=== PATIENT | female | born 1980 ===

== ENCOUNTER 2016-12-26 15:37 | Emergency (ER) | payer OTHER ==
[2016-12-26 16:28] VITALS: BMI 34.5
[2016-12-26 16:30] VITALS: TEMP 98.1
--- NOTE | 2016-12-26 17:07 | ED PDOC ---
Arrival/HPI - General Chief Complaint: Lower Extremity Problem/Injury Time Seen by Provider: 12/26/16 15:46 Historian: Patient - History of Present Illness Narrative History of Present Illness (Text): 12/26/16 17:07 36-year-old female presents today with right leg pain 1 week. Patient denies any recent trauma or injury. Patient states she has been taking Tylenol for pain. Patient states the pain is located in the lateral aspect of the right side. She denies numbness weakness or tingling in the extremity. Denies abdominal pain. pt denies back pain. no urinary symptoms. pt states the pain is only to the lateral thigh. denies rash. no other complaints. Past Medical History - Provider Review Nursing Documentation Reviewed: Yes - Travel History Have you recently traveled outside [place] w/in the past 3 mons?: No - Infectious Disease Hx of Infectious Diseases: None - Tetanus Immunization Tetanus Immunization: Unknown - Cardiac Hx Cardiac Disorders: Yes Hx Hypertension: Yes - Pulmonary Hx Tuberculosis: No - Neurological HX Cerebrovascular Accident: No Hx Seizures: Yes - HEENT Hx HEENT Disorder: No - Renal Hx Renal Disorder: No - Endocrine/Metabolic Hx Endocrine Disorders: No - Hematological/Oncological Hx Cancer: No - Integumentary Hx Dermatological Disorder: No - Musculoskeletal/Rheumatological Hx Falls: Yes - Gastrointestinal Hx Gastrointestinal Disorders: No - Genitourinary/Gynecological Hx Sexually Transmitted Diseases: No - Psychiatric Hx Anxiety: Yes Hx Depression: Yes Hx Schizophrenia: Yes Hx Substance Use: No - Surgical History Hx Tubal Ligation: Yes - Anesthesia Hx Anesthesia: Yes Hx Anesthesia Reactions: No Hx Malignant Hyperthermia: No - Suicidal Assessment Feels Threatened In Home Enviroment: No Family/Social History - Physician Review Nursing Documentation Reviewed: Yes Family/Social History: Unknown Family HX Smoking Status: Never Smoked Hx Alcohol Use: No Hx Substance Use: No Hx Substance Use Treatment: No Allergies/Home Meds Allergies/Adverse Reactions: Allergies No Known Allergies Allergy (Verified 11/24/16 12:37) Denied Review of Systems - Review of Systems Constitutional: absent: Fatigue, Fevers Respiratory: absent: SOB, Cough Cardiovascular: absent: Chest Pain, Palpitations Gastrointestinal: absent: Abdominal Pain, Constipation, Diarrhea, Nausea, Vomiting Genitourinary Female: absent: Dysuria, Frequency, Hematuria Musculoskeletal: Arthralgias (right leg pain). absent: Back Pain, Neck Pain Skin: absent: Rash, Pruritis Physical Exam Vital Signs Reviewed: Yes Vital Signs Temp Pulse Resp BP Pulse Ox 12/26/16 16:41 90 18 115/68 100 12/26/16 16:28 98.1 F 91 H 17 113/71 97 Temperature: Afebrile Blood Pressure: Normal Pulse: Regular Respiratory Rate: Normal Appearance: Positive for: Well-Appearing, Non-Toxic, Comfortable Pain Distress: None Mental Status: Positive for: Alert and Oriented X 3 - Systems Exam Head: Present: Atraumatic Neck: Present: Normal Range of Motion Respiratory/Chest: Present: Clear to Auscultation, Good Air Exchange. No: Respiratory Distress, Accessory Muscle Use Cardiovascular: Present: Regular Rate and Rhythm, Normal S1, S2. No: Murmurs Abdomen: No: Tenderness, Distention, Rebound, Guarding Back: Present: Normal Inspection. No: CVA Tenderness, Midline Tenderness, Paraspinal Tenderness Upper Extremity: Present: Normal Inspection Lower Extremity: Present: Normal Inspection, NORMAL PULSES, Tenderness (+ ttp over lateral aspect of right thigh; no edema, no erythema; no ecchymosis; full rom of leg; ambulates with steady gait; sensation and distal pulses intact; no calf tenderness; full rom of hip and knee. ), Neurovascularly Intact, Capillary Refill < 2 s. No: Edema, CALF TENDERNESS, Swelling, Erythema, Deformity Skin: Present: Warm, Dry, Normal Color. No: Rashes Psychiatric: Present: Alert, Oriented x 3 Medical Decision Making ED Course and Treatment: 12/26/16 18:23 Patient nontoxic well-appearing in no distress with stable vital signs X-rays of the right hip and pelvis: No fracture Toradol IM Venous duplex of the right lower leg: No DVT verbal report from radiography technician pt reassessment; pt feeling better after medications; vitals stable. I discussed all results with patient advised to followup with the orthopedist for the next 2 days. Return if symptoms worsen persist or new symptoms develop Patient verbalizes understanding of discharge instructions and need for immediate followup. all aspects of this case were discussed the attending of record. Impression: Leg pain Motrin every 6 hours as needed for pain Rest, ice, Followup with the orthopedist within the next 2 days Followup with primary care physician within the next 2 days Return if any other concerning symptoms develop - RAD Interpretation Radiology Orders: 03/31/17 16:35 DUPLEX LOWER EXTRM VEIN RIGHT [US] Stat 12/26/16 17:32 Hip Right [HIP MIN 2V W/ PELVIS RT] [RAD] Stat - Medication Orders Current Medication Orders: Discontinued Medications Ketorolac Tromethamine (Toradol) 60 mg IM STAT STA Stop: 12/26/16 16:37 Last Admin: 12/26/16 17:20 Dose: 60 MG IM Administration Charges Document 12/26/16 17:20 HI (Rec: 12/26/16 17:20 HI [id number]) Injection Site MAR Injection Site Right Gluteus Praneeth Charges for Administration # of IM Administrations 1 Disposition/Present on Arrival - Present on Arrival Any Indicators Present on Arrival: No History of DVT/PE: No History of Uncontrolled Diabetes: No Urinary Catheter: No History of Decub. Ulcer: No History Surgical Site Infection Following: None - Disposition Have Diagnosis and Disposition been Completed?: Yes Diagnosis: Leg pain Disposition: HOME/ ROUTINE Disposition Time: 18:24 Patient Plan: Discharge Patient Problems: Current Active Problems Problem Status Diagnosed Leg pain Acute Condition: GOOD Discharge Instructions (ExitCare): Arthralgia (ED), Leg Pain (ED) Additional Instructions: Motrin every 6 hours as needed for pain Rest, ice, Followup with the orthopedist within the next 2 days Followup with primary care physician within the next 2 days Return if any other concerning symptoms develop Prescriptions: Ibuprofen [Motrin] 600 mg PO Q6H PRN #20 tab PRN Reason: pain/fever reduction Referrals: Deanne Delacruz MD [Primary Care Provider] - Follow up with primary Kevin Shelton MD [Staff Provider] - Follow up with primary Forms: WORK NOTE
[2016-12-26 18:50] VITALS: BP 114/70; PULSE 66; RESP 16; O2SAT 98
--- NOTE | 2016-12-27 13:36 | RAD ---
HISTORY: hip pain COMPARISON: No prior FINDINGS: BONES: Normal. No fracture. JOINTS: Normal. No osteoarthritis. SOFT TISSUE: Normal. OTHER FINDINGS: None . IMPRESSION: Normal Bone Xray.
--- NOTE | 2016-12-27 21:30 | US ---
PROCEDURE: Right lower extremity venous US HISTORY: Leg pain and swelling. Evaluate for DVT. PHYSICIAN(S): Frederick Stallings M.D. TECHNIQUE: Duplex sonography and color-flow Doppler with graded compression were used to evaluate the deep venous system of the right lower extremity. FINDINGS: The visualized deep venous system of the right lower extremity is sonographically normal and compressible. Normal waveforms and augmentation are seen. There is no sonographic evidence for deep venous thrombosis in the visualized segments of the right lower extremity. IMPRESSION: 1. No sonographic evidence for deep venous thrombosis in the visualized segments of the right lower extremity.
== END 2016-12-26 18:48 | disposition home or self-care (01) ==
LOC: ED 15:37
DX: M79.604 Pain in right leg (principal); I10 Essential (primary) hypertension
CPT/HCPCS: 73502; 93971; 96372; 99284; J1885

== ENCOUNTER 2017-01-11 10:28 | Emergency (ER) | payer OTHER ==
[2017-01-11 10:28] VITALS: BMI 34.5
[2017-01-11 11:09] VITALS: TEMP 97.3; O2SAT 98
[2017-01-11 11:15] VITALS: RESP 18
--- NOTE | 2017-01-11 11:24 | ED PDOC ---
Arrival/HPI - General Chief Complaint: Medical Clearance Time Seen by Provider: 01/11/17 10:57 Historian: Patient - History of Present Illness Narrative History of Present Illness (Text): 01/11/17 11:21 Patient with past medical history of seizure disorder, on valproic acid and Keppra, reports waking up this morning with urinary incontinence. Patient states that she has had 2 prior episodes of urinary incontinence in the middle of the night in the past 1 month. 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 States that she is unsure if she may have had a seizure this morning causing the urinary incontinence. States that she is compliant with her valproic acid and Keppra medication which she lost prior to arrival. Otherwise: (-) headache, (-) dizziness, (-) nausea, ( -) vomiting, (-) fever, (-) trauma, (-) abdominal pain, (-) dysuria, (-) diarrhea, (-) other complaints. PMD [facility]ist: Beena Rob in [place] Past Medical History - Provider Review Nursing Documentation Reviewed: Yes - Infectious Disease Hx of Infectious Diseases: None - Tetanus Immunization Tetanus Immunization: Unknown - Cardiac Hx Cardiac Disorders: Yes Hx Hypertension: Yes - Pulmonary Hx Tuberculosis: No - Neurological HX Cerebrovascular Accident: No Hx Seizures: Yes - HEENT Hx HEENT Disorder: No - Renal Hx Renal Disorder: No - Endocrine/Metabolic Hx Endocrine Disorders: No - Hematological/Oncological Hx Cancer: No - Integumentary Hx Dermatological Disorder: No - Musculoskeletal/Rheumatological Hx Falls: Yes - Gastrointestinal Hx Gastrointestinal Disorders: No - Genitourinary/Gynecological Hx Sexually Transmitted Diseases: No - Psychiatric Hx Anxiety: Yes Hx Bipolar Disorder: Yes Hx Depression: Yes Hx Schizophrenia: Yes Hx Substance Use: No - Surgical History Hx Tubal Ligation: Yes - Anesthesia Hx Anesthesia: Yes Hx Anesthesia Reactions: No Hx Malignant Hyperthermia: No - Suicidal Assessment Feels Threatened In Home Enviroment: No Family/Social History - Physician Review Nursing Documentation Reviewed: Yes Family/Social History: No Known Family HX Smoking Status: Never Smoked Hx Alcohol Use: No Hx Substance Use: No Hx Substance Use Treatment: No Allergies/Home Meds Allergies/Adverse Reactions: Allergies No Known Allergies Allergy (Verified 01/11/17 10:40) Denied Home Medications: Home Meds Medication Instructions Recorded Confirmed Risperidone [Risperdal] 3 mg PO HS 01/11/17 01/11/17 risperiDONE [RisperDAL Tab] 2 mg PO DAILY 01/11/17 01/11/17 Review of Systems - Review of Systems Constitutional: Normal. absent: Fatigue, Weight Change, Fevers Respiratory: Normal. absent: SOB, Cough Cardiovascular: Normal. absent: Chest Pain, Palpitations Gastrointestinal: Normal. absent: Abdominal Pain, Stool Changes, Appetite Changes Genitourinary Female: Normal, Urine Output Changes. absent: Dysuria, Frequency , Hematuria Musculoskeletal: Normal. absent: Arthralgias, Back Pain, Neck Pain Skin: Normal. absent: Rash, Pruritis, Skin Lesions Neurological: Normal. absent: Headache, Dizziness, Focal Weakness Physical Exam - Physical Exam Narrative Physical Exam (Text): 01/11/17 11:25 GENERAL APPEARANCE: Patient is awake, alert, oriented x 3, in no acute distress. Patient is answering questions appropriately. SKIN: Warm, dry; (-) cyanosis; (-) rash. HEAD: (-) scalp swelling or tenderness, (-) temporal artery tenderness. EYES: (-) conjunctival pallor, (-) scleral icterus. ENMT: (-) sinus tenderness; mucous membranes moist. NECK: (-) tenderness, (-) stiffness, (-) meningismus, (-) lymphadenopathy. CHEST AND RESPIRATORY: (-) rales, (-) rhonchi, (-) wheezes; breath sounds equal bilaterally. HEART AND CARDIOVASCULAR: (-) irregularity; (-) murmur, (-) gallop. ABDOMEN AND GI: Soft; (-) tenderness. EXTREMITIES: (-) deformity. NEURO AND PSYCH: Mental status as above. steam turbine assembler: Pupils equal and reactive; EOMI ; (-) facial asymmetry; tongue and uvula midline. Strength and DTRs symmetric. Babinski normal bilaterally. Vital Signs Temp Pulse Resp BP Pulse Ox 01/11/17 13:00 73 18 114/78 98 01/11/17 11:12 97.3 F L 78 18 112/75 98 01/11/17 10:30 97.3 F L 78 20 112/75 98 Medical Decision Making ED Course and Treatment: 01/11/17 11:25 36 yo F with history of seizure disorder, presents with an episode of urinary incontinence earlier this morning, unsure if she had a seizure episode, however is compliant with her seizure medication. Plan: -- Labs -- Valproic acid level -- Urinalysis -- Reassess and disposition 01/11/17 13:01 Labs reviewed and are within normal limits. On exam, patient remains awake, alert and oriented 3 in no acute distress. Lab results discussed with the patient in great detail. Case d/w Dr. Duncan, states that the patient can be discharged with outpatient follow up, states that she has been worked up for the following symptoms of urinary incontinence, which Dr. Duncan states is likely unrelated to her seizures and maybe due to her medication regime causing increased relaxation of her urethral / bladder muscles causing urine leakage at night, she has advised the patient to avoid caffeinated drinks especially at night to avoid any urinary incontinence. 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 Patient states she fully agrees with and understands discharge instructions. States that she agrees with the plan and disposition. Verbalized and repeated discharge instructions and plan. I have given the patient opportunity to ask any additional questions. Follow up with primary care physician and bank manager in 1-2 days without fail. Return to the emergency room at any time for any new or worsening symptoms. - Lab Interpretations Lab Results: 01/11/17 11:37 01/11/17 11:37 Lab Results 01/11/17 11:37: WBC 5.1 D, RBC 4.05, Hgb 12.1, Hct 36.1, MCV 89.1, MCH 29.9, MCHC 33.5, RDW 13.8, Plt Count 272, MPV 9.6, Gran % 57.0, Lymph % (Auto) 32.1, Blount % (Auto) 9.7 H, Eos % (Auto) 0.8 L, Baso % (Auto) 0.4, Gran # 2.89, Lymph # 1.6, Blount # 0.5, Eos # 0.0, Baso # 0.02, Sodium 138, Potassium 3.9, Chloride 100, Carbon Dioxide 27, Anion Gap 15, BUN 10, Creatinine 0.7, Est GFR ( Amer) > 60, Est GFR (Non-Af Amer) > 60, Random Glucose 102, Calcium 9.4, Total Bilirubin 0.3, AST 24, ALT 31, Alkaline Phosphatase 64, Total Protein 8.1, Albumin 4.0, Globulin 4.1, Albumin/Globulin Ratio 1.0 L, Valproic Acid 62 01/11/17 11:23: Urine Color Yellow, Urine Appearance Clear, Urine pH 6.0, Ur Specific [place] 1.025, Urine Protein Negative, Urine Glucose (UA) Negative, Urine Ketones Trace H, Urine Blood Negative, Urine Nitrate Negative, Urine Bilirubin Negative, Urine Urobilinogen 0.2, Ur Leukocyte Esterase Negative - PA / FOOD SERVICES COORDINATOR / Resident Statement MD/DO has reviewed & agrees with the documentation as recorded. Disposition/Present on Arrival - Present on Arrival Any Indicators Present on Arrival: No History of DVT/PE: No History of Uncontrolled Diabetes: No Urinary Catheter: No History of Decub. Ulcer: No History Surgical Site Infection Following: None - Disposition Have Diagnosis and Disposition been Completed?: Yes Diagnosis: Urinary incontinence in female Disposition: HOME/ ROUTINE Disposition Time: 13:11 Patient Plan: Discharge Condition: GOOD Discharge Instructions (ExitCare): Urinary Incontinence (ED) Print Language: CAMEROONIAN Additional Instructions: Thank you for letting us take care of you today. You were treated for urinary incontinence. The emergency medical care you received today was directed at your acute symptoms. If you were prescribed any medication, please fill it and take as directed. It may take several days for your symptoms to resolve. Return to the Emergency Department if your symptoms worsen, do not improve, or if you have any other problems. Please contact your doctor and SUPERVISOR BLOOD DONOR RECRUITERS in 2 days for re-evaluation and follow up. Bring any paperwork you were given at discharge with you along with any medications you are taking to your follow up visit. Our treatment cannot replace ongoing medical care by a primary care provider (PCP) outside of the emergency department. Thank you for allowing the [facility] team to be part of your care today.
[2017-01-11 11:37] LABS: ADD MANUAL DIFF? NO
[2017-01-11 11:50] LABS: URINE BILIRUBIN NEGATIVE (NEGATIVE); URINE BLOOD NEGATIVE (NEGATIVE); URINE GLUCOSE (UA) NEGATIVE (NEGATIVE); URINE KETONE TRACE mg/dL (NEGATIVE); URINE LEUKOCYTE ESTERASE NEGATIVE Leu/uL (NEGATIVE); URINE PROTEIN NEGATIVE mg/dL (<30 mg/dL); URINE UROBILINOGEN 0.2 E.U./dL (<1 E.U./dL)
[2017-01-11 11:50] LABS: BASO # 0.02 K/mm3 (0.0-2.0); BASO % 0.4 % (0.0-3.0); EOS % 0.8 % (1.5-5.0); GRAN # 2.89 (1.4-6.5); HEMATOCRIT 36.1 % (36.0-48.0); LYMPH # 1.6 (1.2-3.4); LYMPH % 32.1 % (22.0-35.0); MEAN CELL VOLUME 89.1 fL (80.0-105.0); MEAN CORPUSCULAR HEMOGLOBIN 29.9 pg (25.0-35.0); MEAN CORPUSCULAR HGB CONC 33.5 g/dl (31.0-37.0); MEAN PLATELET VOLUME 9.6 fl (7.0-11.0); MONO # 0.5 (0.1-0.6); MONO % 9.7 % (1.0-6.0); PLATELET COUNT 272 10^3/uL (120.0-450.0); RED CELL DISTRIBUTION WIDTH 13.8 % (11.5-14.5); WHITE BLOOD COUNT 5.1 10^3/ul (4.5-11.0)
[2017-01-11 11:53] LABS: URINE APPEARANCE CLEAR (CLEAR); URINE COLOR YELLOW (YELLOW)
[2017-01-11 11:54] LABS: ALKALINE PHOSPHATASE 64 U/L (38-133); ALT/SGPT 31 U/L (7-56); AST/SGOT 24 U/L (15-39); BILIRUBIN,TOTAL 0.3 mg/dL (0.2-1.3); BLOOD UREA NITROGEN 10 mg/dL (7-21); CALCIUM 9.4 mg/dL (8.4-10.5); CARBON DIOXIDE 27 mmol/L (21-33); CHLORIDE 100 mmol/L (95-110); GFR AFRICAN-AMERICAN > 60; GLUCOSE,RANDOM 102 mg/dL (70-110); POTASSIUM 3.9 mmol/L (3.6-5.0); SODIUM 138 mmol/L (132-148); TOTAL PROTEIN 8.1 g/dL (5.8-8.3)
[2017-01-11 13:01] VITALS: BP 114/78; PULSE 73
== END 2017-01-11 13:30 | disposition home or self-care (01) ==
LOC: ED 10:28
DX: R32 Unspecified urinary incontinence (principal); I10 Essential (primary) hypertension

== ENCOUNTER 2017-01-11 20:24 | Emergency (ER) | payer OTHER ==
[2017-01-11 20:30] VITALS: BMI 28.3
[2017-01-11 20:45] VITALS: BP 118/80; PULSE 110; O2SAT 98
[2017-01-11 20:47] VITALS: TEMP 98.2
--- NOTE | 2017-01-11 20:51 | ED PDOC ---
Arrival/HPI - General Time Seen by Provider: 01/11/17 20:27 Historian: Patient - History of Present Illness Narrative History of Present Illness (Text): 01/11/17 20:49 36 year old female with a past medical history that includes seizure disorder, on valproic acid and Keppra, and anxiety/depression presents to the emergency department with reported seizure like episode prior to arrival. Patient's friend states the patient was sitting at home when she "zoned out" and her eyes became watery. No shaking or tightness reported. Patient was seen in the ED earlier today after waking up with urinary incontinence. Patient states she does see a neurologist Dr. Anaya. She reports compliance with seizure and psych medications. Denies suicidal ideation or homicidal ideation. No other complaints at this time. PMD: Dr. Delacruz 01/11/17 22:29 After reevaluation, patient admits that she was just upset. That she was crying because she missing her child who she doesn't take care of anymore because of DYFS. She does request to see someone now. Time/Duration: Prior to Arrival Symptom Onset: Sudden Symptom Course: Resolved Associated Symptoms (Text): None Past Medical History - Provider Review Nursing Documentation Reviewed: Yes - Infectious Disease Hx of Infectious Diseases: None - Tetanus Immunization Tetanus Immunization: Unknown - Cardiac Hx Cardiac Disorders: Yes Hx Hypertension: Yes - Pulmonary Hx Tuberculosis: No - Neurological HX Cerebrovascular Accident: No Hx Seizures: Yes - HEENT Hx HEENT Disorder: No - Renal Hx Renal Disorder: No - Endocrine/Metabolic Hx Endocrine Disorders: No - Hematological/Oncological Hx Cancer: No - Integumentary Hx Dermatological Disorder: No - Musculoskeletal/Rheumatological Hx Falls: Yes - Gastrointestinal Hx Gastrointestinal Disorders: No - Genitourinary/Gynecological Hx Sexually Transmitted Diseases: No - Psychiatric Hx Anxiety: Yes Hx Bipolar Disorder: Yes Hx Depression: Yes Hx Schizophrenia: Yes Hx Substance Use: No - Surgical History Hx Tubal Ligation: Yes - Anesthesia Hx Anesthesia: Yes Hx Anesthesia Reactions: No Hx Malignant Hyperthermia: No - Suicidal Assessment Feels Threatened In Home Enviroment: No Family/Social History - Physician Review Nursing Documentation Reviewed: Yes Family/Social History: Unknown Family HX Smoking Status: Never Smoked Hx Alcohol Use: No Hx Substance Use: No Hx Substance Use Treatment: No Allergies/Home Meds Allergies/Adverse Reactions: Allergies No Known Allergies Allergy (Verified 01/11/17 20:30) Denied Home Medications: Home Meds Medication Instructions Recorded Confirmed Risperidone [Risperdal] 3 mg PO HS 01/11/17 01/11/17 risperiDONE [RisperDAL Tab] 2 mg PO DAILY 01/11/17 01/11/17 Review of Systems - Physician Review All systems were reviewed & negative as marked: Yes - Review of Systems Respiratory: absent: SOB Cardiovascular: absent: Chest Pain Neurological: Other (Episode of zoning out and watery eyes) Psychiatric: absent: Suicidal Ideation Physical Exam Vital Signs Reviewed: Yes Vital Signs Temp Pulse Resp BP Pulse Ox 01/11/17 20:44 98.2 F 110 H 18 118/80 98 Temperature: Afebrile Blood Pressure: Normal Pulse: Tachycardic Respiratory Rate: Normal Appearance: Positive for: Well-Appearing, Non-Toxic, Comfortable Pain Distress: None Mental Status: Positive for: Alert and Oriented X 3 - Systems Exam Head: Present: Atraumatic, Normocephalic Pupils: Present: PERRL Extroacular Muscles: Present: EOMI Conjunctiva: Present: Normal Mouth: Present: Moist Mucous Membranes Neck: Present: Normal Range of Motion Respiratory/Chest: Present: Clear to Auscultation, Good Air Exchange. No: Respiratory Distress, Accessory Muscle Use Cardiovascular: Present: Regular Rate and Rhythm, Normal S1, S2. No: Murmurs Abdomen: Present: Normal Bowel Sounds. No: Tenderness, Distention, Peritoneal Signs Back: Present: Normal Inspection Upper Extremity: Present: Normal Inspection. No: Cyanosis, Edema Lower Extremity: Present: Normal Inspection. No: Edema Neurological: Present: GCS=15, CN II-XII Intact, Speech Normal, Motor Func Grossly Intact, Normal Sensory Function, Normal Cerebellar Funct, Norm Deep Tendon Reflexes Skin: Present: Warm, Dry, Normal Color. No: Rashes Psychiatric: Present: Alert, Oriented x 3, Normal Insight, Normal Concentration Medical Decision Making ED Course and Treatment: Impression: 36 year old female with a past medical history that includes seizure disorder, on valproic acid and Keppra, and anxiety/depression presents to the emergency department with staring off and crying episode Differential Diagnosis included but are not limited to: Symptoms are most likely consistent with Psych. Less likely seizure. Patient's previous seizure involve convulsions. Plan: -- Labs, Udrug screen -- Will have Psych evaluate patient. Prior Visits: Notes and results from previous visits were reviewed. Patient last seen in ED today 01/11/17 for urinary incontinence and discharged home. Progress Notes: 01/11/17 22:33 Patient medically cleared for psych evaluation. Labs completed earlier on previous visit as well. 01/11/17 22:35 Case signed out to Dr. Barcenas for PES evaluation f/u. Urine drug screen pending. - Lab Interpretations Lab Results: Lab Results 01/11/17 21:23: Salicylates < 1 L, Acetaminophen < 10.0 L, Alcohol, Quantitative < 10 - Scribe Statement The provider has reviewed the documentation as recorded by the Guillermo Cortez Provider Scribe Attestation: All medical record entries made by the Zacibe were at my direction and personally dictated by me. I have reviewed the chart and agree that the record accurately reflects my personal performance of the history, physical exam, medical decision making, and the department course for this patient. I have also personally directed, reviewed, and agree with the discharge instructions and disposition. Disposition/Present on Arrival - Present on Arrival Any Indicators Present on Arrival: No History of DVT/PE: No History of Uncontrolled Diabetes: No Urinary Catheter: No History Surgical Site Infection Following: None - Disposition Have Diagnosis and Disposition been Completed?: No Diagnosis: Psychiatric care Disposition Time: 22:35 Condition: GOOD Referrals: Deanne Delacruz MD [Primary Care Provider] - Follow up with primary
[2017-01-11 23:51] VITALS: RESP 16
== END 2017-01-11 23:51 | disposition home or self-care (01) ==
LOC: ED 20:24
DX: Z00.8 Encounter for other general examination (principal); I10 Essential (primary) hypertension

== ENCOUNTER 2017-01-12 15:29 | Emergency (ER) | payer OTHER, MEDICAID ==
[2017-01-12 15:30] VITALS: BMI 28.3
[2017-01-12 16:52] VITALS: BP 116/79; PULSE 82; RESP 16; TEMP 98.3; O2SAT 98
--- NOTE | 2017-01-12 17:35 | ED PDOC ---
Arrival/HPI - General Historian: Patient - General Chief Complaint: Seizure Time Seen by Provider: 01/12/17 16:16 - History of Present Illness Narrative History of Present Illness (Text): 01/12/17 17:31 36yo female with history of seizure, anxiety and depression present with complaint of seizure/depression. She states she had an episode at 1100 when she was tearing and calling out her son's name. States her son taken from her by [employer] 3years ago. The friend who was by the bedside side states she witnessed the episode and described it as "a meltdown". Pt is currently on Valproic acid for her seizure and notes that she takes her medication regularly as was directed. She denies any tonic/clonic event, SI/HI, any current somatic complaint in ED. (Hector Meredith) Past Medical History - Provider Review Nursing Documentation Reviewed: Yes - Infectious Disease Hx of Infectious Diseases: None - Tetanus Immunization Tetanus Immunization: Unknown - Reproductive Menopause: No - Cardiac Hx Cardiac Disorders: Yes Hx Hypertension: Yes - Pulmonary Hx Tuberculosis: No - Neurological HX Cerebrovascular Accident: No Hx Seizures: Yes - HEENT Hx HEENT Disorder: No - Renal Hx Renal Disorder: No - Endocrine/Metabolic Hx Endocrine Disorders: No - Hematological/Oncological Hx Cancer: No - Integumentary Hx Dermatological Disorder: No - Musculoskeletal/Rheumatological Hx Falls: Yes - Gastrointestinal Hx Gastrointestinal Disorders: No - Genitourinary/Gynecological Hx Sexually Transmitted Diseases: No - Psychiatric Hx Anxiety: Yes Hx Bipolar Disorder: Yes Hx Depression: Yes Hx Schizophrenia: Yes Hx Substance Use: No - Surgical History Hx Tubal Ligation: Yes - Anesthesia Hx Anesthesia: Yes Hx Anesthesia Reactions: No Hx Malignant Hyperthermia: No - Suicidal Assessment Feels Threatened In Home Enviroment: No Family/Social History - Physician Review Nursing Documentation Reviewed: Yes Family/Social History: Unknown Family HX Smoking Status: Never Smoked Hx Alcohol Use: No Hx Substance Use: No Hx Substance Use Treatment: No Allergies/Home Meds Allergies/Adverse Reactions: Allergies No Known Allergies Allergy (Verified 01/12/17 16:52) Denied Home Medications: Home Meds Medication Instructions Recorded Confirmed Risperidone [Risperdal] 3 mg PO HS 01/11/17 01/11/17 risperiDONE [RisperDAL Tab] 2 mg PO DAILY 01/11/17 01/11/17 Review of Systems - Physician Review All systems were reviewed & negative as marked: Yes - Review of Systems Constitutional: Normal Eyes: Normal ENT: Normal Respiratory: Normal Cardiovascular: Normal Gastrointestinal: Normal Genitourinary Female: Normal Musculoskeletal: Normal Skin: Normal Neurological: Seizure Endocrine: Normal Hemo/Lymphatic: Normal Psychiatric: Depression Physical Exam Vital Signs Reviewed: Yes Temperature: Afebrile Blood Pressure: Normal Pulse: Regular Respiratory Rate: Normal Appearance: Positive for: Well-Appearing, Non-Toxic, Comfortable Pain Distress: None Mental Status: Positive for: Alert and Oriented X 3 - Systems Exam Head: Present: Atraumatic, Normocephalic Pupils: Present: PERRL Extroacular Muscles: Present: EOMI Conjunctiva: Present: Normal Mouth: Present: Moist Mucous Membranes Neck: Present: Normal Range of Motion Respiratory/Chest: Present: Clear to Auscultation, Good Air Exchange. No: Respiratory Distress, Accessory Muscle Use Cardiovascular: Present: Regular Rate and Rhythm, Normal S1, S2. No: Murmurs Abdomen: Present: Normal Bowel Sounds. No: Tenderness, Distention, Peritoneal Signs Back: Present: Normal Inspection Upper Extremity: Present: Normal Inspection. No: Cyanosis, Edema Lower Extremity: Present: Normal Inspection. No: Edema Neurological: Present: GCS=15, CN II-XII Intact, Speech Normal, Motor Func Grossly Intact, Normal Sensory Function, Normal Cerebellar Funct, Norm Deep Tendon Reflexes, Gait Normal, Memory Normal, Normal 2Pt Descrimination, Other ( No focal neurological deficit) Skin: Present: Warm, Dry, Normal Color. No: Rashes Psychiatric: Present: Alert, Oriented x 3, Normal Insight, Normal Concentration Vital Signs Temp Pulse Resp BP Pulse Ox 01/12/17 16:46 98.3 F 82 16 116/79 98 Medical Decision Making ED Course and Treatment: I was available for consultation during PA evaluation. The chart was reviewed by me, and I agree with disposition. The documented history was done by the physician aircraft stress analyst. The documented physical exam was done by the physician aircraft stress analyst. The documented procedures were done by the physician aircraft stress analyst. ( Zhao Calhoun) 01/12/17 17:37 PT with history of seizure, anxiety/depression currently on Valproic acid in ED for "melt down and zoning out". She was seen here yesterday for same complaint. She was evaluated by Psych and DC to f/u with outpt mental health. Her lab from yesterday was reviewed and her Valproic level yesterday was WNL. Case was NEREIDA Paige PES screener who requested just UDS. UDS and Valproic level was ordered and pending psych evaluation. 01/12/17 19:50 Valproic acid level was 75 which was higher compare to yesterday's 65. Her level was WNL. She was not in any distress in ED. Hemodynamically stable and neurologically intact. Pt was medically cleared for psych evaluation. she was seen in ED by PES screenjillian Paige , who DC with the psychiatrist and DC patient home to F/U with the outpt mental [facility]. Patient already goes to the program there. (Viri,Hector A) - Lab Interpretations Lab Results: Lab Results 01/12/17 17:31: Valproic Acid 75 Disposition/Present on Arrival - Present on Arrival Any Indicators Present on Arrival: No History of DVT/PE: No History of Uncontrolled Diabetes: No Urinary Catheter: No History of Decub. Ulcer: No History Surgical Site Infection Following: None - Disposition Have Diagnosis and Disposition been Completed?: Yes Disposition Time: 19:45 Patient Plan: Discharge - Disposition Diagnosis: Seizure, Depression Disposition: HOME/ ROUTINE Patient Problems: Current Active Problems Problem Status Diagnosed Depression Acute Seizure Acute Condition: STABLE Discharge Instructions (ExitCare): Depression (ED) Additional Instructions: Follow up with [facility] and your Neurologist Return to ED for any new symptoms Referrals: Deanne Delacruz MD [Primary Care Provider] - Follow up with primary
== END 2017-01-12 19:49 | disposition home or self-care (01) ==
LOC: ED 15:29
DX: R56.9 Unspecified convulsions (principal); F32.9 Major depressive disorder, single episode, unspecified

== ENCOUNTER 2017-01-26 10:00 | Emergency (ER) | payer OTHER ==
[2017-01-26 10:04] VITALS: RESP 18; TEMP 98.1
--- NOTE | 2017-01-26 10:06 | ED PDOC ---
Addendum entered and electronically signed by Rachana Ventura PA-C 01/29/17 14:28 : Addendum Addendum: 01/29/17 14:26 I spoke with patient regarding urine culture report, whic demonstrate ESBL. I recommended her to take her ABX till finished. Patient feels better, and she understood plan to see Dr. Donnelly, in 1-[address] Donnelly regarding same urine culture report Original Note: Arrival/HPI - General Historian: Patient - General Time Seen by Provider: 01/26/17 10:03 - History of Present Illness Narrative History of Present Illness (Text): 01/26/17 10:05 36 y/o female, pmh including seizure, psychiatric history including anxiety/ depression/schizoaffective, nkda, biba for burning urinary sensation x 2 days and abdomen feels distended x 3 days. Pt. stated that she didn't go to the program yesterday or today because she has burning urinary sensation with urgency. Pt. has abdomen distension as well, associated with the small hard stool, no nausea or vomiting, no fever or chills, no flank pains, no numbness or tingling, no urinary or bowel incontinence or retention, no night sweat, no other medical or psychological complaints. Pt. stated that she has been peeing on her son's bed every morning which this has been happening for months which she thinks this is appropriate thing to do. Pt. has no tonic or clonic activity , no seizure, able to recall the whole event. (Salvador Mack) Past Medical History - Provider Review Nursing Documentation Reviewed: Yes - Infectious Disease Hx of Infectious Diseases: None - Tetanus Immunization Tetanus Immunization: Unknown - Cardiac Hx Cardiac Disorders: Yes Hx Hypertension: Yes - Pulmonary Hx Tuberculosis: No - Neurological HX Cerebrovascular Accident: No Hx Seizures: Yes - HEENT Hx HEENT Disorder: No - Renal Hx Renal Disorder: No - Endocrine/Metabolic Hx Endocrine Disorders: No - Hematological/Oncological Hx Cancer: No - Integumentary Hx Dermatological Disorder: No - Musculoskeletal/Rheumatological Hx Falls: Yes - Gastrointestinal Hx Gastrointestinal Disorders: No - Genitourinary/Gynecological Hx Sexually Transmitted Diseases: No - Psychiatric Hx Anxiety: Yes Hx Bipolar Disorder: Yes Hx Depression: Yes Hx Schizophrenia: Yes Hx Substance Use: No - Surgical History Hx Tubal Ligation: Yes - Anesthesia Hx Anesthesia: Yes Hx Anesthesia Reactions: No Hx Malignant Hyperthermia: No - Suicidal Assessment Feels Threatened In Home Enviroment: No Family/Social History - Physician Review Nursing Documentation Reviewed: Yes Family/Social History: Unknown Family HX Smoking Status: Never Smoked Hx Alcohol Use: No Hx Substance Use: No Hx Substance Use Treatment: No Allergies/Home Meds Allergies/Adverse Reactions: Allergies No Known Allergies Allergy (Verified 01/12/17 16:52) Denied Home Medications: Home Meds Medication Instructions Recorded Confirmed Risperidone [Risperdal] 3 mg PO HS 01/11/17 01/11/17 risperiDONE [RisperDAL Tab] 2 mg PO DAILY 01/11/17 01/11/17 Review of Systems - Review of Systems Constitutional: absent: Fatigue, Fevers Eyes: absent: Vision Changes ENT: absent: Hearing Changes Respiratory: absent: SOB, Cough, Sputum Cardiovascular: absent: Chest Pain Gastrointestinal: Constipation. absent: Abdominal Pain, Diarrhea, Nausea, Vomiting Genitourinary Female: Dysuria, Frequency. absent: Hematuria, Urine Output Changes, Vaginal Bleeding, Vaginal Discharge Neurological: absent: Headache, Dizziness, Focal Weakness, Gait Changes, Speech Changes, Facial Droop, Disequilibrium, Seizure Physical Exam Temperature: Afebrile Pulse: Regular Respiratory Rate: Normal Appearance: Positive for: Well-Appearing, Non-Toxic, Comfortable Pain Distress: Mild Mental Status: Positive for: Alert and Oriented X 3 - Systems Exam Head: Present: Atraumatic, Normocephalic Pupils: Present: PERRL Extroacular Muscles: Present: EOMI Conjunctiva: Present: Normal Mouth: Present: Moist Mucous Membranes Neck: Present: Normal Range of Motion Respiratory/Chest: Present: Clear to Auscultation, Good Air Exchange. No: Respiratory Distress, Accessory Muscle Use Cardiovascular: Present: Regular Rate and Rhythm, Normal S1, S2. No: Murmurs Abdomen: Present: Normal Bowel Sounds. No: Tenderness, Distention, Peritoneal Signs, Rebound, Guarding Back: Present: Normal Inspection Upper Extremity: Present: Normal Inspection. No: Cyanosis, Edema Lower Extremity: Present: Normal Inspection. No: Edema Neurological: Present: GCS=15, Speech Normal, Motor Func Grossly Intact, Gait Normal, Memory Normal Skin: Present: Warm, Dry, Normal Color. No: Rashes Psychiatric: Present: Alert, Oriented x 3, Normal Insight, Normal Concentration Vital Signs Temp Pulse Resp BP Pulse Ox 01/26/17 14:04 72 18 106/61 99 01/26/17 12:44 79 18 104/59 L 99 01/26/17 11:41 88 18 102/53 L 99 01/26/17 10:03 98.1 F 113 H 18 110/82 94 L Medical Decision Making - Lab Interpretations I have reviewed the lab results: Yes Interpretation: Abnormal lab values (wbc 12.2, +UTI) - RAD Interpretation Talent Acquisition Administrator: Radiologist - EKG Interpretation Interpreted by ED Physician: Yes Type: 12 lead EKG Comparison: Com.w/previous EKG ED Course and Treatment: I was available for consultation during PA evaluation. The chart was reviewed by me, and I agree with disposition. The documented history was done by the physician packing inspector. The documented physical exam was done by the physician packing inspector. The documented procedures were done by the physician packing inspector. (Zhao Calhoun) 01/26/17 10:33 -labs/ua/uds/salicy/acetam/valporic acid -CT head -Chest xray/abdominal xray -Will call PES for evaluation 01/26/17 12:55 -Labs are non-significant except +UTI -EKG show NSR @ 92 BPM, no ST elevation or depression, no T wave inversion. -Chest x-ray show no acute findings -Abdominal xray show no obstruction -CT head show no acute findings -Pt. is medically clear and stable for PES evaluation, PES notified. 01/26/17 13:58 -Pt does have UTI, IV rocephine ordered since she has IV. -Pt. feels that urinating on her son's bed is a normal habit for her each morning for the past 6-12 months which this is unusual which she no seizure. Therefore, PES evaluation is requested. 01/26/17 15:00 -Pt. has been evaluated by the psychiatric staff PES which discussed with DR. Jennifer Keenan. As per PES, Dr. Jennifer Lozano knows the patient very well and this is her baseline. As per PES, pt. is clear to be discharged home. Pt. has no seizure activities and no acute treatment indicated today other than UTI. -Pt. feels well to go home, and I will discharge her home. -Pt. has no lower back pain or back pain. -Discharge home with macrobid, pyridium, miralax, stay hydrated, follow up with your own pmd and continue to follow up with the psychiatric clinic within 2 days , return to the ER for any new or worsening signs or symptoms. (Salvador Mack) - Lab Interpretations Lab Results: 01/26/17 11:00 01/26/17 11:00 Lab Results 01/26/17 11:00: Alcohol, Quantitative < 10 01/26/17 11:00: Salicylates < 1 L, Acetaminophen < 10.0 L, Valproic Acid 75 01/26/17 11:00: Sodium 138, Potassium 4.0, Chloride 100, Carbon Dioxide 28, Anion Gap 14, BUN 12, Creatinine 0.8, Est GFR ( Amer) > 60, Est GFR (Non- Af Amer) > 60, Random Glucose 92, Calcium 9.4, Total Bilirubin 0.6, AST 25, ALT 26, Alkaline Phosphatase 56, Total Protein 8.3, Albumin 4.0, Globulin 4.3, Albumin/Globulin Ratio 0.9 L 01/26/17 11:00: WBC 12.2 H D, RBC 3.79, Hgb 11.3 L, Hct 33.6 L, MCV 88.7, MCH 29.8, MCHC 33.6, RDW 14.1, Plt Count 225, MPV 9.5, Gran % 72.7 H, Lymph % (Auto ) 13.3 L, [place] % (Auto) 13.7 H, Eos % (Auto) 0.1 L, Baso % (Auto) 0.2, Gran # 8.87 H, Lymph # 1.6, [place] # 1.7 H, Eos # 0.0, Baso # 0.02 01/26/17 10:40: Urine Opiates Screen Negative, Urine Methadone Screen Negative, Ur Barbiturates Screen Negative, Ur Phencyclidine Scrn Negative, Ur Amphetamines Screen Negative, U Benzodiazepines Scrn Negative, U Oth Cocaine Metabols Negative, U Cannabinoids Screen Negative 01/26/17 10:17: Urine Color Yellow, Urine Appearance Turbid, Urine pH 6.0, Ur Specific [place] >= 1.030, Urine Protein >=300 H, Urine Glucose (UA) Negative, Urine Ketones Negative, Urine Blood Large H, Urine Nitrate Negative, Urine Bilirubin Negative, Urine Urobilinogen 0.2, Ur Leukocyte Esterase Moderate H, Urine RBC 25 - 30, Urine WBC Tntc, Urine Bacteria Many - RAD Interpretation Radiology Orders: 01/26/17 10:21 ABDOMEN MULTIPLE VIEW (w/OBL) [RAD] Stat 01/26/17 10:34 HEAD W/O CONTRAST [CT] Stat CHEST PORTABLE [RAD] Stat 01/26/17 10:21 ABDOMEN MULTIPLE VIEW (w/OBL) [RAD] Stat 01/26/17 10:34 HEAD W/O CONTRAST [CT] Stat CHEST PORTABLE [RAD] Stat CT Head: Normal CT of the head. Chest x-ray: Abdominal xray: (Salvador Mack) - EKG Interpretation EKG Interpretation (Text): 01/26/17 12:55 NSR @ 92 BPM, no ST elevation or depression, no T wave inversion. (Salvador Mack) - Medication Orders Current Medication Orders: Discontinued Medications Ceftriaxone Sodium (Rocephin 1 Gram Ivpb) 1 gm in 100 mls @ 200 mls/hr IVPB STAT STA PRN Reason: Protocol Stop: 01/26/17 13:26 Last Admin: 01/26/17 13:13 Dose: 200 mls/hr - PA / SYSTEM SOFTWARE DEVELOPER / Resident Statement / has reviewed & agrees with the documentation as recorded. Disposition/Present on Arrival - Present on Arrival Any Indicators Present on Arrival: No History of DVT/PE: No History of Uncontrolled Diabetes: No Urinary Catheter: No History of Decub. Ulcer: No History Surgical Site Infection Following: None - Disposition Have Diagnosis and Disposition been Completed?: Yes Disposition Time: 12:52 Patient Plan: Discharge - Disposition Diagnosis: UTI (urinary tract infection), Constipation Disposition: HOME/ ROUTINE Patient Problems: Current Active Problems Problem Status Onset UTI (urinary tract infection) Acute Condition: IMPROVED Additional Instructions: Discharge home with macrobid, pyridium, miralax, stay hydrated, follow up with your own pmd and continue to follow up with the psychiatric clinic within 2 days , return to the ER for any new or worsening signs or symptoms. Prescriptions: Nitrofurantoin Macrocrystals [Macrobid] 100 mg PO BID #14 cap Phenazopyridine [Phenazopyridine HCl] 200 mg PO TID #6 tab Polyethylene Glycol 3350 [Miralax] 17 gm PO DAILY PRN #4 packet PRN Reason: other Referrals: Nubia,Deanne, MD [Primary Care Provider] - Follow up with primary [facility] [Outside] - Follow up with primary Forms: WORK NOTE
[2017-01-26 10:07] VITALS: BMI 30.9
[2017-01-26 10:34] LABS: URINE BILIRUBIN NEGATIVE (NEGATIVE); URINE BLOOD LARGE (NEGATIVE); URINE GLUCOSE (UA) NEGATIVE (NEGATIVE); URINE KETONE NEGATIVE (NEGATIVE); URINE LEUKOCYTE ESTERASE MODERATE Leu/uL (NEGATIVE); URINE PROTEIN >=300 mg/dL (<30 mg/dL); URINE UROBILINOGEN 0.2 E.U./dL (<1 E.U./dL)
[2017-01-26 10:39] LABS: URINE APPEARANCE TURBID (CLEAR); URINE COLOR YELLOW (YELLOW)
[2017-01-26 10:40] LABS: URINE BACTERIA MANY (NEG); URINE RBC 25 - 30 /hpf (0-2); URINE WBC TNTC /hpf (0-6)
[2017-01-26 11:27] LABS: ADD MANUAL DIFF? NO
[2017-01-26 11:32] LABS: BASO # 0.02 K/mm3 (0.0-2.0); BASO % 0.2 % (0.0-3.0); EOS % 0.1 % (1.5-5.0); GRAN # 8.87 (1.4-6.5); GRAN % 72.7 % (50.0-68.0); HEMATOCRIT 33.6 % (36.0-48.0); LYMPH # 1.6 (1.2-3.4); LYMPH % 13.3 % (22.0-35.0); MEAN CELL VOLUME 88.7 fL (80.0-105.0); MEAN CORPUSCULAR HEMOGLOBIN 29.8 pg (25.0-35.0); MEAN CORPUSCULAR HGB CONC 33.6 g/dl (31.0-37.0); MEAN PLATELET VOLUME 9.5 fl (7.0-11.0); MONO # 1.7 (0.1-0.6); MONO % 13.7 % (1.0-6.0); PLATELET COUNT 225 10^3/uL (120.0-450.0); RED CELL DISTRIBUTION WIDTH 14.1 % (11.5-14.5); WHITE BLOOD COUNT 12.2 10^3/ul (4.5-11.0)
[2017-01-26 11:44] LABS: ALB/GLOB RATIO 0.9 (1.1-1.8); ALKALINE PHOSPHATASE 56 U/L (38-133); ALT/SGPT 26 U/L (7-56); AST/SGOT 25 U/L (15-39); BILIRUBIN,TOTAL 0.6 mg/dL (0.2-1.3); BLOOD UREA NITROGEN 12 mg/dL (7-21); CALCIUM 9.4 mg/dL (8.4-10.5); CARBON DIOXIDE 28 mmol/L (21-33); CHLORIDE 100 mmol/L (98-107); GFR AFRICAN-AMERICAN > 60; GLUCOSE,RANDOM 92 mg/dL (70-110); SODIUM 138 mmol/L (132-148); TOTAL PROTEIN 8.3 g/dL (5.8-8.3)
[2017-01-26 12:21] LABS: VALPROIC ACID 75 ug/mL (50.0-100.0)
--- NOTE | 2017-01-26 12:39 | CT ---
PROCEDURE: CT HEAD WITHOUT CONTRAST. HISTORY: seizure? COMPARISON: 10/07/2016 TECHNIQUE: Axial computed tomography images were obtained through the head/brain without intravenous contrast. Radiation dose: Total exam DLP = 725 mGy-cm. This CT exam was performed using one or more of the following dose reduction techniques: Automated exposure control, adjustment of the mA and/or kV according to patient size, and/or use of iterative reconstruction technique. FINDINGS: HEMORRHAGE: No intracranial hemorrhage. BRAIN: No mass effect or edema. No atrophy or chronic microvascular ischemic changes. VENTRICLES: Unremarkable. No hydrocephalus. CALVARIUM: Unremarkable. PARANASAL SINUSES: Unremarkable as visualized. No significant inflammatory changes. MASTOID AIR CELLS: Unremarkable as visualized. No inflammatory changes. OTHER FINDINGS: None. IMPRESSION: Normal CT of the Head.
--- NOTE | 2017-01-26 12:50 | RAD ---
HISTORY: medical clearance COMPARISON: 11/24/2016 FINDINGS: LUNGS: No active pulmonary disease. PLEURA: No significant pleural effusion identified, no pneumothorax apparent. CARDIOVASCULAR: Normal. OSSEOUS STRUCTURES: No significant abnormalities. VISUALIZED UPPER ABDOMEN: Normal. OTHER FINDINGS: None. IMPRESSION: No active disease.
--- NOTE | 2017-01-26 12:51 | RAD ---
HISTORY: abdominal distension, constipation COMPARISON: No prior. FINDINGS: BOWEL: Normal. No obstruction. No free air. BONES: Normal. OTHER FINDINGS: None. IMPRESSION: No active disease.
[2017-01-26] MEDS ORDERED: cefTRIAXone 1 gm 1 GM/100 ML BAG IVPB STA (12:57)
[2017-01-26 15:09] VITALS: BP 110/65; PULSE 68; O2SAT 100
--- NOTE | 2017-01-26 15:31 | CARD ---
APPROVED REPORT EKG Measurement Heart [id number] <Conclusion> Normal sinus rhythm Normal ECG
== END 2017-01-26 15:59 | disposition home or self-care (01) ==
LOC: ED 10:00
DX: N39.0 Urinary tract infection, site not specified (principal); K59.00 Constipation, unspecified
CPT/HCPCS: 70450; 71010; 74022; 80053; 80164; 80320; 80324; 80329; 80345; 80346; 80349; 80353; 80358; 80361; 81001; 83992; 85025; 87086; 90791; 93005; 96374; 99285; J0696; J1885

== ENCOUNTER 2017-02-02 14:30 | Observation (INO) | payer OTHER ==
[2017-02-02 14:51] VITALS: BMI 29.0
[2017-02-02 14:55] VITALS: TEMP 97.8
[2017-02-02] MEDS ORDERED: Sodium Chloride 0.9% 1,000 ML IV STA (15:54)
--- NOTE | 2017-02-02 16:03 | ED PDOC ---
Arrival/HPI - General Historian: Patient - History of Present Illness Time/Duration: 1 week Symptom Onset: Gradual Symptom Course: Worsening Quality: Aching, Cramping Severity Level: 4 - General Chief Complaint: Female Genitourinary Time Seen by Provider: 02/02/17 15:09 - History of Present Illness Narrative History of Present Illness (Text): 02/02/17 16:05 36-year-old female presents today with left lower abdominal pain dysuria or urinary frequency 7 days despite by mouth antibiotics. Patient denies nausea vomiting or diarrhea. She is complaining of some left sided flank pain. She describes cramping sensation in the lower abdomen. Patient denies fevers or chills. No chest pain or shortness of breath. She states she has had some constipation recently. No other complaints. (Judit Laurent) Past Medical History - Provider Review Nursing Documentation Reviewed: Yes - Travel History Have you recently traveled outside [place] w/in the past 3 mons?: No - Infectious Disease Hx of Infectious Diseases: None - Tetanus Immunization Tetanus Immunization: Unknown - Cardiac Hx Cardiac Disorders: Yes Hx Hypertension: Yes - Pulmonary Hx Respiratory Disorders: No Hx Tuberculosis: No - Neurological Hx Neurological Disorder: Yes HX Cerebrovascular Accident: No Hx Seizures: Yes - HEENT Hx HEENT Disorder: No - Renal Hx Renal Disorder: No - Endocrine/Metabolic Hx Endocrine Disorders: No - Hematological/Oncological Hx Cancer: No - Integumentary Hx Dermatological Disorder: No - Musculoskeletal/Rheumatological Hx Musculoskeletal Disorders: Yes Hx Falls: Yes - Gastrointestinal Hx Gastrointestinal Disorders: No - Genitourinary/Gynecological Hx Genitourinary Disorders: No Hx Sexually Transmitted Diseases: No - Psychiatric Hx Psychophysiologic Disorder: Yes Hx Anxiety: Yes Hx Bipolar Disorder: Yes Hx Depression: Yes Hx Schizophrenia: Yes Hx Substance Use: No - Surgical History Hx Tubal Ligation: Yes - Anesthesia Hx Anesthesia: Yes Hx Anesthesia Reactions: No Hx Malignant Hyperthermia: No - Suicidal Assessment Feels Threatened In Home Enviroment: No Family/Social History - Physician Review Nursing Documentation Reviewed: Yes Family/Social History: Unknown Family HX Smoking Status: Never Smoked Hx Alcohol Use: No Hx Substance Use: No Hx Substance Use Treatment: No Allergies/Home Meds Allergies/Adverse Reactions: Allergies No Known Allergies Allergy (Verified 02/02/17 14:51) Denied Home Medications: Home Meds Medication Instructions Recorded Confirmed Risperidone [Risperdal] 3 mg PO HS 01/11/17 02/02/17 risperiDONE [RisperDAL Tab] 2 mg PO DAILY 01/11/17 02/02/17 Ranitidine HCl [Acid Data Control Assistant] 150 mg PO BID 02/02/17 02/02/17 levETIRAcetam [Keppra] 500 mg PO BID 02/02/17 02/02/17 Review of Systems - Review of Systems Constitutional: absent: Fatigue, Fevers Respiratory: absent: SOB, Cough Cardiovascular: absent: Chest Pain, Palpitations Gastrointestinal: Abdominal Pain, Constipation. absent: Diarrhea, Nausea, Vomiting, Appetite Changes Genitourinary Female: Dysuria, Frequency. absent: Hematuria, Vaginal Bleeding, Vaginal Discharge Musculoskeletal: Back Pain. absent: Arthralgias, Neck Pain Skin: absent: Rash, Pruritis Neurological: absent: Headache, Dizziness Psychiatric: absent: Anxiety, Depression, Suicidal Ideation Physical Exam Vital Signs Reviewed: Yes Temperature: Afebrile Blood Pressure: Hypotensive Pulse: Regular Respiratory Rate: Normal Appearance: Positive for: Well-Appearing, Non-Toxic, Comfortable Pain Distress: None Mental Status: Positive for: Alert and Oriented X 3 - Systems Exam Head: Present: Atraumatic Mouth: Present: Moist Mucous Membranes Neck: Present: Normal Range of Motion Respiratory/Chest: Present: Clear to Auscultation, Good Air Exchange. No: Respiratory Distress, Accessory Muscle Use Cardiovascular: Present: Regular Rate and Rhythm, Normal S1, S2, Muffled. No: Murmurs Abdomen: Present: Tenderness (+ llq tenderness. ), Normal Bowel Sounds. No: Distention, Peritoneal Signs, Rebound, Guarding Back: Present: Normal Inspection. No: Midline Tenderness, Paraspinal Tenderness Upper Extremity: Present: Normal Inspection Lower Extremity: Present: Normal Inspection Neurological: Present: GCS=15, Speech Normal Skin: Present: Warm, Dry Psychiatric: Present: Alert, Oriented x 3 Vital Signs Temp Pulse Resp BP Pulse Ox 02/02/17 17:51 79 18 101/68 96 02/02/17 16:29 86 18 99/69 L 96 02/02/17 14:52 97.8 F 93 H 16 94/66 L 95 Medical Decision Making ED Course and Treatment: I was available for consultation during PA evaluation. The chart reviewed by me , and I agree with disposition. The documented history was done by the physician appellate conferee. The documented physical exam was done by the physician appellate conferee. The documented procedures were done by the physician appellate conferee. ([email or web address]) 02/02/17 16:09 Patient is nontoxic well appearing with stable vital signs presenting with left lower quadrant abdominal pain. CBC wnl CMP wnl Lipase wnl Urinalysis +nitrates, + leukocytes CAT scan:FINDINGS: LOWER THORAX: No visible consolidation, pleural effusion, or pneumothorax. LIVER: Unremarkable. GALLBLADDER AND BILE DUCTS: Unremarkable. PANCREAS: Unremarkable. SPLEEN: Unremarkable. ADRENALS: Unremarkable. KIDNEYS AND URETERS: The kidneys enhance symmetrically. No hydronephrosis or obstructing calculus identified. VASCULATURE: No aortic aneurysm. BOWEL: The stomach is incompletely distended limiting evaluation for gastric pathology. Lack of oral contrast limits evaluation for bowel pathology. Bowel loops appear within normal limits of caliber. No secondary signs of acute appendicitis. Mild to moderate constipation. APPENDIX: The appendix appears within normal limits of caliber. No secondary signs of acute appendicitis. PERITONEUM: No significant free fluid. No definite free air. LYMPH NODES: No bulky adenopathy evident. BLADDER: Under distended urinary bladder appears otherwise unremarkable. REPRODUCTIVE: The uterus is present. Probable 16 mm left ovarian cyst. BONES: No acute osseous abnormality is detected. OTHER FINDINGS: None. IMPRESSION: Probable 16 mm left ovarian cyst. Pelvic ultrasound may be considered for further evaluation. Mild to moderate constipation. Us:FINDINGS: Uterus/cervix: Endometrial thickness measures 6.4 mm. 9 mm echogenic lesion adjacent to the endometrial cavity, could either represent polyp versus submucosal fibroid. Correlate clinically. Right ovary: Unremarkable. Vascular flow is present. Left ovary: 1.4 cm and 1.3 cm cystic structures in the left ovary. Otherwise, normal sized ovary with vascular flow. Free fluid: No evidence of free fluid in the submitted imgaes. IMPRESSION: 1. Endometrial thickness measures 6.4 mm. 2. 9 mm echogenic lesion adjacent to the endometrial cavity, could either represent polyp versus submucosal fibroid. Correlate clinically. 3. 1.4 cm and 1.3 cm cystic structures in the left ovary. TECHNIQUE: Real-time pelvic ultrasound (complete) with image documentation. COMPARISON: No relevant prior studies available. FINDINGS: Uterus/cervix: Endometrial thickness measures 6.4 mm. 9 mm echogenic lesion adjacent to the endometrial cavity, could either represent polyp versus submucosal fibroid. Correlate clinically. Right ovary: Unremarkable. Vascular flow is present. Left ovary: 1.4 cm and 1.3 cm cystic structures in the left ovary. Otherwise, normal sized ovary with vascular flow. Free fluid: No evidence of free fluid in the submitted imgaes. IMPRESSION: 1. Endometrial thickness measures 6.4 mm. 2. 9 mm echogenic lesion adjacent to the endometrial cavity, could either represent polyp versus submucosal fibroid. Correlate clinically. 3. 1.4 cm and 1.3 cm cystic structures in the left ovary Patient reassessment:pt non toxic well appearing; no distress. stable vitals. Discussed all results with patient in depth. advised continuing abx as prescribed for UTI and f/u with dr. boogie to repeat UA/culture. advised f/u with HYBRID POWERTRAIN DEVELOPMENT ENGINEER regarding ovarian cyst. Patient verbalizes understanding of discharge instructions and need for immediate followup. case discussed with dr. simon. Impression: Abdominal pain, ovarian cyst, UTI Motrin every 6 hours as needed for pain continue nitrofurantion as prescribed Follow up with primary care physician within the next 2 days Follow up with the HYBRID POWERTRAIN DEVELOPMENT ENGINEER within the next 2 days. Return immediately if symptoms worsen persist or if new symptoms develop: High fevers, increasing pain, vomiting, diarrhea or any other concerning symptoms develop 02/02/17 20:35 (Judit Laurent) - RAD Interpretation Radiology Orders: 02/02/17 15:53 ABD & PELVIS IV CONTRAST ONLY [CT] Stat - Medication Orders Current Medication Orders: Discontinued Medications Sodium Chloride (Sodium Chloride 0.9%) 1,000 mls @ 999 mls/hr IV .Q1H1M STA Stop: 02/02/17 16:54 Last Admin: 02/02/17 16:30 Dose: 999 mls/hr Iohexol (Omnipaque 350 100 Ml) Confirm Administered Dose 350 mg .ROUTE .STK-MED ONE Stop: 02/02/17 17:31 ED OBSERVATION Discharge: Yes Date of observation admission: 02/02/17 Time of observation admission: 15:55 - Observation admission statement Patient is being placed in observation because:: abdominal pain (Judit Laurent) - Goals of Observation Goals of observation are:: improvement in symptoms (Judit Laurent) - Progress Note Progress Note: 02/02/17 17:40 pt non toxic well appearing; no distress, resting comfortable 02/02/17 19:50 pt non toxic well appearing; no distress 02/02/17 20:24 pt non toxic well appearing; no distress. denies pain currently (Judit Laurent) Disposition/Present on Arrival - Present on Arrival Any Indicators Present on Arrival: No History of DVT/PE: No History of Uncontrolled Diabetes: No Urinary Catheter: No History of Decub. Ulcer: No History Surgical Site Infection Following: None - Disposition Have Diagnosis and Disposition been Completed?: Yes Disposition Time: 20:23 Patient Plan: Discharge - Disposition Diagnosis: Abdominal pain, Urinary tract infection, Ovarian cyst Disposition: HOME/ ROUTINE Patient Problems: Current Active Problems Problem Status Onset Abdominal pain Acute Ovarian cyst Acute Urinary tract infection Acute Condition: GOOD
[2017-02-02 16:30] VITALS: RESP 18; O2SAT 96
[2017-02-02 16:34] LABS: ADD MANUAL DIFF? NO
[2017-02-02 16:52] LABS: BASO # 0.03 K/mm3 (0.0-2.0); BASO % 0.4 % (0.0-3.0); EOS # 0.1 (0.0-0.7); EOS % 1.1 % (1.5-5.0); GRAN # 4.94 (1.4-6.5); GRAN % 62.3 % (50.0-68.0); HEMATOCRIT 33.9 % (36.0-48.0); LYMPH # 2.2 (1.2-3.4); LYMPH % 27.5 % (22.0-35.0); MEAN CELL VOLUME 90.2 fL (80.0-105.0); MEAN CORPUSCULAR HEMOGLOBIN 29.5 pg (25.0-35.0); MEAN CORPUSCULAR HGB CONC 32.7 g/dl (31.0-37.0); MEAN PLATELET VOLUME 9.6 fl (7.0-11.0); MONO # 0.7 (0.1-0.6); MONO % 8.7 % (1.0-6.0); PLATELET COUNT 322 10^3/uL (120.0-450.0); RED CELL DISTRIBUTION WIDTH 13.8 % (11.5-14.5); URINE BILIRUBIN NEGATIVE (NEGATIVE); URINE BLOOD NEGATIVE (NEGATIVE); URINE GLUCOSE (UA) 100 mg/dL (NEGATIVE); URINE KETONE NEGATIVE (NEGATIVE); URINE LEUKOCYTE ESTERASE TRACE Leu/uL (NEGATIVE); URINE PROTEIN 30 mg/dL (<30 mg/dL); WHITE BLOOD COUNT 7.9 10^3/ul (4.5-11.0)
[2017-02-02 16:54] LABS: URINE APPEARANCE CLEAR (CLEAR); URINE COLOR ORANGE (YELLOW)
[2017-02-02 17:03] LABS: URINE BACTERIA TRACE (NEG); URINE RBC NEGATIVE /hpf (0-2)
[2017-02-02 17:21] LABS: ALB/GLOB RATIO 0.9 (1.1-1.8); ALKALINE PHOSPHATASE 88 U/L (38-133); ALT/SGPT 56 U/L (7-56); AST/SGOT 37 U/L (15-39); BILIRUBIN,TOTAL 0.6 mg/dL (0.2-1.3); BLOOD UREA NITROGEN 8 mg/dL (7-21); CALCIUM 9.3 mg/dL (8.4-10.5); CARBON DIOXIDE 30 mmol/L (21-33); CHLORIDE 100 mmol/L (98-107); GFR AFRICAN-AMERICAN > 60; GLUCOSE,RANDOM 87 mg/dL (70-110); LIPASE 41 U/L (23-300); POTASSIUM 4.1 mmol/L (3.6-5.0); SODIUM 141 mmol/L (132-148)
[2017-02-02] MEDS ORDERED: Iohexol 350 MG/100 ML VIAL ONE (17:30)
--- NOTE | 2017-02-02 18:01 | CT ---
PROCEDURE: CT Abdomen and Pelvis with contrast HISTORY: abd pain COMPARISON: Chest x-ray performed 06/03/16 TECHNIQUE: Contrast dose: 100 mL Omnipaque 350 Radiation dose: Total exam DLP = 928.30 mGy-cm. This CT exam was performed using one or more of the following dose reduction techniques: Automated exposure control, adjustment of the mA and/or kV according to patient size, and/or use of iterative reconstruction technique. FINDINGS: LOWER THORAX: No visible consolidation, pleural effusion, or pneumothorax. LIVER: Unremarkable. GALLBLADDER AND BILE DUCTS: Unremarkable. PANCREAS: Unremarkable. SPLEEN: Unremarkable. ADRENALS: Unremarkable. KIDNEYS AND URETERS: The kidneys enhance symmetrically. No hydronephrosis or obstructing calculus identified. VASCULATURE: No aortic aneurysm. BOWEL: The stomach is incompletely distended limiting evaluation for gastric pathology. Lack of oral contrast limits evaluation for bowel pathology. Bowel loops appear within normal limits of caliber. No secondary signs of acute appendicitis. Mild to moderate constipation. APPENDIX: The appendix appears within normal limits of caliber. No secondary signs of acute appendicitis. PERITONEUM: No significant free fluid. No definite free air. LYMPH NODES: No bulky adenopathy evident. BLADDER: Under distended urinary bladder appears otherwise unremarkable. REPRODUCTIVE: The uterus is present. Probable 16 mm left ovarian cyst. BONES: No acute osseous abnormality is detected. OTHER FINDINGS: None. IMPRESSION: Probable 16 mm left ovarian cyst. Pelvic ultrasound may be considered for further evaluation. Mild to moderate constipation.
[2017-02-02 21:26] VITALS: BP 105/70; PULSE 81
--- NOTE | 2017-02-03 07:37 | US ---
HISTORY: pain COMPARISON: Comparison is made to the previous study dated 06/03/2016 TECHNIQUE: Transabdominal and endovaginal ultrasound examination of the pelvis were performed FINDINGS: UTERUS: Measures 11.6 x 4.1 x 5 cm. Normal in size and appearance. No fibroid or other mass lesion seen. ENDOMETRIUM: Measures 6.4 mm in diameter. Focal slightly hyperechoic structures seen at or adjacent to the endometrium may represent polyp versus submucosal small fibroid measures 0.9 x 0.6 x 0.7 centimeter. CERVIX: No cervical abnormality identified. RIGHT OVARY: Measures 2.4 x 1.7 x 1.4 cm. No solid mass. Normal flow. LEFT OVARY: Measures 3 x 2.1 x 2.1 cm. No solid mass. Normal flow. Two prominent follicles are seen at the left ovary measures 1.4 and 1.3 centimeter. FREE FLUID: No significant free fluid noted. OTHER FINDINGS: None. IMPRESSION: Echogenic lesion seen may represents small endometrial polyp versus small submucosal fibroid measures 0.9 centimeter. Otherwise no evidence of acute pathology or suspicious lesion in the uterus and ovaries. Preliminary report was submitted by virtual Radiology.
== END 2017-02-02 20:37 | disposition home or self-care (01) ==
LOC: ED 14:30 → EROBSV 15:54
PROVIDERS: ADMIT Emergency Medicine; ATTEND Emergency Medicine
DX: N39.0 Urinary tract infection, site not specified (principal); N83.202 Unspecified ovarian cyst, left side; R10.9 Unspecified abdominal pain; I10 Essential (primary) hypertension
CPT/HCPCS: 74177; 76830; 80053; 81001; 83690; 84703; 85025; 87086; 99284; G0378; J7040; Q9967

== ENCOUNTER 2017-02-07 11:13 | Emergency (ER) | payer OTHER ==
[2017-02-07 11:14] VITALS: BMI 29.0
[2017-02-07 11:25] VITALS: TEMP 98
[2017-02-07 12:21] VITALS: RESP 18
--- NOTE | 2017-02-07 12:25 | ED PDOC ---
Arrival/HPI - General Chief Complaint: Female Genitourinary Time Seen by Provider: 02/07/17 11:58 Historian: Patient - History of Present Illness Narrative History of Present Illness (Text): 02/07/17 12:54 36 year old female presents to the emergency department with unchanged dysuria since finishing antibiotics for a UTI. Patient states she finished her course of antibiotics and did not follow up with PEDIATRICIAN. Denies fever or vomiting. No other complaints. She was seen for the same on 02/02/[address]/Sono with no acute pathology but told to f/u PEDIATRICIAN. She denies any fever or vomiting or vaginal discharge or sexual activity. Time/Duration: < week Symptom Onset: Gradual Symptom Course: Unchanged Associated Symptoms (Text): None Past Medical History - Provider Review Nursing Documentation Reviewed: Yes - Infectious Disease Hx of Infectious Diseases: None - Tetanus Immunization Tetanus Immunization: Unknown - Cardiac Hx Cardiac Disorders: Yes Hx Hypertension: Yes - Pulmonary Hx Respiratory Disorders: No Hx Tuberculosis: No - Neurological Hx Neurological Disorder: Yes HX Cerebrovascular Accident: No Hx Seizures: Yes - HEENT Hx HEENT Disorder: No - Renal Hx Renal Disorder: No - Endocrine/Metabolic Hx Endocrine Disorders: No - Hematological/Oncological Hx Cancer: No - Integumentary Hx Dermatological Disorder: No - Musculoskeletal/Rheumatological Hx Musculoskeletal Disorders: Yes Hx Falls: Yes - Gastrointestinal Hx Gastrointestinal Disorders: No - Genitourinary/Gynecological Hx Genitourinary Disorders: No Hx Sexually Transmitted Diseases: No - Psychiatric Hx Psychophysiologic Disorder: Yes Hx Anxiety: Yes Hx Bipolar Disorder: Yes Hx Depression: Yes Hx Schizophrenia: Yes Hx Substance Use: No - Surgical History Hx Tubal Ligation: Yes - Anesthesia Hx Anesthesia: Yes Hx Anesthesia Reactions: No Hx Malignant Hyperthermia: No - Suicidal Assessment Feels Threatened In Home Enviroment: No Family/Social History - Physician Review Nursing Documentation Reviewed: Yes Family/Social History: Unknown Family HX Smoking Status: Never Smoked Hx Alcohol Use: No Hx Substance Use: No Hx Substance Use Treatment: No Allergies/Home Meds Allergies/Adverse Reactions: Allergies No Known Allergies Allergy (Verified 02/02/17 14:51) Denied Home Medications: Home Meds Medication Instructions Recorded Confirmed Risperidone [Risperdal] 3 mg PO HS 01/11/17 02/07/17 risperiDONE [RisperDAL Tab] 2 mg PO DAILY 01/11/17 02/07/17 Ranitidine HCl [Acid Works Manager] 150 mg PO BID 02/02/17 02/07/17 levETIRAcetam [Keppra] 500 mg PO BID 02/02/17 02/07/17 Review of Systems - Physician Review All systems were reviewed & negative as marked: Yes - Review of Systems Constitutional: absent: Fevers Gastrointestinal: absent: Abdominal Pain, Nausea, Vomiting Genitourinary Female: Dysuria. absent: Hematuria Musculoskeletal: absent: Back Pain Physical Exam Vital Signs Reviewed: Yes Vital Signs Temp Pulse Resp BP Pulse Ox 02/07/17 13:35 91 H 18 114/78 100 02/07/17 12:21 102 H 18 116/71 99 02/07/17 11:20 98.0 F 113 H 114/75 95 Temperature: Afebrile Blood Pressure: Normal Pulse: Tachycardic Respiratory Rate: Normal Appearance: Positive for: Well-Appearing, Non-Toxic, Comfortable Pain Distress: None Mental Status: Positive for: Alert and Oriented X 3 - Systems Exam Head: Present: Atraumatic, Normocephalic Pupils: Present: PERRL Conjunctiva: Present: Normal Mouth: Present: Moist Mucous Membranes Neck: Present: Normal Range of Motion Abdomen: Present: Normal Bowel Sounds. 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 No: Vaginal Discharge, Vaginal Bleeding, Vaginal Lesions, Adenexal Tenderness, Adenexal Mass, Cervical Motion Tendernes Back: Present: Normal Inspection Upper Extremity: Present: Normal Inspection. No: Cyanosis, Edema Lower Extremity: Present: Normal Inspection. No: Edema Neurological: Present: GCS=15, CN II-XII Intact, Speech Normal Skin: Present: Warm, Dry, Normal Color. No: Rashes Psychiatric: Present: Alert, Oriented x 3, Normal Insight, Normal Concentration Medical Decision Making ED Course and Treatment: Impression: 36 year old female presents to the emergency department with unchanged dysuria since being discharged with antibiotics for UTI. Differential Diagnosis include but are not limited to: polyp vs fibroid on sono (02/02/17). Plan: -- Discharge home to f/u with PEDIATRICIAN Prior Visits: Notes and results from previous visits were reviewed. Patient last seen in ED on 05/08/17 for lower abdominal pain, dysuria, and discharged home. Progress Notes: Patient finished antibiotic course already of macrobid which is shown to be sensitive to her urine culture. Since she is still symptomatic, will prescribe bactrim trial (also sensitive on culture) but less likely to help since she already finished abx. She was already prescribed motrin for pain, which she says she is not taking. She denies any sexual activity and pelvic exam is benign, but GC/Chlamydia have been sent. Patient has been instructed to f/u her PEDIATRICIAN; she says she has a locker room clerk that she will f/u with. - Lab Interpretations Lab Results: Lab Results 02/07/17 12:15: Urine Color Yellow, Urine Appearance Clear, Urine pH 6.5, Ur Specific [place] 1.020, Urine Protein Negative, Urine Glucose (UA) Negative, Urine Ketones Negative, Urine Blood Negative, Urine Nitrate Negative, Urine Bilirubin Negative, Urine Urobilinogen 0.2, Ur Leukocyte Esterase Negative - Scribe Statement The provider has reviewed the documentation as recorded by the Guillermo Cortez Provider Scribe Attestation: All medical record entries made by the Guillermo were at my direction and personally dictated by me. I have reviewed the chart and agree that the record accurately reflects my personal performance of the history, physical exam, medical decision making, and the department course for this patient. I have also personally directed, reviewed, and agree with the discharge instructions and disposition. Disposition/Present on Arrival - Present on Arrival Any Indicators Present on Arrival: No History of DVT/PE: No History of Uncontrolled Diabetes: No Urinary Catheter: No History of Decub. Ulcer: No History Surgical Site Infection Following: None - Disposition Have Diagnosis and Disposition been Completed?: Yes Diagnosis: Dysuria Disposition: HOME/ ROUTINE Disposition Time: 13:45 Patient Plan: Discharge Condition: GOOD Additional Instructions: Take the ibuprofen, previously prescribed for you, for the pain. Take the bactrim as prescribed. Follow up with your locker room clerk for further evaluation and treatment. Return to the emergency department if any new concerning symptoms. Prescriptions: Sulfamethoxazole/Trimethoprim [Bactrim DS 800 mg-160 mg] 1 tab PO BID #6 tab Referrals: Deanne Delacruz MD [Primary Care Provider] - Follow up with primary Angelo Rob MD [Staff Provider] - Follow up with primary
[2017-02-07 13:01] LABS: PH,URINE 6.5 (4.7-8.0); URINE BILIRUBIN NEGATIVE (NEGATIVE); URINE BLOOD NEGATIVE (NEGATIVE); URINE GLUCOSE (UA) NEGATIVE (NEGATIVE); URINE KETONE NEGATIVE (NEGATIVE); URINE LEUKOCYTE ESTERASE NEGATIVE Leu/uL (NEGATIVE); URINE PROTEIN NEGATIVE mg/dL (<30 mg/dL); URINE UROBILINOGEN 0.2 E.U./dL (<1 E.U./dL)
[2017-02-07 13:10] LABS: URINE APPEARANCE CLEAR (CLEAR); URINE COLOR YELLOW (YELLOW)
[2017-02-07 13:35] VITALS: BP 114/78; PULSE 91; O2SAT 100
== END 2017-02-07 14:00 | disposition home or self-care (01) ==
LOC: ED 11:13
DX: R30.0 Dysuria (principal)

== ENCOUNTER 2017-02-16 13:10 | Inpatient (IN) | payer MEDICAID, OTHER ==
[2017-02-16 13:18] VITALS: BMI 27.4
--- NOTE | 2017-02-16 14:10 | ED PDOC ---
Arrival/HPI - General Chief Complaint: Medical Clearance Time Seen by Provider: 02/16/17 13:47 Historian: Patient - History of Present Illness Narrative History of Present Illness (Text): 02/16/17 14:07 Patient is a 36 year old female whose past medical history includes schizoaffective disorder, noncompliant with medications, reports with anxiety. She states "life is too much." Patient also reports being depressed. No plan, no homicidal ideation, no auditory of visual hallucinations. Denies somatic complaints. Time/Duration: < week Symptom Onset: Gradual Symptom Course: Unchanged Modifying Factors (Text): None Past Medical History - Provider Review Nursing Documentation Reviewed: Yes - Infectious Disease Hx of Infectious Diseases: None - Tetanus Immunization Tetanus Immunization: Unknown - Cardiac Hx Cardiac Disorders: Yes Hx Hypertension: Yes - Pulmonary Hx Respiratory Disorders: No Hx Tuberculosis: No - Neurological Hx Neurological Disorder: Yes HX Cerebrovascular Accident: No Hx Seizures: Yes - HEENT Hx HEENT Disorder: No - Renal Hx Renal Disorder: No - Endocrine/Metabolic Hx Endocrine Disorders: No - Hematological/Oncological Hx Cancer: No - Integumentary Hx Dermatological Disorder: No - Musculoskeletal/Rheumatological Hx Musculoskeletal Disorders: Yes Hx Falls: Yes - Gastrointestinal Hx Gastrointestinal Disorders: No - Genitourinary/Gynecological Hx Genitourinary Disorders: No Hx Sexually Transmitted Diseases: No - Psychiatric Hx Psychophysiologic Disorder: Yes Hx Anxiety: Yes Hx Bipolar Disorder: Yes Hx Depression: Yes Hx Schizophrenia: Yes Hx Substance Use: No - Surgical History Hx Tubal Ligation: Yes - Anesthesia Hx Anesthesia: Yes Hx Anesthesia Reactions: No Hx Malignant Hyperthermia: No - Suicidal Assessment Feels Threatened In Home Enviroment: No Family/Social History - Physician Review Nursing Documentation Reviewed: Yes Family/Social History: Unknown Family HX Smoking Status: Never Smoked Hx Alcohol Use: No Hx Substance Use: No Hx Substance Use Treatment: No Allergies/Home Meds Allergies/Adverse Reactions: Allergies No Known Allergies Allergy (Verified 02/16/17 13:18) Denied Home Medications: Home Meds Medication Instructions Recorded Confirmed Risperidone [Risperdal] 3 mg PO HS 01/11/17 02/16/17 risperiDONE [RisperDAL Tab] 2 mg PO DAILY 01/11/17 02/16/17 Ranitidine HCl [Acid Ethanol Operations Manager] 150 mg PO BID 02/02/17 02/16/17 levETIRAcetam [Keppra] 500 mg PO BID 02/02/17 02/16/17 Review of Systems - Review of Systems Eyes: absent: Vision Changes ENT: absent: Hearing Changes Respiratory: absent: SOB, Cough, Sputum Cardiovascular: absent: Chest Pain, Palpitations Gastrointestinal: absent: Abdominal Pain, Constipation, Diarrhea, Nausea, Vomiting Musculoskeletal: absent: Neck Pain Skin: absent: Rash Neurological: absent: Headache, Dizziness Endocrine: absent: Diaphoresis Psychiatric: Anxiety, Depression Physical Exam Vital Signs Reviewed: Yes Vital Signs Temp Pulse Resp BP Pulse Ox 02/16/17 15:35 68 18 112/74 98 02/16/17 14:50 71 17 110/70 98 02/16/17 13:21 98.4 F 96 H 17 115/76 97 Temperature: Afebrile Blood Pressure: Normal Pulse: Regular Respiratory Rate: Normal Appearance: Positive for: Well-Appearing, Non-Toxic, Comfortable Pain Distress: None Mental Status: Positive for: Alert and Oriented X 3 - Systems Exam Head: Present: Atraumatic, Normocephalic Pupils: Present: PERRL Extroacular Muscles: Present: EOMI Conjunctiva: Present: Normal Mouth: Present: Moist Mucous Membranes Neck: Present: Normal Range of Motion Respiratory/Chest: Present: Clear to Auscultation, Good Air Exchange. No: Respiratory Distress, Accessory Muscle Use Cardiovascular: Present: Regular Rate and Rhythm, Normal S1, S2. No: Murmurs Abdomen: Present: Normal Bowel Sounds. No: Tenderness, Distention, Peritoneal Signs Back: Present: Normal Inspection Upper Extremity: Present: Normal Inspection. No: Cyanosis, Edema Lower Extremity: Present: Normal Inspection. No: Edema Neurological: Present: GCS=15, CN II-XII Intact, Speech Normal Skin: Present: Warm, Dry, Normal Color. No: Rashes Psychiatric: Present: Alert, Oriented x 3, Normal Concentration, Other (Blunt affect). No: Homicidal Ideation Medical Decision Making ED Course and Treatment: Impression: Patient is a 36 year old female whose past medical history includes schizoaffective disorder, noncompliant with medications, reports with anxiety. Differential Diagnosis include but are not limited to: Plan: -- Psych consult -- Reassess and disposition 02/16/17 14:12 EKG shows NSR at 77bpm with normal intervals and no ST changes. Cxray negative. Labs reviewed. Patient accepted by Dr. Jennifer Lozano for voluntary admission to psych - Lab Interpretations Lab Results: 02/16/17 14:21 02/16/17 14:21 Lab Results 02/16/17 14:21: Alcohol, Quantitative < 10 02/16/17 14:21: Sodium 138, Potassium 3.8, Chloride 104, Carbon Dioxide 27, Anion Gap 11, BUN 6 L, Creatinine 0.7, Est GFR ( Amer) > 60, Est GFR (Non -Af Amer) > 60, Random Glucose 84, Calcium 8.8, Total Bilirubin 0.5, AST 20, ALT 24, Alkaline Phosphatase 49, Total Protein 7.2, Albumin 3.7, Globulin 3.5, Albumin/Globulin Ratio 1.1 02/16/17 14:21: WBC 6.0 D, RBC 3.62, Hgb 10.7 L, Hct 32.4 L, MCV 89.5, MCH 29.6 , MCHC 33.0, RDW 14.1, Plt Count 230, MPV 9.5, Gran % 67.5, Lymph % (Auto) 23.9 , [place] % (Auto) 7.8 H, Eos % (Auto) 0.5 L, Baso % (Auto) 0.3, Gran # 4.07, Lymph # 1.4, [place] # 0.5, Eos # 0.0, Baso # 0.02 02/16/17 13:50: Urine Opiates Screen Negative, Urine Methadone Screen Negative, Ur Barbiturates Screen Negative, Ur Phencyclidine Scrn Negative, Ur Amphetamines Screen Negative, U Benzodiazepines Scrn Negative, U Oth Cocaine Metabols Negative, U Cannabinoids Screen Negative 02/16/17 13:50: Urine Color Yellow, Urine Appearance Clear, Urine pH 6.0, Ur Specific [place] 1.020, Urine Protein Negative, Urine Glucose (UA) Negative, Urine Ketones Negative, Urine Blood Negative, Urine Nitrate Negative, Urine Bilirubin Negative, Urine Urobilinogen 0.2, Ur Leukocyte Esterase Negative - RAD Interpretation Radiology Orders: 02/16/17 14:05 CHEST PORTABLE [RAD] Stat - Scribe Statement The provider has reviewed the documentation as recorded by the Guillermo Cortez Provider Scribe Attestation: All medical record entries made by the Guillermo were at my direction and personally dictated by me. I have reviewed the chart and agree that the record accurately reflects my personal performance of the history, physical exam, medical decision making, and the department course for this patient. I have also personally directed, reviewed, and agree with the discharge instructions and disposition. Disposition/Present on Arrival - Present on Arrival Any Indicators Present on Arrival: No History of DVT/PE: No History of Uncontrolled Diabetes: No Urinary Catheter: No History of Decub. Ulcer: No History Surgical Site Infection Following: None - Disposition Have Diagnosis and Disposition been Completed?: Yes Diagnosis: Anxiety, Schizoaffective disorder, depressive type Disposition: HOSPITALIZED Disposition Time: 16:17 Patient Plan: Admission Condition: FAIR Referrals: Deanne Delacruz MD [Primary Care Provider] - Follow up with primary
[2017-02-16 14:12] LABS: URINE BILIRUBIN NEGATIVE (NEGATIVE); URINE BLOOD NEGATIVE (NEGATIVE); URINE GLUCOSE (UA) NEGATIVE (NEGATIVE); URINE KETONE NEGATIVE (NEGATIVE); URINE LEUKOCYTE ESTERASE NEGATIVE Leu/uL (NEGATIVE); URINE PROTEIN NEGATIVE mg/dL (<30 mg/dL); URINE UROBILINOGEN 0.2 E.U./dL (<1 E.U./dL)
[2017-02-16 14:15] LABS: URINE APPEARANCE CLEAR (CLEAR); URINE COLOR YELLOW (YELLOW)
[2017-02-16 14:29] LABS: ADD MANUAL DIFF? NO
[2017-02-16 14:36] LABS: BASO # 0.02 K/mm3 (0.0-2.0); BASO % 0.3 % (0.0-3.0); EOS % 0.5 % (1.5-5.0); GRAN # 4.07 (1.4-6.5); GRAN % 67.5 % (50.0-68.0); HEMATOCRIT 32.4 % (36.0-48.0); LYMPH # 1.4 (1.2-3.4); LYMPH % 23.9 % (22.0-35.0); MEAN CELL VOLUME 89.5 fL (80.0-105.0); MEAN CORPUSCULAR HEMOGLOBIN 29.6 pg (25.0-35.0); MEAN PLATELET VOLUME 9.5 fl (7.0-11.0); MONO # 0.5 (0.1-0.6); MONO % 7.8 % (1.0-6.0); PLATELET COUNT 230 10^3/uL (120.0-450.0); RED CELL DISTRIBUTION WIDTH 14.1 % (11.5-14.5)
[2017-02-16 14:45] LABS: ALB/GLOB RATIO 1.1 (1.1-1.8); ALKALINE PHOSPHATASE 49 U/L (38-133); ALT/SGPT 24 U/L (7-56); AST/SGOT 20 U/L (15-39); BILIRUBIN,TOTAL 0.5 mg/dL (0.2-1.3); BLOOD UREA NITROGEN 6 mg/dL (7-21); CALCIUM 8.8 mg/dL (8.4-10.5); CARBON DIOXIDE 27 mmol/L (21-33); CHLORIDE 104 mmol/L (98-107); GFR AFRICAN-AMERICAN > 60; GLUCOSE,RANDOM 84 mg/dL (70-110); POTASSIUM 3.8 mmol/L (3.6-5.0); SODIUM 138 mmol/L (132-148); TOTAL PROTEIN 7.2 g/dL (5.8-8.3)
[2017-02-16 14:50] VITALS: O2SAT 98
--- NOTE | 2017-02-16 16:28 | RAD ---
HISTORY: Anxiety COMPARISON: No prior. FINDINGS: LUNGS: No active pulmonary disease. PLEURA: No significant pleural effusion identified, no pneumothorax apparent. CARDIOVASCULAR: Normal. OSSEOUS STRUCTURES: No significant abnormalities. VISUALIZED UPPER ABDOMEN: Normal. OTHER FINDINGS: None. IMPRESSION: No active disease.
[2017-02-16] MEDS ORDERED: Alum-Mag Hydrox-Simethicone Susp (30 mL) PO PRN (19:01)
[2017-02-16] MEDS ORDERED: Magnesium Hydroxide Susp 30 ml UD PO PRN (19:01)
--- NOTE | 2017-02-16 20:17 | CARD ---
APPROVED REPORT EKG Measurement Heart [id number] <Conclusion> Normal sinus rhythm Normal ECG
[2017-02-16] MEDS ORDERED: Divalproex 500 mg ER (ONCE DAILY formulation) PO SCH (22:00)
[2017-02-17 08:23] LABS: CHOLESTEROL 131 mg/dL (130-200)
[2017-02-17 08:45] LABS: FREE T4 0.69 ng/dL (0.78-2.19)
[2017-02-17 08:59] LABS: THYROID STIMULATING HORMONE 4.37 mIU/mL (0.46-4.68)
[2017-02-17] MEDS ORDERED: Divalproex 500 mg ER (ONCE DAILY formulation) PO SCH (15:01)
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
[2017-02-17] MEDS: Divalproex 250 mg ER (ONCE DAILY formulation) PO SCH (21:36)
[2017-02-17] MEDS ORDERED: Divalproex 250 mg ER (ONCE DAILY formulation) PO SCH (22:00)
[2017-02-18] MEDS: Divalproex 250 mg ER (ONCE DAILY formulation) PO SCH ×2 (09:12→21:38)
--- NOTE | 2017-02-18 10:22 | CON ---
DATE: 02/17/2017 The patient was seen and examined on 02/17/2017. CHIEF COMPLAINT: Depression. HISTORY OF PRESENT ILLNESS: The patient is a 36-year-old female with past medical history of schizophrenia, seizures. Came to [facility] psych department for schizophrenia and depression, noncompliant with medication. Reports with anxiety. She states life is too much. The patient also reports of being depressed; No plans of homicidal or suicidal, or visual hallucinations. Denies somatic complaints. PAST MEDICAL HISTORY: Hypertension, seizures, falls, bipolar, anxiety, schizophrenia, tubal ligation. FAMILY HISTORY: Father and mother noncontributory. HABITS: Never smoked. No drugs, no ethanol. ALLERGIES: The patient is not allergic with any medications. HOME MEDICATIONS: Risperdal, ranitidine, Keppra. REVIEW OF SYSTEMS: The patient was seen and examined in her room, lying down comfortably in the bed. No nausea, vomiting, or diarrhea. No hematuria or hematochezia. No swelling of the legs. No chest pain, no palpitation, no fever , no chills. PHYSICAL EXAMINATION: VITAL SIGNS: Temperature 97.8, pulse 62, blood pressure 96/47, respiratory rate 20. HEENT: Head normocephalic and atraumatic. Eyes: PERRLA. Extraocular muscles intact. Conjunctivae are clear. Nose patent. Mucous membranes moist. NECK: Supple. No carotid bruit. No JVD or thyromegaly. CHEST: Bilaterally symmetrical. HEART: S1, S2 positive. LUNGS: Clear to auscultation. ABDOMEN: Soft. Bowel sounds present. No organomegaly. EXTREMITIES: No edema, no cyanosis. NEUROLOGIC: The patient is awake, alert, moving all 4 extremities. No focal deficit. LABORATORY DATA: wbc 6.0, hb10.7, hematocrit 32.4, platelets 230. Sodium 138, potassium 3.8, BUN 6, creatinine 0.7, ASSESSMENT AND PLAN: The patient is a 36-year-old female with anemia, RPR negative, with history of hypertension, seizures, schizophrenia, bipolar, schizoaffective disorder, learning disability. Had multiple admissions in psych department of [facility]. The patient came due to agitation. The patient has good activities of daily living. The patient has cognitive limitation, concrete thought process, poverty of speech and thought as per psychiatrist. History of anemia. GI and DVT prophylaxis. Dr. Jennifer Delarosa is taking care of her psych problem. Will follow up. Deanne Delacruz MD cc: [id number] TT: 02/18/2017 09:36:36 Confirmation # [id number] Dictation # [id number] [id number]
--- NOTE | 2017-02-18 16:22 | PCM.PYCHPN ---
Psychiatric Progress Note - Psychiatric Progress Note Patient seen today, length of contact: 30 minutes Patient Chief Complaint: "i feel good, I don't know how I would like to feel, I want my mood to be not bad, I want to be good" vocabulary is very poor. Problems Identified/Issues Discussed: Suicide/ homicide prevention, past psychiatric h/o, current psychiatric symptoms , medical problems, risk/benefits and alternatives of medications, medications compliance, coping strategies, substance abuse h/o, relapse prevention, importance of follow up with psychiatrist and therapist, discharge plan. Medical Problems: pseudoseizures, obesity asthma Diagnostic Results: 02/16/17 14:21 02/16/17 14:21 Lab Results 02/17/17 07:00: Valproic Acid 46 L 02/17/17 07:00: Triglycerides 93, Cholesterol 131, LDL Cholesterol Direct 79, HDL Cholesterol 33 02/17/17 07:00: Free T4 0.69 L, TSH 3rd Generation 4.37 02/17/17 07:00: RPR Nonreactive 02/16/17 14:21: Alcohol, Quantitative < 10 02/16/17 14:21: Sodium 138, Potassium 3.8, Chloride 104, Carbon Dioxide 27, Anion Gap 11, BUN 6 L, Creatinine 0.7, Est GFR ( Amer) > 60, Est GFR (Non -Af Amer) > 60, Random Glucose 84, Calcium 8.8, Total Bilirubin 0.5, AST 20, ALT 24, Alkaline Phosphatase 49, Total Protein 7.2, Albumin 3.7, Globulin 3.5, Albumin/Globulin Ratio 1.1 02/16/17 14:21: WBC 6.0 D, RBC 3.62, Hgb 10.7 L, Hct 32.4 L, MCV 89.5, MCH 29.6 , MCHC 33.0, RDW 14.1, Plt Count 230, MPV 9.5, Gran % 67.5, Lymph % (Auto) 23.9 , [place] % (Auto) 7.8 H, Eos % (Auto) 0.5 L, Baso % (Auto) 0.3, Gran # 4.07, Lymph # 1.4, [place] # 0.5, Eos # 0.0, Baso # 0.02 02/16/17 13:50: Urine Opiates Screen Negative, Urine Methadone Screen Negative, Ur Barbiturates Screen Negative, Ur Phencyclidine Scrn Negative, Ur Amphetamines Screen Negative, U Benzodiazepines Scrn Negative, U Oth Cocaine Metabols Negative, U Cannabinoids Screen Negative 02/16/17 13:50: Urine Color Yellow, Urine Appearance Clear, Urine pH 6.0, Ur Specific [place] 1.020, Urine Protein Negative, Urine Glucose (UA) Negative, Urine Ketones Negative, Urine Blood Negative, Urine Nitrate Negative, Urine Bilirubin Negative, Urine Urobilinogen 0.2, Ur Leukocyte Esterase Negative Vital Signs Temp Pulse Resp BP Pulse Ox 02/18/17 07:43 98.2 F 68 20 101/57 L 02/17/17 16:14 62 96/47 L 02/17/17 09:41 97.8 F 57 L 20 98/63 L 02/17/17 06:52 97.8 F 57 L 20 98/63 L 02/16/17 17:00 18 02/16/17 16:36 66 18 108/69 98 02/16/17 15:35 68 18 112/74 98 02/16/17 14:50 71 17 110/70 98 02/16/17 13:21 98.4 F 96 H 17 115/76 97 DSM 5 Symptoms Update: Shortly pt is 35yo Female with h/o schizophrenia vs schizoaffective disorder, has cognitive limitations, learning disabilities, h/o mulitple admissions in the past, Most recent was September 2016 in this unit, currently under care of [facility], patient brought herself inability to function, feeling of depression, passive wish to be . Pt needs further evaluation and stabilization, medications titration. Pt has h/o agitated and aggressive behavior when she is off meds, pt was not able to contract for safety in the emergency room. Pt was seen at the treatment team, marginal personal hygiene, good ADLs. Pt has cognitive limitations, concrete thought process, poverty of speech and thoughts. Pt is poor and unreliable historian cognitive limitations, poverty of speech and thoughts. as per collaterals, pt was making inappropriate sexual remarks in the [facility] and pt was bullying male pt there that is why pt was dismissed from the program. as per staff pt antagonizing other patients in the unit, needs frequent redirections. Pt tolerated meds well, no side effects observed or reported, AIMS 0, no EPS. Impression: DSM 5 Diagnosis: Schizophrenia vs schizoaffective disorder Panic disorder ROMINA (generalized anxiety disorder) Neurocogntitive disorder, learning disability seizure disorder, h/o chest pain, h/o headaches h/o transaminitis most likely due to seroquel Medication Change: Yes (resumed yesterday) Medical Record Reviewed: Yes Consults ordered or reviewed: medical insult appreciated see Dr. Delacruz 4 more detailed information, discussed with Dr. Delacruz Mental Status Examination - Cognitive Function Orientation: Person, Place Attention: Poor Concentration: Poor Association: Loose Fund of Knowledge: Poor - Mood Mood: Depressed, Anxious - Affect Affect: Flat - Formal Thought Process Formal Thought Process: No Impairment (denied) - Suicidal Ideation Suicidal Ideation: No - Homicidal Ideation Homicidal Ideation: No Goal/Treatment Plan - Goal/Treatment Plan Need for Continued Stay: Remain at risks for inpatient hospitalization, Severe depression anxiety, Discharge may exacerbated symptoms, Severe functional impairment Progress Toward Problem(s) and Goals/Treatment Plan: milieu, structure, supportive therapy Benztropine 1 mg twice a day for EPS Depakote 500 mg PO AMHS will be continued Paroxetine HCl [Paxil] 40 mg PO HS will be continued Risperidone 1 mg at the morning time and 2 mg PO at the nighttime will be c levETIRAcetam [Keppra] 500 mg PO BID will be continued Depakote level Medical consultation we'll consider neurology consultation tube worker evaluation multivitamins We'll monitor closely Estimated Date of D/C: 02/23/17 (we'll monitor closely)
[2017-02-19] MEDS: Divalproex 250 mg ER (ONCE DAILY formulation) PO SCH ×2 (10:08→22:18)
--- NOTE | 2017-02-19 10:11 | PN ---
DATE: 02/18/2017 The patient is a 36-year-old female. The patient was seen and examined on 2016, looks comfortable. No nausea, vomiting, diarrhea. No hematuria, no hematochezia. No swelling of the legs. No chest pain, no palpitation, no headache, no dizziness. PHYSICAL EXAMINATION: VITAL SIGNS: Temperature 98.2, pulse 80 , blood pressure 101/57, respiratory rate 20. HEENT: Head normocephalic, atraumatic. Eyes, PERRLA. Extraocular movements intact. Conjunctivae clear. Nose patent. Mucous membranes moist. NECK: Supple. No carotid bruit, no JVD, no thyromegaly. CHEST: Bilaterally symmetrical. HEART: S1, S2 positive. LUNGS: Clear to auscultation. ABDOMEN: Soft. Bowel sounds positive. No organomegaly. EXTREMITIES: No edema, no cyanosis. NEUROLOGIC: The patient is awake, alert, moving all 4 extremities, no focal deficit. MEDICATIONS: Cogentin, Depakote, Keppra, Maalox, milk of magnesia, Paxil, Risperdal, Tylenol. LABORATORIES: White blood cells 6.0, hemoglobin 10.7, hematocrit 32.4, platelets 230. TSH 4.34. Triglyceride 93, cholesterol 131. ASSESSMENT AND PLAN: The patient is a 36-year-old lady with anemia, stable, history of hypertension, stable, RPR negative, history of pseudoseizures, has depression, anxiety. Came to see Dr. Jennifer Delarosa for her schizophrenia, getting treatment. Medically, patient is stable. Length of time discussion done with Dr. Jennifer Delarosa and will sign off from the case and if you need me, call me as p.r.n. whenever you need. Otherwise, patient is stable. Gastrointestinal and deep venous thrombosis prophylaxis. We will follow up. Deanne Delacruz MD cc: [id number] TT: 02/19/2017 10:09:50 Confirmation # [id number] Dictation # [id number] en MTDD
--- NOTE | 2017-02-19 15:04 | PCM.PYCHPN ---
Psychiatric Progress Note - Psychiatric Progress Note Patient seen today, length of contact: 30 minutes Patient Chief Complaint: "i do not feel good today I miss my son" Problems Identified/Issues Discussed: Suicide/ homicide prevention, past psychiatric h/o, current psychiatric symptoms , medical problems, risk/benefits and alternatives of medications, medications compliance, coping strategies, substance abuse h/o, relapse prevention, importance of follow up with psychiatrist and therapist, discharge plan. Medical Problems: pseudoseizures, obesity asthma Diagnostic Results: 02/16/17 14:21 02/16/17 14:21 Lab Results 02/17/17 07:00: Valproic Acid 46 L 02/17/17 07:00: Triglycerides 93, Cholesterol 131, LDL Cholesterol Direct 79, HDL Cholesterol 33 02/17/17 07:00: Free T4 0.69 L, TSH 3rd Generation 4.37 02/17/17 07:00: RPR Nonreactive 02/16/17 14:21: Alcohol, Quantitative < 10 02/16/17 14:21: Sodium 138, Potassium 3.8, Chloride 104, Carbon Dioxide 27, Anion Gap 11, BUN 6 L, Creatinine 0.7, Est GFR ( Amer) > 60, Est GFR (Non -Af Amer) > 60, Random Glucose 84, Calcium 8.8, Total Bilirubin 0.5, AST 20, ALT 24, Alkaline Phosphatase 49, Total Protein 7.2, Albumin 3.7, Globulin 3.5, Albumin/Globulin Ratio 1.1 02/16/17 14:21: WBC 6.0 D, RBC 3.62, Hgb 10.7 L, Hct 32.4 L, MCV 89.5, MCH 29.6 , MCHC 33.0, RDW 14.1, Plt Count 230, MPV 9.5, Gran % 67.5, Lymph % (Auto) 23.9 , [place] % (Auto) 7.8 H, Eos % (Auto) 0.5 L, Baso % (Auto) 0.3, Gran # 4.07, Lymph # 1.4, [place] # 0.5, Eos # 0.0, Baso # 0.02 02/16/17 13:50: Urine Opiates Screen Negative, Urine Methadone Screen Negative, Ur Barbiturates Screen Negative, Ur Phencyclidine Scrn Negative, Ur Amphetamines Screen Negative, U Benzodiazepines Scrn Negative, U Oth Cocaine Metabols Negative, U Cannabinoids Screen Negative 02/16/17 13:50: Urine Color Yellow, Urine Appearance Clear, Urine pH 6.0, Ur Specific [place] 1.020, Urine Protein Negative, Urine Glucose (UA) Negative, Urine Ketones Negative, Urine Blood Negative, Urine Nitrate Negative, Urine Bilirubin Negative, Urine Urobilinogen 0.2, Ur Leukocyte Esterase Negative Vital Signs Temp Pulse Resp BP Pulse Ox 02/18/17 07:43 98.2 F 68 20 101/57 L 02/17/17 16:14 62 96/47 L 02/17/17 09:41 97.8 F 57 L 20 98/63 L 02/17/17 06:52 97.8 F 57 L 20 98/63 L 02/16/17 17:00 18 02/16/17 16:36 66 18 108/69 98 02/16/17 15:35 68 18 112/74 98 02/16/17 14:50 71 17 110/70 98 02/16/17 13:21 98.4 F 96 H 17 115/76 97 DSM 5 Symptoms Update: Shortly pt is 35yo Female with h/o schizophrenia vs schizoaffective disorder, has cognitive limitations, learning disabilities, h/o mulitple admissions in the past, Most recent was September 2016 in this unit, currently under care of [facility], patient brought herself inability to function, feeling of depression, passive wish to be . Pt needs further evaluation and stabilization, medications titration. Pt has h/o agitated and aggressive behavior when she is off meds, pt was not able to contract for safety in the emergency room. Pt was seen at the treatment team, marginal personal hygiene, good ADLs. Pt has cognitive limitations, concrete thought process, poverty of speech and thoughts. patient reported that she feels sleepy on her current medications, this editorial writer didn't adjust medications that much, when was asked what she compliant with the medications back at home patient reported that she does not remember most likely not. This editorial writer educated patient about the importance to take medication and regular basis patient verbalize understanding. Patient reported that she feels depressed because she missed her son today. Pt is poor and unreliable historian cognitive limitations, poverty of speech and thoughts. as per collaterals, pt was making inappropriate sexual remarks in the [facility] and pt was bullying male pt there that is why pt was dismissed from the program. as per staff pt antagonizing other patients in the unit, needs frequent redirections. Pt tolerated meds well, no side effects observed or reported, AIMS 0, no EPS. Impression: DSM 5 Diagnosis: Schizophrenia vs schizoaffective disorder Panic disorder ROMINA (generalized anxiety disorder) Neurocogntitive disorder, learning disability seizure disorder, h/o chest pain, h/o headaches h/o transaminitis most likely due to seroquel Medication Change: Yes (prior outpatient patient was not compliant with the medications) Medical Record Reviewed: Yes Consults ordered or reviewed: medical insult appreciated see Dr. Delacruz 4 more detailed information, discussed with Dr. Delacruz Mental Status Examination - Cognitive Function Orientation: Person, Place Attention: Poor Concentration: Poor Association: Loose Fund of Knowledge: Poor - Mood Mood: Depressed, Anxious - Affect Affect: Flat - Formal Thought Process Formal Thought Process: No Impairment (denied) - Suicidal Ideation Suicidal Ideation: No - Homicidal Ideation Homicidal Ideation: No Goal/Treatment Plan - Goal/Treatment Plan Need for Continued Stay: Remain at risks for inpatient hospitalization, Severe depression anxiety, Discharge may exacerbated symptoms, Severe functional impairment Progress Toward Problem(s) and Goals/Treatment Plan: milieu, structure, supportive therapy Benztropine 1 mg twice a day for EPS Depakote 500 mg PO AMHS will be continued Paroxetine HCl [Paxil] 40 mg PO HS will be continued Risperidone 1 mg at the morning time and 2 mg PO at the nighttime will be c levETIRAcetam [Keppra] 500 mg PO BID will be continued Depakote level Medical consultation we'll consider neurology consultation wire web worker evaluation multivitamins We'll monitor closely Estimated Date of D/C: 02/23/17 (we'll monitor closely)
[2017-02-20] MEDS: Divalproex 250 mg ER (ONCE DAILY formulation) PO SCH ×2 (09:08→21:35)
--- NOTE | 2017-02-20 16:14 | PCM.PYCHPN ---
Psychiatric Progress Note - Psychiatric Progress Note Patient seen today, length of contact: 30 minutes Patient Chief Complaint: "i saw blood on the wall last night, I had a nightmare..." Problems Identified/Issues Discussed: Suicide/ homicide prevention, past psychiatric h/o, current psychiatric symptoms , medical problems, risk/benefits and alternatives of medications, medications compliance, coping strategies, substance abuse h/o, relapse prevention, importance of follow up with psychiatrist and therapist, discharge plan. Medical Problems: pseudoseizures, obesity asthma Diagnostic Results: 02/16/17 14:21 02/16/17 14:21 Lab Results 02/17/17 07:00: Valproic Acid 46 L 02/17/17 07:00: Triglycerides 93, Cholesterol 131, LDL Cholesterol Direct 79, HDL Cholesterol 33 02/17/17 07:00: Free T4 0.69 L, TSH 3rd Generation 4.37 02/17/17 07:00: RPR Nonreactive 02/16/17 14:21: Alcohol, Quantitative < 10 02/16/17 14:21: Sodium 138, Potassium 3.8, Chloride 104, Carbon Dioxide 27, Anion Gap 11, BUN 6 L, Creatinine 0.7, Est GFR ( Amer) > 60, Est GFR (Non -Af Amer) > 60, Random Glucose 84, Calcium 8.8, Total Bilirubin 0.5, AST 20, ALT 24, Alkaline Phosphatase 49, Total Protein 7.2, Albumin 3.7, Globulin 3.5, Albumin/Globulin Ratio 1.1 02/16/17 14:21: WBC 6.0 D, RBC 3.62, Hgb 10.7 L, Hct 32.4 L, MCV 89.5, MCH 29.6 , MCHC 33.0, RDW 14.1, Plt Count 230, MPV 9.5, Gran % 67.5, Lymph % (Auto) 23.9 , [place] % (Auto) 7.8 H, Eos % (Auto) 0.5 L, Baso % (Auto) 0.3, Gran # 4.07, Lymph # 1.4, [place] # 0.5, Eos # 0.0, Baso # 0.02 02/16/17 13:50: Urine Opiates Screen Negative, Urine Methadone Screen Negative, Ur Barbiturates Screen Negative, Ur Phencyclidine Scrn Negative, Ur Amphetamines Screen Negative, U Benzodiazepines Scrn Negative, U Oth Cocaine Metabols Negative, U Cannabinoids Screen Negative 02/16/17 13:50: Urine Color Yellow, Urine Appearance Clear, Urine pH 6.0, Ur Specific [place] 1.020, Urine Protein Negative, Urine Glucose (UA) Negative, Urine Ketones Negative, Urine Blood Negative, Urine Nitrate Negative, Urine Bilirubin Negative, Urine Urobilinogen 0.2, Ur Leukocyte Esterase Negative Vital Signs Temp Pulse Resp BP Pulse Ox 02/18/17 07:43 98.2 F 68 20 101/57 L 02/17/17 16:14 62 96/47 L 02/17/17 09:41 97.8 F 57 L 20 98/63 L 02/17/17 06:52 97.8 F 57 L 20 98/63 L 02/16/17 17:00 18 02/16/17 16:36 66 18 108/69 98 02/16/17 15:35 68 18 112/74 98 02/16/17 14:50 71 17 110/70 98 02/16/17 13:21 98.4 F 96 H 17 115/76 97 Temp Pulse Resp BP Pulse Ox 97.9 F 86 20 104/68 98 02/20/17 07:44 02/20/17 07:44 02/20/17 07:44 02/20/17 07:44 02/16/17 16:36 DSM 5 Symptoms Update: Shortly pt is 35yo Female with h/o schizophrenia vs schizoaffective disorder, has cognitive limitations, learning disabilities, h/o mulitple admissions in the past, Most recent was September 2016 in this unit, currently under care of [facility], patient brought herself inability to function, feeling of depression, passive wish to be . Pt needs further evaluation and stabilization, medications titration. Pt has h/o agitated and aggressive behavior when she is off meds, pt was not able to contract for safety in the emergency room. Pt was seen in the hallway, marginal personal hygiene, good ADLs. Pt has cognitive limitations, concrete thought process, poverty of speech and thoughts. pt said that she "saw blood on the wall last night", pt did not tell RN about it, pt also reported "I have no god day today, I miss my son", pt was smiling inappropriately. Pt is poor and unreliable historian cognitive limitations, poverty of speech and thoughts. as per collaterals, pt was making inappropriate sexual remarks in the [facility] and pt was bullying male pt there that is why pt was dismissed from the program. as per staff pt antagonizing other patients in the unit, needs frequent redirections. Pt tolerated meds well, no side effects observed or reported, AIMS 0, no EPS. Impression: DSM 5 Diagnosis: Schizophrenia vs schizoaffective disorder Panic disorder ROMINA (generalized anxiety disorder) Neurocogntitive disorder, learning disability seizure disorder, h/o chest pain, h/o headaches h/o transaminitis most likely due to seroquel Medication Change: Yes (Risperdal increased) Medical Record Reviewed: Yes Consults ordered or reviewed: medical insult appreciated see Dr. Delacruz 4 more detailed information, discussed with Dr. Delacruz Mental Status Examination - Cognitive Function Orientation: Person, Place Attention: Poor Concentration: Poor Association: Loose Fund of Knowledge: Poor - Mood Mood: Depressed, Anxious - Affect Affect: Flat - Formal Thought Process Formal Thought Process: No Impairment (denied), Hallucinations ("I sew blood on the wall yesterday") - Suicidal Ideation Suicidal Ideation: No - Homicidal Ideation Homicidal Ideation: No Goal/Treatment Plan - Goal/Treatment Plan Need for Continued Stay: Remain at risks for inpatient hospitalization, Severe depression anxiety, Discharge may exacerbated symptoms, Severe functional impairment Progress Toward Problem(s) and Goals/Treatment Plan: milieu, structure, supportive therapy Benztropine 1 mg twice a day for EPS Depakote 500 mg PO AMHS will be continued Paroxetine HCl [Paxil] 40 mg PO HS will be continued Risperidone 2 mg at the morning time and 2 mg PO at the nighttime will be c levETIRAcetam [Keppra] 500 mg PO BID will be continued Depakote level February 17 We'll check Depakote level again Medical consultation we'll consider neurology consultation preparation room worker evaluation multivitamins We'll monitor closely Estimated Date of D/C: 02/23/17 (we'll monitor closely)
--- NOTE | 2017-02-21 09:01 | PCM.PYCHPN ---
Psychiatric Progress Note - Psychiatric Progress Note Patient seen today, length of contact: 25 minutes Patient Chief Complaint: "doing good" Problems Identified/Issues Discussed: I reviewed assessment and recent notes. I met with patient at bedside. Patient is fairly calm and cooperative. Denies new concerns and reports that she is "doing good". Presently denies having hallucinations however she informed nursing staff (and this provider) that she saw blood on the [place] the day prior. Her affect demonstrates moderate range with fair reactivity. Responses are relevant to questioning and she does not appear to be responding to internal stimuli. Patient denies any new discomfort or pain. Tolerating medications. Has been visible in the community, going to groups. There were no behavioral issues overnight Diagnostic Results: Schizophrenia vs schizoaffective disorder Panic disorder ROMINA (generalized anxiety disorder) Neurocogntitive disorder, learning disability Medication Change: No ( ) Medical Record Reviewed: Yes Mental Status Examination - Cognitive Function Orientation: Person, Place Attention: WNL Concentration: Poor Association: Loose Fund of Knowledge: Poor - Mood Mood: Depressed, Anxious - Affect Affect: Flat, Other (Moderate range with fair reactivity) - Formal Thought Process Formal Thought Process: No Impairment (denied), Hallucinations ("I sew blood on the wall yesterday") - Suicidal Ideation Suicidal Ideation: No - Homicidal Ideation Homicidal Ideation: No Goal/Treatment Plan - Goal/Treatment Plan Need for Continued Stay: Remain at risks for inpatient hospitalization, Severe depression anxiety, Discharge may exacerbated symptoms, Severe functional impairment Progress Toward Problem(s) and Goals/Treatment Plan: * c/w current tx and plan * c/w risperdal, cogentin and depakote. Check another vpa level * No new weekend labs, * Vitals reviewed and noted below: Selected Entries 02/20/17 02/20/17 07:44 19:57 Temperature 97.9 F Pulse Rate 86 70 Respiratory 20 20 Rate Blood Pressure 104/68 101/69 Estimated Date of D/C: 02/23/17 (we'll monitor closely)
[2017-02-21] MEDS: Divalproex 250 mg ER (ONCE DAILY formulation) PO SCH ×2 (09:19→21:28)
--- NOTE | 2017-02-22 09:09 | PCM.PYCHPN ---
Psychiatric Progress Note - Psychiatric Progress Note Patient seen today, length of contact: 25 minutes Patient Chief Complaint: "doing good" Problems Identified/Issues Discussed: I reviewed recent notes and met with patient at bedside. Patient is fairly calm and cooperative. Denies new concerns and reports that she is "doing good". Presently denies having hallucinations however reports that she saw the visual hallucinations of blood splatter on the [place] again yesterday. Patient also reported that she felt as though someone was following her and still remains paranoid in this respect. Denies belief that others are out to harm her or cause her pain. Her affect is constricted but does demonstrate some range and reactivity. Appears a little preoccupied. Responses are relevant to questioning and she does not appear to be responding to internal stimuli. Patient denies any new discomfort or pain. Tolerating medications and sleeping well. Staff notes indicate that patient has been visible in the community and going to groups. She appears comfortable on the unit. There were no behavioral issues overnight Diagnostic Results: Schizophrenia vs schizoaffective disorder Panic disorder ROMINA (generalized anxiety disorder) Neurocogntitive disorder, learning disability Medication Change: Yes (Risperdal increased to 2 mg AM and 3 mg HS on 02/22/17 for continued VH) Medical Record Reviewed: Yes (notes, reports, labs, vitals) Mental Status Examination - Cognitive Function Orientation: Person, Place Attention: WNL Concentration: Poor Association: Loose Fund of Knowledge: Poor - Mood Mood: Depressed, Anxious - Affect Affect: Flat, Other (Moderate range with fair reactivity) - Formal Thought Process Formal Thought Process: No Impairment (denied), Hallucinations ("I sew blood on the wall yesterday") - Suicidal Ideation Suicidal Ideation: No - Homicidal Ideation Homicidal Ideation: No Goal/Treatment Plan - Goal/Treatment Plan Need for Continued Stay: Remain at risks for inpatient hospitalization, Severe depression anxiety, Discharge may exacerbated symptoms, Severe functional impairment Progress Toward Problem(s) and Goals/Treatment Plan: * c/w current tx and plan * c/w risperdal, cogentin; Risperdal increased to 2 mg AM and 3 mg HS on for continued VH and paranoia * c/w depakote. VPA=67 on 02/21/17. No other new weekend labs * Vitals reviewed and noted below: Selected Entries 02/21/17 02/21/17 07:00 16:28 Temperature 97.8 F Pulse Rate 65 71 Respiratory 18 Rate Blood Pressure 107/67 114/68 Estimated Date of D/C: 02/23/17 (we'll monitor closely)
[2017-02-22] MEDS: Divalproex 250 mg ER (ONCE DAILY formulation) PO SCH ×2 (09:21→21:21)
[2017-02-23 07:37] VITALS: RESP 20
[2017-02-23] MEDS: Divalproex 250 mg ER (ONCE DAILY formulation) PO SCH ×2 (09:13→21:48)
--- NOTE | 2017-02-23 09:21 | PCM.PYCHPN ---
Psychiatric Progress Note - Psychiatric Progress Note Patient seen today, length of contact: 25 minutes Patient Chief Complaint: "doing good" Problems Identified/Issues Discussed: I reviewed recent notes and met with patient at bedside. Patient is fairly calm and cooperative. Reports she had a difficult day yesterday, felt "suicidal " because she couldn't reach her son on the phone. Presently feels a little better and denies wishes or SI. She is still reporting visual hallucinations of seeing blood splatter on the [place]. She has been experiencing them all weekend and feels that they interfere with her sleep. Patient also continues to report that she feels as though someone is following her and she still remains paranoid in this respect. Denies belief that others are out to harm her or cause her pain. Deny thoughts to harm others. Patient's affect is constricted but does demonstrate some range and reactivity. Appears a little preoccupied. Responses are relevant to questioning and she does not appear to be responding to internal stimuli. Patient denies any new discomfort or pain. Tolerating medications including increase in geodon yesterday. Staff notes indicate that patient has been visible in the community and going to groups. She appears a little tired and constricted but comfortable on the unit. There were no major behavioral issues over the holiday weekend. Diagnostic Results: Schizophrenia vs schizoaffective disorder Panic disorder ROMINA (generalized anxiety disorder) Neurocogntitive disorder, learning disability Medication Change: Yes (Risperdal increased to 2 mg AM and 3 mg HS on 02/22/17 for continued VH) Medical Record Reviewed: Yes (notes, reports, labs, vitals) Mental Status Examination - Cognitive Function Orientation: Person, Place Attention: WNL Concentration: Poor Association: Loose Fund of Knowledge: Poor - Mood Mood: Depressed, Anxious - Affect Affect: Constricted, Flat - Formal Thought Process Formal Thought Process: No Impairment (denied), Hallucinations ("I sew blood on the wall yesterday"), Paranoia ("I feel like someone is following me") - Suicidal Ideation Suicidal Ideation: No - Homicidal Ideation Homicidal Ideation: No Goal/Treatment Plan - Goal/Treatment Plan Need for Continued Stay: Remain at risks for inpatient hospitalization, Severe depression anxiety, Discharge may exacerbated symptoms, Severe functional impairment Progress Toward Problem(s) and Goals/Treatment Plan: * c/w current tx and plan * c/w risperdal, cogentin; Risperdal increased to 2 mg AM and 3 mg HS on for continued VH and paranoia * c/w depakote. VPA=67 on 02/21/17. No other new weekend labs * Vitals reviewed and noted below: Selected Entries 02/23/17 07:36 Temperature 97.8 F Pulse Rate 64 Respiratory 20 Rate Blood Pressure 96/54 L 02/21/17 07:00 Valproic Acid 67 Estimated Date of D/C: 02/23/17 (we'll monitor closely)
[2017-02-24] MEDS: Divalproex 250 mg ER (ONCE DAILY formulation) PO SCH ×2 (09:08→21:05)
--- NOTE | 2017-02-24 16:13 | PCM.PYCHPN ---
Psychiatric Progress Note - Psychiatric Progress Note Patient seen today, length of contact: 30 minutes Patient Chief Complaint: "i saw the lady with yellow hair, I was scared, I was suicidal" Problems Identified/Issues Discussed: Suicide/ homicide prevention, past psychiatric h/o, current psychiatric symptoms , medical problems, risk/benefits and alternatives of medications, medications compliance, coping strategies, substance abuse h/o, relapse prevention, importance of follow up with psychiatrist and therapist, discharge plan. Medical Problems: pseudoseizures, obesity asthma Diagnostic Results: 02/16/17 14:21 02/16/17 14:21 Lab Results 02/17/17 07:00: Valproic Acid 46 L 02/17/17 07:00: Triglycerides 93, Cholesterol 131, LDL Cholesterol Direct 79, HDL Cholesterol 33 02/17/17 07:00: Free T4 0.69 L, TSH 3rd Generation 4.37 02/17/17 07:00: RPR Nonreactive 02/16/17 14:21: Alcohol, Quantitative < 10 02/16/17 14:21: Sodium 138, Potassium 3.8, Chloride 104, Carbon Dioxide 27, Anion Gap 11, BUN 6 L, Creatinine 0.7, Est GFR ( Amer) > 60, Est GFR (Non -Af Amer) > 60, Random Glucose 84, Calcium 8.8, Total Bilirubin 0.5, AST 20, ALT 24, Alkaline Phosphatase 49, Total Protein 7.2, Albumin 3.7, Globulin 3.5, Albumin/Globulin Ratio 1.1 02/16/17 14:21: WBC 6.0 D, RBC 3.62, Hgb 10.7 L, Hct 32.4 L, MCV 89.5, MCH 29.6 , MCHC 33.0, RDW 14.1, Plt Count 230, MPV 9.5, Gran % 67.5, Lymph % (Auto) 23.9 , [place] % (Auto) 7.8 H, Eos % (Auto) 0.5 L, Baso % (Auto) 0.3, Gran # 4.07, Lymph # 1.4, [place] # 0.5, Eos # 0.0, Baso # 0.02 02/16/17 13:50: Urine Opiates Screen Negative, Urine Methadone Screen Negative, Ur Barbiturates Screen Negative, Ur Phencyclidine Scrn Negative, Ur Amphetamines Screen Negative, U Benzodiazepines Scrn Negative, U Oth Cocaine Metabols Negative, U Cannabinoids Screen Negative 02/16/17 13:50: Urine Color Yellow, Urine Appearance Clear, Urine pH 6.0, Ur Specific [place] 1.020, Urine Protein Negative, Urine Glucose (UA) Negative, Urine Ketones Negative, Urine Blood Negative, Urine Nitrate Negative, Urine Bilirubin Negative, Urine Urobilinogen 0.2, Ur Leukocyte Esterase Negative Vital Signs Temp Pulse Resp BP Pulse Ox 02/18/17 07:43 98.2 F 68 20 101/57 L 02/17/17 16:14 62 96/47 L 02/17/17 09:41 97.8 F 57 L 20 98/63 L 02/17/17 06:52 97.8 F 57 L 20 98/63 L 02/16/17 17:00 18 02/16/17 16:36 66 18 108/69 98 02/16/17 15:35 68 18 112/74 98 02/16/17 14:50 71 17 110/70 98 02/16/17 13:21 98.4 F 96 H 17 115/76 97 Temp Pulse Resp BP Pulse Ox 97.9 F 86 20 104/68 98 02/20/17 07:44 02/20/17 07:44 02/20/17 07:44 02/20/17 07:44 02/16/17 16:36 DSM 5 Symptoms Update: Shortly pt is 35yo Female with h/o schizophrenia vs schizoaffective disorder, has cognitive limitations, learning disabilities, h/o mulitple admissions in the past, Most recent was September 2016 in this unit, currently under care of [facility], patient brought herself inability to function, feeling of depression, passive wish to be . Pt needs further evaluation and stabilization, medications titration. Pt has h/o agitated and aggressive behavior when she is off meds, pt was not able to contract for safety in the emergency room. Pt was seen in the hallway, marginal personal hygiene, good ADLs. Pt has cognitive limitations, concrete thought process, poverty of speech and thoughts. pt said that she "saw a lady with the yellow hair, I was scared, I was suicidal....", reported hallucinations related to the fact she misses her son. Pt is poor and unreliable historian cognitive limitations, poverty of speech and thoughts. Pt tolerated meds well, no side effects observed or reported, AIMS 0, no EPS. Impression: DSM 5 Diagnosis: Schizophrenia vs schizoaffective disorder Panic disorder ROMINA (generalized anxiety disorder) Neurocogntitive disorder, learning disability seizure disorder, h/o chest pain, h/o headaches h/o transaminitis most likely due to seroquel Medication Change: Yes (was increased by Dr. Kimble over the weekend) Medical Record Reviewed: Yes (notes, reports, labs, vitals) Consults ordered or reviewed: medical insult appreciated see Dr. Delacruz 4 more detailed information, discussed with Dr. Delacruz Mental Status Examination - Cognitive Function Orientation: Person, Place Attention: WNL Concentration: Poor Association: Loose Fund of Knowledge: Poor - Mood Mood: Depressed - Affect Affect: Constricted, Flat - Formal Thought Process Formal Thought Process: Hallucinations ("I sew blood, the lady with yellow hair "), Paranoia ("I feel like someone is following me") - Suicidal Ideation Suicidal Ideation: No - Homicidal Ideation Homicidal Ideation: No Goal/Treatment Plan - Goal/Treatment Plan Need for Continued Stay: Remain at risks for inpatient hospitalization ( "), Severe depression anxiety, Discharge may exacerbated symptoms, Severe functional impairment Progress Toward Problem(s) and Goals/Treatment Plan: milieu, structure, supportive therapy Benztropine 1 mg twice a day for EPS Depakote 500 mg PO AMHS will be continued Paroxetine HCl [Paxil] 40 mg PO HS will be continued Risperidone 2 mg at the morning time and 3 mg PO at the nighttime will be c levETIRAcetam [Keppra] 500 mg PO BID will be continued Depakote level 46 February 17 Depakote level on February 21 was 67 Medical consultation we'll consider neurology consultation lunchroom worker 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
[2017-02-25] MEDS: Divalproex 250 mg ER (ONCE DAILY formulation) PO SCH ×3 (08:49→21:21)
--- NOTE | 2017-02-25 15:51 | PCM.PYCHPN ---
Psychiatric Progress Note - Psychiatric Progress Note Patient seen today, length of contact: 30 minutes Patient Chief Complaint: "i am trying to eat healthy..." Problems Identified/Issues Discussed: Suicide/ homicide prevention, past psychiatric h/o, current psychiatric symptoms , medical problems, risk/benefits and alternatives of medications, medications compliance, coping strategies, substance abuse h/o, relapse prevention, importance of follow up with psychiatrist and therapist, discharge plan. Medical Problems: pseudoseizures, obesity asthma Diagnostic Results: 02/16/17 14:21 02/16/17 14:21 Lab Results 02/17/17 07:00: Valproic Acid 46 L 02/17/17 07:00: Triglycerides 93, Cholesterol 131, LDL Cholesterol Direct 79, HDL Cholesterol 33 02/17/17 07:00: Free T4 0.69 L, TSH 3rd Generation 4.37 02/17/17 07:00: RPR Nonreactive 02/16/17 14:21: Alcohol, Quantitative < 10 02/16/17 14:21: Sodium 138, Potassium 3.8, Chloride 104, Carbon Dioxide 27, Anion Gap 11, BUN 6 L, Creatinine 0.7, Est GFR ( Amer) > 60, Est GFR (Non -Af Amer) > 60, Random Glucose 84, Calcium 8.8, Total Bilirubin 0.5, AST 20, ALT 24, Alkaline Phosphatase 49, Total Protein 7.2, Albumin 3.7, Globulin 3.5, Albumin/Globulin Ratio 1.1 02/16/17 14:21: WBC 6.0 D, RBC 3.62, Hgb 10.7 L, Hct 32.4 L, MCV 89.5, MCH 29.6 , MCHC 33.0, RDW 14.1, Plt Count 230, MPV 9.5, Gran % 67.5, Lymph % (Auto) 23.9 , [place] % (Auto) 7.8 H, Eos % (Auto) 0.5 L, Baso % (Auto) 0.3, Gran # 4.07, Lymph # 1.4, [place] # 0.5, Eos # 0.0, Baso # 0.02 02/16/17 13:50: Urine Opiates Screen Negative, Urine Methadone Screen Negative, Ur Barbiturates Screen Negative, Ur Phencyclidine Scrn Negative, Ur Amphetamines Screen Negative, U Benzodiazepines Scrn Negative, U Oth Cocaine Metabols Negative, U Cannabinoids Screen Negative 02/16/17 13:50: Urine Color Yellow, Urine Appearance Clear, Urine pH 6.0, Ur Specific [place] 1.020, Urine Protein Negative, Urine Glucose (UA) Negative, Urine Ketones Negative, Urine Blood Negative, Urine Nitrate Negative, Urine Bilirubin Negative, Urine Urobilinogen 0.2, Ur Leukocyte Esterase Negative Vital Signs Temp Pulse Resp BP Pulse Ox 02/18/17 07:43 98.2 F 68 20 101/57 L 02/17/17 16:14 62 96/47 L 02/17/17 09:41 97.8 F 57 L 20 98/63 L 02/17/17 06:52 97.8 F 57 L 20 98/63 L 02/16/17 17:00 18 02/16/17 16:36 66 18 108/69 98 02/16/17 15:35 68 18 112/74 98 02/16/17 14:50 71 17 110/70 98 02/16/17 13:21 98.4 F 96 H 17 115/76 97 Temp Pulse Resp BP Pulse Ox 97.9 F 86 20 104/68 98 02/20/17 07:44 02/20/17 07:44 02/20/17 07:44 02/20/17 07:44 02/16/17 16:36 DSM 5 Symptoms Update: Shortly pt is 35yo Female with h/o schizophrenia vs schizoaffective disorder, has cognitive limitations, learning disabilities, h/o mulitple admissions in the past, Most recent was September 2016 in this unit, currently under care of [facility], patient brought herself inability to function, feeling of depression, passive wish to be . Pt needs further evaluation and stabilization, medications titration. Pt has h/o agitated and aggressive behavior when she is off meds, pt was not able to contract for safety in the emergency room. Pt was seen in the hallway, marginal personal hygiene, good ADLs. Pt has cognitive limitations, concrete thought process, poverty of speech and thoughts. pt said that she is trying to eat healthy, pt was showing an apple to this senior mortgage underwriter, pt seems not willing to leave the hospital, when pt sees this senior mortgage underwriter pt is trying to be more depressed and psychotic, but as per observation pt has no signs of depression/psychosis/pt socializing with others, enjoy her stay in the hospital, no agitation no aggression. pt deems ready for d/c tomorrow. Pt is poor and unreliable historian cognitive limitations, poverty of speech and thoughts. Pt tolerated meds well, no side effects observed or reported, AIMS 0, no EPS. Impression: DSM 5 Diagnosis: Schizophrenia vs schizoaffective disorder Panic disorder ROMINA (generalized anxiety disorder) Neurocogntitive disorder, learning disability seizure disorder, h/o chest pain, h/o headaches h/o transaminitis most likely due to seroquel Medication Change: No Medical Record Reviewed: Yes (notes, reports, labs, vitals) Consults ordered or reviewed: medical insult appreciated see Dr. Delacruz 4 more detailed information, discussed with Dr. Delacruz Mental Status Examination - Cognitive Function Orientation: Person, Place Attention: WNL Concentration: Poor (some improvement) Association: Loose (some improvement) Fund of Knowledge: Poor - Mood Mood: Depressed ("I feel better") - Affect Affect: Constricted (more reactive) - Formal Thought Process Formal Thought Process: Hallucinations (denied), Paranoia (denied) - Suicidal Ideation Suicidal Ideation: No - Homicidal Ideation Homicidal Ideation: No Goal/Treatment Plan - Goal/Treatment Plan Need for Continued Stay: Remain at risks for inpatient hospitalization ( "), Severe depression anxiety, Discharge may exacerbated symptoms, Severe functional impairment Progress Toward Problem(s) and Goals/Treatment Plan: milieu, structure, supportive therapy Benztropine 1 mg twice a day for EPS Depakote 500 mg PO AMHS will be continued Paroxetine HCl [Paxil] 40 mg PO HS will be continued Risperidone 2 mg at the morning time and 3 mg PO at the nighttime will be c levETIRAcetam [Keppra] 500 mg PO BID will be continued Depakote level 46 February 17 Depakote level on February 21 was 67 Medical consultation we'll consider neurology consultation hot tamale worker 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
[2017-02-26 07:37] VITALS: TEMP 97.9
[2017-02-26] MEDS: Divalproex 250 mg ER (ONCE DAILY formulation) PO SCH (09:25)
--- NOTE | 2017-02-26 17:03 | PCM.PYCHDC ---
Mental Status Examination - Mental Status Examination Orientation: Person, Place, Situation, Time Memory: Intact Mood: Neutral Affect: Constricted Attention: WNL Concentration: WNL Association: WNL Fund of Knowledge: WNL Formal Thought Process: No Impairment Description of patient's judgement and insight: Pt has improved insight into mental and medical illness, pt was compliant with medications and unit rules and regulations, pt was going to groups, was calm, cooperative, socially appropriate, no behavioral incidents, no agitation, no aggression. Psychotic Thoughts and Behaviors: Pt denied v/a/t hallucinations, denied paranoid ideations, pt does not appear to be psychotic, and thought process is goal directed. Suicidal Ideation: No Current Homicidal Ideation?: No Plan: pt adamantly denied thoughts of harming self or others denied intent or plan. Discharge Summary - Discharge Note Reason for Hospitalization: patient was admitted to psych unit for evaluation of depressive symptoms, worsening of anxiety, inability to function. Psychiatric History (includes Medical, Family, Personal Hx): see HPI Laboratory Data: 02/16/17 14:21 02/16/17 14:21 Lab Results 02/21/17 07:00: Valproic Acid 67 02/17/17 07:00: Valproic Acid 46 L 02/17/17 07:00: Triglycerides 93, Cholesterol 131, LDL Cholesterol Direct 79, HDL Cholesterol 33 02/17/17 07:00: Free T4 0.69 L, TSH 3rd Generation 4.37 02/17/17 07:00: RPR Nonreactive 02/16/17 14:21: Alcohol, Quantitative < 10 02/16/17 14:21: Sodium 138, Potassium 3.8, Chloride 104, Carbon Dioxide 27, Anion Gap 11, BUN 6 L, Creatinine 0.7, Est GFR ( Amer) > 60, Est GFR (Non -Af Amer) > 60, Random Glucose 84, Calcium 8.8, Total Bilirubin 0.5, AST 20, ALT 24, Alkaline Phosphatase 49, Total Protein 7.2, Albumin 3.7, Globulin 3.5, Albumin/Globulin Ratio 1.1 02/16/17 14:21: WBC 6.0 D, RBC 3.62, Hgb 10.7 L, Hct 32.4 L, MCV 89.5, MCH 29.6 , MCHC 33.0, RDW 14.1, Plt Count 230, MPV 9.5, Gran % 67.5, Lymph % (Auto) 23.9 , [place] % (Auto) 7.8 H, Eos % (Auto) 0.5 L, Baso % (Auto) 0.3, Gran # 4.07, Lymph # 1.4, [place] # 0.5, Eos # 0.0, Baso # 0.02 02/16/17 13:50: Urine Opiates Screen Negative, Urine Methadone Screen Negative, Ur Barbiturates Screen Negative, Ur Phencyclidine Scrn Negative, Ur Amphetamines Screen Negative, U Benzodiazepines Scrn Negative, U Oth Cocaine Metabols Negative, U Cannabinoids Screen Negative 02/16/17 13:50: Urine Color Yellow, Urine Appearance Clear, Urine pH 6.0, Ur Specific [place] 1.020, Urine Protein Negative, Urine Glucose (UA) Negative, Urine Ketones Negative, Urine Blood Negative, Urine Nitrate Negative, Urine Bilirubin Negative, Urine Urobilinogen 0.2, Ur Leukocyte Esterase Negative Vital Signs Temp Pulse Resp BP Pulse Ox 02/26/17 07:36 97.9 F 68 20 99/56 L 02/25/17 16:34 82 105/68 02/25/17 07:49 97.8 F 85 20 108/68 02/24/17 16:58 79 104/67 02/24/17 08:02 98.0 F 62 20 110/70 02/23/17 16:44 72 119/62 02/23/17 07:36 97.8 F 64 20 96/54 L 02/22/17 16:00 87 116/87 02/22/17 08:21 97.8 F 64 18 96/60 L 02/21/17 16:28 71 114/68 02/21/17 07:00 97.8 F 65 18 107/67 02/20/17 19:57 70 20 101/69 02/20/17 07:44 97.9 F 86 20 104/68 02/19/17 16:01 63 112/54 L 02/19/17 07:48 98.1 F 74 20 91/52 L 02/18/17 18:27 74 121/76 02/18/17 07:43 98.2 F 68 20 101/57 L 02/17/17 16:14 62 96/47 L 02/17/17 09:41 97.8 F 57 L 20 98/63 L 02/17/17 06:52 97.8 F 57 L 20 98/63 L 02/16/17 17:00 18 02/16/17 16:36 66 18 108/69 98 02/16/17 15:35 68 18 112/74 98 02/16/17 14:50 71 17 110/70 98 02/16/17 13:21 98.4 F 96 H 17 115/76 97 Consultations:: List each consultation separately and include: 1. Reason for request. 2. Findings. 3. Follow-up Consultations: medical consultation appreciated see Dr. Delacruz see notes for more detailed information, discussed with Dr. Delacruz Summary of Hospital Course include:: 1. Description of specific treatment plan utilized for patients during their course of treatmen. 2. Summarize the time- course for resolution of acute symptoms and/or regressed behaviors. 3. Describe issues identified and worked on during hospitalization. 4. Describe medication utilized. 5. Describe medical problems identified and treated. 6. Reassessment of suicide risk Summary of Hospital Course: Shortly pt is 35yo Female with h/o schizophrenia vs schizoaffective disorder, has cognitive limitations, learning disabilities, h/o mulitple admissions in the past, Most recent was September 2016 in this unit, currently under care of [facility], patient brought herself inability to function, feeling of depression, passive wish to be . Pt needs further evaluation and stabilization, medications titration. Pt has h/o agitated and aggressive behavior when she is off meds, pt was not able to contract for safety in the emergency room. at the time of admission pt presented with marginal personal hygiene, good ADLs. Pt has cognitive limitations, concrete thought process, poverty of speech and thoughts. Pt is poor and unreliable historian because of chronic mental illness as well as cognitive problems, difficulties to express herself. For example when patient was asked what patient stated "i was not eating well, my told me Concepcion, you need to eat. I told him, aa, I don't want to eat, I will lay down. After that he told me again Yvonne, you need to eat, then I started to shake, then I came to the hospital...". pt reported being compliant with medications, pt remember the meds and dosages. meds confirmed by the pt's pharmacy. 02/16/17 14:21 05/22/17 14:21 Lab Results 02/17/17 07:00: Valproic Acid 46 L 02/17/17 07:00: Triglycerides 93, Cholesterol 131, LDL Cholesterol Direct 79, HDL Cholesterol 33 02/17/17 07:00: Free T4 0.69 L, TSH 3rd Generation 4.37 02/16/17 14:21: Alcohol, Quantitative < 10 02/16/17 14:21: Sodium 138, Potassium 3.8, Chloride 104, Carbon Dioxide 27, Anion Gap 11, BUN 6 L, Creatinine 0.7, Est GFR ( Amer) > 60, Est GFR (Non -Af Amer) > 60, Random Glucose 84, Calcium 8.8, Total Bilirubin 0.5, AST 20, ALT 24, Alkaline Phosphatase 49, Total Protein 7.2, Albumin 3.7, Globulin 3.5, Albumin/Globulin Ratio 1.1 02/16/17 14:21: WBC 6.0 D, RBC 3.62, Hgb 10.7 L, Hct 32.4 L, MCV 89.5, MCH 29.6 , MCHC 33.0, RDW 14.1, Plt Count 230, MPV 9.5, Gran % 67.5, Lymph % (Auto) 23.9 , [place] % (Auto) 7.8 H, Eos % (Auto) 0.5 L, Baso % (Auto) 0.3, Gran # 4.07, Lymph # 1.4, [place] # 0.5, Eos # 0.0, Baso # 0.02 02/16/17 13:50: Urine Opiates Screen Negative, Urine Methadone Screen Negative, Ur Barbiturates Screen Negative, Ur Phencyclidine Scrn Negative, Ur Amphetamines Screen Negative, U Benzodiazepines Scrn Negative, U Oth Cocaine Metabols Negative, U Cannabinoids Screen Negative 02/16/17 13:50: Urine Color Yellow, Urine Appearance Clear, Urine pH 6.0, Ur Specific [place] 1.020, Urine Protein Negative, Urine Glucose (UA) Negative, Urine Ketones Negative, Urine Blood Negative, Urine Nitrate Negative, Urine Bilirubin Negative, Urine Urobilinogen 0.2, Ur Leukocyte Esterase Negative Vital Signs Temp Pulse Resp BP Pulse Ox 02/17/17 09:41 97.8 F 57 L 20 98/63 L 02/17/17 06:52 97.8 F 57 L 20 98/63 L 02/16/17 17:00 18 02/16/17 16:36 66 18 108/69 98 02/16/17 15:35 68 18 112/74 98 02/16/17 14:50 71 17 110/70 98 02/16/17 13:21 98.4 F 96 H 17 115/76 97 pt was stabilized on the following medications: Benztropine 1 mg twice a day for EPS Depakote 500 mg PO AMHS for mood stabilization Paroxetine HCl [Paxil] 40 mg PO HS for depression and anxiety Risperidone 2 mg at the morning time and 3 mg PO at the nighttime for psychosis levETIRAcetam [Keppra] 500 mg PO BID for seizures pt tolerated meds well, no side effects observed or reported, AIMS 0, no EPS. Depakote level 46 February 17 Depakote level on February 21 was 67 over the course of this hospitalization initially patient denied hearing voices or seeing things denied paranoid ideations, closer to discharge \\patient started to see "blood on the [place]" at the same time patient likes to be in the hospital, did not want to be discharged, most likely patient was providing incorrect information in order to stay in the hospital longer. At the same time as per observation from the nursing staff and PCP as well as this technical publications writer patient is social, attending groups, no agitation, no aggression, over all presented much better to compare with the time of admission. Patient reached maximum affect from the acute setting, deems to be ready for discharge, patient denied thoughts of harming self or others denied intent or plan. At the time of the discharge pt denied been depressed, denied thoughts of harming self or others, denied psychotic symptoms, and pt does not appeared to be psychotic, denied been anxious, was considered to pose no threat to self or others, will be following up at [facility], information about follow up appointment, time and address provided to the pt, it is patient responsibility to follow up with outpatient clinic, PMD as well as specialists (see SW note for more detailed information). In case pt will need to obtain results of studies pending at discharge pt was provided with contact information of Psychiatric Inpatient unit [phone] as well as Medical Record Department [phone]. patient was provided with all above named medications two-week supply and 1 refill Pt was educated about safety plan in case of worsening of symptoms or in case of suicidal or homicidal ideation call 911 or go to the nearest ER, also was educated to take meds as prescribed and stay away from drugs, pt verbalized understanding. - Diagnosis (1) Schizoaffective disorder, depressive type Current Visit: Yes Status: Acute - Final Diagnosis (DSM 5) Condition upon Discharge: FAIR Disposition: HOME/ ROUTINE Follow-up Treatment Plan: At the time of the discharge pt denied been depressed, denied thoughts of harming self or others, denied psychotic symptoms, and pt does not appeared to be psychotic, denied been anxious, was considered to pose no threat to self or others, will be following up at [facility], information about follow up appointment, time and address provided to the pt, it is patient responsibility to follow up with outpatient clinic, PMD as well as specialists (see SW note for more detailed information). In case pt will need to obtain results of studies pending at discharge pt was provided with contact information of Psychiatric Inpatient unit [phone] as well as Medical Record Department [phone]. patient was provided with all above named medications two-week supply and 1 refill Pt was educated about safety plan in case of worsening of symptoms or in case of suicidal or homicidal ideation call 911 or go to the nearest ER, also was educated to take meds as prescribed and stay away from drugs, pt verbalized understanding. - Smoking Cessation Smoking Cessation Medication prescribed: No Reason for not providing: patient doesn't smoke - Antipsychotic Medications Pt discharged on 2 or more routine antipsychotic medications: No
[2017-02-26 17:35] VITALS: BP 116/79; PULSE 83
== END 2017-02-26 18:19 | disposition home or self-care (01) | DRG 430 ==
LOC: ED 13:10 → ERH 16:06 → PSYC 18:03
PROVIDERS: ADMIT Psychiatry & Neurology Psychiatry; ATTEND Psychiatry & Neurology Psychiatry
DX: F20.9 Schizophrenia, unspecified (principal); F25.1 Schizoaffective disorder, depressive type; I10 Essential (primary) hypertension; F22 Delusional disorders; G40.909 Epilepsy, unspecified, not intractable, without status epilepticus; E66.9 Obesity, unspecified; F41.0 Panic disorder [episodic paroxysmal anxiety]; F41.1 Generalized anxiety disorder; F81.9 Developmental disorder of scholastic skills, unspecified; J45.909 Unspecified asthma, uncomplicated; Z79.899 Other long term (current) drug therapy; Z91.14 Patient's other noncompliance with medication regimen; Z98.51 Tubal ligation status; Z68.34 Body mass index [BMI] 34.0-34.9, adult

== ENCOUNTER 2017-03-05 14:15 | Emergency (ER) | payer MEDICAID, OTHER ==
[2017-03-05 15:13] VITALS: BMI 21.9
[2017-03-05 15:23] VITALS: TEMP 97.9
[2017-03-05] MEDS ORDERED: Sodium Chloride 0.9% 1,000 ML IV STA (15:47)
[2017-03-05 16:09] LABS: ADD MANUAL DIFF? NO
[2017-03-05 16:22] LABS: BASO # 0.03 K/mm3 (0.0-2.0); BASO % 0.4 % (0.0-3.0); EOS # 0.1 (0.0-0.7); EOS % 0.7 % (1.5-5.0); GRAN % 64.4 % (50.0-68.0); HEMATOCRIT 34.6 % (36.0-48.0); LYMPH # 1.9 (1.2-3.4); LYMPH % 26.2 % (22.0-35.0); MEAN CELL VOLUME 90.3 fL (80.0-105.0); MEAN CORPUSCULAR HEMOGLOBIN 29.5 pg (25.0-35.0); MEAN CORPUSCULAR HGB CONC 32.7 g/dl (31.0-37.0); MEAN PLATELET VOLUME 9.3 fl (7.0-11.0); MONO # 0.6 (0.1-0.6); MONO % 8.3 % (1.0-6.0); PLATELET COUNT 283 10^3/uL (120.0-450.0); RED CELL DISTRIBUTION WIDTH 14.8 % (11.5-14.5); WHITE BLOOD COUNT 7.1 10^3/ul (4.5-11.0)
[2017-03-05 16:24] LABS: PH,URINE 6.5 (4.7-8.0); URINE BILIRUBIN NEGATIVE (NEGATIVE); URINE BLOOD NEGATIVE (NEGATIVE); URINE GLUCOSE (UA) NEGATIVE (NEGATIVE); URINE KETONE NEGATIVE (NEGATIVE); URINE LEUKOCYTE ESTERASE NEGATIVE Leu/uL (NEGATIVE); URINE PROTEIN NEGATIVE mg/dL (<30 mg/dL); URINE UROBILINOGEN 0.2 E.U./dL (<1 E.U./dL)
[2017-03-05 16:31] LABS: URINE APPEARANCE CLEAR (CLEAR); URINE COLOR YELLOW (YELLOW)
[2017-03-05 16:34] LABS: ALB/GLOB RATIO 1.1 (1.1-1.8); ALKALINE PHOSPHATASE 68 U/L (38-133); ALT/SGPT 28 U/L (7-56); AST/SGOT 29 U/L (15-39); BILIRUBIN,TOTAL 0.3 mg/dL (0.2-1.3); BLOOD UREA NITROGEN 5 mg/dL (7-21); CALCIUM 9.4 mg/dL (8.4-10.5); CARBON DIOXIDE 27 mmol/L (21-33); CHLORIDE 102 mmol/L (95-110); GFR AFRICAN-AMERICAN > 60; GLUCOSE,RANDOM 82 mg/dL (70-110); MAGNESIUM 1.8 mg/dL (1.7-2.2); POTASSIUM 3.6 mmol/L (3.6-5.0); SODIUM 139 mmol/L (132-148); TOTAL PROTEIN 8.2 g/dL (5.8-8.3)
[2017-03-05 16:44] LABS: TROPONIN I < 0.01 ng/mL
--- NOTE | 2017-03-05 16:55 | ED PDOC ---
Arrival/HPI - General Chief Complaint: Dizziness/Lightheaded Time Seen by Provider: 03/05/17 15:45 Historian: Patient - History of Present Illness Narrative History of Present Illness (Text): 03/05/17 16:52 Patient with past medical history of depression, schizophrenia, anxiety, reports experiencing an episode at 845 this morning while she was walking from her doctor's office of dizziness described as lightheadedness with no vertigo associated with palpitations and headache. Patient reports that she sat down on a bench and with time her symptoms resolved. States at this time she still feels lightheaded. She states that for the past 2 weeks she has had decrease in appetite due to lack of her daily vitamins. States that she ran out of her vitamins that she takes daily, which helps boost her appetite, she states that she is aware that she must obtain a refill from her PMD. She further adds that she only either drinks coffee or ensure in the morning but eats no actual meal. Today she had an ensure in the morning and did not have lunch. Reports (-) worsening of symptoms with movement of head. Otherwise: (-) trauma, (-) headache , (-) tinnitus, (-) hearing loss, (-) chest pain, (-) dyspnea, (-) fever, (-) URI symptoms, (-) vomiting, (-) diarrhea, (-) syncope, (-) GI bleeding. PMD [place] Past Medical History - Provider Review Nursing Documentation Reviewed: Yes - Infectious Disease Hx of Infectious Diseases: None - Tetanus Immunization Tetanus Immunization: Unknown - Cardiac Hx Cardiac Disorders: Yes Hx Hypertension: Yes (hypertension) - Pulmonary Hx Respiratory Disorders: No Hx Tuberculosis: No - Neurological Hx Neurological Disorder: Yes HX Cerebrovascular Accident: No Hx Seizures: Yes - HEENT Hx HEENT Disorder: No - Renal Hx Renal Disorder: No - Endocrine/Metabolic Hx Endocrine Disorders: No - Hematological/Oncological Hx Blood Disorders: No Hx Cancer: No - Integumentary Hx Dermatological Disorder: No - Musculoskeletal/Rheumatological Hx Musculoskeletal Disorders: Yes Hx Falls: Yes - Gastrointestinal Hx Gastrointestinal Disorders: No - Genitourinary/Gynecological Hx Genitourinary Disorders: No Hx Sexually Transmitted Diseases: No - Psychiatric Hx Psychophysiologic Disorder: No Hx Anxiety: Yes Hx Bipolar Disorder: Yes Hx Depression: Yes Hx Emotional Abuse: No Hx Physical Abuse: No Hx Schizophrenia: Yes Hx Sexual Abuse: No Hx Substance Use: No - Surgical History Hx Tubal Ligation: Yes - Anesthesia Hx Anesthesia: Yes Hx Anesthesia Reactions: No Hx Malignant Hyperthermia: No - Suicidal Assessment Feels Threatened In Home Enviroment: No Family/Social History - Physician Review Nursing Documentation Reviewed: Yes Family/Social History: No Known Family HX Smoking Status: Never Smoked Hx Alcohol Use: No Hx Substance Use: No Hx Substance Use Treatment: No Allergies/Home Meds Allergies/Adverse Reactions: Allergies No Known Allergies Allergy (Verified 03/05/17 15:13) Denied Review of Systems - Review of Systems Constitutional: Normal. absent: Fatigue, Weight Change, Fevers (decrease in appetite x 2 weeks) Respiratory: Normal. absent: SOB, Cough, Sputum Cardiovascular: Normal. absent: Chest Pain, Palpitations, Edema Gastrointestinal: Normal, Appetite Changes. absent: Abdominal Pain, Stool Changes Musculoskeletal: Normal. absent: Arthralgias, Back Pain, Neck Pain Skin: Normal. absent: Rash, Pruritis, Skin Lesions Neurological: Normal, Dizziness. absent: Headache, Focal Weakness Physical Exam - Physical Exam Narrative Physical Exam (Text): 03/05/17 16:56 GENERAL APPEARANCE: Patient is awake, alert, oriented x 3, in no acute distress. SKIN: Warm, dry; (-) cyanosis. HEAD: (-) scalp swelling or tenderness. EYES: (-) conjunctival pallor. ENMT: TMs normal. Mucous membranes dry. NECK: (-) tenderness, (-) stiffness, (-) lymphadenopathy. Carotids: (-) bruit. CHEST AND RESPIRATORY: (-) rales, (-) rhonchi, (-) wheezes; breath sounds equal bilaterally. HEART AND CARDIOVASCULAR: (-) irregularity; (-) murmur, (-) gallop. ABDOMEN AND GI: Soft; (-) distention, (-) tenderness, (-) rebound, (-) guarding , (-) palpable masses, (-) flank tenderness. EXTREMITIES: (-) deformity; (-) edema. Distal pulses: present. NEURO AND PSYCH: Mental status as above. bar attendant: (-) nystagmus; Pupils equal & reactive, EOMI, (-) facial asymmetry; (-) dysarthria; tongue and uvula midline. Strength and DTRs symmetric. Gait: normal. Vital Signs Temp Pulse Resp BP Pulse Ox 03/05/17 19:09 90 17 118/80 97 03/05/17 18:28 92 H 16 117/81 100 03/05/17 16:40 91 H 17 118/80 99 03/05/17 15:22 97.9 F 97 H 16 116/83 98 Medical Decision Making ED Course and Treatment: 03/05/17 16:56 36-year-old female with past medical history of depression, schizophrenia and anxiety, presents after having an episode of dizziness described as lightheadedness associated with palpitations and a headache at 845 this morning. Based on history and exam symptoms of dizziness are likely due to dehydration, with possible hypoglycemia. Plan: -- Labs -- IV fluids -- Urinalysis -- EKG -- Reassess and disposition EKG: NSR at 84 bpm, (-) acute ST changes, as read by MAXIMILIAN. Re-evaluation Time: 16:58 Reassessment Condition: Re-examined, Improved (Patient ambulating in the ER with a normail gait. Repeat neuro exam, shows no focal findings. Diagnostic results d/w the patient in great detail. Patient advised that she needs to stay hydrated and to try eat so that she does not experience hypoglycemia. Patient advised to f/u with her pmd without fail in the next 1-2 days and to return to the ER at any time for new or worsening symptoms. ) - Lab Interpretations Lab Results: 03/05/17 16:03 03/05/17 16:03 Lab Results 03/05/17 16:03: Sodium 139, Potassium 3.6, Chloride 102, Carbon Dioxide 27, Anion Gap 14, BUN 5 L, Creatinine 0.7, Est GFR ( Amer) > 60, Est GFR (Non -Af Amer) > 60, Random Glucose 82, Calcium 9.4, Magnesium 1.8, Total Bilirubin 0.3, AST 29, ALT 28, Alkaline Phosphatase 68, Lactate Dehydrogenase 531, Total Creatine Kinase 211, Troponin I < 0.01, Total Protein 8.2, Albumin 4.3, Globulin 3.8, Albumin/Globulin Ratio 1.1 03/05/17 16:03: Urine Color Yellow, Urine Appearance Clear, Urine pH 6.5, Ur Specific [place] <= 1.005, Urine Protein Negative, Urine Glucose (UA) Negative, Urine Ketones Negative, Urine Blood Negative, Urine Nitrate Negative, Urine Bilirubin Negative, Urine Urobilinogen 0.2, Ur Leukocyte Esterase Negative 03/05/17 16:03: WBC 7.1, RBC 3.83, Hgb 11.3 L, Hct 34.6 L, MCV 90.3, MCH 29.5, MCHC 32.7, RDW 14.8 H, Plt Count 283, MPV 9.3, Gran % 64.4, Lymph % (Auto) 26.2 , [place] % (Auto) 8.3 H, Eos % (Auto) 0.7 L, Baso % (Auto) 0.4, Gran # 4.60, Lymph # 1.9, [place] # 0.6, Eos # 0.1, Baso # 0.03 I have reviewed the lab results: Yes (Hgb 11 / Hct 34) Interpretation: All labs normal - Medication Orders Current Medication Orders: Discontinued Medications Sodium Chloride (Sodium Chloride 0.9%) 1,000 mls @ 1,000 mls/hr IV .Q1H STA Stop: 03/05/17 16:46 Last Admin: 03/05/17 16:13 Dose: 1,000 mls/hr - PA / PUBLIC WORKS MANAGER / Resident Statement / has reviewed & agrees with the documentation as recorded. Disposition/Present on Arrival - Present on Arrival Any Indicators Present on Arrival: No History of DVT/PE: No History of Uncontrolled Diabetes: No Urinary Catheter: No History of Decub. Ulcer: No History Surgical Site Infection Following: None - Disposition Have Diagnosis and Disposition been Completed?: Yes Diagnosis: Dehydration, Dizziness Disposition: HOME/ ROUTINE Disposition Time: 18:10 Patient Plan: Discharge Condition: IMPROVED Discharge Instructions (ExitCare): Dehydration (ED), Lightheadedness (ED) Print Language: GREEK Additional Instructions: Thank you for letting us take care of you today. You were treated for an episode of dizziness likely due to dehydration. The emergency medical care you received today was directed at your acute symptoms. Drink plenty of fluids and make sure to eat a meal on time. It may take several days for your symptoms to resolve. Return to the Emergency Department if your symptoms worsen, do not improve, or if you have any other problems. Please contact your doctor in 2 days for re-evaluation and follow up. Bring any paperwork you were given at discharge with you along with any medications you are taking to your follow up visit. Our treatment cannot replace ongoing medical care by a primary care provider (PCP) outside of the emergency department. Thank you for allowing the [facility] team to be part of your care today. Referrals: Deanne Delacruz MD [Primary Care Provider] - Follow up with primary
[2017-03-05 19:09] VITALS: BP 118/80; PULSE 90; RESP 17; O2SAT 97
--- NOTE | 2017-03-06 10:32 | CARD ---
APPROVED REPORT EKG Measurement Heart [id number] <Conclusion> Normal sinus rhythm PRWP NSSTW changes Prolonged QTc, new
== END 2017-03-05 19:09 | disposition home or self-care (01) ==
LOC: ED 14:15
DX: R42 Dizziness and giddiness (principal); E86.0 Dehydration
CPT/HCPCS: 80053; 81003; 82550; 83615; 83735; 84484; 85025; 87086; 93005; 99285; J7040

== ENCOUNTER 2017-03-16 12:52 | Emergency (ER) | payer MEDICAID, OTHER ==
[2017-03-16 12:52] VITALS: BMI 21.9
[2017-03-16 12:59] VITALS: RESP 18; TEMP 97.4
--- NOTE | 2017-03-16 13:22 | ED PDOC ---
Arrival/HPI - General Chief Complaint: Psychiatric Evaluation Time Seen by Provider: 03/16/17 12:55 Historian: Patient - History of Present Illness Narrative History of Present Illness (Text): 03/16/17 13:21 36 year old female presents to the emergency department complaining of depression. Denies suicidal or homicidal ideation. Denies auditory or visual hallucinations. No other complaints. Time/Duration: 24 hours Symptom Onset: Gradual Symptom Course: Unchanged Modifying Factors (Text): None Past Medical History - Provider Review Nursing Documentation Reviewed: Yes - Infectious Disease Hx of Infectious Diseases: None - Tetanus Immunization Tetanus Immunization: Unknown - Reproductive Menopause: No - Cardiac Hx Cardiac Disorders: Yes Hx Hypertension: Yes (hypertension) - Pulmonary Hx Respiratory Disorders: No Hx Tuberculosis: No - Neurological Hx Neurological Disorder: Yes HX Cerebrovascular Accident: No Hx Seizures: Yes - HEENT Hx HEENT Disorder: No - Renal Hx Renal Disorder: No - Endocrine/Metabolic Hx Endocrine Disorders: No - Hematological/Oncological Hx Blood Disorders: No Hx Cancer: No - Integumentary Hx Dermatological Disorder: No - Musculoskeletal/Rheumatological Hx Musculoskeletal Disorders: Yes Hx Falls: Yes - Gastrointestinal Hx Gastrointestinal Disorders: No - Genitourinary/Gynecological Hx Genitourinary Disorders: No Hx Sexually Transmitted Diseases: No - Psychiatric Hx Psychophysiologic Disorder: No Hx Anxiety: Yes Hx Bipolar Disorder: Yes Hx Depression: Yes Hx Emotional Abuse: No Hx Physical Abuse: No Hx Schizophrenia: Yes Hx Sexual Abuse: No Hx Substance Use: No - Surgical History Hx Tubal Ligation: Yes - Anesthesia Hx Anesthesia: Yes Hx Anesthesia Reactions: No Hx Malignant Hyperthermia: No - Suicidal Assessment Feels Threatened In Home Enviroment: No Family/Social History - Physician Review Nursing Documentation Reviewed: Yes Family/Social History: Unknown Family HX Smoking Status: Never Smoked Hx Alcohol Use: No Hx Substance Use: No Hx Substance Use Treatment: No Allergies/Home Meds Allergies/Adverse Reactions: Allergies No Known Allergies Allergy (Verified 03/05/17 15:13) Denied Home Medications: Home Meds Medication Instructions Recorded Confirmed Benztropine [Benztropine Mesylate] 1 mg PO BID 03/16/17 03/16/17 Divalproex Sodium 500 mg PO BID 03/16/17 03/16/17 PARoxetine [Paxil] 40 mg PO DAILY 03/16/17 03/16/17 risperiDONE [RisperDAL Tab] 2 mg PO HS 03/16/17 03/16/17 risperiDONE [RisperDAL Tab] 2 mg PO HS 03/16/17 03/16/17 Review of Systems - Physician Review All systems were reviewed & negative as marked: Yes - Review of Systems Cardiovascular: absent: Chest Pain Gastrointestinal: absent: Abdominal Pain, Nausea, Vomiting Neurological: absent: Headache, Seizure Psychiatric: Depression, Other (No auditory or visual hallucinations. No homicidal ideation.). absent: Suicidal Ideation Physical Exam Vital Signs Reviewed: Yes Vital Signs Temp Pulse Resp BP Pulse Ox 03/16/17 14:52 80 18 110/68 97 03/16/17 12:58 97.4 F L 82 18 105/64 96 Temperature: Afebrile Blood Pressure: Normal Pulse: Regular Respiratory Rate: Normal Appearance: Positive for: Well-Appearing, Non-Toxic, Comfortable Pain Distress: None Mental Status: Positive for: Alert and Oriented X 3 - Systems Exam Head: Present: Atraumatic, Normocephalic Pupils: Present: PERRL Extroacular Muscles: Present: EOMI Conjunctiva: Present: Normal Mouth: Present: Moist Mucous Membranes Neck: Present: Normal Range of Motion Respiratory/Chest: Present: Clear to Auscultation, Good Air Exchange. No: Respiratory Distress, Accessory Muscle Use Cardiovascular: Present: Regular Rate and Rhythm, Normal S1, S2. No: Murmurs Abdomen: Present: Normal Bowel Sounds. No: Tenderness, Distention, Peritoneal Signs Back: Present: Normal Inspection Upper Extremity: Present: Normal Inspection. No: Cyanosis, Edema Lower Extremity: Present: Normal Inspection. No: Edema Neurological: Present: GCS=15, CN II-XII Intact, Speech Normal Skin: Present: Warm, Dry, Normal Color. No: Rashes Psychiatric: Present: Alert, Oriented x 3, Normal Insight, Normal Concentration Medical Decision Making ED Course and Treatment: Impression: 36 year old female presents to the emergency department complaining of depression. Plan: -- Medically clear for PES evaluation -- Reassess and disposition Progress Notes: 03/16/17 14:36 Patient cleared by PES for discharge. - Lab Interpretations Lab Results: 03/16/17 13:27 03/16/17 13:27 Lab Results 03/16/17 13:27: Urine HCG, Qual Negative 03/16/17 13:27: Alcohol, Quantitative < 10 03/16/17 13:27: Salicylates < 1 L, Acetaminophen < 10.0 L 03/16/17 13:27: Urine Opiates Screen Negative, Urine Methadone Screen Negative, Ur Barbiturates Screen Negative, Ur Phencyclidine Scrn Negative, Ur Amphetamines Screen Negative, U Benzodiazepines Scrn Negative, U Oth Cocaine Metabols Negative, U Cannabinoids Screen Negative 03/16/17 13:27: Sodium 140, Potassium 3.9, Chloride 103, Carbon Dioxide 26, Anion Gap 15, BUN 10, Creatinine 0.8, Est GFR ( Amer) > 60, Est GFR (Non- Af Amer) > 60, Random Glucose 98, Calcium 9.3, Total Bilirubin 0.3, AST 23, ALT 27, Alkaline Phosphatase 61, Total Protein 7.9, Albumin 3.9, Globulin 4.0, Albumin/Globulin Ratio 1.0 L 03/16/17 13:27: Urine Color Yellow, Urine Appearance Clear, Urine pH 6.5, Ur Specific [place] 1.020, Urine Protein Trace H, Urine Glucose (UA) Negative, Urine Ketones Negative, Urine Blood Trace-lysed H, Urine Nitrate Negative, Urine Bilirubin Negative, Urine Urobilinogen 1.0 H, Ur Leukocyte Esterase Trace H, Urine RBC 0 - 2, Urine WBC 1 - 3, Ur Epithelial Cells 6 - 8, Urine Bacteria Mod 03/16/17 13:27: WBC 3.8 L D, RBC 3.84, Hgb 11.3 L, Hct 34.5 L, MCV 89.8, MCH 29.4, MCHC 32.8, RDW 14.1, Plt Count 211, MPV 9.6, Gran % 52.8, Lymph % (Auto) 33.7, [place] % (Auto) 11.4 H, Eos % (Auto) 1.6, Baso % (Auto) 0.5, Gran # 1.99, Lymph # 1.3, [place] # 0.4, Eos # 0.1, Baso # 0.02 - RAD Interpretation Radiology Orders: 03/16/17 13:20 CHEST PORTABLE [RAD] Stat - EKG Interpretation EKG Interpretation (Text): EKG: Ordered, reviewed, and independently interpreted the EKG. Rate : 83 BPM Rhythm : NSR Interpretation : Nonspecific ST/T wave changes Interpreted by ED Physician: Yes Type: 12 lead EKG - Scribe Statement The provider has reviewed the documentation as recorded by the Guillermo Cortez Provider Scribe Attestation: All medical record entries made by the Scribe were at my direction and personally dictated by me. I have reviewed the chart and agree that the record accurately reflects my personal performance of the history, physical exam, medical decision making, and the department course for this patient. I have also personally directed, reviewed, and agree with the discharge instructions and disposition. Disposition/Present on Arrival - Present on Arrival Any Indicators Present on Arrival: No History of DVT/PE: No History of Uncontrolled Diabetes: No Urinary Catheter: No History of Decub. Ulcer: No History Surgical Site Infection Following: None - Disposition Have Diagnosis and Disposition been Completed?: Yes Diagnosis: Depression Disposition: HOME/ ROUTINE Disposition Time: 03:00 Condition: STABLE Discharge Instructions (ExitCare): Depression (ED), Suicide Prevention for Adults (DC) Additional Instructions: please follow up with your doctor. and as instructed by pes worker. return toe r with worsening symptoms or concerns. Referrals: Deanne Delacruz MD [Primary Care Provider] - Follow up with primary
[2017-03-16 13:29] LABS: ADD MANUAL DIFF? NO
[2017-03-16 13:32] LABS: PH,URINE 6.5 (4.7-8.0); URINE BILIRUBIN NEGATIVE (NEGATIVE); URINE BLOOD TRACE-LYSED (NEGATIVE); URINE GLUCOSE (UA) NEGATIVE (NEGATIVE); URINE KETONE NEGATIVE (NEGATIVE); URINE LEUKOCYTE ESTERASE TRACE Leu/uL (NEGATIVE); URINE PROTEIN TRACE mg/dL (<30 mg/dL)
[2017-03-16 13:33] LABS: BASO # 0.02 K/mm3 (0.0-2.0); BASO % 0.5 % (0.0-3.0); EOS # 0.1 (0.0-0.7); EOS % 1.6 % (1.5-5.0); GRAN # 1.99 (1.4-6.5); GRAN % 52.8 % (50.0-68.0); HEMATOCRIT 34.5 % (36.0-48.0); LYMPH # 1.3 (1.2-3.4); LYMPH % 33.7 % (22.0-35.0); MEAN CELL VOLUME 89.8 fL (80.0-105.0); MEAN CORPUSCULAR HEMOGLOBIN 29.4 pg (25.0-35.0); MEAN CORPUSCULAR HGB CONC 32.8 g/dl (31.0-37.0); MEAN PLATELET VOLUME 9.6 fl (7.0-11.0); MONO # 0.4 (0.1-0.6); MONO % 11.4 % (1.0-6.0); PLATELET COUNT 211 10^3/uL (120.0-450.0); RED CELL DISTRIBUTION WIDTH 14.1 % (11.5-14.5); WHITE BLOOD COUNT 3.8 10^3/ul (4.5-11.0)
[2017-03-16 13:40] LABS: URINE APPEARANCE CLEAR (CLEAR); URINE COLOR YELLOW (YELLOW)
[2017-03-16 13:43] LABS: URINE RBC 0 - 2 /hpf (0-2)
[2017-03-16 13:44] LABS: URINE BACTERIA MOD (NEG)
[2017-03-16 13:46] LABS: ALKALINE PHOSPHATASE 61 U/L (38-133); ALT/SGPT 27 U/L (7-56); AST/SGOT 23 U/L (15-39); BILIRUBIN,TOTAL 0.3 mg/dL (0.2-1.3); BLOOD UREA NITROGEN 10 mg/dL (7-21); CALCIUM 9.3 mg/dL (8.4-10.5); CARBON DIOXIDE 26 mmol/L (21-33); CHLORIDE 103 mmol/L (98-107); GFR AFRICAN-AMERICAN > 60; GLUCOSE,RANDOM 98 mg/dL (70-110); POTASSIUM 3.9 mmol/L (3.6-5.0); SODIUM 140 mmol/L (132-148); TOTAL PROTEIN 7.9 g/dL (5.8-8.3)
--- NOTE | 2017-03-16 14:55 | RAD ---
HISTORY: pysch COMPARISON: Atelectasis. Comparison chest dated 02/16/2017 FINDINGS: LUNGS: Poor inspiration with low lung volumes, mild crowded bronchovascular markings and mild bibasilar PLEURA: No significant pleural effusion identified, no pneumothorax apparent. CARDIOVASCULAR: Heart size is upper limits of normal/ borderline enlarged OSSEOUS STRUCTURES: No significant abnormalities. VISUALIZED UPPER ABDOMEN: Normal. OTHER FINDINGS: None. IMPRESSION: Poor inspiration with low lung volumes, crowded bronchovascular markings and mild bibasilar atelectasis
[2017-03-16 15:37] VITALS: BP 110/68; PULSE 80; O2SAT 97
--- NOTE | 2017-03-17 17:48 | CARD ---
APPROVED REPORT EKG Measurement Heart [id number] <Conclusion> Normal sinus rhythm Nonspecific T wave abnormality Abnormal ECG
== END 2017-03-16 15:42 | disposition home or self-care (01) ==
LOC: ED 12:52
DX: F32.9 Major depressive disorder, single episode, unspecified (principal); I10 Essential (primary) hypertension; F41.9 Anxiety disorder, unspecified

== ENCOUNTER 2017-03-18 13:03 | Emergency (ER) | payer OTHER ==
[2017-03-18 13:04] VITALS: BMI 21.9
[2017-03-18 13:28] VITALS: TEMP 97.9
--- NOTE | 2017-03-18 14:29 | ED PDOC ---
Arrival/HPI - General Chief Complaint: Anxiety Time Seen by Provider: 03/18/17 13:26 Historian: Patient - History of Present Illness Narrative History of Present Illness (Text): 03/18/17 13:32 A 36 year old female with medical history of anxiety and depression presents to the emergency department with complaints of worsened anxiety. She denies fever, suicidal ideation, or any other symptoms at this time. PMD: Dr. Delacruz Time/Duration: 24 hours Symptom Onset: Gradual Symptom Course: Unchanged Activities at Onset: Rest Context: Home Past Medical History - Provider Review Nursing Documentation Reviewed: Yes - Infectious Disease Hx of Infectious Diseases: None - Tetanus Immunization Tetanus Immunization: Unknown - Cardiac Hx Cardiac Disorders: Yes Hx Hypertension: Yes (hypertension) - Pulmonary Hx Respiratory Disorders: No Hx Tuberculosis: No - Neurological Hx Neurological Disorder: Yes HX Cerebrovascular Accident: No Hx Seizures: Yes - HEENT Hx HEENT Disorder: No - Renal Hx Renal Disorder: No - Endocrine/Metabolic Hx Endocrine Disorders: No - Hematological/Oncological Hx Blood Disorders: No Hx Cancer: No - Integumentary Hx Dermatological Disorder: No - Musculoskeletal/Rheumatological Hx Musculoskeletal Disorders: Yes Hx Falls: Yes - Gastrointestinal Hx Gastrointestinal Disorders: No - Genitourinary/Gynecological Hx Genitourinary Disorders: No Hx Sexually Transmitted Diseases: No - Psychiatric Hx Psychophysiologic Disorder: Yes Hx Anxiety: Yes Hx Bipolar Disorder: Yes Hx Depression: Yes Hx Emotional Abuse: No Hx Physical Abuse: No Hx Schizophrenia: Yes Hx Sexual Abuse: No Hx Substance Use: No - Surgical History Hx Tubal Ligation: Yes - Anesthesia Hx Anesthesia: Yes Hx Anesthesia Reactions: No Hx Malignant Hyperthermia: No - Suicidal Assessment Feels Threatened In Home Enviroment: No Family/Social History - Physician Review Nursing Documentation Reviewed: Yes Family/Social History: Unknown Family HX Smoking Status: Never Smoked Hx Alcohol Use: No Hx Substance Use: No Hx Substance Use Treatment: No Allergies/Home Meds Allergies/Adverse Reactions: Allergies No Known Allergies Allergy (Verified 03/18/17 13:27) Denied Home Medications: Home Meds Medication Instructions Recorded Confirmed Benztropine [Benztropine Mesylate] 1 mg PO BID 03/16/17 03/16/17 Divalproex Sodium 500 mg PO BID 03/16/17 03/16/17 PARoxetine [Paxil] 40 mg PO DAILY 03/16/17 03/16/17 risperiDONE [RisperDAL Tab] 2 mg PO HS 03/16/17 03/16/17 risperiDONE [RisperDAL Tab] 2 mg PO HS 03/16/17 03/16/17 Review of Systems - Physician Review All systems were reviewed & negative as marked: Yes - Review of Systems Constitutional: absent: Fevers Cardiovascular: absent: Chest Pain Psychiatric: Anxiety, Depression. absent: Suicidal Ideation Physical Exam Vital Signs Temp Pulse Resp BP Pulse Ox 03/18/17 17:00 78 17 121/78 100 03/18/17 15:04 73 17 126/74 100 03/18/17 13:27 97.9 F 84 16 121/77 97 Temperature: Afebrile Blood Pressure: Normal Pulse: Regular Respiratory Rate: Normal Appearance: Positive for: Well-Appearing, Non-Toxic, Comfortable, Other ( Anxious appearing) Mental Status: Positive for: Alert and Oriented X 3 - Systems Exam Head: Present: Atraumatic, Normocephalic Pupils: Present: PERRL Extroacular Muscles: Present: EOMI Conjunctiva: Present: Normal Mouth: Present: Moist Mucous Membranes Neck: Present: Normal Range of Motion Respiratory/Chest: Present: Clear to Auscultation, Good Air Exchange. No: Respiratory Distress, Accessory Muscle Use Cardiovascular: Present: Regular Rate and Rhythm, Normal S1, S2. No: Murmurs Abdomen: Present: Normal Bowel Sounds. No: Tenderness, Distention, Peritoneal Signs Upper Extremity: Present: Normal Inspection. No: Cyanosis, Edema Lower Extremity: Present: Normal Inspection. No: Edema Neurological: Present: GCS=15, CN II-XII Intact, Speech Normal Skin: Present: Warm, Dry, Normal Color. No: Rashes Psychiatric: Present: Alert, Oriented x 3, Normal Insight, Normal Concentration , Anxious. No: Suicidal Ideation Medical Decision Making ED Course and Treatment: Impression: A 36 year old female complains of anxiety and depression. Differential Diagnosis included but are not limited to: Plan: -- Labs -- Reassess and disposition Prior Visits: Notes and results from previous visits were reviewed. Patient was last seen in the Emergency department on 03/16/17 for depression and Chest X-ray from this date was reviewed, which shows no acute disease. Progress Notes: EKG: Ordered, reviewed, and independently interpreted the EKG. Rate : 75 BPM Rhythm : NSR Interpretation : No ST/T Changes 03/18/17 14:55 Patient medically cleared. 03/18/17 17:43 cleared by pes for d/c - Lab Interpretations Lab Results: 03/18/17 14:25 03/18/17 14:25 Lab Results 03/18/17 14:25: Urine HCG, Qual Negative 03/18/17 14:25: Alcohol, Quantitative < 10 03/18/17 14:25: Salicylates < 1 L, Acetaminophen < 10.0 L 03/18/17 14:25: Urine Opiates Screen Negative, Urine Methadone Screen Negative, Ur Barbiturates Screen Negative, Ur Phencyclidine Scrn Negative, Ur Amphetamines Screen Negative, U Benzodiazepines Scrn Negative, U Oth Cocaine Metabols Negative, U Cannabinoids Screen Negative 03/18/17 14:25: Sodium 138, Potassium 4.0, Chloride 99, Carbon Dioxide 27, Anion Gap 16, BUN 11, Creatinine 0.8, Est GFR ( Amer) > 60, Est GFR (Non- Af Amer) > 60, Random Glucose 93, Calcium 9.6, Total Bilirubin 0.4, AST 31, ALT 41, Alkaline Phosphatase 70, Total Protein 8.2, Albumin 4.2, Globulin 4.0, Albumin/Globulin Ratio 1.1 03/18/17 14:25: Urine Color Yellow, Urine Appearance Clear, Urine pH 6.5, Ur Specific [place] 1.010, Urine Protein Negative, Urine Glucose (UA) Negative, Urine Ketones Negative, Urine Blood Negative, Urine Nitrate Negative, Urine Bilirubin Negative, Urine Urobilinogen 0.2, Ur Leukocyte Esterase Small H, Urine RBC 0 - 2, Urine WBC 2 - 5, Ur Epithelial Cells 6 - 8, Urine Bacteria Few 03/18/17 14:25: WBC 5.2 D, RBC 4.04, Hgb 11.8 L, Hct 36.0, MCV 89.1, MCH 29.2, MCHC 32.8, RDW 14.1, Plt Count 231, MPV 9.6, Gran % 57.0, Lymph % (Auto) 31.9, [place] % (Auto) 10.1 H, Eos % (Auto) 0.6 L, Baso % (Auto) 0.4, Gran # 2.99, Lymph # 1.7, [place] # 0.5, Eos # 0.0, Baso # 0.02 - Scribe Statement The provider has reviewed the documentation as recorded by the Scribe Celeste Adams training under Prabhjot Cortez Provider Scribe Attestation: All medical record entries made by the Scribe were at my direction and personally dictated by me. I have reviewed the chart and agree that the record accurately reflects my personal performance of the history, physical exam, medical decision making, and the department course for this patient. I have also personally directed, reviewed, and agree with the discharge instructions and disposition. Disposition/Present on Arrival - Present on Arrival Any Indicators Present on Arrival: No History of DVT/PE: No History of Uncontrolled Diabetes: No Urinary Catheter: No History of Decub. Ulcer: No History Surgical Site Infection Following: None - Disposition Have Diagnosis and Disposition been Completed?: Yes Diagnosis: Depression, Anxiety Disposition: HOME/ ROUTINE Disposition Time: 04:00 Condition: STABLE Discharge Instructions (ExitCare): Depression (ED), Anxiety (ED) Referrals: Deanne Delacruz MD [Primary Care Provider] - Follow up with primary
[2017-03-18 14:36] LABS: ADD MANUAL DIFF? NO
[2017-03-18 14:41] LABS: PH,URINE 6.5 (4.7-8.0); URINE BILIRUBIN NEGATIVE (NEGATIVE); URINE BLOOD NEGATIVE (NEGATIVE); URINE GLUCOSE (UA) NEGATIVE (NEGATIVE); URINE KETONE NEGATIVE (NEGATIVE); URINE LEUKOCYTE ESTERASE SMALL Leu/uL (NEGATIVE); URINE PROTEIN NEGATIVE mg/dL (<30 mg/dL); URINE UROBILINOGEN 0.2 E.U./dL (<1 E.U./dL)
[2017-03-18 14:45] LABS: BASO # 0.02 K/mm3 (0.0-2.0); BASO % 0.4 % (0.0-3.0); EOS % 0.6 % (1.5-5.0); GRAN # 2.99 (1.4-6.5); LYMPH # 1.7 (1.2-3.4); LYMPH % 31.9 % (22.0-35.0); MEAN CELL VOLUME 89.1 fL (80.0-105.0); MEAN CORPUSCULAR HEMOGLOBIN 29.2 pg (25.0-35.0); MEAN CORPUSCULAR HGB CONC 32.8 g/dl (31.0-37.0); MEAN PLATELET VOLUME 9.6 fl (7.0-11.0); MONO # 0.5 (0.1-0.6); MONO % 10.1 % (1.0-6.0); PLATELET COUNT 231 10^3/uL (120.0-450.0); RED CELL DISTRIBUTION WIDTH 14.1 % (11.5-14.5); WHITE BLOOD COUNT 5.2 10^3/ul (4.5-11.0)
[2017-03-18 14:47] LABS: URINE APPEARANCE CLEAR (CLEAR); URINE COLOR YELLOW (YELLOW)
[2017-03-18 14:52] LABS: ALB/GLOB RATIO 1.1 (1.1-1.8); ALKALINE PHOSPHATASE 70 U/L (38-133); ALT/SGPT 41 U/L (7-56); AST/SGOT 31 U/L (15-39); BILIRUBIN,TOTAL 0.4 mg/dL (0.2-1.3); BLOOD UREA NITROGEN 11 mg/dL (7-21); CALCIUM 9.6 mg/dL (8.4-10.5); CARBON DIOXIDE 27 mmol/L (21-33); CHLORIDE 99 mmol/L (98-107); GFR AFRICAN-AMERICAN > 60; GLUCOSE,RANDOM 93 mg/dL (70-110); SODIUM 138 mmol/L (132-148); TOTAL PROTEIN 8.2 g/dL (5.8-8.3)
[2017-03-18 15:00] LABS: URINE BACTERIA FEW (NEG); URINE RBC 0 - 2 /hpf (0-2)
[2017-03-18 16:32] VITALS: RESP 17; O2SAT 100
[2017-03-18 17:05] VITALS: BP 121/78; PULSE 78
--- NOTE | 2017-03-20 00:04 | CARD ---
APPROVED REPORT EKG Measurement Heart [id number] <Conclusion> Normal sinus rhythm Normal ECG
== END 2017-03-18 17:10 | disposition home or self-care (01) ==
LOC: ED 13:03
DX: F41.9 Anxiety disorder, unspecified (principal); F32.9 Major depressive disorder, single episode, unspecified; I10 Essential (primary) hypertension

== ENCOUNTER 2017-04-24 11:54 | Emergency (ER) | payer OTHER ==
[2017-04-24 11:59] VITALS: RESP 18; TEMP 98.3; O2SAT 96
--- NOTE | 2017-04-24 12:32 | ED PDOC ---
Arrival/HPI - General Chief Complaint: Upper Extremity Problem/Injury Time Seen by Provider: 04/24/17 12:18 Historian: Patient - History of Present Illness Narrative History of Present Illness (Text): 04/24/17 12:27 A 36 year old female presents to the emergency department complaining of anxiety prior to arrival. Patient reports she got into a verbal altercation with someone which caused her to hyperventilate and feel numbness to bilateral arms. She states this caused her to have depressive thoughts and recall her son being taken away from her. Patient denies any fever, chills, nausea, vomiting, chest pain, shortness of breath, suicidal ideation, homicidal ideation or any other complaints. Time/Duration: Prior to Arrival Quality: Other Context: Other Past Medical History - Provider Review Nursing Documentation Reviewed: Yes - Infectious Disease Hx of Infectious Diseases: None - Tetanus Immunization Tetanus Immunization: Unknown - Cardiac Hx Cardiac Disorders: Yes Hx Hypertension: Yes (hypertension) - Pulmonary Hx Respiratory Disorders: No Hx Tuberculosis: No - Neurological Hx Neurological Disorder: Yes HX Cerebrovascular Accident: No Hx Seizures: Yes - HEENT Hx HEENT Disorder: No - Renal Hx Renal Disorder: No - Endocrine/Metabolic Hx Endocrine Disorders: No - Hematological/Oncological Hx Blood Disorders: No Hx Cancer: No - Integumentary Hx Dermatological Disorder: No - Musculoskeletal/Rheumatological Hx Musculoskeletal Disorders: Yes Hx Falls: Yes - Gastrointestinal Hx Gastrointestinal Disorders: No - Genitourinary/Gynecological Hx Genitourinary Disorders: No Hx Sexually Transmitted Diseases: No - Psychiatric Hx Psychophysiologic Disorder: Yes Hx Anxiety: Yes Hx Bipolar Disorder: Yes Hx Depression: Yes Hx Emotional Abuse: No Hx Physical Abuse: No Hx Schizophrenia: Yes Hx Sexual Abuse: No Hx Substance Use: No - Surgical History Hx Tubal Ligation: Yes - Anesthesia Hx Anesthesia: Yes Hx Anesthesia Reactions: No Hx Malignant Hyperthermia: No - Suicidal Assessment Feels Threatened In Home Enviroment: No Family/Social History - Physician Review Nursing Documentation Reviewed: Yes Family/Social History: No Known Family HX Smoking Status: Never Smoked Hx Alcohol Use: No Hx Substance Use: No Hx Substance Use Treatment: No Allergies/Home Meds Allergies/Adverse Reactions: Allergies No Known Allergies Allergy (Verified 03/18/17 13:27) Denied Home Medications: Home Meds Medication Instructions Recorded Confirmed Benztropine [Benztropine Mesylate] 1 mg PO BID 03/16/17 04/24/17 Divalproex Sodium 500 mg PO BID 03/16/17 04/24/17 PARoxetine [Paxil] 40 mg PO DAILY 03/16/17 04/24/17 risperiDONE [RisperDAL Tab] 2 mg PO HS 03/16/17 04/24/17 Docusate [Colace] 1 cap PO BID 04/24/17 04/24/17 Physical Exam - Physical Exam Narrative Physical Exam (Text): - Review of Systems Constitutional: Normal. absent: Fatigue, Weight Change, Fevers Eyes: Normal ENT: Normal Respiratory: Normal absent: SOB, Cough, Sputum Cardiovascular: Normal absent: Chest pain, Palpitations, Syncope Gastrointestinal: Normal absent: Abdominal pain, Diarrhea, Nausea, Vomiting Genitourinary: Normal. absent: Dysuria, Frequency, Hematuria Musculoskeletal: Normal. absent: Arthralgias, Back Pain, Neck Pain Skin: Normal Neurological: Normal absent: Focal Weakness Endocrine: Normal Hemo/Lymphatic: Normal Psychiatric: (+) Anxious, Depressed - Physical exam Patient appears age appropriate, speaking full sentences without difficulty - Systems Exam Head: Present: Atraumatic, Normocephalic Pupils: Present: PERRL Extraocular Muscles: Present: EOMI Conjunctiva: Present: Normal Mouth: Present: Moist Mucous Membranes Neck: Present: Normal Range of Motion. No: MIDLINE TENDERNESS, Paraspinal Tenderness Respiratory/Chest: Present: Clear to Auscultation, Good Air Exchange. No: Respiratory Distress, Accessory Muscle Use, Tachypnic Cardiovascular: Present: Regular Rate and Rhythm, Normal S1, S2, Peripheral Pulses Present. No: Murmurs Abdomen: Present: Normal Bowel Sounds, No: Tenderness, Peritoneal Signs, Rebound, Guarding, Distention Back: Present: Normal Inspection. No: Midline Tenderness, Paraspinal Tenderness Upper Extremity: Present: Normal Inspection. No: Cyanosis, Edema Lower Extremity: Present: Normal Inspection. No: Edema Neurological: Present: GCS=15, Speech Normal, cranial nerves II through XII fully intact with no cerebellar abnormality, neuro-sensory fully intact. No focal neurological deficits. Skin: Present: Warm, Dry, Normal Color. No: Rashes Lymphatic: Present: OX3, NI, NC Psychiatric: Present: Alert, Oriented x 3, Normal Insight, Normal Concentration Vital Signs Reviewed: Yes Vital Signs Temp Pulse Resp BP Pulse Ox 04/24/17 14:21 89 18 119/71 96 04/24/17 13:08 94 H 18 117/75 96 04/24/17 11:59 98.3 F 103 H 18 115/74 96 Temperature: Afebrile Blood Pressure: Normal Pulse: Tachycardic Respiratory Rate: Normal Appearance: Positive for: Well-Appearing, Non-Toxic, Comfortable Pain Distress: None Mental Status: Positive for: Alert and Oriented X 3 Medical Decision Making ED Course and Treatment: 04/24/17 12:27 Impression: A 36 year old female with anxiety and depression. Physical exam unremarkable. No focal neurological deficits. Plan: -- Labs -- Urinalysis -- Reassess and disposition Progress Notes: 04/24/17 13:50 Patient seen and evaluated by PES worker. Patient can be discharged home. Patient feels better and is in no acute distress. States she feels comfortable going home and following up as outpatient. - Lab Interpretations Lab Results: 04/24/17 12:42 04/24/17 12:42 Lab Results 04/24/17 12:42: Alcohol, Quantitative < 10 04/24/17 12:42: Salicylates < 1 L, Acetaminophen < 10.0 L 04/24/17 12:42: Urine Opiates Screen Negative, Urine Methadone Screen Negative, Ur Barbiturates Screen Negative, Ur Phencyclidine Scrn Negative, Ur Amphetamines Screen Negative, U Benzodiazepines Scrn Negative, U Oth Cocaine Metabols Negative, U Cannabinoids Screen Negative 04/24/17 12:42: Sodium 138, Potassium 3.7, Chloride 102, Carbon Dioxide 24, Anion Gap 16, BUN 7, Creatinine 0.8, Est GFR ( Amer) > 60, Est GFR (Non- Af Amer) > 60, Random Glucose 96, Calcium 9.3, Total Bilirubin 0.4, AST 22, ALT 31, Alkaline Phosphatase 59, Total Protein 8.0, Albumin 4.0, Globulin 4.0, Albumin/Globulin Ratio 1.0 L 04/24/17 12:42: Urine Color Yellow, Urine Appearance Clear, Urine pH 7.0, Ur Specific [place] 1.010, Urine Protein Negative, Urine Glucose (UA) Negative, Urine Ketones Negative, Urine Blood Negative, Urine Nitrate Negative, Urine Bilirubin Negative, Urine Urobilinogen 0.2, Ur Leukocyte Esterase Negative 04/24/17 12:42: WBC 8.0 D, RBC 3.85, Hgb 11.6 L, Hct 34.1 L, MCV 88.6, MCH 30.1 , MCHC 34.0, RDW 14.9 H, Plt Count 235, MPV 9.1, Gran % 58.2, Lymph % (Auto) 32.5, [place] % (Auto) 8.3 H, Eos % (Auto) 0.6 L, Baso % (Auto) 0.4, Gran # 4.63, Lymph # 2.6, [place] # 0.7 H, Eos # 0.1, Baso # 0.03 I have reviewed the lab results: Yes - Scribe Statement The provider has reviewed the documentation as recorded by the Zacibsteve Hankins Provider Scribe Attestation: All medical record entries made by the Scribe were at my direction and personally dictated by me. I have reviewed the chart and agree that the record accurately reflects my personal performance of the history, physical exam, medical decision making, and the department course for this patient. I have also personally directed, reviewed, and agree with the discharge instructions and disposition. Disposition/Present on Arrival - Present on Arrival Any Indicators Present on Arrival: No History of DVT/PE: No History of Uncontrolled Diabetes: No Urinary Catheter: No History of Decub. Ulcer: No History Surgical Site Infection Following: None - Disposition Have Diagnosis and Disposition been Completed?: Yes Diagnosis: Depressed Disposition: HOME/ ROUTINE Disposition Time: 13:50 Patient Plan: Discharge Condition: GOOD Discharge Instructions (ExitCare): Depression (ED) Additional Instructions: PLEASE RETURN TO THE EMERGENCY DEPARTMENT FOR NEW OR WORSENING SYMPTOMS. RETURN RIGHT AWAY IF YOU CANNOT FOLLOW UP WITH YOUR PRIMARY CARE DOCTOR, CLINIC, OR SPECIALIST IN 1-2 DAYS. Referrals: PCP,NO [Primary Care Provider] - Follow up with primary Jennifer Delarosa MD [Staff Provider] - Follow up with primary [facility] [Outside] - Follow up with primary Forms: esolidar (Vietnamese)
[2017-04-24 12:53] LABS: BASO # 0.03 K/mm3 (0.0-2.0); BASO % 0.4 % (0.0-3.0); EOS # 0.1 (0.0-0.7); EOS % 0.6 % (1.5-5.0); GRAN # 4.63 (1.4-6.5); GRAN % 58.2 % (50.0-68.0); HEMOGLOBIN 11.6 gm/dL (12.0-16.0); LYMPH # 2.6 (1.2-3.4); LYMPH % 32.5 % (22.0-35.0); MEAN CELL VOLUME 88.6 fL (80.0-105.0); MEAN CORPUSCULAR HEMOGLOBIN 30.1 pg (25.0-35.0); MEAN PLATELET VOLUME 9.1 fl (7.0-11.0); MONO # 0.7 (0.1-0.6); MONO % 8.3 % (1.0-6.0); PLATELET COUNT 235 10^3/uL (120.0-450.0); RBC 3.85 10^6/uL (3.5-6.1); RED CELL DISTRIBUTION WIDTH 14.9 % (11.5-14.5); URINE BILIRUBIN NEGATIVE (NEGATIVE); URINE BLOOD NEGATIVE (NEGATIVE); URINE GLUCOSE (UA) NEGATIVE (NEGATIVE); URINE LEUKOCYTE ESTERASE NEGATIVE Leu/uL (NEGATIVE); URINE NITRATE NEGATIVE (NEGATIVE); URINE PROTEIN NEGATIVE mg/dL (<30 mg/dL); URINE UROBILINOGEN 0.2 E.U./dL (<1 E.U./dL)
[2017-04-24 12:55] LABS: URINE APPEARANCE CLEAR (CLEAR); URINE COLOR YELLOW (YELLOW)
[2017-04-24 13:04] LABS: SALICYLATE < 1 mg/dL (2.0-20.0)
[2017-04-24 13:06] LABS: ALT/SGPT 31 U/L (7-56); AST/SGOT 22 U/L (15-39); BLOOD UREA NITROGEN 7 mg/dL (7-21); CALCIUM 9.3 mg/dL (8.4-10.5); GFR AFRICAN-AMERICAN > 60; GFR NON-AFRICAN AMERICAN > 60
[2017-04-24 13:11] LABS: ACETAMINOPHEN < 10.0 ug/ml (10.0-20.0)
[2017-04-24 13:14] LABS: BARBITURATES, UR NEGATIVE (NEGATIVE); BENZODIAZEPINES, UR NEGATIVE (NEGATIVE); OPIATES, UR NEGATIVE (NEGATIVE); PHENCYCLIDINE, UR NEGATIVE (NEGATIVE)
[2017-04-24 14:22] VITALS: BP 119/71; PULSE 89
== END 2017-04-24 14:46 | disposition home or self-care (01) ==
LOC: ED 11:54
DX: F32.9 Major depressive disorder, single episode, unspecified (principal); I10 Essential (primary) hypertension

== ENCOUNTER 2017-04-28 23:31 | Inpatient (IN) | payer MEDICAID, OTHER ==
--- NOTE | 2017-04-29 00:36 | ED PDOC ---
Arrival/HPI - General Chief Complaint: Anxiety Time Seen by Provider: 04/28/17 23:48 Historian: Patient - History of Present Illness Narrative History of Present Illness (Text): 04/29/17 00:31 Yvonne Humphries is a 36 year old female who presents to the emergency department complaining of anxiety. States that symptoms presented while she was taking with her earlier tonight. Patient states she wants to talk with someone because she "has trouble with her heart." Denies any suicidal or homicidal ideation. Denies any other complaints. Time/Duration: Prior to Arrival Severity Level: Mild Activities at Onset: Light Context: Home Past Medical History - Provider Review Nursing Documentation Reviewed: Yes - Infectious Disease Hx of Infectious Diseases: None - Tetanus Immunization Tetanus Immunization: Unknown - Cardiac Hx Cardiac Disorders: Yes Hx Hypertension: Yes (hypertension) - Pulmonary Hx Respiratory Disorders: No Hx Tuberculosis: No - Neurological Hx Neurological Disorder: Yes HX Cerebrovascular Accident: No Hx Seizures: Yes - HEENT Hx HEENT Disorder: No - Renal Hx Renal Disorder: No - Endocrine/Metabolic Hx Endocrine Disorders: No Hx Diabetes Mellitus Type 2: Yes - Hematological/Oncological Hx Blood Disorders: No Hx Cancer: No - Integumentary Hx Dermatological Disorder: No - Musculoskeletal/Rheumatological Hx Musculoskeletal Disorders: No - Gastrointestinal Hx Gastrointestinal Disorders: No - Genitourinary/Gynecological Hx Genitourinary Disorders: No Hx Sexually Transmitted Diseases: No - Psychiatric Hx Psychophysiologic Disorder: Yes Hx Anxiety: Yes Hx Bipolar Disorder: Yes Hx Depression: Yes Hx Emotional Abuse: No Hx Physical Abuse: No Hx Schizophrenia: Yes Hx Sexual Abuse: No Hx Substance Use: No Other/Comment: schizo affective disorder - Surgical History Hx Hysterectomy: Yes Hx Tubal Ligation: Yes - Anesthesia Hx Anesthesia: Yes Hx Anesthesia Reactions: No Hx Malignant Hyperthermia: No - Suicidal Assessment Feels Threatened In Home Enviroment: No Family/Social History - Physician Review Nursing Documentation Reviewed: Yes Family/Social History: No Known Family HX Smoking Status: Never Smoked Hx Alcohol Use: No Hx Substance Use: No Hx Substance Use Treatment: No Allergies/Home Meds Allergies/Adverse Reactions: Allergies No Known Allergies Allergy (Verified 04/29/17 04:34) Denied Home Medications: Home Meds Medication Instructions Recorded Confirmed Benztropine 1 mg PO BID 04/29/17 04/29/17 Gonzalez HYDE (*BID*) 500 mg PO BID 04/29/17 04/29/17 Keppra 500 mg PO BID 04/29/17 04/29/17 Paxil 40 mg PO DAILY 04/29/17 04/29/17 Stool Softener 100 mg PO BID 04/29/17 04/29/17 Review of Systems - Physician Review All systems were reviewed & negative as marked: Yes - Review of Systems Constitutional: Normal. absent: Fatigue, Fevers Respiratory: Normal. absent: SOB, Cough, Sputum Cardiovascular: Normal. absent: Chest Pain, Palpitations Gastrointestinal: Normal. absent: Abdominal Pain, Diarrhea, Nausea, Vomiting Neurological: Normal. absent: Headache, Dizziness Psychiatric: Anxiety Physical Exam Vital Signs Reviewed: Yes Vital Signs Temp Pulse Resp BP Pulse Ox 04/29/17 03:55 98.3 F 70 16 119/84 98 04/29/17 03:11 98.3 F 72 18 111/74 98 04/28/17 23:48 99.2 F 88 20 113/72 96 Temperature: Afebrile Blood Pressure: Normal Pulse: Regular Respiratory Rate: Normal Appearance: Positive for: Well-Appearing, Non-Toxic, Comfortable Pain Distress: None Mental Status: Positive for: Alert and Oriented X 3 - Systems Exam Head: Present: Atraumatic, Normocephalic Pupils: Present: PERRL Extroacular Muscles: Present: EOMI Conjunctiva: Present: Normal Mouth: Present: Moist Mucous Membranes Respiratory/Chest: Present: Clear to Auscultation, Good Air Exchange. No: Respiratory Distress, Accessory Muscle Use Cardiovascular: Present: Regular Rate and Rhythm, Normal S1, S2. No: Murmurs Abdomen: Present: Normal Bowel Sounds. No: Tenderness, Distention, Peritoneal Signs Upper Extremity: Present: Normal Inspection. No: Cyanosis, Edema Lower Extremity: Present: Normal Inspection. No: Edema Neurological: Present: GCS=15, CN II-XII Intact, Speech Normal, Motor Func Grossly Intact, Normal Sensory Function Skin: Present: Warm, Dry, Normal Color. No: Rashes Psychiatric: Present: Alert, Oriented x 3, Anxious Medical Decision Making ED Course and Treatment: 04/29/17 00:37 Impression: A 36 year old female who presents to the emergency department complaining of anxiety. Plan: -- Labs -- Drug Screen -- Alcohol level -- HCG -- Urinalysis -- Reassess and disposition Progress Notes: 04/29/17 03:29 Patient evaluated by PES worker. Offered admission to behavioral health under 's service for Schizophrenia. - Lab Interpretations Lab Results: 04/29/17 01:08 04/29/17 01:08 Lab Results 04/29/17 01:08: Alcohol, Quantitative < 10 04/29/17 01:08: Salicylates < 1 L, Acetaminophen < 10.0 L 04/29/17 01:08: Urine Opiates Screen Negative, Urine Methadone Screen Negative, Ur Barbiturates Screen Negative, Ur Phencyclidine Scrn Negative, Ur Amphetamines Screen Negative, U Benzodiazepines Scrn Negative, U Oth Cocaine Metabols Negative, U Cannabinoids Screen Negative 04/29/17 01:08: Sodium 140, Potassium 3.7, Chloride 103, Carbon Dioxide 25, Anion Gap 16, BUN 8, Creatinine 0.7, Est GFR ( Amer) > 60, Est GFR (Non- Af Amer) > 60, Random Glucose 102, Calcium 9.7, Total Bilirubin 0.3, AST 44 H, ALT 43, Alkaline Phosphatase 77, Total Protein 8.3, Albumin 4.3, Globulin 4.0, Albumin/Globulin Ratio 1.1 04/29/17 01:08: Urine Color Yellow, Urine Appearance Clear, Urine pH 6.0, Ur Specific [place] 1.010, Urine Protein Negative, Urine Glucose (UA) Negative, Urine Ketones Negative, Urine Blood Trace-intact H, Urine Nitrate Negative, Urine Bilirubin Negative, Urine Urobilinogen 0.2, Ur Leukocyte Esterase Negative , Urine RBC 0 - 2, Urine WBC 0 - 2, Ur Epithelial Cells 0 - 2, Urine HCG, Qual Negative 04/29/17 01:08: WBC 7.9, RBC 3.91, Hgb 11.8 L, Hct 34.3 L, MCV 87.7, MCH 30.2, MCHC 34.4, RDW 14.8 H, Plt Count 242, MPV 9.5, Gran % 59.5, Lymph % (Auto) 29.7 , [place] % (Auto) 10.0 H, Eos % (Auto) 0.4 L, Baso % (Auto) 0.4, Gran # 4.69, Lymph # 2.3, [place] # 0.8 H, Eos # 0.0, Baso # 0.03 I have reviewed the lab results: Yes - Medication Orders Current Medication Orders: Acetaminophen (Tylenol 325mg Tab) 650 mg PO Q4H PRN PRN Reason: Pain, Mild (1-3) Al Hydrox/Mg Hydrox/Simethicone (Maalox Plus 30 Ml) 30 ml PO DAILY PRN PRN Reason: Upset Stomach Benztropine Mesylate (Cogentin) 1 mg PO AMHS YOU Divalproex Sodium (Depakote Dr (*Bid*)) 500 mg PO BID YOU PRN Reason: Protocol Levetiracetam (Keppra) 500 mg PO BID YOU Magnesium Hydroxide (Milk Of Magnesia) 30 ml PO DAILY PRN PRN Reason: Constipation Paroxetine HCl (Paxil) 40 mg PO HS YOU Discontinued Medications Lorazepam (Ativan) 2 mg PO STAT STA PRN Reason: Protocol Stop: 04/29/17 05:37 Paroxetine HCl (Paxil) 40 mg PO STAT STA Stop: 04/29/17 05:35 - Scribe Statement The provider has reviewed the documentation as recorded by the Guillermo Godwin Provider Attestation: Provider Scribe Attestation: All medical record entries made by the Scribe were at my direction and personally dictated by me. I have reviewed the chart and agree that the record accurately reflects my personal performance of the history, physical exam, medical decision making, and the department course for this patient. I have also personally directed, reviewed, and agree with the discharge instructions and disposition. Disposition/Present on Arrival - Present on Arrival Any Indicators Present on Arrival: No History of DVT/PE: No History of Uncontrolled Diabetes: No Urinary Catheter: No History of Decub. Ulcer: No History Surgical Site Infection Following: None - Disposition Have Diagnosis and Disposition been Completed?: Yes Diagnosis: Schizophrenia Disposition: HOME/ ROUTINE Disposition Time: 03:00 Condition: GOOD
[2017-04-29 01:27] LABS: BASO # 0.03 K/mm3 (0.0-2.0); BASO % 0.4 % (0.0-3.0); EOS % 0.4 % (1.5-5.0); GRAN # 4.69 (1.4-6.5); GRAN % 59.5 % (50.0-68.0); HEMOGLOBIN 11.8 gm/dL (12.0-16.0); LYMPH # 2.3 (1.2-3.4); LYMPH % 29.7 % (22.0-35.0); MEAN CELL VOLUME 87.7 fL (80.0-105.0); MEAN CORPUSCULAR HEMOGLOBIN 30.2 pg (25.0-35.0); MEAN CORPUSCULAR HGB CONC 34.4 g/dl (31.0-37.0); MEAN PLATELET VOLUME 9.5 fl (7.0-11.0); MONO # 0.8 (0.1-0.6); PLATELET COUNT 242 10^3/uL (120.0-450.0); RBC 3.91 10^6/uL (3.5-6.1); RED CELL DISTRIBUTION WIDTH 14.8 % (11.5-14.5); WHITE BLOOD COUNT 7.9 10^3/ul (4.5-11.0)
[2017-04-29 01:28] LABS: URINE BILIRUBIN NEGATIVE (NEGATIVE); URINE BLOOD TRACE-INTACT (NEGATIVE); URINE GLUCOSE (UA) NEGATIVE (NEGATIVE); URINE LEUKOCYTE ESTERASE NEGATIVE Leu/uL (NEGATIVE); URINE NITRATE NEGATIVE (NEGATIVE); URINE PROTEIN NEGATIVE mg/dL (<30 mg/dL); URINE UROBILINOGEN 0.2 E.U./dL (<1 E.U./dL)
[2017-04-29 01:38] LABS: HCG,QUALITATIVE URINE NEGATIVE (NEGATIVE)
[2017-04-29 01:39] LABS: URINE APPEARANCE CLEAR (CLEAR); URINE COLOR YELLOW (YELLOW)
[2017-04-29 01:41] LABS: ALB/GLOB RATIO 1.1 (1.1-1.8); ALBUMIN 4.3 g/dL (3.0-4.8); ALT/SGPT 43 U/L (7-56); AST/SGOT 44 U/L (15-39); BLOOD UREA NITROGEN 8 mg/dL (7-21); CALCIUM 9.7 mg/dL (8.4-10.5); GFR AFRICAN-AMERICAN > 60; GFR NON-AFRICAN AMERICAN > 60; SALICYLATE < 1 mg/dL (2.0-20.0)
[2017-04-29 01:42] LABS: ACETAMINOPHEN < 10.0 ug/ml (10.0-20.0); URINE EPITHELIAL CELLS 0 - 2 /hpf (0-5); URINE RBC 0 - 2 /hpf (0-2); URINE WBC 0 - 2 /hpf (0-6)
[2017-04-29 01:50] LABS: BARBITURATES, UR NEGATIVE (NEGATIVE); BENZODIAZEPINES, UR NEGATIVE (NEGATIVE); OPIATES, UR NEGATIVE (NEGATIVE); PHENCYCLIDINE, UR NEGATIVE (NEGATIVE)
[2017-04-29 03:11] VITALS: O2SAT 98
[2017-04-29] MEDS ORDERED: Alum-Mag Hydrox-Simethicone Susp (30 mL) PO PRN (04:05)
[2017-04-29] MEDS ORDERED: Magnesium Hydroxide Susp 30 ml UD PO PRN (04:05)
--- NOTE | 2017-04-29 05:22 | PCM.BM ---
<Jenaro Smith - Last Filed: 04/29/17 05:20> Treatment Plan Problems - Problems identified on initial assessmt medication nonadherence Date Initiated: 04/29/17 Time Initiated: 04:00 Assessment reference: NA Status: Active anxiety Date Initiated: 04/29/17 Time Initiated: 04:00 Assessment reference: NA Status: Active Treatment assets and liabiliti Patient Assests: self-reliant, ADL independent Patient Liabilities: poor support system, relationship conflicts, medical problems, legal issue - Milieu Protocol Maintain good personal hygiene: daily Encourage regular showers, daily Remind patient to perform daily oral care, daily Assist patient to perform ADL's Maintain personal safety: every shift Educate patient to report safety concerns to staff, every shift Monitor environment for contraband/sharps Medication safety: Monitor for expected outcome, potential side effects: every shift, Assess barriers to learning: every shift, Assess readiness for medication education: every shift Family Contact - Goals for Treatment Patient goals for treatment: Medication stabilization Discharge/Continuing Care - Education Needs Education Needs: Patient Medication, Patient Diagnosis/Disease Process, Patient Coping Skills - Discharge Discharge Criteria: Tolerates medication w/o severe side effects, Free of agitation <Jennifer Delarosa - Last Filed: 04/29/17 13:03> - Diagnosis (1) Schizoaffective disorder, bipolar type Status: Chronic Interventions: 04/29/17 13:04 Psychoeducation/psychotherapy Psychopharmacology/adjustment of medications as needed/ monitoring possible side effects Evaluate pt on daily basis Compliance with medications and follow up appointments Long acting medication if pt is noncompliant with pill form Suicide and homicide risk assessment and prevention, coping strategies, safety plan Relapse prevention Reduction of symptoms Improve functional status Possible assertive community treatment Cognitive behavioral therapy Family intervention Possible social skill training as outpatient (2) Borderline intellectual functioning Status: Chronic Interventions: 04/29/17 13:04 supportive therapy (3) ROMINA (generalized anxiety disorder) Status: Chronic Interventions: 04/29/17 13:05 Psychoeducation Psychopharmacology/adjustment of medications as needed/ monitoring possible side effects Evaluate pt on daily basis Compliance with medications and follow up appointments Suicide and homicide risk assessment and prevention, coping strategies, safety plan Reduction of symptoms Relaxation techniques and breathing exercises Improve functional status Family intervention As outpatient: cognitive behavioral therapy (4) Intellectual disability Status: Suspected Interventions: 04/29/17 13:05 supportive therapy Family Contact - Outside Agency [facility] Care involvment: Information-sharing Agency contact name: [facility] Agency contact number: [phone] <Patrizia Strickland - Last Filed: 04/29/17 15:51> Family Contact Family contact name: Aleksey Tapia() Family contacted how many times per week?: 2 <Sincere Negron - Last Filed: 05/01/17 12:06>
[2017-04-29 07:50] LABS: GLUCOSE,FASTING 97 mg/dL (65-110); HDL CHOLESTEROL 37 mg/dL (29-60)
[2017-04-29] MEDS ORDERED: Divalproex 250 mg DR (BID formulation) PO SCH (08:00)
[2017-04-29 08:01] LABS: LDL CHOLESTEROL 84 mg/dL (0-129)
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
[2017-04-29] MEDS: Divalproex 250 mg DR (BID formulation) PO SCH (21:41)
[2017-04-30] MEDS: Divalproex 250 mg DR (BID formulation) PO SCH ×2 (09:01→21:57)
--- NOTE | 2017-04-30 15:12 | PCM.PYCHPN ---
Psychiatric Progress Note - Psychiatric Progress Note Patient seen today, length of contact: 30min Patient Chief Complaint: "I am so-so" Problems Identified/Issues Discussed: Suicide/ homicide prevention, past psychiatric h/o, current psychiatric symptoms , medical problems, risk/benefits and alternatives of medications, medications compliance, coping strategies, substance abuse h/o, relapse prevention, importance of follow up with psychiatrist and therapist, discharge plan. Medical Problems: obesity, ?seizure vs pseudo seizures Diagnostic Results: 04/29/17 01:08 04/29/17 01:08 Lab Results 04/29/17 07:25: RPR Nonreactive 04/29/17 07:25: TSH 3rd Generation 6.15 H 04/29/17 07:25: Fasting Glucose 97, Triglycerides 79, Cholesterol 138, LDL Cholesterol Direct 84, HDL Cholesterol 37 04/29/17 01:08: Alcohol, Quantitative < 10 04/29/17 01:08: Salicylates < 1 L, Acetaminophen < 10.0 L 04/29/17 01:08: Urine Opiates Screen Negative, Urine Methadone Screen Negative, Ur Barbiturates Screen Negative, Ur Phencyclidine Scrn Negative, Ur Amphetamines Screen Negative, U Benzodiazepines Scrn Negative, U Oth Cocaine Metabols Negative, U Cannabinoids Screen Negative 04/29/17 01:08: Sodium 140, Potassium 3.7, Chloride 103, Carbon Dioxide 25, Anion Gap 16, BUN 8, Creatinine 0.7, Est GFR ( Amer) > 60, Est GFR (Non- Af Amer) > 60, Random Glucose 102, Calcium 9.7, Total Bilirubin 0.3, AST 44 H, ALT 43, Alkaline Phosphatase 77, Total Protein 8.3, Albumin 4.3, Globulin 4.0, Albumin/Globulin Ratio 1.1 04/29/17 01:08: Urine Color Yellow, Urine Appearance Clear, Urine pH 6.0, Ur Specific [place] 1.010, Urine Protein Negative, Urine Glucose (UA) Negative, Urine Ketones Negative, Urine Blood Trace-intact H, Urine Nitrate Negative, Urine Bilirubin Negative, Urine Urobilinogen 0.2, Ur Leukocyte Esterase Negative , Urine RBC 0 - 2, Urine WBC 0 - 2, Ur Epithelial Cells 0 - 2, Urine HCG, Qual Negative 04/29/17 01:08: WBC 7.9, RBC 3.91, Hgb 11.8 L, Hct 34.3 L, MCV 87.7, MCH 30.2, MCHC 34.4, RDW 14.8 H, Plt Count 242, MPV 9.5, Gran % 59.5, Lymph % (Auto) 29.7 , [place] % (Auto) 10.0 H, Eos % (Auto) 0.4 L, Baso % (Auto) 0.4, Gran # 4.69, Lymph # 2.3, [place] # 0.8 H, Eos # 0.0, Baso # 0.03 Vital Signs Temp Pulse Resp BP Pulse Ox 04/30/17 07:37 98.0 F 68 20 97/61 L 04/29/17 16:00 80 94/57 L 04/29/17 03:55 98.3 F 70 16 119/84 98 04/29/17 03:11 98.3 F 72 18 111/74 98 04/28/17 23:48 99.2 F 88 20 113/72 96 DSM 5 Symptoms Update: Shortly pt is 35yo Female with h/o schizophrenia vs schizoaffective disorder, has cognitive limitations, learning disabilities, h/o mulitple admissions in the past, Most recent was January 2017 in this unit, currently under care of [facility], patient called 911 because pt was not able to sense her body, psychosis, inability to function, noncompliance with meds, most likely for the past 10days. Over night of the admission pt was agitated, was screaming "give my son back to me....", was not able to sleep was feeling anxious, this sheet writer gave ativan at the night time. Pt was seen in her room, pt has cognitive limitations, concrete thought process , poverty of speech and thoughts. pt said that her mood is "so-so", pt has flat affect, poverty of speech and thought. pt is self isolative, not participating in unit activities. pt has concentration problems, denied hearing voices or seeing things, but appears to be disorganized. pt tolerates meds well, no side effects observed or reported, AIMS 0, no EPS. DSM 5 Diagnosis: schizoaffective, bipolar type neurocognitive deficit anxiety nos Medication Change: No (resumed yesterday) Medical Record Reviewed: Yes Consults ordered or reviewed: medical consult called Mental Status Examination - Cognitive Function Orientation: Person, Place, Situation, Time Memory: Intact Attention: Poor Concentration: Poor Association: Loose Fund of Knowledge: Poor - Mood Mood: Depressed - Affect Affect: Constricted - Formal Thought Process Formal Thought Process: Other (poverty of speech and thoughts, thought blocking) - Suicidal Ideation Suicidal Ideation: No - Homicidal Ideation Homicidal Ideation: No Goal/Treatment Plan - Goal/Treatment Plan Need for Continued Stay: Remain at risks for inpatient hospitalization, Severe depression anxiety, Discharge may exacerbated symptoms, Severe functional impairment Progress Toward Problem(s) and Goals/Treatment Plan: Milieu/structure/supportive therapy Benztropine 1 mg PO amhs for possible eps Depakote DR 500 mg PO amhs for mood stabilization Keppra 500 mg PO amhs for seizures Paxil 40 mg PO hs for depression and insomnia colace 100mg po amhs for constipation medical evaluation will monitor closely SW evaluation Estimated Date of D/C: 05/06/17 (will monitor closely) - Smoking Cessation Smoking Cessation Initiated: No Reason for not providing: does not smoke
[2017-05-01] MEDS: Divalproex 250 mg DR (BID formulation) PO SCH ×2 (09:01→21:38)
[2017-05-01 11:45] LABS: FREE T4 1.02 ng/dL (0.78-2.19)
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
--- NOTE | 2017-05-01 16:21 | PCM.PYCHPN ---
Psychiatric Progress Note - Psychiatric Progress Note Patient seen today, length of contact: 30min Patient Chief Complaint: "I want my son back, I want my son back..." Problems Identified/Issues Discussed: Suicide/ homicide prevention, past psychiatric h/o, current psychiatric symptoms , medical problems, risk/benefits and alternatives of medications, medications compliance, coping strategies, substance abuse h/o, relapse prevention, importance of follow up with psychiatrist and therapist, discharge plan. Medical Problems: obesity, ?seizure vs pseudo seizures Diagnostic Results: 04/29/17 01:08 04/29/17 01:08 Lab Results 04/29/17 07:25: RPR Nonreactive 04/29/17 07:25: TSH 3rd Generation 6.15 H 04/29/17 07:25: Fasting Glucose 97, Triglycerides 79, Cholesterol 138, LDL Cholesterol Direct 84, HDL Cholesterol 37 04/29/17 01:08: Alcohol, Quantitative < 10 04/29/17 01:08: Salicylates < 1 L, Acetaminophen < 10.0 L 04/29/17 01:08: Urine Opiates Screen Negative, Urine Methadone Screen Negative, Ur Barbiturates Screen Negative, Ur Phencyclidine Scrn Negative, Ur Amphetamines Screen Negative, U Benzodiazepines Scrn Negative, U Oth Cocaine Metabols Negative, U Cannabinoids Screen Negative 04/29/17 01:08: Sodium 140, Potassium 3.7, Chloride 103, Carbon Dioxide 25, Anion Gap 16, BUN 8, Creatinine 0.7, Est GFR ( Amer) > 60, Est GFR (Non- Af Amer) > 60, Random Glucose 102, Calcium 9.7, Total Bilirubin 0.3, AST 44 H, ALT 43, Alkaline Phosphatase 77, Total Protein 8.3, Albumin 4.3, Globulin 4.0, Albumin/Globulin Ratio 1.1 04/29/17 01:08: Urine Color Yellow, Urine Appearance Clear, Urine pH 6.0, Ur Specific [place] 1.010, Urine Protein Negative, Urine Glucose (UA) Negative, Urine Ketones Negative, Urine Blood Trace-intact H, Urine Nitrate Negative, Urine Bilirubin Negative, Urine Urobilinogen 0.2, Ur Leukocyte Esterase Negative , Urine RBC 0 - 2, Urine WBC 0 - 2, Ur Epithelial Cells 0 - 2, Urine HCG, Qual Negative 04/29/17 01:08: WBC 7.9, RBC 3.91, Hgb 11.8 L, Hct 34.3 L, MCV 87.7, MCH 30.2, MCHC 34.4, RDW 14.8 H, Plt Count 242, MPV 9.5, Gran % 59.5, Lymph % (Auto) 29.7 , [place] % (Auto) 10.0 H, Eos % (Auto) 0.4 L, Baso % (Auto) 0.4, Gran # 4.69, Lymph # 2.3, [place] # 0.8 H, Eos # 0.0, Baso # 0.03 Vital Signs Temp Pulse Resp BP Pulse Ox 04/30/17 07:37 98.0 F 68 20 97/61 L 04/29/17 16:00 80 94/57 L 04/29/17 03:55 98.3 F 70 16 119/84 98 04/29/17 03:11 98.3 F 72 18 111/74 98 04/28/17 23:48 99.2 F 88 20 113/72 96 DSM 5 Symptoms Update: Shortly pt is 35yo Female with h/o schizophrenia vs schizoaffective disorder, has cognitive limitations, learning disabilities, h/o mulitple admissions in the past, Most recent was January 2017 in this unit, currently under care of [facility], patient called 911 because pt was not able to sense her body, psychosis, inability to function, noncompliance with meds, most likely for the past 10days. Over night of the admission pt was agitated, was screaming "give my son back to me....", was not able to sleep was feeling anxious, this insurance underwriter gave ativan at the night time. Pt was seen at the tx team meeting, pt has cognitive limitations, concrete thought process, poverty of speech and thoughts. today pt was psychotic, seems to be internally preoccupied, responding to internal stimuli, pt was keep repeating "I want my son back, I want my son back" pt is self isolative, not participating in unit activities. pt has concentration problems, denied hearing voices or seeing things, but appears to be disorganized and psychotic. pt presents worse this admission to compare to the previous one. pt tolerates meds well, no side effects observed or reported, AIMS 0, no EPS. DSM 5 Diagnosis: schizoaffective, bipolar type neurocognitive deficit anxiety nos Medication Change: Yes (risperdal increased) Medical Record Reviewed: Yes Consults ordered or reviewed: medical consult appreciated Mental Status Examination - Cognitive Function Orientation: Person, Place, Situation, Time Memory: Intact Attention: Poor Concentration: Poor Association: Loose Fund of Knowledge: Poor - Mood Mood: Depressed - Affect Affect: Constricted - Formal Thought Process Formal Thought Process: Other (poverty of speech and thoughts, thought blocking) - Suicidal Ideation Suicidal Ideation: No - Homicidal Ideation Homicidal Ideation: No Goal/Treatment Plan - Goal/Treatment Plan Need for Continued Stay: Remain at risks for inpatient hospitalization, Severe depression anxiety, Discharge may exacerbated symptoms, Severe functional impairment Progress Toward Problem(s) and Goals/Treatment Plan: Milieu/structure/supportive therapy addendum: pt was started on risperdal 1mg amhs at the day of admission, today will be increased to 1.5mg po bid./ Benztropine 1 mg PO amhs for possible eps Depakote DR 500 mg PO amhs for mood stabilization Keppra 500 mg PO amhs for seizures Paxil 40 mg PO hs for depression and insomnia colace 100mg po amhs for constipation medical evaluation will monitor closely SW evaluation Estimated Date of D/C: 05/06/17 (will monitor closely)
--- NOTE | 2017-05-02 09:06 | PCM.PYCHPN ---
Psychiatric Progress Note - Psychiatric Progress Note Patient seen today, length of contact: 25 min Patient Chief Complaint: "a little bit good" Problems Identified/Issues Discussed: I reviewed recent notes and met with patient at bedside. Patient is fairly calm and cooperative. Reports she is feeling "a little bit good". Her affect remains constricted and preoccupied. Patient denies hallucinations, wishes or SI. She also denies paranoid symptoms. Responses are relevant to questioning and she does not appear to be responding to internal stimuli. Patient denies any new discomfort or pain. Tolerating medications and slept well last night. Staff notes indicate that patient has been reclusive to her room.. There were no major behavioral issues overnight. Diagnostic Results: Schizoaffective, bipolar type neurocognitive deficit anxiety nos Medication Change: No ( ) Medical Record Reviewed: Yes Mental Status Examination - Cognitive Function Orientation: Person, Place, Situation, Time Memory: Intact Attention: Poor Concentration: Poor Association: Loose Fund of Knowledge: Poor - Mood Mood: Depressed ("a little bit good") - Affect Affect: Constricted - Formal Thought Process Formal Thought Process: Other (poverty of speech and thoughts, thought blocking) - Suicidal Ideation Suicidal Ideation: No - Homicidal Ideation Homicidal Ideation: No Goal/Treatment Plan - Goal/Treatment Plan Need for Continued Stay: Remain at risks for inpatient hospitalization, Severe depression anxiety, Discharge may exacerbated symptoms, Severe functional impairment Progress Toward Problem(s) and Goals/Treatment Plan: * c/w current tx and plan * No new weekend labs * Vitals reviewed and noted below: Selected Entries 04/30/17 04/30/17 05/01/17 07:37 16:00 07:10 Temperature 98.0 F 98.7 F Pulse Rate 68 71 60 Respiratory 20 20 Rate Blood Pressure 97/61 L 100/49 L 98/54 L Estimated Date of D/C: 05/06/17 (will monitor closely)
[2017-05-02] MEDS: Divalproex 250 mg DR (BID formulation) PO SCH ×2 (09:48→21:38)
[2017-05-03] MEDS: Divalproex 250 mg DR (BID formulation) PO SCH ×2 (09:15→21:05)
--- NOTE | 2017-05-03 09:31 | PCM.PYCHPN ---
Psychiatric Progress Note - Psychiatric Progress Note Patient seen today, length of contact: 25 min Patient Chief Complaint: "depressed" Problems Identified/Issues Discussed: I reviewed recent notes and met with patient at bedside. Patient is fairly calm and cooperative. Appearance is unkempt. Reports she is still depressed but feels more hopeful. Denies wishes or suicidal thoughts. Her affect remains constricted, guarded and preoccupied. Patient continues to deny hallucinations or paranoia (though staff have noted patient to appear paranoid and guarded on the unit). Responses are relevant to questioning and she does not appear to be responding to internal stimuli. Patient denies any new discomfort or pain. Tolerating medications and slept well again last night. Staff notes indicate that patient has been emotional, anxious and delusional on the unit. Required Haldol prn on Thursday in the AM for paranoia. Diagnostic Results: Schizoaffective, bipolar type neurocognitive deficit anxiety nos Medication Change: Yes (Increased risperdal to 2 mg am + hs on 05/03/17 for paranoia) Medical Record Reviewed: Yes Mental Status Examination - Cognitive Function Orientation: Person, Place, Situation, Time Memory: Intact Attention: Poor Concentration: Poor Association: Loose Fund of Knowledge: Poor - Mood Mood: Depressed ( ) - Affect Affect: Constricted - Formal Thought Process Formal Thought Process: Other (poverty of speech and thoughts, thought blocking) - Suicidal Ideation Suicidal Ideation: No - Homicidal Ideation Homicidal Ideation: No Goal/Treatment Plan - Goal/Treatment Plan Need for Continued Stay: Remain at risks for inpatient hospitalization, Severe depression anxiety, Discharge may exacerbated symptoms, Severe functional impairment Progress Toward Problem(s) and Goals/Treatment Plan: * c/w current tx and plan * Increased risperdal to 2 mg am + hs on 05/03/17 for paranoia * No new weekend labs * Vitals reviewed and noted below: Selected Entries 05/02/17 05/02/17 07:49 16:14 Temperature 97.4 F L Pulse Rate 66 76 Respiratory 20 Rate Blood Pressure 86/52 L 113/77 Estimated Date of D/C: 05/06/17 (will monitor closely)
[2017-05-04] MEDS ORDERED: Divalproex 250 mg DR (BID formulation) PO SCH (08:09)
[2017-05-04] MEDS: Divalproex 250 mg DR (BID formulation) PO SCH ×2 (08:14→21:25)
--- NOTE | 2017-05-04 16:06 | PCM.PYCHPN ---
Psychiatric Progress Note - Psychiatric Progress Note Patient seen today, length of contact: 30min Patient Chief Complaint: "I am fine..." Problems Identified/Issues Discussed: Suicide/ homicide prevention, past psychiatric h/o, current psychiatric symptoms , medical problems, risk/benefits and alternatives of medications, medications compliance, coping strategies, substance abuse h/o, relapse prevention, importance of follow up with psychiatrist and therapist, discharge plan. Medical Problems: obesity, ?seizure vs pseudo seizures Diagnostic Results: 04/29/17 01:08 04/29/17 01:08 Lab Results 04/29/17 07:25: RPR Nonreactive 04/29/17 07:25: TSH 3rd Generation 6.15 H 04/29/17 07:25: Fasting Glucose 97, Triglycerides 79, Cholesterol 138, LDL Cholesterol Direct 84, HDL Cholesterol 37 04/29/17 01:08: Alcohol, Quantitative < 10 04/29/17 01:08: Salicylates < 1 L, Acetaminophen < 10.0 L 04/29/17 01:08: Urine Opiates Screen Negative, Urine Methadone Screen Negative, Ur Barbiturates Screen Negative, Ur Phencyclidine Scrn Negative, Ur Amphetamines Screen Negative, U Benzodiazepines Scrn Negative, U Oth Cocaine Metabols Negative, U Cannabinoids Screen Negative 04/29/17 01:08: Sodium 140, Potassium 3.7, Chloride 103, Carbon Dioxide 25, Anion Gap 16, BUN 8, Creatinine 0.7, Est GFR ( Amer) > 60, Est GFR (Non- Af Amer) > 60, Random Glucose 102, Calcium 9.7, Total Bilirubin 0.3, AST 44 H, ALT 43, Alkaline Phosphatase 77, Total Protein 8.3, Albumin 4.3, Globulin 4.0, Albumin/Globulin Ratio 1.1 04/29/17 01:08: Urine Color Yellow, Urine Appearance Clear, Urine pH 6.0, Ur Specific [place] 1.010, Urine Protein Negative, Urine Glucose (UA) Negative, Urine Ketones Negative, Urine Blood Trace-intact H, Urine Nitrate Negative, Urine Bilirubin Negative, Urine Urobilinogen 0.2, Ur Leukocyte Esterase Negative , Urine RBC 0 - 2, Urine WBC 0 - 2, Ur Epithelial Cells 0 - 2, Urine HCG, Qual Negative 04/29/17 01:08: WBC 7.9, RBC 3.91, Hgb 11.8 L, Hct 34.3 L, MCV 87.7, MCH 30.2, MCHC 34.4, RDW 14.8 H, Plt Count 242, MPV 9.5, Gran % 59.5, Lymph % (Auto) 29.7 , [place] % (Auto) 10.0 H, Eos % (Auto) 0.4 L, Baso % (Auto) 0.4, Gran # 4.69, Lymph # 2.3, [place] # 0.8 H, Eos # 0.0, Baso # 0.03 Vital Signs Temp Pulse Resp BP Pulse Ox 04/30/17 07:37 98.0 F 68 20 97/61 L 04/29/17 16:00 80 94/57 L 04/29/17 03:55 98.3 F 70 16 119/84 98 04/29/17 03:11 98.3 F 72 18 111/74 98 04/28/17 23:48 99.2 F 88 20 113/72 96 DSM 5 Symptoms Update: Shortly pt is 35yo Female with h/o schizophrenia vs schizoaffective disorder, has cognitive limitations, learning disabilities, h/o mulitple admissions in the past, Most recent was January 2017 in this unit, currently under care of [facility], patient called 911 because pt was not able to sense her body, psychosis, inability to function, noncompliance with meds, most likely for the past 10days. Over night of the admission pt was agitated, was screaming "give my son back to me....", was not able to sleep was feeling anxious, this advertising copy writer gave ativan at the night time. Pt was seen in her room, pt has cognitive limitations, concrete thought process , poverty of speech and thoughts, on top of that pt is more disorganized, paranoid and guarded, as per RN pt tolerated haldol yesterday, this advertising copy writer will increase PRN dose of haldol, if pt will tolerate it will will d/c risperdal and start haldol. pt is self isolative, not participating in unit activities. pt has concentration problems, denied hearing voices or seeing things, but appears to be disorganized and psychotic. pt presents worse this admission to compare to the previous one. pt tolerates meds well, no side effects observed or reported, AIMS 0, no EPS. DSM 5 Diagnosis: schizoaffective, bipolar type neurocognitive deficit anxiety nos Medication Change: Yes (ripserdal inrased) Medical Record Reviewed: Yes Consults ordered or reviewed: medical consult appreciated Mental Status Examination - Cognitive Function Orientation: Person, Place, Situation, Time Memory: Intact Attention: Poor Concentration: Poor Association: Loose Fund of Knowledge: Poor - Mood Mood: Depressed ( ) - Affect Affect: Constricted - Formal Thought Process Formal Thought Process: Other (poverty of speech and thoughts, thought blocking) - Suicidal Ideation Suicidal Ideation: No - Homicidal Ideation Homicidal Ideation: No Goal/Treatment Plan - Goal/Treatment Plan Need for Continued Stay: Remain at risks for inpatient hospitalization, Severe depression anxiety, Discharge may exacerbated symptoms, Severe functional impairment Progress Toward Problem(s) and Goals/Treatment Plan: Milieu/structure/supportive therapy risperdal 2mg tid for psychosis haldol 5mg po qid prn for psychosis Benztropine 1 mg PO tid for possible eps Depakote DR 500 mg PO amhs for mood stabilization Keppra 500 mg PO amhs for seizures Paxil 40 mg PO hs for depression and insomnia colace 100mg po amhs for constipation medical evaluation will monitor closely SW evaluation Estimated Date of D/C: 05/06/17 (will monitor closely)
[2017-05-05] MEDS: Divalproex 250 mg DR (BID formulation) PO SCH ×2 (08:56→21:28)
--- NOTE | 2017-05-05 13:39 | PCM.PYCHPN ---
Psychiatric Progress Note - Psychiatric Progress Note Patient seen today, length of contact: 30min Patient Chief Complaint: "I am fine..." Problems Identified/Issues Discussed: Suicide/ homicide prevention, past psychiatric h/o, current psychiatric symptoms , medical problems, risk/benefits and alternatives of medications, medications compliance, coping strategies, substance abuse h/o, relapse prevention, importance of follow up with psychiatrist and therapist, discharge plan. Medical Problems: obesity, ?seizure vs pseudo seizures Diagnostic Results: 04/29/17 01:08 04/29/17 01:08 Lab Results 04/29/17 07:25: RPR Nonreactive 04/29/17 07:25: TSH 3rd Generation 6.15 H 04/29/17 07:25: Fasting Glucose 97, Triglycerides 79, Cholesterol 138, LDL Cholesterol Direct 84, HDL Cholesterol 37 04/29/17 01:08: Alcohol, Quantitative < 10 04/29/17 01:08: Salicylates < 1 L, Acetaminophen < 10.0 L 04/29/17 01:08: Urine Opiates Screen Negative, Urine Methadone Screen Negative, Ur Barbiturates Screen Negative, Ur Phencyclidine Scrn Negative, Ur Amphetamines Screen Negative, U Benzodiazepines Scrn Negative, U Oth Cocaine Metabols Negative, U Cannabinoids Screen Negative 04/29/17 01:08: Sodium 140, Potassium 3.7, Chloride 103, Carbon Dioxide 25, Anion Gap 16, BUN 8, Creatinine 0.7, Est GFR ( Amer) > 60, Est GFR (Non- Af Amer) > 60, Random Glucose 102, Calcium 9.7, Total Bilirubin 0.3, AST 44 H, ALT 43, Alkaline Phosphatase 77, Total Protein 8.3, Albumin 4.3, Globulin 4.0, Albumin/Globulin Ratio 1.1 04/29/17 01:08: Urine Color Yellow, Urine Appearance Clear, Urine pH 6.0, Ur Specific [place] 1.010, Urine Protein Negative, Urine Glucose (UA) Negative, Urine Ketones Negative, Urine Blood Trace-intact H, Urine Nitrate Negative, Urine Bilirubin Negative, Urine Urobilinogen 0.2, Ur Leukocyte Esterase Negative , Urine RBC 0 - 2, Urine WBC 0 - 2, Ur Epithelial Cells 0 - 2, Urine HCG, Qual Negative 04/29/17 01:08: WBC 7.9, RBC 3.91, Hgb 11.8 L, Hct 34.3 L, MCV 87.7, MCH 30.2, MCHC 34.4, RDW 14.8 H, Plt Count 242, MPV 9.5, Gran % 59.5, Lymph % (Auto) 29.7 , [place] % (Auto) 10.0 H, Eos % (Auto) 0.4 L, Baso % (Auto) 0.4, Gran # 4.69, Lymph # 2.3, [place] # 0.8 H, Eos # 0.0, Baso # 0.03 Vital Signs Temp Pulse Resp BP Pulse Ox 04/30/17 07:37 98.0 F 68 20 97/61 L 04/29/17 16:00 80 94/57 L 04/29/17 03:55 98.3 F 70 16 119/84 98 04/29/17 03:11 98.3 F 72 18 111/74 98 04/28/17 23:48 99.2 F 88 20 113/72 96 DSM 5 Symptoms Update: Shortly pt is 35yo Female with h/o schizophrenia vs schizoaffective disorder, has cognitive limitations, learning disabilities, h/o mulitple admissions in the past, Most recent was January 2017 in this unit, currently under care of [facility], patient called 911 because pt was not able to sense her body, psychosis, inability to function, noncompliance with meds, most likely for the past 10days. Over night of the admission pt was agitated, was screaming "give my son back to me....", was not able to sleep was feeling anxious, this ad copy writer gave ativan at the night time. Pt was seen in her room, pt has cognitive limitations, concrete thought process , poverty of speech and thoughts, pt c/o dizziness, but at the same time was observed walking, had a good appetite, pt still self isolating. only one dose of Haldol given to the pt PO.. pt is self isolative, not participating in unit activities. pt has concentration problems, denied hearing voices or seeing things, but appears to be disorganized and psychotic. pt presents worse this admission to compare to the previous one. pt tolerates meds well, no side effects observed or reported, AIMS 0, no EPS. DSM 5 Diagnosis: schizoaffective, bipolar type neurocognitive deficit anxiety nos Medication Change: Yes (ripserdal inrased) Medical Record Reviewed: Yes Consults ordered or reviewed: medical consult appreciated Mental Status Examination - Cognitive Function Orientation: Person, Place, Situation, Time Memory: Intact Attention: Poor Concentration: Poor Association: Loose Fund of Knowledge: Poor - Mood Mood: Depressed ( ) - Affect Affect: Constricted - Formal Thought Process Formal Thought Process: Other (poverty of speech and thoughts, thought blocking) - Suicidal Ideation Suicidal Ideation: No - Homicidal Ideation Homicidal Ideation: No Goal/Treatment Plan - Goal/Treatment Plan Need for Continued Stay: Remain at risks for inpatient hospitalization, Severe depression anxiety, Discharge may exacerbated symptoms, Severe functional impairment Progress Toward Problem(s) and Goals/Treatment Plan: Milieu/structure/supportive therapy risperdal 2mg tid for psychosis haldol 5mg po qid prn for psychosis Benztropine 1 mg PO tid for possible eps Depakote DR 500 mg PO amhs for mood stabilization Keppra 500 mg PO amhs for seizures Paxil 40 mg PO hs for depression and insomnia colace 100mg po amhs for constipation medical evaluation will monitor closely SW evaluation Estimated Date of D/C: 05/06/17 (will monitor closely)
[2017-05-06] MEDS: Divalproex 250 mg DR (BID formulation) PO SCH ×2 (08:46→21:37)
--- NOTE | 2017-05-06 15:31 | PCM.PYCHPN ---
Psychiatric Progress Note - Psychiatric Progress Note Patient seen today, length of contact: 30min Patient Chief Complaint: "I was not taking shower since last " today is Thursday Problems Identified/Issues Discussed: Suicide/ homicide prevention, past psychiatric h/o, current psychiatric symptoms , medical problems, risk/benefits and alternatives of medications, medications compliance, coping strategies, substance abuse h/o, relapse prevention, importance of follow up with psychiatrist and therapist, discharge plan. Medical Problems: obesity, ?seizure vs pseudo seizures Diagnostic Results: 04/29/17 01:08 04/29/17 01:08 Lab Results 04/29/17 07:25: RPR Nonreactive 04/29/17 07:25: TSH 3rd Generation 6.15 H 04/29/17 07:25: Fasting Glucose 97, Triglycerides 79, Cholesterol 138, LDL Cholesterol Direct 84, HDL Cholesterol 37 04/29/17 01:08: Alcohol, Quantitative < 10 04/29/17 01:08: Salicylates < 1 L, Acetaminophen < 10.0 L 04/29/17 01:08: Urine Opiates Screen Negative, Urine Methadone Screen Negative, Ur Barbiturates Screen Negative, Ur Phencyclidine Scrn Negative, Ur Amphetamines Screen Negative, U Benzodiazepines Scrn Negative, U Oth Cocaine Metabols Negative, U Cannabinoids Screen Negative 04/29/17 01:08: Sodium 140, Potassium 3.7, Chloride 103, Carbon Dioxide 25, Anion Gap 16, BUN 8, Creatinine 0.7, Est GFR ( Amer) > 60, Est GFR (Non- Af Amer) > 60, Random Glucose 102, Calcium 9.7, Total Bilirubin 0.3, AST 44 H, ALT 43, Alkaline Phosphatase 77, Total Protein 8.3, Albumin 4.3, Globulin 4.0, Albumin/Globulin Ratio 1.1 04/29/17 01:08: Urine Color Yellow, Urine Appearance Clear, Urine pH 6.0, Ur Specific [place] 1.010, Urine Protein Negative, Urine Glucose (UA) Negative, Urine Ketones Negative, Urine Blood Trace-intact H, Urine Nitrate Negative, Urine Bilirubin Negative, Urine Urobilinogen 0.2, Ur Leukocyte Esterase Negative , Urine RBC 0 - 2, Urine WBC 0 - 2, Ur Epithelial Cells 0 - 2, Urine HCG, Qual Negative 04/29/17 01:08: WBC 7.9, RBC 3.91, Hgb 11.8 L, Hct 34.3 L, MCV 87.7, MCH 30.2, MCHC 34.4, RDW 14.8 H, Plt Count 242, MPV 9.5, Gran % 59.5, Lymph % (Auto) 29.7 , [place] % (Auto) 10.0 H, Eos % (Auto) 0.4 L, Baso % (Auto) 0.4, Gran # 4.69, Lymph # 2.3, [place] # 0.8 H, Eos # 0.0, Baso # 0.03 Vital Signs Temp Pulse Resp BP Pulse Ox 04/30/17 07:37 98.0 F 68 20 97/61 L 04/29/17 16:00 80 94/57 L 04/29/17 03:55 98.3 F 70 16 119/84 98 04/29/17 03:11 98.3 F 72 18 111/74 98 04/28/17 23:48 99.2 F 88 20 113/72 96 DSM 5 Symptoms Update: Shortly pt is 35yo Female with h/o schizophrenia vs schizoaffective disorder, has cognitive limitations, learning disabilities, h/o mulitple admissions in the past, Most recent was January 2017 in this unit, currently under care of [facility], patient called 911 because pt was not able to sense her body, psychosis, inability to function, noncompliance with meds, most likely for the past 10days. Over night of the admission pt was agitated, was screaming "give my son back to me....", was not able to sleep was feeling anxious, this senior technical writer gave ativan at the night time. Pt was seen at the tx team room, concrete thought process, poverty of speech and thoughts, pt refused to shower for the past 5days, pt was encouraged to take a shower and started to go to the groups, pt was observed in groups later on, pt has to have very good structure at home. pt has concentration problems, denied hearing voices or seeing things, but appears to be disorganized and psychotic. minimal improvement pt tolerates meds well, no side effects observed or reported, AIMS 0, no EPS. DSM 5 Diagnosis: schizoaffective, bipolar type neurocognitive deficit anxiety nos Medication Change: No Medical Record Reviewed: Yes Consults ordered or reviewed: medical consult appreciated Mental Status Examination - Cognitive Function Orientation: Person, Place, Situation, Time Memory: Intact Attention: Poor Concentration: Poor Association: Loose Fund of Knowledge: Poor - Mood Mood: Depressed ( ) - Affect Affect: Constricted - Formal Thought Process Formal Thought Process: Other (poverty of speech and thoughts, thought blocking) - Suicidal Ideation Suicidal Ideation: No - Homicidal Ideation Homicidal Ideation: No Goal/Treatment Plan - Goal/Treatment Plan Need for Continued Stay: Remain at risks for inpatient hospitalization, Severe depression anxiety, Discharge may exacerbated symptoms, Severe functional impairment Progress Toward Problem(s) and Goals/Treatment Plan: Milieu/structure/supportive therapy risperdal 2mg tid for psychosis haldol 5mg po qid prn for psychosis Benztropine 1 mg PO tid for possible eps Depakote DR 500 mg PO amhs for mood stabilization Keppra 500 mg PO amhs for seizures Paxil 40 mg PO hs for depression and insomnia colace 100mg po amhs for constipation medical evaluation will monitor closely SW evaluation Estimated Date of D/C: 05/08/17 (pt is not ready, was not taking shower, not participating in unit activities)
[2017-05-07] MEDS: Divalproex 250 mg DR (BID formulation) PO SCH ×2 (09:25→21:09)
--- NOTE | 2017-05-07 18:14 | PCM.PYCHPN ---
Psychiatric Progress Note - Psychiatric Progress Note Patient seen today, length of contact: 20min Patient Chief Complaint: "....." Problems Identified/Issues Discussed: Suicide/ homicide prevention, past psychiatric h/o, current psychiatric symptoms , medical problems, risk/benefits and alternatives of medications, medications compliance, coping strategies, substance abuse h/o, relapse prevention, importance of follow up with psychiatrist and therapist, discharge plan. Medical Problems: obesity, ?seizure vs pseudo seizures Diagnostic Results: 04/29/17 01:08 04/29/17 01:08 Lab Results 04/29/17 07:25: RPR Nonreactive 04/29/17 07:25: TSH 3rd Generation 6.15 H 04/29/17 07:25: Fasting Glucose 97, Triglycerides 79, Cholesterol 138, LDL Cholesterol Direct 84, HDL Cholesterol 37 04/29/17 01:08: Alcohol, Quantitative < 10 04/29/17 01:08: Salicylates < 1 L, Acetaminophen < 10.0 L 04/29/17 01:08: Urine Opiates Screen Negative, Urine Methadone Screen Negative, Ur Barbiturates Screen Negative, Ur Phencyclidine Scrn Negative, Ur Amphetamines Screen Negative, U Benzodiazepines Scrn Negative, U Oth Cocaine Metabols Negative, U Cannabinoids Screen Negative 04/29/17 01:08: Sodium 140, Potassium 3.7, Chloride 103, Carbon Dioxide 25, Anion Gap 16, BUN 8, Creatinine 0.7, Est GFR ( Amer) > 60, Est GFR (Non- Af Amer) > 60, Random Glucose 102, Calcium 9.7, Total Bilirubin 0.3, AST 44 H, ALT 43, Alkaline Phosphatase 77, Total Protein 8.3, Albumin 4.3, Globulin 4.0, Albumin/Globulin Ratio 1.1 04/29/17 01:08: Urine Color Yellow, Urine Appearance Clear, Urine pH 6.0, Ur Specific [place] 1.010, Urine Protein Negative, Urine Glucose (UA) Negative, Urine Ketones Negative, Urine Blood Trace-intact H, Urine Nitrate Negative, Urine Bilirubin Negative, Urine Urobilinogen 0.2, Ur Leukocyte Esterase Negative , Urine RBC 0 - 2, Urine WBC 0 - 2, Ur Epithelial Cells 0 - 2, Urine HCG, Qual Negative 04/29/17 01:08: WBC 7.9, RBC 3.91, Hgb 11.8 L, Hct 34.3 L, MCV 87.7, MCH 30.2, MCHC 34.4, RDW 14.8 H, Plt Count 242, MPV 9.5, Gran % 59.5, Lymph % (Auto) 29.7 , [place] % (Auto) 10.0 H, Eos % (Auto) 0.4 L, Baso % (Auto) 0.4, Gran # 4.69, Lymph # 2.3, [place] # 0.8 H, Eos # 0.0, Baso # 0.03 Vital Signs Temp Pulse Resp BP Pulse Ox 04/30/17 07:37 98.0 F 68 20 97/61 L 04/29/17 16:00 80 94/57 L 04/29/17 03:55 98.3 F 70 16 119/84 98 04/29/17 03:11 98.3 F 72 18 111/74 98 04/28/17 23:48 99.2 F 88 20 113/72 96 DSM 5 Symptoms Update: Shortly pt is 35yo Female with h/o schizophrenia vs schizoaffective disorder, has cognitive limitations, learning disabilities, h/o mulitple admissions in the past, Most recent was January 2017 in this unit, currently under care of [facility], patient called 911 because pt was not able to sense her body, psychosis, inability to function, noncompliance with meds, most likely for the past 10days. Over night of the admission pt was agitated, was screaming "give my son back to me....", was not able to sleep was feeling anxious, this typewriter assembler gave ativan at the night time. Pt was seen in her room, pt is in deep sleep, pt is low profile still, sleeps most of the times, eats and going back to sleep, pt is not participating in unit activities, hygiene is poor. this typewriter assembler has impression maybe patient is overly sedated due to medication, this typewriter assembler will decrease the dose of Risperdal as well as Cogentin. denied hearing voices or seeing things, but appears to be disorganized and psychotic. minimal improvement pt tolerates meds well, no side effects observed or reported, AIMS 0, no EPS. DSM 5 Diagnosis: schizoaffective, bipolar type neurocognitive deficit anxiety nos Medication Change: Yes (Risperdal decreased Cogentin decreased) Medical Record Reviewed: Yes Consults ordered or reviewed: medical consult appreciated Mental Status Examination - Cognitive Function Orientation: Person, Place, Situation, Time Memory: Intact Attention: Poor Concentration: Poor Association: Loose Fund of Knowledge: Poor - Mood Mood: Depressed ( ) - Affect Affect: Constricted - Formal Thought Process Formal Thought Process: Other (poverty of speech and thoughts, thought blocking) - Suicidal Ideation Suicidal Ideation: No - Homicidal Ideation Homicidal Ideation: No Goal/Treatment Plan - Goal/Treatment Plan Need for Continued Stay: Remain at risks for inpatient hospitalization, Severe depression anxiety, Discharge may exacerbated symptoms, Severe functional impairment Progress Toward Problem(s) and Goals/Treatment Plan: Milieu/structure/supportive therapy risperdal was decreased to 2mg twice a day for psychosis haldol 5mg po qid prn for psychosis Benztropine will be decreased to 1 mg PO twice a day for possible eps Depakote DR 500 mg PO amhs for mood stabilization Keppra 500 mg PO amhs for seizures Paxil 40 mg PO hs for depression and insomnia colace 100mg po amhs for constipation medical evaluation will monitor closely SW evaluation Estimated Date of D/C: 05/11/17 (pt is not ready, was not taking shower, not participating in unit activities)
[2017-05-08] MEDS: Divalproex 250 mg DR (BID formulation) PO SCH ×2 (08:54→21:02)
--- NOTE | 2017-05-08 15:51 | PCM.PYCHPN ---
Psychiatric Progress Note - Psychiatric Progress Note Patient seen today, length of contact: 20min Patient Chief Complaint: "I am not doing so well, I was sleeping, then dreaming, then I woke up, then I went to the bathroom, then I took a shower" Problems Identified/Issues Discussed: Suicide/ homicide prevention, past psychiatric h/o, current psychiatric symptoms , medical problems, risk/benefits and alternatives of medications, medications compliance, coping strategies, substance abuse h/o, relapse prevention, importance of follow up with psychiatrist and therapist, discharge plan. Medical Problems: obesity, ?seizure vs pseudo seizures Diagnostic Results: 04/29/17 01:08 04/29/17 01:08 Lab Results 04/29/17 07:25: RPR Nonreactive 04/29/17 07:25: TSH 3rd Generation 6.15 H 04/29/17 07:25: Fasting Glucose 97, Triglycerides 79, Cholesterol 138, LDL Cholesterol Direct 84, HDL Cholesterol 37 04/29/17 01:08: Alcohol, Quantitative < 10 04/29/17 01:08: Salicylates < 1 L, Acetaminophen < 10.0 L 04/29/17 01:08: Urine Opiates Screen Negative, Urine Methadone Screen Negative, Ur Barbiturates Screen Negative, Ur Phencyclidine Scrn Negative, Ur Amphetamines Screen Negative, U Benzodiazepines Scrn Negative, U Oth Cocaine Metabols Negative, U Cannabinoids Screen Negative 04/29/17 01:08: Sodium 140, Potassium 3.7, Chloride 103, Carbon Dioxide 25, Anion Gap 16, BUN 8, Creatinine 0.7, Est GFR ( Amer) > 60, Est GFR (Non- Af Amer) > 60, Random Glucose 102, Calcium 9.7, Total Bilirubin 0.3, AST 44 H, ALT 43, Alkaline Phosphatase 77, Total Protein 8.3, Albumin 4.3, Globulin 4.0, Albumin/Globulin Ratio 1.1 04/29/17 01:08: Urine Color Yellow, Urine Appearance Clear, Urine pH 6.0, Ur Specific [place] 1.010, Urine Protein Negative, Urine Glucose (UA) Negative, Urine Ketones Negative, Urine Blood Trace-intact H, Urine Nitrate Negative, Urine Bilirubin Negative, Urine Urobilinogen 0.2, Ur Leukocyte Esterase Negative , Urine RBC 0 - 2, Urine WBC 0 - 2, Ur Epithelial Cells 0 - 2, Urine HCG, Qual Negative 04/29/17 01:08: WBC 7.9, RBC 3.91, Hgb 11.8 L, Hct 34.3 L, MCV 87.7, MCH 30.2, MCHC 34.4, RDW 14.8 H, Plt Count 242, MPV 9.5, Gran % 59.5, Lymph % (Auto) 29.7 , [place] % (Auto) 10.0 H, Eos % (Auto) 0.4 L, Baso % (Auto) 0.4, Gran # 4.69, Lymph # 2.3, [place] # 0.8 H, Eos # 0.0, Baso # 0.03 Vital Signs Temp Pulse Resp BP Pulse Ox 04/30/17 07:37 98.0 F 68 20 97/61 L 04/29/17 16:00 80 94/57 L 04/29/17 03:55 98.3 F 70 16 119/84 98 04/29/17 03:11 98.3 F 72 18 111/74 98 04/28/17 23:48 99.2 F 88 20 113/72 96 Temp Pulse Resp BP Pulse Ox 98.1 F 60 20 105/65 98 05/08/17 07:50 05/08/17 07:50 05/08/17 07:50 05/08/17 07:50 04/29/17 03:55 DSM 5 Symptoms Update: Shortly pt is 35yo Female with h/o schizophrenia vs schizoaffective disorder, has cognitive limitations, learning disabilities, h/o mulitple admissions in the past, Most recent was January 2017 in this unit, currently under care of [facility], patient called 911 because pt was not able to sense her body, psychosis, inability to function, noncompliance with meds, most likely for the past 10days. Over night of the admission pt was agitated, was screaming "give my son back to me....", was not able to sleep was feeling anxious, this contract technical writer gave ativan at the night time. Pt was seen at the dinning area, pt was selectively mute, when this contract technical writer approached pt, pt stayed silent and did not talk to her, in a few seconds after this contract technical writer left the room pt started to scream "hey, come back", then pt came herself to talk, pt said "I am not doing so well, I was sleeping, then dreaming , then I woke up, then I went to the bathroom, then I took a shower", pt was talking slowly, monotonic way. took forever to complete the sentence. pt started to go to the groups, pt most likely will be ready for d/c Thursday. as per staff pt is more active, started to go to the groups, took a shower. minimal improvement pt tolerates meds well, no side effects observed or reported, AIMS 0, no EPS. DSM 5 Diagnosis: schizoaffective, bipolar type neurocognitive deficit anxiety nos Medication Change: Yes (Risperdal decreased Cogentin decreased) Medical Record Reviewed: Yes Consults ordered or reviewed: medical consult appreciated Mental Status Examination - Cognitive Function Orientation: Person, Place, Situation, Time Memory: Intact Attention: Poor Concentration: Poor Association: Loose Fund of Knowledge: Poor - Mood Mood: Depressed ( ) - Affect Affect: Constricted - Formal Thought Process Formal Thought Process: Other (poverty of speech and thoughts, thought blocking) - Suicidal Ideation Suicidal Ideation: No - Homicidal Ideation Homicidal Ideation: No Goal/Treatment Plan - Goal/Treatment Plan Need for Continued Stay: Remain at risks for inpatient hospitalization, Severe depression anxiety, Discharge may exacerbated symptoms, Severe functional impairment Progress Toward Problem(s) and Goals/Treatment Plan: Milieu/structure/supportive therapy risperdal was decreased (pt was overly sedated) to 2mg twice a day for psychosis haldol 5mg po qid prn for psychosis Benztropine 1 mg PO twice a day for possible eps Depakote DR 500 mg PO amhs for mood stabilization Keppra 500 mg PO amhs for seizures Paxil 40 mg PO hs for depression and insomnia colace 100mg po amhs for constipation medical evaluation will monitor closely SW evaluation Estimated Date of D/C: 05/11/17 (pt is not ready, was not taking shower, not participating in unit activities)
--- NOTE | 2017-05-09 08:46 | PCM.PYCHPN ---
Psychiatric Progress Note - Psychiatric Progress Note Patient seen today, length of contact: 25 min Patient Chief Complaint: "a little better" Problems Identified/Issues Discussed: I reviewed recent notes and met with patient at bedside. Patient is fairly calm and cooperative. Appearance is unkempt. Reports she is feeling a little better since last week. Affect is demonstrating more range and reactivity. Patient feels the "medications are working very well". Denies wishes or suicidal thoughts. Patient continues to deny hallucinations or paranoia. Responses are relevant to questioning and she does not appear to be responding to internal stimuli. Patient denies any new discomfort or pain. Tolerating medications and slept well last night. Staff notes indicate that patient appears to be improving, behavior is a little more appropriate. She has been participating in groups. There were no behavioral issues overnight. Diagnostic Results: Schizoaffective, bipolar type neurocognitive deficit anxiety nos Medication Change: No ( ) Medical Record Reviewed: Yes Mental Status Examination - Cognitive Function Orientation: Person, Place, Situation, Time Memory: Intact Attention: Poor Concentration: Poor Association: Loose Fund of Knowledge: Poor - Mood Mood: Depressed ("a little better") - Affect Affect: Constricted (improved range and reacitivity since last weekend) - Speech Speech: Appropriate - Formal Thought Process Formal Thought Process: Other (poverty of speech and thoughts, thought blocking) - Suicidal Ideation Suicidal Ideation: No - Homicidal Ideation Homicidal Ideation: No Goal/Treatment Plan - Goal/Treatment Plan Need for Continued Stay: Remain at risks for inpatient hospitalization, Severe depression anxiety, Discharge may exacerbated symptoms, Severe functional impairment Progress Toward Problem(s) and Goals/Treatment Plan: * c/w current tx and plan * No new weekend labs * Vitals reviewed and noted below: Selected Entries 05/08/17 05/08/17 07:50 18:00 Temperature 98.1 F Pulse Rate 60 81 Respiratory 20 Rate Blood Pressure 105/65 102/66 Estimated Date of D/C: 05/11/17 (pt is not ready, was not taking shower, not participating in unit activities)
[2017-05-09] MEDS: Divalproex 250 mg DR (BID formulation) PO SCH ×2 (09:07→21:03)
[2017-05-10] MEDS: Divalproex 250 mg DR (BID formulation) PO SCH ×2 (09:38→21:37)
--- NOTE | 2017-05-10 09:39 | PCM.PYCHPN ---
Psychiatric Progress Note - Psychiatric Progress Note Patient seen today, length of contact: 25 min Patient Chief Complaint: "a little better" Problems Identified/Issues Discussed: I reviewed recent notes and met with patient at bedside. Patient is fairly calm and cooperative. Appearance is unkempt. Still reports that she is feeling a little better since last week. Affect is demonstrating more range and reactivity. Denies wishes or suicidal thoughts. Today patient endorses having hallucinations however cannot describe them to me in a coherent manner. She continues to deny paranoia. Patient is internally preoccupied however does not appear to be responding to internal stimuli. Patient denies any new discomfort or pain. Tolerating medications and slept well last night. Staff notes indicate that patient appears to be improving, behavior is a little more appropriate. Still appears to have low energy on the unit. She told staff the last time she had hallucinations was on Thursday which was 2 days ago, She has been participating in groups. There were no behavioral issues over the weekend. Diagnostic Results: Schizoaffective, bipolar type neurocognitive deficit anxiety nos Medication Change: No ( ) Medical Record Reviewed: Yes Mental Status Examination - Cognitive Function Orientation: Person, Place, Situation, Time Memory: Intact Attention: Poor Concentration: Poor Association: Loose Fund of Knowledge: Poor - Mood Mood: Depressed ("a little better") - Affect Affect: Constricted (improved range and reacitivity since last weekend) - Speech Speech: Appropriate - Formal Thought Process Formal Thought Process: Hallucinations, Other (poverty of speech and thoughts, thought blocking) - Suicidal Ideation Suicidal Ideation: No - Homicidal Ideation Homicidal Ideation: No Goal/Treatment Plan - Goal/Treatment Plan Need for Continued Stay: Remain at risks for inpatient hospitalization, Severe depression anxiety, Discharge may exacerbated symptoms, Severe functional impairment Progress Toward Problem(s) and Goals/Treatment Plan: * c/w current tx and plan * No new weekend labs * Vitals reviewed and noted below: Selected Entries 05/09/17 05/09/17 06:34 16:52 Temperature 98.2 F Pulse Rate 60 99 H Respiratory 18 Rate Blood Pressure 102/66 97/67 L Estimated Date of D/C: 05/11/17 (pt is not ready, was not taking shower, not participating in unit activities)
[2017-05-11 07:57] VITALS: BP 94/61; PULSE 70; RESP 20; TEMP 97.8
[2017-05-11] MEDS: Divalproex 250 mg DR (BID formulation) PO SCH (09:20)
== END 2017-05-11 15:19 | disposition home or self-care (01) | DRG 430 ==
LOC: ED 23:31 → ERH 04-29 03:10 → PSYC 04-29 03:53
PROVIDERS: ADMIT Psychiatry & Neurology Psychiatry; ATTEND Psychiatry & Neurology Psychiatry
DX: F25.0 Schizoaffective disorder, bipolar type (principal); F41.1 Generalized anxiety disorder; F79 Unspecified intellectual disabilities; E66.9 Obesity, unspecified; G40.909 Epilepsy, unspecified, not intractable, without status epilepticus; Z91.14 Patient's other noncompliance with medication regimen; Z68.36 Body mass index [BMI] 36.0-36.9, adult

== ENCOUNTER 2017-05-14 16:05 | Emergency (ER) | payer MEDICAID, OTHER ==
[2017-05-14 16:23] VITALS: BMI 29.0
[2017-05-14 16:31] VITALS: BP 120/73
--- NOTE | 2017-05-14 16:54 | ED PDOC ---
Arrival/HPI - General Chief Complaint: Trauma Time Seen by Provider: 05/14/17 16:35 - History of Present Illness Narrative History of Present Illness (Text): 05/14/17 16:40 36yo female presents with R. hip and R. knee pain after a mechanical fall. Pt states she slipped while walking down the stairs. Denies any other extremity, torso, neck or head injury. States pain is better with rest, worst with ambulation. No other complaints. Past Medical History - Provider Review Nursing Documentation Reviewed: Yes - Infectious Disease Hx of Infectious Diseases: None - Tetanus Immunization Tetanus Immunization: Unknown - Cardiac Hx Cardiac Disorders: Yes Hx Hypertension: Yes (hypertension) - Pulmonary Hx Respiratory Disorders: No Hx Tuberculosis: No - Neurological Hx Neurological Disorder: Yes HX Cerebrovascular Accident: No Hx Seizures: Yes - HEENT Hx HEENT Disorder: No - Renal Hx Renal Disorder: No - Endocrine/Metabolic Hx Endocrine Disorders: No Hx Diabetes Mellitus Type 2: Yes - Hematological/Oncological Hx Blood Disorders: No Hx Cancer: No - Integumentary Hx Dermatological Disorder: No - Musculoskeletal/Rheumatological Hx Musculoskeletal Disorders: No - Gastrointestinal Hx Gastrointestinal Disorders: No - Genitourinary/Gynecological Hx Genitourinary Disorders: No Hx Sexually Transmitted Diseases: No - Psychiatric Hx Psychophysiologic Disorder: Yes Hx Anxiety: Yes Hx Bipolar Disorder: Yes Hx Depression: Yes Hx Emotional Abuse: No Hx Physical Abuse: No Hx Schizophrenia: Yes Hx Sexual Abuse: No Hx Substance Use: No Other/Comment: schizo affective disorder - Surgical History Hx Hysterectomy: Yes Hx Tubal Ligation: Yes - Anesthesia Hx Anesthesia: Yes Hx Anesthesia Reactions: No Hx Malignant Hyperthermia: No - Suicidal Assessment Feels Threatened In Home Enviroment: No Family/Social History - Physician Review Nursing Documentation Reviewed: Yes Family/Social History: Unknown Family HX Smoking Status: Never Smoked Hx Alcohol Use: No Hx Substance Use: No Hx Substance Use Treatment: No Allergies/Home Meds Allergies/Adverse Reactions: Allergies No Known Allergies Allergy (Verified 05/14/17 16:22) Denied Home Medications: Home Meds Medication Instructions Recorded Confirmed Benztropine [Cogentin] 1 mg PO BID 05/14/17 05/14/17 Divalproex [Depakote DR(*BID*)] 1 tab PO HS 05/14/17 05/14/17 Docusate [Colace] 1 tab PO BID 05/14/17 05/14/17 Levetiracetam [Levetiracetam ER] 500 mg PO BID 05/14/17 05/14/17 Paroxetine HCl [Paxil] 40 mg PO HS 05/14/17 05/14/17 Risperidone [Risperdal] 2 mg PO BID 05/14/17 05/14/17 Physical Exam - Physical Exam Narrative Physical Exam (Text): 05/14/17 16:43 - Review of Systems Constitutional: Normal. absent: Fatigue, Weight Change, Fevers Eyes: Normal ENT: denies sore throat, denies tristhmus Respiratory: Normal. absent: SOB, Cough, Sputum Cardiovascular: absent: Chest Pain, Palpitations, Syncope Gastrointestinal: Normal. absent: Abdominal Pain, Diarrhea, Nausea, Vomiting Genitourinary: Normal. absent: Dysuria, Frequency, Hematuria, vaginal bleeding Musculoskeletal: hip and knee pain. absent: Back Pain, Neck Pain Skin: no rashes, no erythema Neurological: absent: Focal Weakness Endocrine: Normal Hemo/Lymphatic: Normal Psychiatric: No suicidal or homicidal ideations Physical exam Patient appears age appropriate in no distress, speaking full sentences without difficulty Head atraumatic. No nasal bone deformity or tenderness, no facial or jaw pain/ swelling. No neck midline tenderness, thoracic and lumbar spine with no midline tenderness. Pt moving b/l upper and lower extremities without difficulty, 5/5 strength, with full active and passive ROM. Distal neurovasc fully intact. Abd soft/nt/ng, no hematomas, no peritoneal signs. Neg. pelvic rock. - Systems Exam Head: Present: Atraumatic, Normocephalic Pupils: Present: PERRL Extroacular Muscles: Present: EOMI Conjunctiva: Present: Normal Mouth: Present: Moist Mucous Membranes Neck: Present: Normal Range of Motion. No: MIDLINE TENDERNESS, Paraspinal Tenderness Respiratory/Chest: Present: Clear to Auscultation, Good Air Exchange. No: Respiratory Distress, Accessory Muscle Use, Tachypneic Cardiovascular: Present: Regular Rate and Rhythm, Normal S1, S2, Peripheal Pulses Present. No: Murmurs Abdomen: Present: Normal Bowel Sounds. No: Tenderness, Distention, Peritoneal Signs, Rebound, Guarding Back: Present: Normal Inspection. No: Midline Tenderness, Paraspinal Tenderness Upper Extremity: Present: Normal Inspection. No: Cyanosis, Edema Lower Extremity: Present: R. hip and knee with full active and passive ROM, 5/5 strength, distal neurovasc intact. Ambulating with steady gait and full weight bearing. R. foot and ankle unremarkable. No: Edema Neurological: Present: GCS=15, Speech Normal, cranial nerves II through XII fully intact with no cerebellar abnormality, neurosensory fully intact. No focal neurological deficits. Skin: Present: Warm, Dry, Normal Color. No: Rashes Lymphatic: Present: OX3, NI, NC Psychiatric: Present: Alert, Oriented x 3, Normal Insight, Normal Concentration Vital Signs Reviewed: Yes Vital Signs Temp Pulse Resp BP Pulse Ox 05/14/17 16:31 120/73 05/14/17 16:27 98.2 F 100 H 18 90/57 L 97 Temperature: Afebrile Blood Pressure: Normal Pulse: Tachycardic Respiratory Rate: Normal Appearance: Positive for: Well-Appearing Pain Distress: None Mental Status: Positive for: Alert and Oriented X 3 Medical Decision Making ED Course and Treatment: 05/14/17 17:01 36yo female with R. hip and knee pain after a mechanical fall. No acute findings on PE. pain meds and xrays ordered 05/14/17 17:44 no acute fractures or dislocations on pt's xrays Patient is ambulating with steady gait with full weightbearing right lower extremity. had an extensive d/w pt that although xrays are negative for any acute bony abnormality, it is still very important to fu with pmd and ortho specialist for further w/u and testing such as MRI to r/o any ligamentous/tendenous/meniscal injury. Pt verbalized full understanding of above discussion. Pt states she understands to return to the ER right away for new or worsening symptoms or for inability to f/u with PMD or specialist as instructed. Patient states that she fully agrees with and understands discharge instructions. States that she agrees with the plan and disposition. Verbalized and repeated discharge instructions and plan. I have given the patient opportunity to ask any additional questions. - RAD Interpretation Radiology Orders: 05/14/17 16:39 HIP MIN 2V W/ PELVIS RT [RAD] Stat KNEE W PATELLA RIGHT 3 VIEW [RAD] Stat - Medication Orders Current Medication Orders: Discontinued Medications Acetaminophen (Tylenol 325mg Tab) 975 mg PO STAT STA Stop: 08/17/17 16:40 Last Admin: 05/14/17 17:03 Dose: 975 mg Disposition/Present on Arrival - Present on Arrival Any Indicators Present on Arrival: No History of DVT/PE: No History of Uncontrolled Diabetes: No Urinary Catheter: No History of Decub. Ulcer: No History Surgical Site Infection Following: None - Disposition Have Diagnosis and Disposition been Completed?: Yes Diagnosis: Fall Disposition: HOME/ ROUTINE Disposition Time: 17:48 Patient Plan: Discharge Condition: GOOD Discharge Instructions (ExitCare): Hip Sprain (ED), Knee Sprain (ED) Additional Instructions: PLEASE RETURN TO THE EMERGENCY DEPARTMENT FOR NEW OR WORSENING SYMPTOMS. RETURN RIGHT AWAY IF YOU CANNOT FOLLOW UP WITH YOUR PRIMARY CARE DOCTOR, CLINIC, OR SPECIALIST IN 1-2 DAYS. Please take [id number] Motrin or Tylenol for pain Referrals: Deanne Delacruz MD [Primary Care Provider] - Follow up with primary Mikie Cowan DO [Staff Provider] - Follow up with primary Kevin Shelton MD [Staff Provider] - Follow up with primary Forms: [employer] (Japanese)
[2017-05-14 17:51] VITALS: PULSE 94; RESP 16; TEMP 98
[2017-05-14 17:52] VITALS: O2SAT 98
--- NOTE | 2017-05-15 07:38 | RAD ---
PROCEDURE: Right Knee Radiographs. HISTORY: fall COMPARISON: Comparison is made to the previous study dated 06/05/2014 FINDINGS: BONES: Normal. No fracture. JOINTS: Normal. No osteoarthritis. JOINT EFFUSION: Small joint effusion is noted. OTHER FINDINGS: None. IMPRESSION: No evidence of acute fracture or dislocation. Small joint effusion.
--- NOTE | 2017-05-15 08:29 | RAD ---
PROCEDURE: Right Hip Radiographs. HISTORY: fall COMPARISON: Comparison is made to 12/26/2026 FINDINGS: BONES: Normal. No fracture. JOINTS: Mild arthritic changes are noted. SOFT TISSUES: Normal. OTHER FINDINGS: None. IMPRESSION: No evidence of acute fracture or dislocation. Mild arthritic changes.
== END 2017-05-14 17:51 | disposition home or self-care (01) ==
LOC: ED 16:05
DX: M25.561 Pain in right knee (principal); W01.0XXA Fall on same level from slipping, tripping and stumbling without subsequent striking against object, initial encounter; I10 Essential (primary) hypertension

== ENCOUNTER 2017-05-19 16:22 | Emergency (ER) | payer OTHER ==
[2017-05-19 16:31] VITALS: BMI 30.7
[2017-05-19 16:34] VITALS: TEMP 98.7
[2017-05-19 17:48] LABS: BASO # 0.02 K/mm3 (0.0-2.0); BASO % 0.3 % (0.0-3.0); EOS # 0.1 (0.0-0.7); EOS % 1.1 % (1.5-5.0); GRAN # 3.91 (1.4-6.5); GRAN % 54.7 % (50.0-68.0); HEMATOCRIT 32.9 % (36.0-48.0); LYMPH # 2.2 (1.2-3.4); LYMPH % 30.5 % (22.0-35.0); MEAN CELL VOLUME 89.9 fl (80.0-105.0); MEAN CORPUSCULAR HEMOGLOBIN 29.5 pg (25.0-35.0); MEAN CORPUSCULAR HGB CONC 32.8 g/dl (31.0-37.0); MEAN PLATELET VOLUME 9.1 fl (7.0-11.0); MONO % 13.4 % (1.0-6.0); RED CELL DISTRIBUTION WIDTH 14.1 % (11.5-14.5); WHITE BLOOD COUNT 7.2 10^3/ul (4.5-11.0)
[2017-05-19 17:57] LABS: ALB/GLOB RATIO 1.1 (1.1-1.8); ALKALINE PHOSPHATASE 65 U/L (38-133); ALT/SGPT 24 U/L (7-56); AST/SGOT 32 U/L (15-39); BILIRUBIN,TOTAL 0.4 mg/dL (0.2-1.3); BLOOD UREA NITROGEN 4 mg/dL (7-21); CALCIUM 8.8 mg/dL (8.4-10.5); CARBON DIOXIDE 28 mmol/L (21-33); CHLORIDE 101 mmol/L (95-110); GFR AFRICAN-AMERICAN > 60; GLUCOSE,RANDOM 80 mg/dL (70-110); SODIUM 139 mmol/L (132-148); TOTAL PROTEIN 7.5 g/dL (5.8-8.3)
--- NOTE | 2017-05-19 18:15 | ED PDOC ---
Arrival/HPI - General Chief Complaint: Lower Extremity Problem/Injury Time Seen by Provider: 05/19/17 17:02 Historian: Patient - History of Present Illness Narrative History of Present Illness (Text): 05/19/17 18:12 36-year-old female presents today with bilateral ankle swelling since yesterday. Patient denies any recent trauma or injury. She is complaining of pain to the bilateral lower legs. She denies chest pain or shortness of breath. Denies fevers or chills. She denies history of CHF. No nausea vomiting diarrhea constipation. Patient denies urinary symptoms. No medications have been taken for pain at home. No other complaints. Past Medical History - Provider Review Nursing Documentation Reviewed: Yes - Travel History Have you recently traveled outside [place] w/in the past 3 mons?: No - Infectious Disease Hx of Infectious Diseases: None - Tetanus Immunization Tetanus Immunization: Unknown - Cardiac Hx Cardiac Disorders: Yes Hx Hypertension: Yes (hypertension) - Pulmonary Hx Respiratory Disorders: No Hx Tuberculosis: No - Neurological Hx Neurological Disorder: Yes HX Cerebrovascular Accident: No Hx Seizures: Yes - HEENT Hx HEENT Disorder: No - Renal Hx Renal Disorder: No - Endocrine/Metabolic Hx Endocrine Disorders: No Hx Diabetes Mellitus Type 2: Yes - Hematological/Oncological Hx Blood Disorders: No Hx Cancer: No - Integumentary Hx Dermatological Disorder: No - Musculoskeletal/Rheumatological Hx Musculoskeletal Disorders: No - Gastrointestinal Hx Gastrointestinal Disorders: No - Genitourinary/Gynecological Hx Genitourinary Disorders: No Hx Sexually Transmitted Diseases: No - Psychiatric Hx Psychophysiologic Disorder: Yes Hx Anxiety: Yes Hx Bipolar Disorder: Yes Hx Depression: Yes Hx Emotional Abuse: No Hx Physical Abuse: No Hx Schizophrenia: Yes Hx Sexual Abuse: No Hx Substance Use: No Other/Comment: schizo affective disorder - Surgical History Hx Hysterectomy: Yes Hx Tubal Ligation: Yes - Anesthesia Hx Anesthesia: Yes Hx Anesthesia Reactions: No Hx Malignant Hyperthermia: No - Suicidal Assessment Feels Threatened In Home Enviroment: No Family/Social History - Physician Review Nursing Documentation Reviewed: Yes Family/Social History: Unknown Family HX Smoking Status: Never Smoked Hx Alcohol Use: No Hx Substance Use: No Hx Substance Use Treatment: No Allergies/Home Meds Allergies/Adverse Reactions: Allergies No Known Allergies Allergy (Verified 05/19/17 16:31) Denied Home Medications: Home Meds Medication Instructions Recorded Confirmed Benztropine [Cogentin] 1 mg PO BID 08/17/17 08/22/17 Divalproex [Depakote DR(*BID*)] 1 tab PO HS 05/14/17 05/19/17 Docusate [Colace] 1 tab PO BID 05/14/17 05/19/17 Levetiracetam [Levetiracetam ER] 500 mg PO BID 05/14/17 05/19/17 Paroxetine HCl [Paxil] 40 mg PO HS 05/14/17 05/19/17 Risperidone [Risperdal] 2 mg PO BID 05/14/17 05/19/17 Review of Systems - Review of Systems Constitutional: absent: Fatigue, Fevers Respiratory: absent: SOB, Cough Cardiovascular: absent: Chest Pain, Palpitations Gastrointestinal: absent: Abdominal Pain, Nausea, Vomiting Genitourinary Female: absent: Dysuria, Frequency, Hematuria Musculoskeletal: Arthralgias, Joint Swelling Skin: absent: Rash, Pruritis Neurological: absent: Headache, Dizziness Psychiatric: absent: Anxiety, Depression Physical Exam Vital Signs Reviewed: Yes Vital Signs Temp Pulse Resp BP Pulse Ox 05/19/17 18:53 71 18 106/63 97 05/19/17 16:33 98.7 F 97 H 19 96/68 L 96 Temperature: Afebrile Blood Pressure: Normal Pulse: Regular Respiratory Rate: Normal Appearance: Positive for: Well-Appearing, Non-Toxic, Comfortable Pain Distress: None Mental Status: Positive for: Alert and Oriented X 3 - Systems Exam Head: Present: Atraumatic Mouth: Present: Moist Mucous Membranes Neck: Present: Normal Range of Motion Respiratory/Chest: Present: Clear to Auscultation, Good Air Exchange. No: Respiratory Distress, Accessory Muscle Use Cardiovascular: Present: Regular Rate and Rhythm, Normal S1, S2. No: Murmurs Abdomen: No: Tenderness Lower Extremity: Present: Edema (+ 1+ pitting edema bilaterally; no calf tenderness or erythema; ), NORMAL PULSES, Neurovascularly Intact, Capillary Refill < 2 s. No: CALF TENDERNESS, Tenderness, Erythema, Deformity, Temperature Abnormalties Neurological: Present: GCS=15 Skin: Present: Warm, Dry, Normal Color. No: Rashes Psychiatric: Present: Alert, Oriented x 3 Medical Decision Making ED Course and Treatment: 05/19/17 18:14 Patient is nontoxic well-appearing in no distress with stable vital signs lungs are clear to auscultation bilaterally. Venous duplex of the lower extremities; no dvt verbal report by structural engineering technician cbc; wnl cmp; wnl bnp; wnl Patient reassessment; patient is nontoxic well-appearing in no distress with stable vital signs I discussed the results with patient about followup with a primary care physician within the next 2 days as well as the orthopedist. I've advised return if symptoms worsen persist or if there's concerning symptoms develop. Patient verbalizes understanding of discharge instructions and need for immediate followup. all aspects of this case were discussed the attending of record. Impression: Leg pain, pedal edema Motrin every 6 hours as needed for pain Followup primary care physician within the next 2 days Follow up with the orthopedist within the next 2 days Return if symptoms worsen persist or if new symptoms develop - Lab Interpretations Lab Results: 05/19/17 17:24 05/19/17 17:24 Lab Results 05/19/17 17:24: WBC 7.2, RBC 3.66, Hgb 10.8 L, Hct 32.9 L, MCV 89.9, MCH 29.5, MCHC 32.8, RDW 14.1, Plt Count 285, MPV 9.1, Gran % 54.7, Lymph % (Auto) 30.5, Gregory % (Auto) 13.4 H, Eos % (Auto) 1.1 L, Baso % (Auto) 0.3, Gran # 3.91, Lymph # 2.2, Gregory # 1.0 H, Eos # 0.1, Baso # 0.02 05/19/17 17:24: Sodium 139, Potassium 4.0, Chloride 101, Carbon Dioxide 28, Anion Gap 14, BUN 4 L, Creatinine 0.7, Est GFR ( Amer) > 60, Est GFR (Non -Af Amer) > 60, Random Glucose 80, Calcium 8.8, Total Bilirubin 0.4, AST 32, ALT 24, Alkaline Phosphatase 65, NT-Pro-B Natriuret Pep 102, Total Protein 7.5, Albumin 3.8, Globulin 3.6, Albumin/Globulin Ratio 1.1 - RAD Interpretation Radiology Orders: 05/19/17 17:02 DUPLEX LOWER EXTRM VEIN BILAT [US] Stat Disposition/Present on Arrival - Present on Arrival Any Indicators Present on Arrival: No History of DVT/PE: No History of Uncontrolled Diabetes: No Urinary Catheter: No History of Decub. Ulcer: No History Surgical Site Infection Following: None - Disposition Have Diagnosis and Disposition been Completed?: Yes Diagnosis: Leg pain, Leg edema Disposition: HOME/ ROUTINE Disposition Time: 19:39 Patient Plan: Discharge Patient Problems: Current Active Problems Problem Status Onset Leg edema Acute Leg pain Acute Condition: GOOD Discharge Instructions (ExitCare): Leg Edema (ED) Additional Instructions: Motrin every 6 hours as needed for pain Followup primary care physician within the next 2 days Follow up with the orthopedist within the next 2 days Return if symptoms worsen persist or if new symptoms develop Referrals: Deanne Delacruz MD [Primary Care Provider] - Follow up with primary Kevin Shelton MD [Staff Provider] - Follow up with primary [facility] [Outside] - Follow up with primary Forms: [employer] (Polish)
[2017-05-19 18:53] VITALS: RESP 18
--- NOTE | 2017-05-19 19:27 | US ---
HISTORY: Leg pain and swelling. Evaluate for DVT PHYSICIAN(S): Frederick Stallings MD. TECHNIQUE: Duplex sonography and color-flow Doppler with graded compression were used to evaluate the deep venous systems of both lower extremities. FINDINGS: The visualized deep venous systems of both lower extremities are sonographically normal and compressible. Normal wave forms and augmentation are seen. There is no sonographic evidence for deep venous thrombosis in the visualized segments of both lower extremities. IMPRESSION: No sonographic evidence for deep venous thrombosis in the visualized segments of both lower extremities.
[2017-05-19 20:48] VITALS: PULSE 76; O2SAT 95
[2017-05-19 20:50] VITALS: BP 113/61
== END 2017-05-19 20:49 | disposition home or self-care (01) ==
LOC: ED 16:22
DX: M79.662 Pain in left lower leg (principal); M79.661 Pain in right lower leg; R60.0 Localized edema

== ENCOUNTER 2017-05-22 14:47 | Emergency (ER) | payer OTHER ==
[2017-05-22 14:48] VITALS: BMI 30.7
[2017-05-22 15:25] VITALS: TEMP 97.9
[2017-05-22 15:39] LABS: BASO # 0.01 K/mm3 (0.0-2.0); BASO % 0.2 % (0.0-3.0); EOS # 0.1 (0.0-0.7); EOS % 1.6 % (1.5-5.0); GRAN # 3.07 (1.4-6.5); GRAN % 54.1 % (50.0-68.0); HEMATOCRIT 34.3 % (36.0-48.0); LYMPH # 1.8 (1.2-3.4); LYMPH % 31.9 % (22.0-35.0); MEAN CELL VOLUME 89.8 fl (80.0-105.0); MEAN CORPUSCULAR HEMOGLOBIN 29.8 pg (25.0-35.0); MEAN CORPUSCULAR HGB CONC 33.2 g/dl (31.0-37.0); MEAN PLATELET VOLUME 8.8 fl (7.0-11.0); MONO # 0.7 (0.1-0.6); MONO % 12.2 % (1.0-6.0); RED CELL DISTRIBUTION WIDTH 14.4 % (11.5-14.5); WHITE BLOOD COUNT 5.7 10^3/ul (4.5-11.0)
[2017-05-22 15:47] LABS: URINE BILIRUBIN NEGATIVE (NEGATIVE); URINE BLOOD NEGATIVE (NEGATIVE); URINE GLUCOSE (UA) NEGATIVE (NEGATIVE); URINE KETONE NEGATIVE (NEGATIVE); URINE LEUKOCYTE ESTERASE NEGATIVE Leu/uL (NEGATIVE); URINE PROTEIN NEGATIVE mg/dL (<30 mg/dL); URINE UROBILINOGEN 0.2 E.U./dL (<1 E.U./dL)
[2017-05-22 15:48] LABS: URINE APPEARANCE CLEAR (CLEAR); URINE COLOR YELLOW (YELLOW)
[2017-05-22 15:50] LABS: ALB/GLOB RATIO 1.1 (1.1-1.8); ALKALINE PHOSPHATASE 64 U/L (38-133); ALT/SGPT 28 U/L (7-56); AST/SGOT 24 U/L (15-39); BILIRUBIN,TOTAL 0.3 mg/dL (0.2-1.3); BLOOD UREA NITROGEN 3 mg/dL (7-21); CALCIUM 9.3 mg/dL (8.4-10.5); CARBON DIOXIDE 28 mmol/L (21-33); CHLORIDE 101 mmol/L (95-110); GFR AFRICAN-AMERICAN > 60; GLUCOSE,RANDOM 91 mg/dL (70-110); SODIUM 139 mmol/L (132-148); TOTAL PROTEIN 7.9 g/dL (5.8-8.3)
--- NOTE | 2017-05-22 18:01 | ED PDOC ---
Arrival/HPI - General Historian: Patient, EMS - History of Present Illness Symptom Onset: Gradual <Cash Reina - Last Filed: 05/22/17 19:05> <Jonatan Cohn - Last Filed: 05/22/17 22:22> - General Chief Complaint: Anxiety Time Seen by Provider: 05/22/17 15:11 - History of Present Illness Narrative History of Present Illness (Text): 05/22/17 17:58 Patient is a 36 yo female, past medical history of psychiatric disorder, presents to ED initially stating that she has had itchy legs and some swelling over the past several months, but later states that she called the ambulance because she "feels nervous" and "I want to be checked for how I feel". She states she is under stress due to custody issue with her son, and that she feels more anxious over the past several days, with depression. Denies suicidal or homicidal ideation. Denies any change in character of her legs over the past several months. Denies headache. Denies chest pain or shortness of breath. Denies auditory or visual hallucinations. (Cash Reina) Past Medical History - Infectious Disease Hx of Infectious Diseases: None - Tetanus Immunization Tetanus Immunization: Unknown - Reproductive Menopause: No - Cardiac Hx Cardiac Disorders: Yes Hx Hypertension: Yes (hypertension) - Pulmonary Hx Respiratory Disorders: No Hx Tuberculosis: No - Neurological Hx Neurological Disorder: Yes HX Cerebrovascular Accident: No Hx Seizures: Yes - HEENT Hx HEENT Disorder: No - Renal Hx Renal Disorder: No - Endocrine/Metabolic Hx Endocrine Disorders: No Hx Diabetes Mellitus Type 2: Yes - Hematological/Oncological Hx Blood Disorders: No Hx Cancer: No - Integumentary Hx Dermatological Disorder: No - Musculoskeletal/Rheumatological Hx Musculoskeletal Disorders: No - Gastrointestinal Hx Gastrointestinal Disorders: No - Genitourinary/Gynecological Hx Genitourinary Disorders: No Hx Sexually Transmitted Diseases: No - Psychiatric Hx Psychophysiologic Disorder: Yes Hx Anxiety: Yes Hx Bipolar Disorder: Yes Hx Depression: Yes Hx Emotional Abuse: No Hx Physical Abuse: No Hx Schizophrenia: Yes Hx Sexual Abuse: No Hx Substance Use: No Other/Comment: schizo affective disorder - Surgical History Hx Hysterectomy: Yes Hx Tubal Ligation: Yes - Anesthesia Hx Anesthesia: Yes Hx Anesthesia Reactions: No Hx Malignant Hyperthermia: No - Suicidal Assessment Feels Threatened In Home Enviroment: No <Cash Reina - Last Filed: 05/22/17 19:05> Family/Social History Smoking Status: Never Smoked Hx Alcohol Use: No Hx Substance Use: No Hx Substance Use Treatment: No <Cash Reina - Last Filed: 05/22/17 19:05> Family/Social History: No Known Family HX <Jonatan Cohn - Last Filed: 05/22/17 22:22> Allergies/Home Meds <Cash Reina - Last Filed: 05/22/17 19:05> <Jonatan Cohn - Last Filed: 05/22/17 22:22> Allergies/Adverse Reactions: Allergies No Known Allergies Allergy (Verified 05/19/17 16:31) Denied Home Medications: Home Meds Medication Instructions Recorded Confirmed Benztropine [Cogentin] 1 mg PO BID 05/14/17 05/22/17 Divalproex [Depakote DR(*BID*)] 1 tab PO DAILY 05/14/17 05/22/17 Docusate [Colace] 1 tab PO BID 05/14/17 05/22/17 Levetiracetam [Levetiracetam ER] 500 mg PO BID 05/14/17 05/22/17 Paroxetine HCl [Paxil] 40 mg PO HS 05/14/17 05/22/17 Risperidone [Risperdal] 2 mg PO BID 05/14/17 05/22/17 Review of Systems - Review of Systems Constitutional: absent: Fatigue, Fevers Eyes: absent: Vision Changes ENT: absent: Hearing Changes Respiratory: absent: SOB Cardiovascular: Edema. absent: Chest Pain Gastrointestinal: absent: Abdominal Pain, Nausea, Vomiting Genitourinary Female: absent: Dysuria, Frequency Musculoskeletal: absent: Back Pain Skin: absent: Rash Neurological: absent: Headache, Dizziness, Focal Weakness Endocrine: absent: Polyuria Hemo/Lymphatic: absent: Easy Bleeding Psychiatric: Anxiety, Depression. absent: Suicidal Ideation <Cash Reina - Last Filed: 05/22/17 19:05> Physical Exam Vital Signs Reviewed: Yes Temperature: Afebrile Appearance: Positive for: Well-Appearing, Non-Toxic, Comfortable Pain Distress: None Mental Status: Positive for: Alert and Oriented X 3 - Systems Exam Head: Present: Atraumatic Pupils: Present: PERRL Mouth: Present: Moist Mucous Membranes Pharnyx: No: ERYTHEMA Nose (Internal): Present: Normal Inspection Neck: Present: Normal Range of Motion Respiratory/Chest: Present: Clear to Auscultation. No: Respiratory Distress Cardiovascular: Present: Regular Rate and Rhythm Abdomen: Present: Normal Bowel Sounds. No: Tenderness, Distention Back: No: CVA Tenderness, Midline Tenderness Upper Extremity: Present: Normal ROM, NORMAL PULSES. No: Edema Lower Extremity: Present: Edema, NORMAL PULSES, Neurovascularly Intact. No: CALF TENDERNESS Neurological: Present: Motor Func Grossly Intact, Normal Sensory Function Skin: Present: Warm, Other (no vesicular rash, no streaking, no pus or drainage , no ulcerations, no uriticaria) Psychiatric: Present: Alert, Oriented x 3, Normal Insight, Normal Concentration , Anxious, Depressed Mood. No: Suicidal Ideation <Cash Reina - Last Filed: 05/22/17 19:05> Medical Decision Making - EKG Interpretation Interpreted by ED Physician: Yes Type: 12 lead EKG <Cash Reina - Last Filed: 05/22/17 19:05> <Jonatan Cohn - Last Filed: 05/22/17 22:22> ED Course and Treatment: 05/22/17 18:02 Patient on evaluation reports leg itching and swelling but for "several months" . On exam, she is nv intact with no urticaria or cellulitis or abscess noted. Possible old bug bites noted. No foreign body noted. Patient was recently evaluated over past several weeks with unremarkable ultrasound negative for dvt during recent visit as well as unremarkable plain films. She expresses anxiety, denies suicidal ideation, denies any history of physical abuse or injury. Labs reviewed. Patient alert, oriented, cooperative. Patient medically cleared for PES evaluation. 05/22/17 19:[address] Cohn, pending PES recommendations and evaluation. (Cash Reina) - Lab Interpretations Lab Results: 05/22/17 15:30 05/22/17 15:30 Lab Results 05/22/17 15:33: Urine Color Yellow, Urine Appearance Clear, Urine pH 8.0, Ur Specific [place] 1.015, Urine Protein Negative, Urine Glucose (UA) Negative, Urine Ketones Negative, Urine Blood Negative, Urine Nitrate Negative, Urine Bilirubin Negative, Urine Urobilinogen 0.2, Ur Leukocyte Esterase Negative 05/22/17 15:30: Alcohol, Quantitative < 10 05/22/17 15:30: Salicylates < 1 L, Acetaminophen < 10.0 L 05/22/17 15:30: Sodium 139, Potassium 4.0, Chloride 101, Carbon Dioxide 28, Anion Gap 14, BUN 3 L, Creatinine 0.6, Est GFR ( Amer) > 60, Est GFR (Non -Af Amer) > 60, Random Glucose 91, Calcium 9.3, Total Bilirubin 0.3, AST 24, ALT 28, Alkaline Phosphatase 64, Total Creatine Kinase 101, Total Protein 7.9, Albumin 4.1, Globulin 3.8, Albumin/Globulin Ratio 1.1 05/22/17 15:30: WBC 5.7 D, RBC 3.82, Hgb 11.4 L, Hct 34.3 L, MCV 89.8, MCH 29.8 , MCHC 33.2, RDW 14.4, Plt Count 283, MPV 8.8, Gran % 54.1, Lymph % (Auto) 31.9 , [place] % (Auto) 12.2 H, Eos % (Auto) 1.6, Baso % (Auto) 0.2, Gran # 3.07, Lymph # 1.8, [place] # 0.7 H, Eos # 0.1, Baso # 0.01 - EKG Interpretation EKG Interpretation (Text): EKG normal sinus rhythm rate of 67, no acute st elevations (Cash Reina) Disposition/Present on Arrival - Present on Arrival Any Indicators Present on Arrival: No History of DVT/PE: No History of Uncontrolled Diabetes: No Urinary Catheter: No History of Decub. Ulcer: No History Surgical Site Infection Following: None - Disposition Have Diagnosis and Disposition been Completed?: Yes Patient Plan: Observation <Cash Reina - Last Filed: 05/22/17 19:05> - Present on Arrival Any Indicators Present on Arrival: No - Disposition Have Diagnosis and Disposition been Completed?: Yes Disposition Time: 22:17 <Jonatan Cohn - Last Filed: 05/22/17 22:22> - Disposition Diagnosis: Anxiety Disposition: HOME/ ROUTINE Patient Problems: Current Active Problems Problem Status Onset Anxiety Acute Condition: GOOD Referrals: Deanne Delacruz MD [Primary Care Provider] - Follow up with primary Forms: [employer] ([place])
[2017-05-22 18:54] VITALS: RESP 16
[2017-05-22 20:47] VITALS: BP 109/71; PULSE 76; O2SAT 96
--- NOTE | 2017-05-22 22:23 | ED PDOC ---
Physical Exam - Physical Exam Narrative Physical Exam (Text): 05/22/17 22:23 pt seen by pes and cleared for dc Vital Signs Temp Pulse Resp BP Pulse Ox 05/22/17 20:46 76 16 109/71 96 05/22/17 18:53 78 16 107/76 99 05/22/17 17:03 65 18 103/61 100 05/22/17 15:04 97.9 F 83 12 119/77 97 Medical Decision Making - Lab Interpretations Lab Results: 05/22/17 15:30 05/22/17 15:30 Lab Results 05/22/17 15:33: Urine Color Yellow, Urine Appearance Clear, Urine pH 8.0, Ur Specific [place] 1.015, Urine Protein Negative, Urine Glucose (UA) Negative, Urine Ketones Negative, Urine Blood Negative, Urine Nitrate Negative, Urine Bilirubin Negative, Urine Urobilinogen 0.2, Ur Leukocyte Esterase Negative 05/22/17 15:30: Alcohol, Quantitative < 10 05/22/17 15:30: Salicylates < 1 L, Acetaminophen < 10.0 L 05/22/17 15:30: Sodium 139, Potassium 4.0, Chloride 101, Carbon Dioxide 28, Anion Gap 14, BUN 3 L, Creatinine 0.6, Est GFR ( Amer) > 60, Est GFR (Non -Af Amer) > 60, Random Glucose 91, Calcium 9.3, Total Bilirubin 0.3, AST 24, ALT 28, Alkaline Phosphatase 64, Total Creatine Kinase 101, Total Protein 7.9, Albumin 4.1, Globulin 3.8, Albumin/Globulin Ratio 1.1 05/22/17 15:30: WBC 5.7 D, RBC 3.82, Hgb 11.4 L, Hct 34.3 L, MCV 89.8, MCH 29.8 , MCHC 33.2, RDW 14.4, Plt Count 283, MPV 8.8, Gran % 54.1, Lymph % (Auto) 31.9 , [place] % (Auto) 12.2 H, Eos % (Auto) 1.6, Baso % (Auto) 0.2, Gran # 3.07, Lymph # 1.8, [place] # 0.7 H, Eos # 0.1, Baso # 0.01 Disposition/Present on Arrival - Present on Arrival Any Indicators Present on Arrival: No History of DVT/PE: No History of Uncontrolled Diabetes: No Urinary Catheter: No History of Decub. Ulcer: No History Surgical Site Infection Following: None - Disposition Have Diagnosis and Disposition been Completed?: Yes Diagnosis: Anxiety Disposition: HOME/ ROUTINE Disposition Time: 22:10 Patient Problems: Current Active Problems Problem Status Onset Anxiety Acute Condition: GOOD Referrals: Deanne Delacruz MD [Primary Care Provider] - Follow up with primary Forms: [employer] (Portuguese)
--- NOTE | 2017-05-22 23:10 | CARD ---
APPROVED REPORT EKG Measurement Heart [id number] <Conclusion> Normal sinus rhythm Normal ECG
== END 2017-05-22 22:47 | disposition home or self-care (01) ==
LOC: ED 14:47
DX: F41.9 Anxiety disorder, unspecified (principal); F25.9 Schizoaffective disorder, unspecified; I10 Essential (primary) hypertension; E11.9 Type 2 diabetes mellitus without complications

== ENCOUNTER 2017-05-23 21:16 | Emergency (ER) | payer OTHER ==
--- NOTE | 2017-05-23 21:21 | ED PDOC ---
Arrival/HPI - General Historian: Patient <Salvador Mack - Last Filed: 05/23/17 21:34> <Juanpablo Mcfadden - Last Filed: 05/23/17 21:45> - General Time Seen by Provider: 05/23/17 21:19 - History of Present Illness Narrative History of Present Illness (Text): 05/23/17 21:20 36 y/o female, psychiatric history including anxiety/depression/schizophrenia/ schizoaffective, nkda, c/o feeling anxious and depression because her child is taken away by [facility]. Pt. had arguement with the today, feeling anxious and depress so she call for the ambulance. Pt. has no homicidal or suicidal ideation, no auditory or visual hallucination, stated that she doesn't wanna be admitted, feeling well. Pt. has no other medical or psychological complaints. (Salvador Mack) Past Medical History - Provider Review Nursing Documentation Reviewed: Yes - Infectious Disease Hx of Infectious Diseases: None - Tetanus Immunization Tetanus Immunization: Unknown - Cardiac Hx Cardiac Disorders: Yes Hx Hypertension: Yes (hypertension) - Pulmonary Hx Tuberculosis: No - Neurological HX Cerebrovascular Accident: No Hx Seizures: Yes - HEENT Hx HEENT Disorder: No - Renal Hx Renal Disorder: No - Endocrine/Metabolic Hx Endocrine Disorders: No Hx Diabetes Mellitus Type 2: Yes - Hematological/Oncological Hx Cancer: No - Integumentary Hx Dermatological Disorder: No - Musculoskeletal/Rheumatological Hx Musculoskeletal Disorders: No - Gastrointestinal Hx Gastrointestinal Disorders: No - Genitourinary/Gynecological Hx Sexually Transmitted Diseases: No - Psychiatric Hx Psychophysiologic Disorder: Yes Hx Anxiety: Yes Hx Bipolar Disorder: Yes Hx Depression: Yes Hx Emotional Abuse: No Hx Physical Abuse: No Hx Schizophrenia: Yes Hx Sexual Abuse: No Hx Substance Use: No Other/Comment: schizo affective disorder - Surgical History Hx Hysterectomy: Yes Hx Tubal Ligation: Yes - Anesthesia Hx Anesthesia: Yes Hx Anesthesia Reactions: No Hx Malignant Hyperthermia: No - Suicidal Assessment Feels Threatened In Home Enviroment: No <Salvador Mack - Last Filed: 05/23/17 21:34> Family/Social History - Physician Review Nursing Documentation Reviewed: Yes Family/Social History: Unknown Family HX Smoking Status: Never Smoked Hx Alcohol Use: No Hx Substance Use: No Hx Substance Use Treatment: No <Salvador Mack - Last Filed: 05/23/17 21:34> Allergies/Home Meds <Salvador Mack - Last Filed: 05/23/17 21:34> <Juanpablo Mcfadden - Last Filed: 05/23/17 21:45> Allergies/Adverse Reactions: Allergies No Known Allergies Allergy (Verified 05/19/17 16:31) Denied Home Medications: Home Meds Medication Instructions Recorded Confirmed Benztropine [Cogentin] 1 mg PO BID 05/14/17 05/22/17 Divalproex [Depakote DR(*BID*)] 1 tab PO DAILY 05/14/17 05/22/17 Docusate [Colace] 1 tab PO BID 05/14/17 05/22/17 Levetiracetam [Levetiracetam ER] 500 mg PO BID 05/14/17 05/22/17 Paroxetine HCl [Paxil] 40 mg PO HS 05/14/17 05/22/17 Risperidone [Risperdal] 2 mg PO BID 05/14/17 05/22/17 Review of Systems - Review of Systems Constitutional: absent: Fatigue, Fevers Eyes: absent: Vision Changes ENT: absent: Hearing Changes Respiratory: absent: SOB, Cough Cardiovascular: absent: Chest Pain Gastrointestinal: absent: Abdominal Pain, Nausea, Vomiting Musculoskeletal: absent: Arthralgias, Myalgias Skin: absent: Rash, Pruritis Neurological: absent: Headache, Dizziness <Salvador Mack - Last Filed: 05/23/17 21:34> Physical Exam - Systems Exam Head: Present: Atraumatic, Normocephalic Pupils: Present: PERRL Extroacular Muscles: Present: EOMI Conjunctiva: Present: Normal Mouth: Present: Moist Mucous Membranes Neck: Present: Normal Range of Motion Respiratory/Chest: Present: Clear to Auscultation, Good Air Exchange. No: Respiratory Distress, Accessory Muscle Use Cardiovascular: Present: Regular Rate and Rhythm, Normal S1, S2. No: Murmurs Abdomen: Present: Normal Bowel Sounds. No: Tenderness, Distention, Peritoneal Signs Back: Present: Normal Inspection Upper Extremity: Present: Normal Inspection. No: Cyanosis, Edema Lower Extremity: Present: Normal Inspection. No: Edema Neurological: Present: GCS=15, Speech Normal, Motor Func Grossly Intact, Gait Normal, Memory Normal Skin: Present: Warm, Dry, Normal Color. No: Rashes Psychiatric: Present: Alert, Oriented x 3, Normal Insight, Normal Concentration <Salvador Mack - Last Filed: 05/23/17 21:34> Medical Decision Making <Salvador Mack - Last Filed: 05/23/17 21:34> <Juanpablo Mcfadden - Last Filed: 05/23/17 21:45> ED Course and Treatment: 05/23/17 21:31 -Pt. has chronic anxiety and depression, feels the same as before, no homicidal or suicidal ideation, no auditory or visual hallucination, refusing PES evaluation, stated that she feels well. -Discharge home with education on follow up with your own pmd and continue your medications at home, follow up with your own pmd and psychiatrist within 2 days , return to the ER for any new or worsening signs or symptoms. (Salvador Mack) - PA / [employer] / Resident Statement FREDY has reviewed & agrees with the documentation as recorded. <Salvadro Mack - Last Filed: 05/23/17 21:34> - PA / [employer] / Resident Statement FREDY has reviewed & agrees with the documentation as recorded. <Juanpablo Mcfadden - Last Filed: 05/23/17 21:45> Disposition/Present on Arrival - Present on Arrival Any Indicators Present on Arrival: No History of DVT/PE: No History of Uncontrolled Diabetes: No Urinary Catheter: No History of Decub. Ulcer: No History Surgical Site Infection Following: None - Disposition Have Diagnosis and Disposition been Completed?: Yes Disposition Time: 21:32 Patient Plan: Discharge <Salvador Mack - Last Filed: 05/23/17 21:34> <Juanpablo Mcfadden - Last Filed: 05/23/17 21:45> - Disposition Diagnosis: Anxiety Disposition: HOME/ ROUTINE Condition: GOOD Additional Instructions: Discharge home with education on follow up with your own pmd and continue your medications at home, follow up with your own pmd and psychiatrist within 2 days , return to the ER for any new or worsening signs or symptoms. Referrals: [facility] [place]Outside] - Follow up with [facility] [Outside] - Follow up with primary Forms: WORK NOTE
[2017-05-23 21:29] VITALS: BMI 33.6
[2017-05-23 21:34] VITALS: BP 106/71; PULSE 93; RESP 18; TEMP 98; O2SAT 97
== END 2017-05-23 22:11 | disposition home or self-care (01) ==
LOC: ED 21:16
DX: F41.9 Anxiety disorder, unspecified (principal)

== ENCOUNTER 2017-05-24 23:13 | Emergency (ER) | payer OTHER ==
[2017-05-24 23:14] VITALS: BMI 33.6
[2017-05-24 23:26] VITALS: TEMP 98.2
--- NOTE | 2017-05-24 23:36 | ED PDOC ---
Arrival/HPI - General Chief Complaint: Weakness/Neurological Deficit Time Seen by Provider: 05/24/17 23:14 Historian: Patient - History of Present Illness Narrative History of Present Illness (Text): 05/24/17 23:36 Yvonne Humphries is a 36 year old female, whose past medical history includes schizophrenia/schizoaffective disorder and seizures, who presents to the Emergency department complaining of anxiety and depression. Patient reports a diffuse body tingling sensation to her body, which is consistent with previous anxiety symptoms. On further question, patient became tearful and states she is depressed due to her child being taken away by [facility]. Patient denies any homicidal ideation, fever, chills, chest pain, shortness of breath, nausea, vomiting, diarrhea, urinary symptoms, back pain, neck pain, headache, dizziness , or any other complaints. PMD: Dr. Lupe Delacruz Symptom Onset: Gradual Symptom Course: Unchanged Activities at Onset: Rest, Light Context: Home Past Medical History - Provider Review Nursing Documentation Reviewed: Yes - Infectious Disease Hx of Infectious Diseases: None - Tetanus Immunization Tetanus Immunization: Unknown - Cardiac Hx Cardiac Disorders: Yes Hx Hypertension: Yes (hypertension) - Pulmonary Hx Tuberculosis: No - Neurological HX Cerebrovascular Accident: No Hx Seizures: Yes - HEENT Hx HEENT Disorder: No - Renal Hx Renal Disorder: No - Endocrine/Metabolic Hx Endocrine Disorders: No Hx Diabetes Mellitus Type 2: Yes - Hematological/Oncological Hx Cancer: No - Integumentary Hx Dermatological Disorder: No - Musculoskeletal/Rheumatological Hx Musculoskeletal Disorders: No - Gastrointestinal Hx Gastrointestinal Disorders: No - Genitourinary/Gynecological Hx Sexually Transmitted Diseases: No - Psychiatric Hx Psychophysiologic Disorder: Yes Hx Anxiety: Yes Hx Bipolar Disorder: Yes Hx Depression: Yes Hx Emotional Abuse: No Hx Physical Abuse: No Hx Schizophrenia: Yes Hx Sexual Abuse: No Hx Substance Use: No Other/Comment: schizo affective disorder - Surgical History Hx Hysterectomy: Yes Hx Tubal Ligation: Yes - Anesthesia Hx Anesthesia: Yes Hx Anesthesia Reactions: No Hx Malignant Hyperthermia: No - Suicidal Assessment Feels Threatened In Home Enviroment: No Family/Social History - Physician Review Nursing Documentation Reviewed: Yes Family/Social History: Unknown Family HX Smoking Status: Never Smoked Hx Alcohol Use: No Hx Substance Use: No Hx Substance Use Treatment: No Allergies/Home Meds Allergies/Adverse Reactions: Allergies No Known Allergies Allergy (Verified 05/19/17 16:31) Denied Home Medications: Home Meds Medication Instructions Recorded Confirmed Benztropine [Cogentin] 1 mg PO BID 05/14/17 05/25/17 Divalproex [Depakote DR(*BID*)] 1 tab PO DAILY 05/14/17 05/25/17 Docusate [Colace] 1 tab PO BID 05/14/17 05/25/17 Levetiracetam [Levetiracetam ER] 500 mg PO BID 05/14/17 05/25/17 Paroxetine HCl [Paxil] 40 mg PO HS 05/14/17 05/25/17 Risperidone [Risperdal] 2 mg PO BID 05/14/17 05/25/17 Review of Systems - Physician Review All systems were reviewed & negative as marked: Yes - Review of Systems Constitutional: Normal. absent: Fevers Eyes: Normal ENT: Normal Respiratory: Normal. absent: SOB, Cough Cardiovascular: Normal. absent: Chest Pain Gastrointestinal: Normal. absent: Abdominal Pain, Diarrhea, Nausea, Vomiting Genitourinary Female: Normal. absent: Dysuria, Frequency, Hematuria, Urine Output Changes Musculoskeletal: Normal. absent: Back Pain, Neck Pain Skin: Normal Neurological: Normal. absent: Headache, Dizziness Endocrine: Normal Hemo/Lymphatic: Normal Psychiatric: Anxiety Physical Exam Vital Signs Reviewed: Yes Vital Signs Temp Pulse Resp BP Pulse Ox 05/25/17 05:00 80 19 106/71 99 05/25/17 03:00 82 18 105/71 99 05/25/17 01:14 86 18 108/72 99 05/24/17 23:24 98.2 F 103 H 18 108/71 99 Temperature: Afebrile Blood Pressure: Normal Pulse: Regular Respiratory Rate: Normal Appearance: Positive for: Well-Appearing, Non-Toxic, Comfortable Pain Distress: None Mental Status: Positive for: Alert and Oriented X 3 - Systems Exam Head: Present: Atraumatic, Normocephalic Pupils: Present: PERRL Extroacular Muscles: Present: EOMI Conjunctiva: Present: Normal Mouth: Present: Moist Mucous Membranes Neck: Present: Normal Range of Motion Respiratory/Chest: Present: Clear to Auscultation, Good Air Exchange. No: Respiratory Distress, Accessory Muscle Use Cardiovascular: Present: Regular Rate and Rhythm, Normal S1, S2. No: Murmurs Abdomen: Present: Normal Bowel Sounds. No: Tenderness, Distention, Peritoneal Signs Back: Present: Normal Inspection Upper Extremity: Present: Normal Inspection. No: Cyanosis, Edema Lower Extremity: Present: Normal Inspection. No: Edema Neurological: Present: GCS=15, CN II-XII Intact, Speech Normal Skin: Present: Warm, Dry, Normal Color. No: Rashes Psychiatric: Present: Alert, Oriented x 3, Normal Insight, Normal Concentration Medical Decision Making ED Course and Treatment: 05/24/17 23:36 Impression: 36 year old female complaining of anxiety and depression. Differential Diagnosis included but are not limited to: anxiety vs. depression vs. schizoaffective disorder Plan: -- EKG -- Labs, alcohol level -- Urine drug screen -- Reassess and disposition Prior Visits: Notes and results from previous visits were reviewed. On 05/23/2017, pt was seen in the Emergency department for anxiety and depression. Pt was d/c home. Progress Notes: reviewed EKG, NSR at [address]-segment elevations or depressions, no T-wave inversions, normal intervals. 05/25/17 07:00 Case endorsed to pending final PES evaluation/disposition - Lab Interpretations Lab Results: 05/25/17 00:30 05/25/17 00:30 Lab Results 05/25/17 00:40: Urine Opiates Screen Negative, Urine Methadone Screen Negative, Ur Barbiturates Screen Negative, Ur Phencyclidine Scrn Negative, Ur Amphetamines Screen Negative, U Benzodiazepines Scrn Negative, U Oth Cocaine Metabols Negative, U Cannabinoids Screen Negative 05/25/17 00:30: Alcohol, Quantitative < 10 05/25/17 00:30: Salicylates < 1 L, Acetaminophen < 10.0 L 05/25/17 00:30: Sodium 137, Potassium 3.6, Chloride 100, Carbon Dioxide 26, Anion Gap 15, BUN 7, Creatinine 0.7, Est GFR ( Amer) > 60, Est GFR (Non- Af Amer) > 60, Random Glucose 108, Calcium 9.5, Total Bilirubin 0.4, AST 26, ALT 34, Alkaline Phosphatase 60, Total Protein 7.7, Albumin 4.0, Globulin 3.7, Albumin/Globulin Ratio 1.1 05/25/17 00:30: WBC 6.6, RBC 3.73, Hgb 11.1 L, Hct 33.2 L, MCV 89.0, MCH 29.8, MCHC 33.4, RDW 14.6 H, Plt Count 275, MPV 8.7, Gran % 56.7, Lymph % (Auto) 30.0 , [place] % (Auto) 12.4 H, Eos % (Auto) 0.6 L, Baso % (Auto) 0.3, Gran # 3.73, Lymph # 2.0, [place] # 0.8 H, Eos # 0.0, Baso # 0.02 I have reviewed the lab results: Yes - EKG Interpretation Interpreted by ED Physician: Yes Type: 12 lead EKG - Scribe Statement The provider has reviewed the documentation as recorded by the Guillermo Priest Provider Scribe Attestation: All medical record entries made by the Scribe were at my direction and personally dictated by me. I have reviewed the chart and agree that the record accurately reflects my personal performance of the history, physical exam, medical decision making, and the department course for this patient. I have also personally directed, reviewed, and agree with the discharge instructions and disposition. Disposition/Present on Arrival - Present on Arrival Any Indicators Present on Arrival: No History of DVT/PE: No History of Uncontrolled Diabetes: No Urinary Catheter: No History of Decub. Ulcer: No History Surgical Site Infection Following: None - Disposition Have Diagnosis and Disposition been Completed?: No Diagnosis: Schizoaffective disorder, depressive type Disposition Time: 07:00 Condition: STABLE Forms: [employer] (Latvian)
[2017-05-25 00:47] LABS: BASO # 0.02 K/mm3 (0.0-2.0); BASO % 0.3 % (0.0-3.0); EOS % 0.6 % (1.5-5.0); GRAN # 3.73 (1.4-6.5); GRAN % 56.7 % (50.0-68.0); HEMATOCRIT 33.2 % (36.0-48.0); MEAN CORPUSCULAR HEMOGLOBIN 29.8 pg (25.0-35.0); MEAN CORPUSCULAR HGB CONC 33.4 g/dl (31.0-37.0); MEAN PLATELET VOLUME 8.7 fl (7.0-11.0); MONO # 0.8 (0.1-0.6); MONO % 12.4 % (1.0-6.0); RED CELL DISTRIBUTION WIDTH 14.6 % (11.5-14.5); WHITE BLOOD COUNT 6.6 10^3/ul (4.5-11.0)
[2017-05-25 00:57] LABS: ALB/GLOB RATIO 1.1 (1.1-1.8); ALKALINE PHOSPHATASE 60 U/L (38-133); ALT/SGPT 34 U/L (7-56); AST/SGOT 26 U/L (15-39); BILIRUBIN,TOTAL 0.4 mg/dL (0.2-1.3); BLOOD UREA NITROGEN 7 mg/dL (7-21); CALCIUM 9.5 mg/dL (8.4-10.5); CARBON DIOXIDE 26 mmol/L (21-33); CHLORIDE 100 mmol/L (95-110); GFR AFRICAN-AMERICAN > 60; GLUCOSE,RANDOM 108 mg/dL (70-110); POTASSIUM 3.6 mmol/L (3.6-5.0); SODIUM 137 mmol/L (132-148); TOTAL PROTEIN 7.7 g/dL (5.8-8.3)
--- NOTE | 2017-05-25 07:18 | ED PDOC ---
Physical Exam Vital Signs Temp Pulse Resp BP Pulse Ox 05/25/17 05:00 80 19 106/71 99 05/25/17 03:00 82 18 105/71 99 05/25/17 01:14 86 18 108/72 99 05/24/17 23:24 98.2 F 103 H 18 108/71 99 Medical Decision Making ED Course and Treatment: 05/25/17 07:00 Patient signed out to me by Dr. Mcfadden. Pending psych evaluation. 05/25/17 07:36 Patient comfortable with no complaints. PES came to evaluate patient and states patient can be discharged home with follow up with Dr. Morel at the [facility]. Patient feels comfortable going home. - Lab Interpretations Lab Results: 05/25/17 00:30 05/25/17 00:30 Lab Results 05/25/17 00:40: Urine Opiates Screen Negative, Urine Methadone Screen Negative, Ur Barbiturates Screen Negative, Ur Phencyclidine Scrn Negative, Ur Amphetamines Screen Negative, U Benzodiazepines Scrn Negative, U Oth Cocaine Metabols Negative, U Cannabinoids Screen Negative 05/25/17 00:30: Alcohol, Quantitative < 10 05/25/17 00:30: Salicylates < 1 L, Acetaminophen < 10.0 L 05/25/17 00:30: Sodium 137, Potassium 3.6, Chloride 100, Carbon Dioxide 26, Anion Gap 15, BUN 7, Creatinine 0.7, Est GFR ( Amer) > 60, Est GFR (Non- Af Amer) > 60, Random Glucose 108, Calcium 9.5, Total Bilirubin 0.4, AST 26, ALT 34, Alkaline Phosphatase 60, Total Protein 7.7, Albumin 4.0, Globulin 3.7, Albumin/Globulin Ratio 1.1 05/25/17 00:30: WBC 6.6, RBC 3.73, Hgb 11.1 L, Hct 33.2 L, MCV 89.0, MCH 29.8, MCHC 33.4, RDW 14.6 H, Plt Count 275, MPV 8.7, Gran % 56.7, Lymph % (Auto) 30.0 , [place] % (Auto) 12.4 H, Eos % (Auto) 0.6 L, Baso % (Auto) 0.3, Gran # 3.73, Lymph # 2.0, [place] # 0.8 H, Eos # 0.0, Baso # 0.02 I have reviewed the lab results: Yes - Scribe Statement The provider has reviewed the documentation as recorded by the Zacibe Cheri Boyd Provider Scribe Attestation: All medical record entries made by the Scribe were at my direction and personally dictated by me. I have reviewed the chart and agree that the record accurately reflects my personal performance of the history, physical exam, medical decision making, and the department course for this patient. I have also personally directed, reviewed, and agree with the discharge instructions and disposition. Disposition/Present on Arrival - Present on Arrival Any Indicators Present on Arrival: No History of DVT/PE: No History of Uncontrolled Diabetes: No Urinary Catheter: No History of Decub. Ulcer: No History Surgical Site Infection Following: None - Disposition Have Diagnosis and Disposition been Completed?: Yes Diagnosis: Schizoaffective disorder, depressive type Disposition: HOME/ ROUTINE Disposition Time: 07:37 Patient Plan: Discharge Patient Problems: Current Active Problems Problem Status Onset Schizoaffective disorder, depressive type Acute Condition: STABLE Discharge Instructions (ExitCare): Schizophrenia (ED) Additional Instructions: Yandel, thank you for letting us take care of you today. Your provider was Dr. Leblanc. You were treated for Psych.l The emergency medical care you received today was directed at your acute symptoms. If you were prescribed any medication, please fill it and take as directed. It may take several days for your symptoms to resolve. Return to the Emergency Department if your symptoms worsen, do not improve, or if you have any other problems. Please contact your doctor or call one of the physicians/clinics you have been referred to that are listed on the Patient Visit Information form that is included in your discharge packet. Bring any paperwork you were given at discharge with you along with any medications you are taking to your follow up visit. Our treatment cannot replace ongoing medical care by a primary care provider (PCP) outside of the emergency department. Make sure to follow up with your Psychiatrist or Psychiatric Services Provider, Dr. Morel at [facility] as instructed. Thank you for allowing the [facility] team to be part of your care today. If you had an X-Ray or CT scan: A Radiologist will review the ED reading if any change in treatment is needed we will contact you. If you had a blood, urine, or wound culture: It will take several days for the results, if any change in treatment is needed we will contact you. If you had an STI test: It will take 48 hours for the results. Please call after 1 week if you have not heard back. Referrals: [facility] [Outside] - Follow up with primary Deanne Delacruz MD [Family Provider] - Follow up with primary Forms: [facility] (Kyrgyz)
[2017-05-25 09:41] VITALS: BP 113/69; PULSE 88; RESP 18; O2SAT 97
--- NOTE | 2017-05-25 09:50 | CARD ---
APPROVED REPORT EKG Measurement Heart [id number] <Conclusion> Normal sinus rhythm Normal ECG
== END 2017-05-25 08:05 | disposition home or self-care (01) ==
LOC: ED 23:13
DX: F25.1 Schizoaffective disorder, depressive type (principal); I10 Essential (primary) hypertension; E11.9 Type 2 diabetes mellitus without complications

== ENCOUNTER 2017-05-25 20:25 | Emergency (ER) | payer OTHER ==
[2017-05-25 20:26] VITALS: BMI 33.6
[2017-05-25 20:43] VITALS: TEMP 99.1
--- NOTE | 2017-05-25 20:51 | ED PDOC ---
Arrival/HPI <Juanpablo Mcfadden - Last Filed: 05/25/17 21:33> - General Historian: Patient <Salvador Mack - Last Filed: 05/28/17 11:37> - General Chief Complaint: Psychiatric Evaluation Time Seen by Provider: 05/25/17 20:33 - History of Present Illness Narrative History of Present Illness (Text): 05/25/17 20:45 36 y/o female, pmh including seizure, psychiatric history of general anxiety disorder/schizophrenia/schizoaffective, biba for anxiety and seizure?. This is the 3rd time that the patient is here and stating that she is anxiety which this is chronic. Pt. has been calling the ambulance, clear medically and clear psychiatrically. Pt. stated that she was at her pmd office today and stated that she had an episode of "seizure" which thought she had the seizure, no postictal, no urinary or bowel incontinence or retention, no urinary symptoms. pt. also complaining about the rt. ankle swelling which has no pain or change in temperature, no other medical or psychological complaints. (Salvador Mack) Past Medical History - Provider Review Nursing Documentation Reviewed: Yes - Infectious Disease Hx of Infectious Diseases: None - Tetanus Immunization Tetanus Immunization: Unknown - Cardiac Hx Cardiac Disorders: Yes Hx Hypertension: Yes (hypertension) - Pulmonary Hx Tuberculosis: No - Neurological HX Cerebrovascular Accident: No Hx Seizures: Yes - HEENT Hx HEENT Disorder: No - Renal Hx Renal Disorder: No - Endocrine/Metabolic Hx Endocrine Disorders: No Hx Diabetes Mellitus Type 2: Yes - Hematological/Oncological Hx Cancer: No - Integumentary Hx Dermatological Disorder: No - Musculoskeletal/Rheumatological Hx Musculoskeletal Disorders: No - Gastrointestinal Hx Gastrointestinal Disorders: No - Genitourinary/Gynecological Hx Sexually Transmitted Diseases: No - Psychiatric Hx Psychophysiologic Disorder: Yes Hx Anxiety: Yes Hx Bipolar Disorder: Yes Hx Depression: Yes Hx Schizophrenia: Yes Hx Substance Use: No Other/Comment: schizo affective disorder - Surgical History Hx Hysterectomy: Yes Hx Tubal Ligation: Yes - Anesthesia Hx Anesthesia: Yes Hx Anesthesia Reactions: No Hx Malignant Hyperthermia: No - Suicidal Assessment Feels Threatened In Home Enviroment: No <Salvador Mack - Last Filed: 05/28/17 11:37> Family/Social History - Physician Review Nursing Documentation Reviewed: Yes Family/Social History: Unknown Family HX Smoking Status: Never Smoked Hx Alcohol Use: No Hx Substance Use: No Hx Substance Use Treatment: No <Salvador Mack - Last Filed: 05/28/17 11:37> Allergies/Home Meds <Juanpablo Mcfadden - Last Filed: 05/25/17 21:33> <Salvador Mack - Last Filed: 05/28/17 11:37> Allergies/Adverse Reactions: Allergies No Known Allergies Allergy (Verified 05/27/17 07:52) Denied Home Medications: Home Meds Medication Instructions Recorded Confirmed Benztropine [Cogentin] 1 mg PO BID 05/14/17 05/27/17 Divalproex [Depakote DR(*BID*)] 500 mg PO DAILY 05/14/17 05/27/17 Levetiracetam [Levetiracetam ER] 500 mg PO BID 05/14/17 05/27/17 Paroxetine HCl [Paxil] 40 mg PO HS 05/14/17 05/27/17 Risperidone [Risperdal] 2 mg PO BID 05/14/17 05/27/17 Review of Systems - Review of Systems Constitutional: absent: Fatigue, Fevers Eyes: absent: Vision Changes ENT: absent: Hearing Changes Respiratory: absent: SOB, Cough Cardiovascular: absent: Chest Pain Gastrointestinal: absent: Abdominal Pain, Nausea, Vomiting Skin: absent: Rash, Pruritis Neurological: absent: Headache, Dizziness Endocrine: absent: Diaphoresis Psychiatric: Anxiety. absent: Depression, Suicidal Ideation <Salvador Mack - Last Filed: 05/28/17 11:37> Physical Exam Vital Signs Reviewed: Yes Temperature: Afebrile Blood Pressure: Normal Pulse: Regular Respiratory Rate: Normal Appearance: Positive for: Well-Appearing, Non-Toxic, Comfortable Pain Distress: None Mental Status: Positive for: Alert and Oriented X 3 - Systems Exam Head: Present: Atraumatic, Normocephalic Pupils: Present: PERRL Extroacular Muscles: Present: EOMI Conjunctiva: Present: Normal Mouth: Present: Moist Mucous Membranes Neck: Present: Normal Range of Motion Respiratory/Chest: Present: Clear to Auscultation, Good Air Exchange. No: Respiratory Distress, Accessory Muscle Use Cardiovascular: Present: Regular Rate and Rhythm, Normal S1, S2. No: Murmurs Abdomen: Present: Normal Bowel Sounds. No: Tenderness, Distention, Peritoneal Signs Back: Present: Normal Inspection Upper Extremity: Present: Normal Inspection. No: Cyanosis, Edema Lower Extremity: Present: Normal Inspection. No: Edema Neurological: Present: GCS=15, Speech Normal, Motor Func Grossly Intact, Gait Normal, Memory Normal Skin: Present: Warm, Dry, Normal Color. No: Rashes Psychiatric: Present: Alert, Oriented x 3, Normal Insight, Normal Concentration <Salvador Mack - Last Filed: 05/28/17 11:37> Vital Signs Temp Pulse Resp BP Pulse Ox 05/25/17 23:09 97 H 16 99 05/25/17 22:45 107 H 18 137/87 99 05/25/17 20:42 99.1 F 96 H 16 123/80 95 Medical Decision Making <Juanpablo Mcfadden - Last Filed: 05/25/17 21:33> - Lab Interpretations I have reviewed the lab results: Yes Interpretation: No clinic. lab abnormalty - RAD Interpretation Assistant Chief Engineer: Radiologist <Salvador Mack - Last Filed: 05/28/17 11:37> ED Course and Treatment: 05/25/17 20:56 -Pt. is in the ER, no post ictal, aox4, yelling at the staff at me which I told the patient that she has to remain calm as there is other patients around. -will check electrolyte -PES Vinicio is awared. -pt. has no head or neck injury. 05/25/17 22:21 -Labs are non-significant -RLE Venuous Doppler: as per preliminary report, no acute DVT -PES evaluated the patient and recommend that the patient can be discharged home. -There is no emergent indication of further labs or radiology results indicated at this time, advised to continue the medications at home. -Pt. has all her medications in the ER including the seizure medication, advised the TRAINING PROGRAM MANAGER to make sure the patient received her dose tonight prior to discharge home. -Discharge home with education on continue the medications at home, return to the ER for any new or worsening signs or symptoms. (Salvador Mack) - Lab Interpretations Lab Results: 05/25/17 20:45 05/25/17 20:45 Lab Results 05/25/17 20:45: WBC 7.7, RBC 3.91, Hgb 11.7 L, Hct 34.6 L, MCV 88.5, MCH 29.9, MCHC 33.8, RDW 14.4, Plt Count 261, MPV 8.8, Gran % 53.3, Lymph % (Auto) 31.9, [place] % (Auto) 13.9 H, Eos % (Auto) 0.6 L, Baso % (Auto) 0.3, Gran # 4.12, Lymph # 2.5, [place] # 1.1 H, Eos # 0.1, Baso # 0.02 05/25/17 20:45: Sodium 139, Potassium 3.9, Chloride 102, Carbon Dioxide 23, Anion Gap 18, BUN 5 L, Creatinine 0.6, Est GFR ( Amer) > 60, Est GFR (Non -Af Amer) > 60, Random Glucose 84, Calcium 9.6, Magnesium 1.7, Total Bilirubin 0.3, AST 32, ALT 31, Alkaline Phosphatase 71, Total Protein 8.2, Albumin 4.4, Globulin 3.8, Albumin/Globulin Ratio 1.2 05/25/17 20:34: Urine Color Yellow, Urine Appearance Clear, Urine pH 7.0, Ur Specific [place] 1.010, Urine Protein Negative, Urine Glucose (UA) Negative, Urine Ketones Negative, Urine Blood Negative, Urine Nitrate Negative, Urine Bilirubin Negative, Urine Urobilinogen 0.2, Ur Leukocyte Esterase Negative - RAD Interpretation Radiology Orders: 05/25/17 20:51 DUPLEX LOWER EXTRM VEIN RIGHT [US] Stat 05/25/17 20:51 DUPLEX LOWER EXTRM VEIN RIGHT [US] Stat RLE Venuous Doppler: as per preliminary report, no acute DVT (Salvador Mack) - PA / REGISTERED ASSOCIATE / Resident Statement FREDY has reviewed & agrees with the documentation as recorded. FREDY has examined the patient and agrees with the treatment plan. <Juanpablo Mcfadden - Last Filed: 05/25/17 21:33> - PA / REGISTERED ASSOCIATE / Resident Statement FREDY has reviewed & agrees with the documentation as recorded. <Salvador Mack - Last Filed: 05/28/17 11:37> Disposition/Present on Arrival <Juanpablo Mcfadden - Last Filed: 05/25/17 21:33> - Present on Arrival Any Indicators Present on Arrival: No History of DVT/PE: No History of Uncontrolled Diabetes: No Urinary Catheter: No History of Decub. Ulcer: No History Surgical Site Infection Following: None - Disposition Have Diagnosis and Disposition been Completed?: Yes Disposition Time: 22:25 Patient Plan: Discharge <Salvador Mack - Last Filed: 05/28/17 11:37> - Disposition Diagnosis: Psychiatric care Disposition: HOME/ ROUTINE Patient Problems: Current Active Problems Problem Status Onset Anxiety Acute Condition: GOOD Additional Instructions: -Discharge home with education on continue the medications at home, return to the ER for any new or worsening signs or symptoms. Referrals: Deanne Delacruz MD [Primary Care Provider] - Follow up with primary Neri Anaya MD [Staff Provider] - Follow up with primary [facility] [[facility]] - Follow up with primary Forms: [facility] (Uzbek), WORK NOTE
[2017-05-25 20:55] LABS: BASO # 0.02 K/mm3 (0.0-2.0); BASO % 0.3 % (0.0-3.0); EOS # 0.1 (0.0-0.7); EOS % 0.6 % (1.5-5.0); GRAN # 4.12 (1.4-6.5); GRAN % 53.3 % (50.0-68.0); HEMATOCRIT 34.6 % (36.0-48.0); LYMPH # 2.5 (1.2-3.4); LYMPH % 31.9 % (22.0-35.0); MEAN CELL VOLUME 88.5 fl (80.0-105.0); MEAN CORPUSCULAR HEMOGLOBIN 29.9 pg (25.0-35.0); MEAN CORPUSCULAR HGB CONC 33.8 g/dl (31.0-37.0); MEAN PLATELET VOLUME 8.8 fl (7.0-11.0); MONO # 1.1 (0.1-0.6); MONO % 13.9 % (1.0-6.0); RED CELL DISTRIBUTION WIDTH 14.4 % (11.5-14.5); WHITE BLOOD COUNT 7.7 10^3/ul (4.5-11.0)
[2017-05-25 21:11] LABS: ALB/GLOB RATIO 1.2 (1.1-1.8); ALKALINE PHOSPHATASE 71 U/L (38-133); ALT/SGPT 31 U/L (7-56); AST/SGOT 32 U/L (15-39); BILIRUBIN,TOTAL 0.3 mg/dL (0.2-1.3); BLOOD UREA NITROGEN 5 mg/dL (7-21); CALCIUM 9.6 mg/dL (8.4-10.5); CARBON DIOXIDE 23 mmol/L (21-33); CHLORIDE 102 mmol/L (98-107); GFR AFRICAN-AMERICAN > 60; GLUCOSE,RANDOM 84 mg/dL (70-110); MAGNESIUM 1.7 mg/dL (1.7-2.2); POTASSIUM 3.9 mmol/L (3.6-5.0); SODIUM 139 mmol/L (132-148); TOTAL PROTEIN 8.2 g/dL (5.8-8.3)
[2017-05-25 21:39] LABS: URINE BILIRUBIN NEGATIVE (NEGATIVE); URINE BLOOD NEGATIVE (NEGATIVE); URINE GLUCOSE (UA) NEGATIVE (NEGATIVE); URINE KETONE NEGATIVE (NEGATIVE); URINE LEUKOCYTE ESTERASE NEGATIVE Leu/uL (NEGATIVE); URINE PROTEIN NEGATIVE mg/dL (<30 mg/dL); URINE UROBILINOGEN 0.2 E.U./dL (<1 E.U./dL)
[2017-05-25 21:47] LABS: URINE APPEARANCE CLEAR (CLEAR); URINE COLOR YELLOW (YELLOW)
[2017-05-25 22:46] VITALS: BP 137/87; O2SAT 99
[2017-05-25 23:09] VITALS: PULSE 97; RESP 16
--- NOTE | 2017-05-26 11:36 | CARD ---
APPROVED REPORT EKG Measurement Heart [id number] <Conclusion> Normal sinus rhythm Normal ECG
== END 2017-05-25 23:21 | disposition home or self-care (01) ==
LOC: ED 20:25
DX: Z00.8 Encounter for other general examination (principal); F25.9 Schizoaffective disorder, unspecified; I10 Essential (primary) hypertension

== ENCOUNTER 2017-05-27 07:42 | Inpatient (IN) | payer MEDICAID, OTHER ==
[2017-05-27 07:43] VITALS: BMI 33.6
[2017-05-27 08:29] LABS: ALB/GLOB RATIO 1.1 (1.1-1.8); ALKALINE PHOSPHATASE 59 U/L (38-133); ALT/SGPT 41 U/L (7-56); AST/SGOT 32 U/L (15-39); BILIRUBIN,TOTAL 0.4 mg/dL (0.2-1.3); BLOOD UREA NITROGEN 8 mg/dL (7-21); CALCIUM 9.1 mg/dL (8.4-10.5); CARBON DIOXIDE 26 mmol/L (21-33); CHLORIDE 104 mmol/L (98-107); GFR AFRICAN-AMERICAN > 60; GLUCOSE,RANDOM 99 mg/dL (70-110); POTASSIUM 3.8 mmol/L (3.6-5.0); SODIUM 142 mmol/L (132-148); TOTAL PROTEIN 7.6 g/dL (5.8-8.3)
[2017-05-27 08:59] LABS: BASO # 0.02 K/mm3 (0.0-2.0); BASO % 0.3 % (0.0-3.0); EOS # 0.1 (0.0-0.7); GRAN # 4.75 (1.4-6.5); GRAN % 60.6 % (50.0-68.0); HEMATOCRIT 33.7 % (36.0-48.0); LYMPH # 2.1 (1.2-3.4); MEAN CELL VOLUME 89.4 fl (80.0-105.0); MEAN CORPUSCULAR HEMOGLOBIN 29.7 pg (25.0-35.0); MEAN CORPUSCULAR HGB CONC 33.2 g/dl (31.0-37.0); MEAN PLATELET VOLUME 9.2 fl (7.0-11.0); MONO # 0.9 (0.1-0.6); MONO % 11.1 % (1.0-6.0); RED CELL DISTRIBUTION WIDTH 14.5 % (11.5-14.5); WHITE BLOOD COUNT 7.8 10^3/ul (4.5-11.0)
[2017-05-27 09:06] LABS: URINE BILIRUBIN NEGATIVE (NEGATIVE); URINE BLOOD NEGATIVE (NEGATIVE); URINE GLUCOSE (UA) NEGATIVE (NEGATIVE); URINE KETONE NEGATIVE (NEGATIVE); URINE LEUKOCYTE ESTERASE NEGATIVE Leu/uL (NEGATIVE); URINE PROTEIN TRACE mg/dL (<30 mg/dL)
[2017-05-27 09:07] LABS: URINE APPEARANCE CLEAR (CLEAR); URINE COLOR YELLOW (YELLOW)
[2017-05-27 09:16] LABS: URINE AMORPHOUS SEDIMENT FEW; URINE BACTERIA MANY (NEG); URINE RBC 0 - 2 /hpf (0-2)
--- NOTE | 2017-05-27 09:31 | ED PDOC ---
Arrival/HPI - History of Present Illness Time/Duration: < week Symptom Onset: Sudden Symptom Course: Unchanged - General Chief Complaint: Anxiety Time Seen by Provider: 05/27/17 07:47 - History of Present Illness Narrative History of Present Illness (Text): 05/27/17 09:07 36 F w/ PMHx significant for Anxiety, Depression, Uncontrolled seizures, Schizoaffective disorder, Panic attacks, and Ovarian Cysts presents with 2 hours duration of anxiety. Pt states that she has not been taking her medications for 6 days and that today she felt like she was going to , so she called the ambulance. Pt further states that she feels like hurting herself because she is very stressed out. Patient does not have a plan to kill herself. Pt denies HI. Pt further denies f/ch/n/v/d/cp/sob. She also denies dizziness. PMD: Carlton Merida) Past Medical History - Provider Review Nursing Documentation Reviewed: Yes - Travel History Have you recently traveled outside [place] w/in the past 3 mons?: No - Infectious Disease Hx of Infectious Diseases: None - Tetanus Immunization Tetanus Immunization: Unknown - Cardiac Hx Cardiac Disorders: Yes Hx Hypertension: Yes (hypertension) - Pulmonary Hx Tuberculosis: No - Neurological HX Cerebrovascular Accident: No Hx Seizures: Yes - HEENT Hx HEENT Disorder: No - Renal Hx Renal Disorder: No - Endocrine/Metabolic Hx Endocrine Disorders: No Hx Diabetes Mellitus Type 2: Yes - Hematological/Oncological Hx Cancer: No - Integumentary Hx Dermatological Disorder: No - Musculoskeletal/Rheumatological Hx Musculoskeletal Disorders: No - Gastrointestinal Hx Gastrointestinal Disorders: No - Genitourinary/Gynecological Hx Sexually Transmitted Diseases: No - Psychiatric Hx Psychophysiologic Disorder: Yes Hx Anxiety: Yes Hx Bipolar Disorder: Yes Hx Depression: Yes Hx Schizophrenia: Yes Hx Substance Use: No Other/Comment: schizo affective disorder - Surgical History Hx Hysterectomy: Yes Hx Tubal Ligation: Yes - Anesthesia Hx Anesthesia: Yes Hx Anesthesia Reactions: No Hx Malignant Hyperthermia: No - Suicidal Assessment Feels Threatened In Home Enviroment: No Family/Social History - Physician Review Nursing Documentation Reviewed: Yes Family/Social History: Unknown Family HX Smoking Status: Never Smoked Hx Alcohol Use: No Hx Substance Use: No Hx Substance Use Treatment: No Allergies/Home Meds Allergies/Adverse Reactions: Allergies No Known Allergies Allergy (Verified 05/27/17 07:52) Denied Home Medications: Home Meds Medication Instructions Recorded Confirmed Benztropine [Cogentin] 1 mg PO BID 05/14/17 05/27/17 Divalproex [Depakote DR(*BID*)] 500 mg PO DAILY 05/14/17 05/27/17 Levetiracetam [Levetiracetam ER] 500 mg PO BID 05/14/17 05/27/17 Paroxetine HCl [Paxil] 40 mg PO HS 05/14/17 05/27/17 Risperidone [Risperdal] 2 mg PO BID 05/14/17 05/27/17 Review of Systems - Physician Review All systems were reviewed & negative as marked: Yes - Review of Systems Constitutional: Normal. absent: Fatigue, Weight Change, Fevers Eyes: Normal. absent: Vision Changes, Photophobia ENT: Normal. absent: Hearing Changes, Tinnitus, Sore Throat, Rhinorrhea Respiratory: Normal. absent: SOB, Cough Cardiovascular: Normal. absent: Chest Pain, Palpitations, Edema, Calf Pain Gastrointestinal: Normal. absent: Abdominal Pain, Stool Changes, Constipation, Diarrhea, Nausea, Vomiting Genitourinary Female: Normal. absent: Dysuria, Frequency, Hematuria Musculoskeletal: Normal. absent: Arthralgias, Back Pain, Neck Pain Skin: Normal. absent: Rash, Pruritis, Laceration Neurological: Normal. absent: Headache, Dizziness, Focal Weakness Endocrine: Normal. absent: Diaphoresis, Polydipsia Hemo/Lymphatic: Normal Psychiatric: Anxiety, Depression, Suicidal Ideation (See HPI) Physical Exam Vital Signs Reviewed: Yes Temperature: Afebrile Blood Pressure: Normal Pulse: Regular Respiratory Rate: Normal Appearance: Positive for: Well-Appearing, Non-Toxic, Comfortable Pain Distress: None Mental Status: Positive for: Alert and Oriented X 3 - Systems Exam Head: Present: Atraumatic, Normocephalic Pupils: Present: PERRL Extroacular Muscles: Present: EOMI Conjunctiva: Present: Normal Mouth: Present: Moist Mucous Membranes Neck: Present: Normal Range of Motion Respiratory/Chest: Present: Clear to Auscultation, Good Air Exchange. No: Respiratory Distress, Accessory Muscle Use Cardiovascular: Present: Regular Rate and Rhythm, Normal S1, S2. No: Murmurs Abdomen: Present: Normal Bowel Sounds. No: Tenderness, Distention, Peritoneal Signs Back: Present: Normal Inspection Upper Extremity: Present: Normal Inspection. No: Cyanosis, Edema Lower Extremity: Present: Normal Inspection. No: Edema Neurological: Present: GCS=15, CN II-XII Intact, Speech Normal Skin: Present: Warm, Dry, Normal Color. No: Rashes Psychiatric: Present: Alert, Oriented x 3, Normal Insight, Normal Concentration Vital Signs Temp Pulse Resp BP Pulse Ox 05/27/17 08:10 98.2 F 79 18 111/69 98 Medical Decision Making ED Course and Treatment: 05/27/17 10:37 Patient Seen With Resident: In agreement with resident note which contains more details about the patient. Patient was seen and evaluated with resident. Came up with plan and treatment together. (Nathan Barcenas) Assessed 05/27/17 09:47 Impression: 36 y/o female with PMHx of uncontrolled seizures, anxiety, schizoaffective, panic disorder, and depression presents with 6 days of medication non- compliance. Right now feeling uncomfortable, anxious, feels like hurting herself. 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 Delarosa in psych (Carlton Montes De Oca) - Lab Interpretations Lab Results: 05/27/17 08:40 05/27/17 08:10 Lab Results 05/27/17 08:55: Urine Opiates Screen Negative, Urine Methadone Screen Negative, Ur Barbiturates Screen Negative, Ur Phencyclidine Scrn Negative, Ur Amphetamines Screen Negative, U Benzodiazepines Scrn Negative, U Oth Cocaine Metabols Negative, U Cannabinoids Screen Negative 05/27/17 08:55: Urine Color Yellow, Urine Appearance Clear, Urine pH 6.0, Ur Specific [place] >= 1.030, Urine Protein Trace H, Urine Glucose (UA) Negative, Urine Ketones Negative, Urine Blood Negative, Urine Nitrate Negative, Urine Bilirubin Negative, Urine Urobilinogen 1.0 H, Ur Leukocyte Esterase Negative, Urine RBC 0 - 2, Urine WBC 1 - 3, Ur Epithelial Cells 4 - 5, Amorphous Sediment Few, Urine Bacteria Many, Urine Other Uyeast, Urine HCG, Qual Negative 05/27/17 08:40: Alcohol, Quantitative < 10 05/27/17 08:40: Salicylates < 1 L, Acetaminophen < 10.0 L 05/27/17 08:40: WBC 7.8, RBC 3.77, Hgb 11.2 L, Hct 33.7 L, MCV 89.4, MCH 29.7, MCHC 33.2, RDW 14.5, Plt Count 263, MPV 9.2, Gran % 60.6, Lymph % (Auto) 27.0, Frontier % (Auto) 11.1 H, Eos % (Auto) 1.0 L, Baso % (Auto) 0.3, Gran # 4.75, Lymph # 2.1, Frontier # 0.9 H, Eos # 0.1, Baso # 0.02 05/27/17 08:10: Sodium 142, Potassium 3.8, Chloride 104, Carbon Dioxide 26, Anion Gap 16, BUN 8, Creatinine 0.7, Est GFR ( Amer) > 60, Est GFR (Non- Af Amer) > 60, Random Glucose 99, Calcium 9.1, Total Bilirubin 0.4, AST 32, ALT 41, Alkaline Phosphatase 59, Total Protein 7.6, Albumin 4.0, Globulin 3.6, Albumin/Globulin Ratio 1.1 Disposition/Present on Arrival - Present on Arrival Any Indicators Present on Arrival: Yes History of DVT/PE: No History of Uncontrolled Diabetes: No Urinary Catheter: No History of Decub. Ulcer: No History Surgical Site Infection Following: None - Disposition Have Diagnosis and Disposition been Completed?: Yes Disposition Time: 09:53 - Disposition Diagnosis: Anxiety Condition: GUARDED
--- NOTE | 2017-05-27 12:28 | CARD ---
APPROVED REPORT EKG Measurement Heart [id number] <Conclusion> Normal sinus rhythm Nonspecific T wave abnormality Abnormal ECG
--- NOTE | 2017-05-27 13:06 | PCM.BM ---
<Yayo Kunz - Last Filed: 05/27/17 13:09> Treatment Plan Problems - Problems identified on initial assessmt ANXIETY Date Initiated: 05/27/17 Time Initiated: 13:08 Assessment reference: HP, NA Status: Active ALTERED THOUGHT PROCESS Date Initiated: 05/27/17 Time Initiated: 13:08 Assessment reference: NA Status: Active Treatment assets and liabiliti Patient Assests: adapts well, cooperative, self-reliant, ADL independent, negotiates basic needs, good interpersonal skills Patient Liabilities: live alone, medical problems, other - Milieu Protocol Maintain good personal hygiene: daily Encourage regular showers, daily Remind patient to perform daily oral care, daily Assist patient to perform ADL's Maintain personal safety: daily Educate patient to report safety concerns to staff, daily Monitor environment for contraband/sharps Medication safety: Monitor for expected outcome, potential side effects: daily, Assess barriers to learning: daily, Assess readiness for medication education: daily Discharge/Continuing Care - Education Needs Education Needs: Patient Medication, Patient Diagnosis/Disease Process, Patient Coping Skills, Patient Anger Management skills, Patient Community resources, Patient Activities of Daily Living, Patient Uses of Medical Equipment, Patient Health Practices/Safety, Patient Personal Hygiene/Grooming, Patient Aftercare Safety Plan - Discharge Discharge Criteria: Free of Homicidal thoughts, Free of paranoid thoughts, Free of agitation, Normal sleep pattern <Jennifer Delarosa - Last Filed: 05/28/17 13:32> - Diagnosis (1) Schizoaffective disorder, bipolar type Status: Chronic Interventions: 05/28/17 13:32 Psychoeducation/psychotherapy Psychopharmacology/adjustment of medications as needed/ monitoring possible side effects Evaluate pt on daily basis Compliance with medications and follow up appointments Long acting medication if pt is noncompliant with pill form Suicide and homicide risk assessment and prevention, coping strategies, safety plan Relapse prevention Reduction of symptoms Improve functional status Possible assertive community treatment Cognitive behavioral therapy Family intervention Possible social skill training as outpatient
[2017-05-27] MEDS: Divalproex 500 mg DR(BID formulation) PO SCH (21:38)
[2017-05-28 07:41] LABS: CHOLESTEROL 117 mg/dL (130-200); GLUCOSE,FASTING 102 mg/dL (65-110)
[2017-05-28 07:50] LABS: FREE T4 0.84 ng/dL (0.78-2.19)
[2017-05-28 08:03] LABS: THYROID STIMULATING HORMONE 2.04 mIU/mL (0.46-4.68)
[2017-05-28] MEDS: Divalproex 500 mg DR(BID formulation) PO SCH ×2 (09:05→21:15)
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
[2017-05-29 06:49] VITALS: O2SAT 97
[2017-05-29] MEDS: Divalproex 500 mg DR(BID formulation) PO SCH ×2 (10:17→21:34)
[2017-05-29 16:05] LABS: PH,URINE 6.5 (4.7-8.0); URINE BILIRUBIN NEGATIVE (NEGATIVE); URINE BLOOD TRACE-INTACT (NEGATIVE); URINE GLUCOSE (UA) NEGATIVE (NEGATIVE); URINE KETONE NEGATIVE (NEGATIVE); URINE LEUKOCYTE ESTERASE NEGATIVE Leu/uL (NEGATIVE); URINE PROTEIN NEGATIVE mg/dL (<30 mg/dL); URINE UROBILINOGEN 0.2 E.U./dL (<1 E.U./dL)
[2017-05-29 16:14] LABS: URINE APPEARANCE CLEAR (CLEAR); URINE COLOR YELLOW (YELLOW)
[2017-05-29 16:17] LABS: URINE BACTERIA FEW (NEG); URINE WBC 0 - 2 /hpf (0-6)
--- NOTE | 2017-05-29 16:23 | PCM.PYCHPN ---
Psychiatric Progress Note - Psychiatric Progress Note Patient seen today, length of contact: 30 minutes Patient Chief Complaint: "who urinated on the floor, me?", "I was scared yesterday, I saw two of my sons..." Problems Identified/Issues Discussed: Suicide/ homicide prevention, past psychiatric h/o, current psychiatric symptoms , medical problems, risk/benefits and alternatives of medications, medications compliance, coping strategies, substance abuse h/o, relapse prevention, importance of follow up with psychiatrist and therapist, discharge plan. Medical Problems: obesity, pseudoseizures, hypothyroidism Diagnostic Results: 05/27/17 08:40 05/27/17 08:10 Lab Results 05/29/17 15:30: Urine Color Yellow, Urine Appearance Clear, Urine pH 6.5, Ur Specific [place] 1.010, Urine Protein Negative, Urine Glucose (UA) Negative, Urine Ketones Negative, Urine Blood Trace-intact H, Urine Nitrate Negative, Urine Bilirubin Negative, Urine Urobilinogen 0.2, Ur Leukocyte Esterase Negative , Urine RBC 1 - 3, Urine WBC 0 - 2, Ur Epithelial Cells 1 - 3, Urine Bacteria Few 05/29/17 06:20: Valproic Acid 35 L 05/28/17 07:10: Free T4 0.84, TSH 3rd Generation 2.04 05/28/17 07:10: Fasting Glucose 102, Triglycerides 84, Cholesterol 117 L, LDL Cholesterol Direct 63, HDL Cholesterol 33 05/28/17 07:00: RPR Nonreactive 05/27/17 08:55: Urine Opiates Screen Negative, Urine Methadone Screen Negative, Ur Barbiturates Screen Negative, Ur Phencyclidine Scrn Negative, Ur Amphetamines Screen Negative, U Benzodiazepines Scrn Negative, U Oth Cocaine Metabols Negative, U Cannabinoids Screen Negative 05/27/17 08:55: Urine Color Yellow, Urine Appearance Clear, Urine pH 6.0, Ur Specific [place] >= 1.030, Urine Protein Trace H, Urine Glucose (UA) Negative, Urine Ketones Negative, Urine Blood Negative, Urine Nitrate Negative, Urine Bilirubin Negative, Urine Urobilinogen 1.0 H, Ur Leukocyte Esterase Negative, Urine RBC 0 - 2, Urine WBC 1 - 3, Ur Epithelial Cells 4 - 5, Amorphous Sediment Few, Urine Bacteria Many, Urine Other Uyeast, Urine HCG, Qual Negative 05/27/17 08:40: Alcohol, Quantitative < 10 05/27/17 08:40: Salicylates < 1 L, Acetaminophen < 10.0 L 05/27/17 08:40: WBC 7.8, RBC 3.77, Hgb 11.2 L, Hct 33.7 L, MCV 89.4, MCH 29.7, MCHC 33.2, RDW 14.5, Plt Count 263, MPV 9.2, Gran % 60.6, Lymph % (Auto) 27.0, Hayes % (Auto) 11.1 H, Eos % (Auto) 1.0 L, Baso % (Auto) 0.3, Gran # 4.75, Lymph # 2.1, Hayes # 0.9 H, Eos # 0.1, Baso # 0.02 05/27/17 08:10: Sodium 142, Potassium 3.8, Chloride 104, Carbon Dioxide 26, Anion Gap 16, BUN 8, Creatinine 0.7, Est GFR ( Amer) > 60, Est GFR (Non- Af Amer) > 60, Random Glucose 99, Calcium 9.1, Total Bilirubin 0.4, AST 32, ALT 41, Alkaline Phosphatase 59, Total Protein 7.6, Albumin 4.0, Globulin 3.6, Albumin/Globulin Ratio 1.1 DSM 5 Symptoms Update: Shortly pt is 36yo Female with h/o schizophrenia vs schizoaffective disorder, has cognitive limitations, learning disabilities, h/o mulitple admissions in the past, Most recent was 05/11/17 at this unit, currently under care of [facility], patient called 911 because pt was "afraid to ", pt also had visual hallucinations "I could see blood on the [place]", pt also was seeing her two sons, pt was not taking her medications because of "depression", pt verbalized thoughts of harming self in the ED, needs further evaluation and stabilization and meds resumption. patient obviously was not doing very well since the last admission which took place at this hospital 05/11/2017 patient had 7 emergency room visits (for the past two weeks pt was in the hospital seven times, almost every other day). as per nursing report, Patient was agitated again, was crying out loud, reported that she sees her two sons in her room, needed to have as necessary medications yesterday at the evening time. As per nursing report patient also urinated on herself in the dining area, when was asked why patient became agitated again, at the same time patient was apologetic later on. This medical writer asked patient if she has any burning sensation or abdominal pain or for frequent urination patient said "who me?", Then she said that she doesn't have any symptoms. patient is very low profile, has some cognitive deficits, poor vocabulary, staying in her room, sleeps majority of the time. Patient tolerates medications well, no side effects observed or reported, aims 0 , no EPS. Patient was in agreement to increase the dose of Risperdal. Impression: Schizoaffective disorder bipolar type Neurocognitive deficit learning disabilities Medication Change: Yes (Risperdal increased) Medical Record Reviewed: Yes Consults ordered or reviewed: medical consult requested Mental Status Examination - Cognitive Function Orientation: Person, Place Memory: Intact Attention: Poor Concentration: Poor Association: Loose Fund of Knowledge: Poor - Mood Mood: Depressed, Anxious - Affect Affect: Flat - Speech Speech: Appropriate - Formal Thought Process Formal Thought Process: Hallucinations, Delusions, Paranoia - Suicidal Ideation Suicidal Ideation: No - Homicidal Ideation Homicidal Ideation: No Goal/Treatment Plan - Goal/Treatment Plan Need for Continued Stay: Remain at risks for inpatient hospitalization, Severe depression anxiety, Discharge may exacerbated symptoms, Severe functional impairment Progress Toward Problem(s) and Goals/Treatment Plan: milieu/structure/supportive therapy Divalproex [Gonzalez HYDE(*BID*)] 500 mg PO DAILY for mood stabilization, ? seizures pt was not taking keppra, as per medical team pt most likely has pseudoseizures ativan 0.5 bid for anxiety risperdal 1 mg bid for psychosis will start celexa 10mg po daily for depression/anxiety PRN meds medical consult will monitor closely SW evaluation Estimated Date of D/C: 06/05/17 (we'll monitor closely)
[2017-05-30 07:19] VITALS: RESP 20
--- NOTE | 2017-05-30 08:27 | PCM.PYCHPN ---
Psychiatric Progress Note - Psychiatric Progress Note Patient seen today, length of contact: 25 minutes Patient Chief Complaint: "so-so" Problems Identified/Issues Discussed: I reviewed assessment and recent notes. I met with patient at bedside. Patient is familiar to me from her multiple admissions to this unit this year. She is fairly calm, cooperative and oriented x3 during my visit today. Appearance is unkempt. Reports she is feeling "so-so". Affect is constricted and guarded. She endorses visual hallucinations "I see stuff, I don't want to talk about that". Patient denies having any auditory hallucinations. Denies wishes or suicidal thoughts. . Patient denies any new discomfort or pain. Tolerating medications and slept well last night. Staff notes indicate that patient has been anxious and emotional on the unit. Endorsing hallucinations. In better control in the past day or so. There were no behavioral issues overnight. Diagnostic Results: Schizoaffective disorder bipolar type Neurocognitive deficit learning disabilities Medication Change: No ( ) Medical Record Reviewed: Yes Mental Status Examination - Cognitive Function Orientation: Person, Place Memory: Intact Attention: Poor Concentration: Poor Association: Loose Fund of Knowledge: Poor - Mood Mood: Depressed, Anxious - Affect Affect: Flat - Speech Speech: Appropriate - Formal Thought Process Formal Thought Process: Hallucinations ( "I see stuff, I don't want to talk about that"), Delusions, Paranoia - Suicidal Ideation Suicidal Ideation: No - Homicidal Ideation Homicidal Ideation: No Goal/Treatment Plan - Goal/Treatment Plan Need for Continued Stay: Remain at risks for inpatient hospitalization, Severe depression anxiety, Discharge may exacerbated symptoms, Severe functional impairment Progress Toward Problem(s) and Goals/Treatment Plan: * c/w current tx and plan * No new weekend labs thus far * Vitals reviewed and noted below: Selected Entries 05/29/17 05/29/17 06:47 15:56 Temperature 97.5 F L Pulse Rate 69 81 Respiratory 19 Rate Blood Pressure 103/49 L 114/73 Estimated Date of D/C: 06/05/17 (we'll monitor closely)
[2017-05-30] MEDS: Divalproex 500 mg DR(BID formulation) PO SCH ×2 (10:09→21:37)
--- NOTE | 2017-05-31 08:41 | PCM.PYCHPN ---
Psychiatric Progress Note - Psychiatric Progress Note Patient seen today, length of contact: 25 minutes Patient Chief Complaint: "so-so" Problems Identified/Issues Discussed: I reviewed recent notes and met with patient at bedside. She is fairly calm, cooperative and oriented x3 during my visit today. Appearance is unkempt. Again reports that she is feeling "so-so". Affect is constricted and guarded. She endorses visual hallucinations on two occasions yesterday but still "doesn't want to talk about it". Patient denies having any auditory hallucinations. Denies wishes or suicidal thoughts. Patient denies any new discomfort or pain. Tolerating medications and slept well last night. Staff notes indicate that patient continues to be anxious, emotional and attention seeking on the unit. There were no major behavioral issues overnight. Diagnostic Results: Schizoaffective disorder bipolar type Neurocognitive deficit learning disabilities Medication Change: No ( ) Medical Record Reviewed: Yes Mental Status Examination - Cognitive Function Orientation: Person, Place Memory: Intact Attention: Poor Concentration: Poor Association: Loose Fund of Knowledge: Poor - Mood Mood: Depressed, Anxious - Affect Affect: Flat - Speech Speech: Appropriate - Formal Thought Process Formal Thought Process: Hallucinations ( "I see stuff, I don't want to talk about that"), Delusions, Paranoia - Suicidal Ideation Suicidal Ideation: No - Homicidal Ideation Homicidal Ideation: No Goal/Treatment Plan - Goal/Treatment Plan Need for Continued Stay: Remain at risks for inpatient hospitalization, Severe depression anxiety, Discharge may exacerbated symptoms, Severe functional impairment Progress Toward Problem(s) and Goals/Treatment Plan: * c/w current tx and plan * No new weekend labs thus far * Vitals reviewed and noted below: Selected Entries 05/30/17 05/30/17 07:15 16:00 Temperature 97.7 F Pulse Rate 61 88 Respiratory 20 Rate Blood Pressure 95/59 L 109/68 Estimated Date of D/C: 06/05/17 (we'll monitor closely)
[2017-05-31] MEDS: Divalproex 500 mg DR(BID formulation) PO SCH ×2 (10:08→21:21)
[2017-06-01] MEDS: Divalproex 500 mg DR(BID formulation) PO SCH ×2 (09:09→21:52)
--- NOTE | 2017-06-01 16:07 | PCM.PYCHPN ---
Psychiatric Progress Note - Psychiatric Progress Note Patient seen today, length of contact: 30min Patient Chief Complaint: "OMG, I saw people, I saw faces, I was scared..." Problems Identified/Issues Discussed: Suicide/ homicide prevention, past psychiatric h/o, current psychiatric symptoms , medical problems, risk/benefits and alternatives of medications, medications compliance, coping strategies, substance abuse h/o, relapse prevention, importance of follow up with psychiatrist and therapist, discharge plan. Medical Problems: obesity, pseudoseizures, hypothyroidism Diagnostic Results: 05/27/17 08:40 05/27/17 08:10 Lab Results 05/29/17 15:30: Urine Color Yellow, Urine Appearance Clear, Urine pH 6.5, Ur Specific [place] 1.010, Urine Protein Negative, Urine Glucose (UA) Negative, Urine Ketones Negative, Urine Blood Trace-intact H, Urine Nitrate Negative, Urine Bilirubin Negative, Urine Urobilinogen 0.2, Ur Leukocyte Esterase Negative , Urine RBC 1 - 3, Urine WBC 0 - 2, Ur Epithelial Cells 1 - 3, Urine Bacteria Few 05/29/17 06:20: Valproic Acid 35 L 05/28/17 07:10: Free T4 0.84, TSH 3rd Generation 2.04 05/28/17 07:10: Fasting Glucose 102, Triglycerides 84, Cholesterol 117 L, LDL Cholesterol Direct 63, HDL Cholesterol 33 05/28/17 07:00: RPR Nonreactive 05/27/17 08:55: Urine Opiates Screen Negative, Urine Methadone Screen Negative, Ur Barbiturates Screen Negative, Ur Phencyclidine Scrn Negative, Ur Amphetamines Screen Negative, U Benzodiazepines Scrn Negative, U Oth Cocaine Metabols Negative, U Cannabinoids Screen Negative 05/27/17 08:55: Urine Color Yellow, Urine Appearance Clear, Urine pH 6.0, Ur Specific [place] >= 1.030, Urine Protein Trace H, Urine Glucose (UA) Negative, Urine Ketones Negative, Urine Blood Negative, Urine Nitrate Negative, Urine Bilirubin Negative, Urine Urobilinogen 1.0 H, Ur Leukocyte Esterase Negative, Urine RBC 0 - 2, Urine WBC 1 - 3, Ur Epithelial Cells 4 - 5, Amorphous Sediment Few, Urine Bacteria Many, Urine Other Uyeast, Urine HCG, Qual Negative 05/27/17 08:40: Alcohol, Quantitative < 10 05/27/17 08:40: Salicylates < 1 L, Acetaminophen < 10.0 L 05/27/17 08:40: WBC 7.8, RBC 3.77, Hgb 11.2 L, Hct 33.7 L, MCV 89.4, MCH 29.7, MCHC 33.2, RDW 14.5, Plt Count 263, MPV 9.2, Gran % 60.6, Lymph % (Auto) 27.0, [place] % (Auto) 11.1 H, Eos % (Auto) 1.0 L, Baso % (Auto) 0.3, Gran # 4.75, Lymph # 2.1, [place] # 0.9 H, Eos # 0.1, Baso # 0.02 05/27/17 08:10: Sodium 142, Potassium 3.8, Chloride 104, Carbon Dioxide 26, Anion Gap 16, BUN 8, Creatinine 0.7, Est GFR ( Amer) > 60, Est GFR (Non- Af Amer) > 60, Random Glucose 99, Calcium 9.1, Total Bilirubin 0.4, AST 32, ALT 41, Alkaline Phosphatase 59, Total Protein 7.6, Albumin 4.0, Globulin 3.6, Albumin/Globulin Ratio 1.1 DSM 5 Symptoms Update: Shortly pt is 36yo Female with h/o schizophrenia vs schizoaffective disorder, has cognitive limitations, learning disabilities, h/o mulitple admissions in the past, Most recent was 05/11/17 at this unit, currently under care of [facility], patient called 911 because pt was "afraid to ", pt also had visual hallucinations "I could see blood on the [place]", pt also was seeing her two sons, pt was not taking her medications because of "depression", pt verbalized thoughts of harming self in the ED, needs further evaluation and stabilization and meds resumption. pt is not doing well, needed to have PRN beverly, pt was c/o hallucinations "OMG , I saw people, I saw faces, I was scared". as per staff pt was vomited earlier. patient is very low profile, has some cognitive deficits, poor vocabulary, staying in her room, sleeps majority of the time. Patient tolerates medications well, no side effects observed or reported, aims 0 , no EPS. Patient was in agreement to increase the dose of Risperdal. Impression: Schizoaffective disorder bipolar type Neurocognitive deficit learning disabilities Medication Change: Yes (risperdal increased) Medical Record Reviewed: Yes Consults ordered or reviewed: medical consult requested Mental Status Examination - Cognitive Function Orientation: Person, Place Memory: Intact Attention: Poor Concentration: Poor Association: Loose Fund of Knowledge: Poor - Mood Mood: Depressed, Anxious - Affect Affect: Flat - Speech Speech: Appropriate - Formal Thought Process Formal Thought Process: Hallucinations ( "I see stuff, I don't want to talk about that"), Delusions, Paranoia - Suicidal Ideation Suicidal Ideation: No - Homicidal Ideation Homicidal Ideation: No Goal/Treatment Plan - Goal/Treatment Plan Need for Continued Stay: Remain at risks for inpatient hospitalization, Severe depression anxiety, Discharge may exacerbated symptoms, Severe functional impairment Progress Toward Problem(s) and Goals/Treatment Plan: milieu/structure/supportive therapy Divalproex [Depakote DR(*BID*)] 500 mg PO DAILY for mood stabilization, ? seizures pt was not taking keppra, as per medical team pt most likely has pseudoseizures ativan 0.5 bid for anxiety risperdal 1 mg tid for psychosis celexa 10mg po daily for depression/anxiety, will be started 06/01/17, some computer error, was not started last week PRN meds medical consult will monitor closely SW evaluation Estimated Date of D/C: 06/05/17 (we'll monitor closely)
[2017-06-02] MEDS: Divalproex 500 mg DR(BID formulation) PO SCH ×2 (09:30→21:56)
--- NOTE | 2017-06-02 12:05 | PCM.PYCHPN ---
Psychiatric Progress Note - Psychiatric Progress Note Patient seen today, length of contact: 30min Patient Chief Complaint: "OMG, I feel good, I feel okay" Problems Identified/Issues Discussed: Suicide/ homicide prevention, past psychiatric h/o, current psychiatric symptoms , medical problems, risk/benefits and alternatives of medications, medications compliance, coping strategies, substance abuse h/o, relapse prevention, importance of follow up with psychiatrist and therapist, discharge plan. Medical Problems: obesity, pseudoseizures, hypothyroidism Diagnostic Results: 05/27/17 08:40 05/27/17 08:10 Lab Results 05/29/17 15:30: Urine Color Yellow, Urine Appearance Clear, Urine pH 6.5, Ur Specific [place] 1.010, Urine Protein Negative, Urine Glucose (UA) Negative, Urine Ketones Negative, Urine Blood Trace-intact H, Urine Nitrate Negative, Urine Bilirubin Negative, Urine Urobilinogen 0.2, Ur Leukocyte Esterase Negative , Urine RBC 1 - 3, Urine WBC 0 - 2, Ur Epithelial Cells 1 - 3, Urine Bacteria Few 05/29/17 06:20: Valproic Acid 35 L 05/28/17 07:10: Free T4 0.84, TSH 3rd Generation 2.04 05/28/17 07:10: Fasting Glucose 102, Triglycerides 84, Cholesterol 117 L, LDL Cholesterol Direct 63, HDL Cholesterol 33 05/28/17 07:00: RPR Nonreactive 05/27/17 08:55: Urine Opiates Screen Negative, Urine Methadone Screen Negative, Ur Barbiturates Screen Negative, Ur Phencyclidine Scrn Negative, Ur Amphetamines Screen Negative, U Benzodiazepines Scrn Negative, U Oth Cocaine Metabols Negative, U Cannabinoids Screen Negative 05/27/17 08:55: Urine Color Yellow, Urine Appearance Clear, Urine pH 6.0, Ur Specific [place] >= 1.030, Urine Protein Trace H, Urine Glucose (UA) Negative, Urine Ketones Negative, Urine Blood Negative, Urine Nitrate Negative, Urine Bilirubin Negative, Urine Urobilinogen 1.0 H, Ur Leukocyte Esterase Negative, Urine RBC 0 - 2, Urine WBC 1 - 3, Ur Epithelial Cells 4 - 5, Amorphous Sediment Few, Urine Bacteria Many, Urine Other Uyeast, Urine HCG, Qual Negative 05/27/17 08:40: Alcohol, Quantitative < 10 05/27/17 08:40: Salicylates < 1 L, Acetaminophen < 10.0 L 05/27/17 08:40: WBC 7.8, RBC 3.77, Hgb 11.2 L, Hct 33.7 L, MCV 89.4, MCH 29.7, MCHC 33.2, RDW 14.5, Plt Count 263, MPV 9.2, Gran % 60.6, Lymph % (Auto) 27.0, [place] % (Auto) 11.1 H, Eos % (Auto) 1.0 L, Baso % (Auto) 0.3, Gran # 4.75, Lymph # 2.1, [place] # 0.9 H, Eos # 0.1, Baso # 0.02 05/27/17 08:10: Sodium 142, Potassium 3.8, Chloride 104, Carbon Dioxide 26, Anion Gap 16, BUN 8, Creatinine 0.7, Est GFR ( Amer) > 60, Est GFR (Non- Af Amer) > 60, Random Glucose 99, Calcium 9.1, Total Bilirubin 0.4, AST 32, ALT 41, Alkaline Phosphatase 59, Total Protein 7.6, Albumin 4.0, Globulin 3.6, Albumin/Globulin Ratio 1.1 DSM 5 Symptoms Update: Shortly pt is 36yo Female with h/o schizophrenia vs schizoaffective disorder, has cognitive limitations, learning disabilities, h/o mulitple admissions in the past, Most recent was 05/11/17 at this unit, currently under care of [facility], patient called 911 because pt was "afraid to ", pt also had visual hallucinations "I could see blood on the [place]", pt also was seeing her two sons, pt was not taking her medications because of "depression", pt verbalized thoughts of harming self in the ED, needs further evaluation and stabilization and meds resumption. pt was seen at the tx team meeting, some improvement with pt's presentation, pt said that she feels "OMG, I feel good, I feel okay", pt said that yesterday " OMG I was not feeling well, I saw people, I saw faces, I was scared", pt has poor vocabulary, some cognitive limitations. . Patient tolerates medications well, no side effects observed or reported, aims 0 , no EPS. riseprdal was increased yesterday pt asked to speak to the SW about d/c plan, pt said that she definately needs to leave the house where she currently lives with her akash. Impression: Schizoaffective disorder bipolar type Neurocognitive deficit learning disabilities Medication Change: Yes (risperdal increased) Medical Record Reviewed: Yes Consults ordered or reviewed: medical consult requested Mental Status Examination - Cognitive Function Orientation: Person, Place Memory: Intact Attention: Poor (some improvemetn) Concentration: Poor (some improvement) Association: Loose Fund of Knowledge: Poor - Mood Mood: Depressed ("I feel better"), Anxious - Affect Affect: Flat - Speech Speech: Appropriate - Formal Thought Process Formal Thought Process: Hallucinations (denied today), Delusions (deneid today) , Paranoia (denied today) - Suicidal Ideation Suicidal Ideation: No - Homicidal Ideation Homicidal Ideation: No Goal/Treatment Plan - Goal/Treatment Plan Need for Continued Stay: Remain at risks for inpatient hospitalization, Severe depression anxiety, Discharge may exacerbated symptoms, Severe functional impairment Progress Toward Problem(s) and Goals/Treatment Plan: milieu/structure/supportive therapy Divalproex [Gonzalez HYDE(*BID*)] 500 mg PO DAILY for mood stabilization, ? seizures pt was not taking keppra, as per medical team pt most likely has pseudoseizures ativan 0.5 bid for anxiety risperdal 1 mg tid for psychosis celexa 20mg po daily for depression/anxiety PRN meds medical consult will monitor closely evaluation Estimated Date of D/C: 06/05/17 (we'll monitor closely)
[2017-06-03] MEDS: Divalproex 500 mg DR(BID formulation) PO SCH ×2 (09:03→21:35)
--- NOTE | 2017-06-03 16:11 | PCM.PYCHPN ---
Psychiatric Progress Note - Psychiatric Progress Note Patient seen today, length of contact: 30min Patient Chief Complaint: "OMG, I feel good, I feel okay" Problems Identified/Issues Discussed: Suicide/ homicide prevention, past psychiatric h/o, current psychiatric symptoms , medical problems, risk/benefits and alternatives of medications, medications compliance, coping strategies, substance abuse h/o, relapse prevention, importance of follow up with psychiatrist and therapist, discharge plan. Medical Problems: obesity, pseudoseizures, hypothyroidism Diagnostic Results: 05/27/17 08:40 05/27/17 08:10 Lab Results 05/29/17 15:30: Urine Color Yellow, Urine Appearance Clear, Urine pH 6.5, Ur Specific [place] 1.010, Urine Protein Negative, Urine Glucose (UA) Negative, Urine Ketones Negative, Urine Blood Trace-intact H, Urine Nitrate Negative, Urine Bilirubin Negative, Urine Urobilinogen 0.2, Ur Leukocyte Esterase Negative , Urine RBC 1 - 3, Urine WBC 0 - 2, Ur Epithelial Cells 1 - 3, Urine Bacteria Few 05/29/17 06:20: Valproic Acid 35 L 05/28/17 07:10: Free T4 0.84, TSH 3rd Generation 2.04 05/28/17 07:10: Fasting Glucose 102, Triglycerides 84, Cholesterol 117 L, LDL Cholesterol Direct 63, HDL Cholesterol 33 05/28/17 07:00: RPR Nonreactive 05/27/17 08:55: Urine Opiates Screen Negative, Urine Methadone Screen Negative, Ur Barbiturates Screen Negative, Ur Phencyclidine Scrn Negative, Ur Amphetamines Screen Negative, U Benzodiazepines Scrn Negative, U Oth Cocaine Metabols Negative, U Cannabinoids Screen Negative 05/27/17 08:55: Urine Color Yellow, Urine Appearance Clear, Urine pH 6.0, Ur Specific [place] >= 1.030, Urine Protein Trace H, Urine Glucose (UA) Negative, Urine Ketones Negative, Urine Blood Negative, Urine Nitrate Negative, Urine Bilirubin Negative, Urine Urobilinogen 1.0 H, Ur Leukocyte Esterase Negative, Urine RBC 0 - 2, Urine WBC 1 - 3, Ur Epithelial Cells 4 - 5, Amorphous Sediment Few, Urine Bacteria Many, Urine Other Uyeast, Urine HCG, Qual Negative 05/27/17 08:40: Alcohol, Quantitative < 10 05/27/17 08:40: Salicylates < 1 L, Acetaminophen < 10.0 L 05/27/17 08:40: WBC 7.8, RBC 3.77, Hgb 11.2 L, Hct 33.7 L, MCV 89.4, MCH 29.7, MCHC 33.2, RDW 14.5, Plt Count 263, MPV 9.2, Gran % 60.6, Lymph % (Auto) 27.0, [place] % (Auto) 11.1 H, Eos % (Auto) 1.0 L, Baso % (Auto) 0.3, Gran # 4.75, Lymph # 2.1, [place] # 0.9 H, Eos # 0.1, Baso # 0.02 05/27/17 08:10: Sodium 142, Potassium 3.8, Chloride 104, Carbon Dioxide 26, Anion Gap 16, BUN 8, Creatinine 0.7, Est GFR ( Amer) > 60, Est GFR (Non- Af Amer) > 60, Random Glucose 99, Calcium 9.1, Total Bilirubin 0.4, AST 32, ALT 41, Alkaline Phosphatase 59, Total Protein 7.6, Albumin 4.0, Globulin 3.6, Albumin/Globulin Ratio 1.1 DSM 5 Symptoms Update: Shortly pt is 36yo Female with h/o schizophrenia vs schizoaffective disorder, has cognitive limitations, learning disabilities, h/o mulitple admissions in the past, Most recent was 05/11/17 at this unit, currently under care of [facility], patient called 911 because pt was "afraid to ", pt also had visual hallucinations "I could see blood on the [place]tejo", pt also was seeing her two sons, pt was not taking her medications because of "depression", pt verbalized thoughts of harming self in the ED, needs further evaluation and stabilization and meds resumption. pt was seen in her room, some improvement with pt's presentation, pt said that she feels "OMG, I feel good, I feel okay, I slept perfect, I want to see my son now". pt has poor vocabulary, some cognitive limitations. . Patient tolerates medications well, no side effects observed or reported, aims 0 , no EPS. pt asked to speak to the about d/c plan, pt said that she definitely needs to leave the house where she currently lives with her exhusband. Impression: Schizoaffective disorder bipolar type Neurocognitive deficit learning disabilities Medication Change: No (adjusted yesterday) Medical Record Reviewed: Yes Consults ordered or reviewed: medical consult requested Mental Status Examination - Cognitive Function Orientation: Person, Place Memory: Intact Attention: Poor (some improvemetn) Concentration: Poor (some improvement) Association: Loose Fund of Knowledge: Poor - Mood Mood: Depressed ("I feel better"), Anxious - Affect Affect: Flat - Speech Speech: Appropriate - Formal Thought Process Formal Thought Process: Hallucinations (denied today), Delusions (deneid today) , Paranoia (denied today) - Suicidal Ideation Suicidal Ideation: No - Homicidal Ideation Homicidal Ideation: No Goal/Treatment Plan - Goal/Treatment Plan Need for Continued Stay: Remain at risks for inpatient hospitalization, Severe depression anxiety, Discharge may exacerbated symptoms, Severe functional impairment Progress Toward Problem(s) and Goals/Treatment Plan: milieu/structure/supportive therapy Divalproex [Depakote DR(*BID*)] 500 mg PO DAILY for mood stabilization, ? seizures pt was not taking keppra, as per medical team pt most likely has pseudoseizures ativan 0.5 bid for anxiety risperdal 1 mg tid for psychosis celexa 20mg po daily for depression/anxiety PRN meds medical consult, was called again will monitor closely SW evaluation Estimated Date of D/C: 06/05/17 (we'll monitor closely)
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
[2017-06-04] MEDS: Divalproex 500 mg DR(BID formulation) PO SCH ×2 (09:30→21:59)
--- NOTE | 2017-06-04 17:55 | PCM.PYCHPN ---
Psychiatric Progress Note - Psychiatric Progress Note Patient seen today, length of contact: 30min Patient Chief Complaint: "OMG, I feel good, I feel okay" Problems Identified/Issues Discussed: Suicide/ homicide prevention, past psychiatric h/o, current psychiatric symptoms , medical problems, risk/benefits and alternatives of medications, medications compliance, coping strategies, substance abuse h/o, relapse prevention, importance of follow up with psychiatrist and therapist, discharge plan. Medical Problems: obesity, pseudoseizures, hypothyroidism Diagnostic Results: 05/27/17 08:40 05/27/17 08:10 Lab Results 05/29/17 15:30: Urine Color Yellow, Urine Appearance Clear, Urine pH 6.5, Ur Specific [place] 1.010, Urine Protein Negative, Urine Glucose (UA) Negative, Urine Ketones Negative, Urine Blood Trace-intact H, Urine Nitrate Negative, Urine Bilirubin Negative, Urine Urobilinogen 0.2, Ur Leukocyte Esterase Negative , Urine RBC 1 - 3, Urine WBC 0 - 2, Ur Epithelial Cells 1 - 3, Urine Bacteria Few 05/29/17 06:20: Valproic Acid 35 L 05/28/17 07:10: Free T4 0.84, TSH 3rd Generation 2.04 05/28/17 07:10: Fasting Glucose 102, Triglycerides 84, Cholesterol 117 L, LDL Cholesterol Direct 63, HDL Cholesterol 33 05/28/17 07:00: RPR Nonreactive 05/27/17 08:55: Urine Opiates Screen Negative, Urine Methadone Screen Negative, Ur Barbiturates Screen Negative, Ur Phencyclidine Scrn Negative, Ur Amphetamines Screen Negative, U Benzodiazepines Scrn Negative, U Oth Cocaine Metabols Negative, U Cannabinoids Screen Negative 05/27/17 08:55: Urine Color Yellow, Urine Appearance Clear, Urine pH 6.0, Ur Specific [place] >= 1.030, Urine Protein Trace H, Urine Glucose (UA) Negative, Urine Ketones Negative, Urine Blood Negative, Urine Nitrate Negative, Urine Bilirubin Negative, Urine Urobilinogen 1.0 H, Ur Leukocyte Esterase Negative, Urine RBC 0 - 2, Urine WBC 1 - 3, Ur Epithelial Cells 4 - 5, Amorphous Sediment Few, Urine Bacteria Many, Urine Other Uyeast, Urine HCG, Qual Negative 05/27/17 08:40: Alcohol, Quantitative < 10 05/27/17 08:40: Salicylates < 1 L, Acetaminophen < 10.0 L 05/27/17 08:40: WBC 7.8, RBC 3.77, Hgb 11.2 L, Hct 33.7 L, MCV 89.4, MCH 29.7, MCHC 33.2, RDW 14.5, Plt Count 263, MPV 9.2, Gran % 60.6, Lymph % (Auto) 27.0, [place] % (Auto) 11.1 H, Eos % (Auto) 1.0 L, Baso % (Auto) 0.3, Gran # 4.75, Lymph # 2.1, [place] # 0.9 H, Eos # 0.1, Baso # 0.02 05/27/17 08:10: Sodium 142, Potassium 3.8, Chloride 104, Carbon Dioxide 26, Anion Gap 16, BUN 8, Creatinine 0.7, Est GFR ( Amer) > 60, Est GFR (Non- Af Amer) > 60, Random Glucose 99, Calcium 9.1, Total Bilirubin 0.4, AST 32, ALT 41, Alkaline Phosphatase 59, Total Protein 7.6, Albumin 4.0, Globulin 3.6, Albumin/Globulin Ratio 1.1 DSM 5 Symptoms Update: Shortly pt is 36yo Female with h/o schizophrenia vs schizoaffective disorder, has cognitive limitations, learning disabilities, h/o mulitple admissions in the past, Most recent was 05/11/17 at this unit, currently under care of [facility], patient called 911 because pt was "afraid to ", pt also had visual hallucinations "I could see blood on the [place]", pt also was seeing her two sons, pt was not taking her medications because of "depression", pt verbalized thoughts of harming self in the ED, needs further evaluation and stabilization and meds resumption. pt was seen at the TV room, some improvement with pt's presentation, pt said that she feels "OMG, I feel good, I feel okay, I slept perfect, I want to see my son now". pt has poor vocabulary, some cognitive limitations. . Patient tolerates medications well, no side effects observed or reported, aims 0 , no EPS. pt asked to speak to the about d/c plan, pt said that she definitely needs to leave the house where she currently lives with her exhusband. patient reported being ready for discharge tomorrow, patient improved very much so deemed to be ready for discharge. Impression: Schizoaffective disorder bipolar type Neurocognitive deficit learning disabilities Medication Change: No (adjusted yesterday) Medical Record Reviewed: Yes Consults ordered or reviewed: medical consult requestedfollow-up Mental Status Examination - Cognitive Function Orientation: Person, Place Memory: Intact Attention: Poor (some improvemetn) Concentration: Poor (some improvement) Association: Loose Fund of Knowledge: Poor - Mood Mood: Depressed ("I feel better"), Anxious - Affect Affect: Flat - Speech Speech: Appropriate - Formal Thought Process Formal Thought Process: Hallucinations (denied today), Delusions (deneid today) , Paranoia (denied today) - Suicidal Ideation Suicidal Ideation: No - Homicidal Ideation Homicidal Ideation: No Goal/Treatment Plan - Goal/Treatment Plan Need for Continued Stay: Remain at risks for inpatient hospitalization, Severe depression anxiety, Discharge may exacerbated symptoms, Severe functional impairment Progress Toward Problem(s) and Goals/Treatment Plan: milieu/structure/supportive therapy Divalproex [Gonzalez HYDE(*BID*)] 500 mg PO DAILY for mood stabilization, ? seizures pt was not taking keppra, as per medical team pt most likely has pseudoseizures ativan 0.5 bid for anxiety risperdal 1 mg tid for psychosis celexa 20mg po daily for depression/anxiety PRN meds medical consult, was called again will monitor closely SW evaluation Estimated Date of D/C: 06/05/17 (we'll monitor closely)
[2017-06-05 07:21] VITALS: BP 84/48; PULSE 70; TEMP 97.5
[2017-06-05] MEDS: Divalproex 500 mg DR(BID formulation) PO SCH (09:16)
--- NOTE | 2017-06-05 15:48 | PCM.PYCHDC ---
Mental Status Examination - Mental Status Examination Orientation: Person, Place, Situation, Time Memory: Intact Mood: Neutral Affect: Constricted (multiaxial mood congruent) Attention: Poor (with much improvement) Concentration: Poor (with much improvement) Association: WNL Fund of Knowledge: Poor (chronic) Formal Thought Process: Other (concrete thought process) Description of patient's judgement and insight: Pt has improved insight into mental and medical illness, pt was compliant with medications and unit rules and regulations, pt was going to groups, was calm, cooperative, socially appropriate, no behavioral incidents, no agitation, no aggression. Psychotic Thoughts and Behaviors: Pt denied v/a/t hallucinations, denied paranoid ideations, pt does not appear to be psychotic, and thought process is goal directed. Suicidal Ideation: No Current Homicidal Ideation?: No Plan: pt adamantly denied thoughts of harming self or others denied intent or plan. Discharge Summary - Discharge Note Reason for Hospitalization: patient was admitted for evaluation and stabilization of depressive symptoms, psychotic symptoms, patient was noncompliant with the medications,expressed thoughts of harming herself with no plan in the emergency room, patient needs further evaluation and stabilization and medication management. patient improved significantly Psychiatric History (includes Medical, Family, Personal Hx): see HPI Laboratory Data: 05/27/17 08:40 05/27/17 08:10 Lab Results 05/29/17 15:30: Urine Color Yellow, Urine Appearance Clear, Urine pH 6.5, Ur Specific [place] 1.010, Urine Protein Negative, Urine Glucose (UA) Negative, Urine Ketones Negative, Urine Blood Trace-intact H, Urine Nitrate Negative, Urine Bilirubin Negative, Urine Urobilinogen 0.2, Ur Leukocyte Esterase Negative , Urine RBC 1 - 3, Urine WBC 0 - 2, Ur Epithelial Cells 1 - 3, Urine Bacteria Few 05/29/17 06:20: Valproic Acid 35 L 05/28/17 07:10: Free T4 0.84, TSH 3rd Generation 2.04 05/28/17 07:10: Fasting Glucose 102, Triglycerides 84, Cholesterol 117 L, LDL Cholesterol Direct 63, HDL Cholesterol 33 05/28/17 07:00: RPR Nonreactive 05/27/17 08:55: Urine Opiates Screen Negative, Urine Methadone Screen Negative, Ur Barbiturates Screen Negative, Ur Phencyclidine Scrn Negative, Ur Amphetamines Screen Negative, U Benzodiazepines Scrn Negative, U Oth Cocaine Metabols Negative, U Cannabinoids Screen Negative 05/27/17 08:55: Urine Color Yellow, Urine Appearance Clear, Urine pH 6.0, Ur Specific [place] >= 1.030, Urine Protein Trace H, Urine Glucose (UA) Negative, Urine Ketones Negative, Urine Blood Negative, Urine Nitrate Negative, Urine Bilirubin Negative, Urine Urobilinogen 1.0 H, Ur Leukocyte Esterase Negative, Urine RBC 0 - 2, Urine WBC 1 - 3, Ur Epithelial Cells 4 - 5, Amorphous Sediment Few, Urine Bacteria Many, Urine Other Uyeast, Urine HCG, Qual Negative 05/27/17 08:40: Alcohol, Quantitative < 10 05/27/17 08:40: Salicylates < 1 L, Acetaminophen < 10.0 L 05/27/17 08:40: WBC 7.8, RBC 3.77, Hgb 11.2 L, Hct 33.7 L, MCV 89.4, MCH 29.7, MCHC 33.2, RDW 14.5, Plt Count 263, MPV 9.2, Gran % 60.6, Lymph % (Auto) 27.0, [place] % (Auto) 11.1 H, Eos % (Auto) 1.0 L, Baso % (Auto) 0.3, Gran # 4.75, Lymph # 2.1, [place] # 0.9 H, Eos # 0.1, Baso # 0.02 05/27/17 08:10: Sodium 142, Potassium 3.8, Chloride 104, Carbon Dioxide 26, Anion Gap 16, BUN 8, Creatinine 0.7, Est GFR ( Amer) > 60, Est GFR (Non- Af Amer) > 60, Random Glucose 99, Calcium 9.1, Total Bilirubin 0.4, AST 32, ALT 41, Alkaline Phosphatase 59, Total Protein 7.6, Albumin 4.0, Globulin 3.6, Albumin/Globulin Ratio 1.1 Vital Signs Temp Pulse Resp BP Pulse Ox 06/05/17 07:21 97.5 F L 70 20 84/48 L 06/04/17 16:00 78 98/57 L 06/04/17 07:24 98.0 F 71 20 87/49 L 06/03/17 07:28 97.9 F 72 20 84/53 L 06/02/17 16:46 77 112/72 06/02/17 07:15 97.6 F 67 20 82/47 L 06/02/17 07:12 97.6 F 67 20 82/47 L 06/01/17 16:09 85 110/77 06/01/17 06:53 98.2 F 76 20 106/76 05/31/17 16:00 87 108/69 05/31/17 07:16 97.8 F 72 20 98/60 L 05/30/17 16:00 88 109/68 05/30/17 07:15 97.7 F 61 20 95/59 L 05/29/17 15:56 81 114/73 05/29/17 06:47 97.5 F L 69 19 103/49 L 97 05/28/17 16:00 72 98/66 L 05/28/17 06:15 97.9 F 73 21 92/58 L 98 05/27/17 11:37 73 18 112/62 97 05/27/17 08:10 98.2 F 79 18 111/69 98 Consultations:: List each consultation separately and include: 1. Reason for request. 2. Findings. 3. Follow-up Consultations: pt was seen by medical team at the ED Summary of Hospital Course include:: 1. Description of specific treatment plan utilized for patients during their course of treatmen. 2. Summarize the time- course for resolution of acute symptoms and/or regressed behaviors. 3. Describe issues identified and worked on during hospitalization. 4. Describe medication utilized. 5. Describe medical problems identified and treated. 6. Reassessment of suicide risk Summary of Hospital Course: Shortly pt is 36yo Female with h/o schizophrenia vs schizoaffective disorder, has cognitive limitations, learning disabilities, h/o mulitple admissions in the past, Most recent was 05/11/17 at this unit, currently under care of [facility], patient called 911 because pt was "afraid to ", pt also had visual hallucinations "I could see blood on the [place]", pt also was seeing her two sons, pt was not taking her medications because of "depression", pt verbalized thoughts of harming self in the ED, needs further evaluation and stabilization and meds resumption. patient obviously was not doing very well since the last admission which took place at this hospital 05/11/2017 patient had 7 emergency room visits (for the past two weeks pt was in the hospital seven times, almost every other day). as per nursing report, patient was agitated at the day of admission, was crying out loud, patient was crying that she misses her son, and was hysterical, needed to be in the quiet room, when necessary medications were given. at the time of evaluation pt Presented to be depressed, hopeless, disorganized in her thoughts and behavior, emotionally labile, anxious. 05/27/17 08:40 05/27/17 08:10 Lab Results 05/28/17 07:10: Free T4 0.84, TSH 3rd Generation 2.04 05/28/17 07:10: Fasting Glucose 102, Triglycerides 84, Cholesterol 117 L, LDL Cholesterol Direct 63, HDL Cholesterol 33 05/27/17 08:55: Urine Opiates Screen Negative, Urine Methadone Screen Negative, Ur Barbiturates Screen Negative, Ur Phencyclidine Scrn Negative, Ur Amphetamines Screen Negative, U Benzodiazepines Scrn Negative, U Oth Cocaine Metabols Negative, U Cannabinoids Screen Negative 05/27/17 08:55: Urine Color Yellow, Urine Appearance Clear, Urine pH 6.0, Ur Specific [place] >= 1.030, Urine Protein Trace H, Urine Glucose (UA) Negative, Urine Ketones Negative, Urine Blood Negative, Urine Nitrate Negative, Urine Bilirubin Negative, Urine Urobilinogen 1.0 H, Ur Leukocyte Esterase Negative, Urine RBC 0 - 2, Urine WBC 1 - 3, Ur Epithelial Cells 4 - 5, Amorphous Sediment Few, Urine Bacteria Many, Urine Other Uyeast, Urine HCG, Qual Negative 05/27/17 08:40: Alcohol, Quantitative < 10 05/27/17 08:40: Salicylates < 1 L, Acetaminophen < 10.0 L 05/27/17 08:40: WBC 7.8, RBC 3.77, Hgb 11.2 L, Hct 33.7 L, MCV 89.4, MCH 29.7, MCHC 33.2, RDW 14.5, Plt Count 263, MPV 9.2, Gran % 60.6, Lymph % (Auto) 27.0, [place] % (Auto) 11.1 H, Eos % (Auto) 1.0 L, Baso % (Auto) 0.3, Gran # 4.75, Lymph # 2.1, [place] # 0.9 H, Eos # 0.1, Baso # 0.02 05/27/17 08:10: Sodium 142, Potassium 3.8, Chloride 104, Carbon Dioxide 26, Anion Gap 16, BUN 8, Creatinine 0.7, Est GFR ( Amer) > 60, Est GFR (Non- Af Amer) > 60, Random Glucose 99, Calcium 9.1, Total Bilirubin 0.4, AST 32, ALT 41, Alkaline Phosphatase 59, Total Protein 7.6, Albumin 4.0, Globulin 3.6, Albumin/Globulin Ratio 1.1 Vital Signs Temp Pulse Resp BP Pulse Ox 05/28/17 06:15 97.9 F 73 21 92/58 L 98 05/27/17 11:37 73 18 112/62 97 05/27/17 08:10 98.2 F 79 18 111/69 98 based on the history patient was noncompliant with the medication and probably that's why patient decompensated and needed to have admission to the psychiatric inpatient unit. Patient was stabilized on the following medication: Divalproex [Depakote DR(*BID*)] 500 mg PO DAILY for mood stabilization, ? 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 Over the course of this hospitalization pt was attending groups, pt also had medication management, had therapeutic milieu. Overall pt improved significantly, pt's affect became brighter, pt was less depressed, no psychotic. At the time of the discharge pt denied been depressed, denied thoughts of harming self or others, denied psychotic symptoms, and pt does not appeared to be psychotic, denied been anxious, was considered to pose no imminent danger to self or others, will be following up at [facility] [place], information about follow up appointment, time and address provided to the pt, it is patient responsibility to follow up with outpatient clinic, PMD as well as specialists ( see SW note for more detailed information). In case pt will need to obtain results of studies pending at discharge pt was provided with contact information of Psychiatric Inpatient unit [phone] as well as Medical Record Department [phone]. pt was provided with prescriptions for all of medications (please see medication reconciliation form) Pt was educated about safety plan in case of worsening of symptoms or in case of suicidal or homicidal ideation call 911 or go to the nearest ER, also was educated to take meds as prescribed and stay away from drugs, pt verbalized understanding. - Diagnosis (1) Schizoaffective disorder, bipolar type Current Visit: No Status: Chronic - Final Diagnosis (DSM 5) Condition upon Discharge: GUARDED Disposition: HOME/ ROUTINE Follow-up Treatment Plan: At the time of the discharge pt denied been depressed, denied thoughts of harming self or others, denied psychotic symptoms, and pt does not appeared to be psychotic, denied been anxious, was considered to pose no imminent danger to self or others, will be following up at [facility] outpatient [place], information about follow up appointment, time and address provided to the pt, it is patient responsibility to follow up with outpatient clinic, PMD as well as specialists ( see SW note for more detailed information). In case pt will need to obtain results of studies pending at discharge pt was provided with contact information of Psychiatric Inpatient unit [phone] as well as Medical Record Department [phone]. pt was provided with prescriptions for all of medications (please see medication reconciliation form) Pt was educated about safety plan in case of worsening of symptoms or in case of suicidal or homicidal ideation call 911 or go to the nearest ER, also was educated to take meds as prescribed and stay away from drugs, pt verbalized understanding. Prescriptions/Medication Reconciliation: Citalopram [celEXA] 20 mg PO DAILY #14 tab Divalproex [Depakote DR(*BID*)] 500 mg PO [facility] #30 tcp Docusate [Colace] 100 mg PO BID #14 cap LORazepam [Ativan] 0.5 mg PO [facility] #30 tab risperiDONE [RisperDAL Tab] 1 mg PO TID #45 tab - Smoking Cessation Smoking Cessation Medication prescribed: No Reason for not providing: denied smoking - Antipsychotic Medications Pt discharged on 2 or more routine antipsychotic medications: No
== END 2017-06-05 15:30 | disposition home or self-care (01) | DRG 430 ==
LOC: ED 07:42 → ERH 09:53 → PSYC 11:54
PROVIDERS: ADMIT Psychiatry & Neurology Psychiatry; ATTEND Psychiatry & Neurology Psychiatry
PROC: GZ3ZZZZ Medication Management (ICD-10-PCS; principal; 2017-05-27)
DX: F25.0 Schizoaffective disorder, bipolar type (principal); G40.89 Other seizures; Z91.14 Patient's other noncompliance with medication regimen; E66.9 Obesity, unspecified; E03.9 Hypothyroidism, unspecified; Z68.33 Body mass index [BMI] 33.0-33.9, adult

== ENCOUNTER 2017-06-11 09:53 | Emergency (ER) | payer OTHER ==
[2017-06-11 09:54] VITALS: BMI 33.6
[2017-06-11 10:07] VITALS: RESP 16; TEMP 99.3
[2017-06-11 10:29] LABS: URINE BILIRUBIN NEGATIVE (NEGATIVE); URINE BLOOD NEGATIVE (NEGATIVE); URINE GLUCOSE (UA) NEGATIVE (NEGATIVE); URINE KETONE NEGATIVE (NEGATIVE); URINE LEUKOCYTE ESTERASE NEGATIVE Leu/uL (NEGATIVE); URINE PROTEIN NEGATIVE mg/dL (<30 mg/dL); URINE UROBILINOGEN 0.2 E.U./dL (<1 E.U./dL)
[2017-06-11 10:30] LABS: URINE APPEARANCE CLEAR (CLEAR); URINE COLOR YELLOW (YELLOW)
--- NOTE | 2017-06-11 11:11 | ED PDOC ---
Arrival/HPI - General Chief Complaint: Female Genitourinary Time Seen by Provider: 06/11/17 10:12 Historian: Patient - Critical Care Narrative Critical Care (Text): 06/11/17 36 yo female w/PMhx of schizophrenia come inf or evaluation of few episodes of urinary incontinence developed since yesterday. Otherwise, pt denies any other somatic complaints, denies fever, chills, weakness, CP, SOB, dyspnea, abd. pain , N/V/D, denies UTI sx, back pain, hematuria, vaginal irritation or discharges. Pt denies previous hx of incontinence, denies change in her medication., At the time of evaluation, pt appears comfortable, appropriate, not in any apparent distress. Past Medical History - Provider Review Nursing Documentation Reviewed: Yes - Travel History Have you recently traveled outside [place] w/in the past 3 mons?: No - Infectious Disease Hx of Infectious Diseases: None - Tetanus Immunization Tetanus Immunization: Unknown - Cardiac Hx Cardiac Disorders: Yes Hx Hypertension: Yes (hypertension) - Pulmonary Hx Respiratory Disorders: No Hx Tuberculosis: No - Neurological Hx Neurological Disorder: No HX Cerebrovascular Accident: No Hx Seizures: Yes - HEENT Hx HEENT Disorder: No - Renal Hx Renal Disorder: No - Endocrine/Metabolic Hx Endocrine Disorders: Yes Hx Diabetes Mellitus Type 2: Yes - Hematological/Oncological Hx Blood Disorders: No Hx Cancer: No - Integumentary Hx Dermatological Disorder: No - Musculoskeletal/Rheumatological Hx Musculoskeletal Disorders: No - Gastrointestinal Hx Gastrointestinal Disorders: No - Genitourinary/Gynecological Hx Genitourinary Disorders: No Hx Sexually Transmitted Diseases: No - Psychiatric Hx Psychophysiologic Disorder: Yes Hx Anxiety: Yes Hx Bipolar Disorder: Yes Hx Depression: Yes Hx Schizophrenia: Yes Hx Substance Use: No Other/Comment: schizo affective disorder - Surgical History Hx Hysterectomy: Yes Hx Tubal Ligation: Yes - Anesthesia Hx Anesthesia: Yes Hx Anesthesia Reactions: No Hx Malignant Hyperthermia: No - Suicidal Assessment Feels Threatened In Home Enviroment: No Family/Social History - Physician Review Nursing Documentation Reviewed: Yes Family/Social History: No Known Family HX Smoking Status: Never Smoked Hx Alcohol Use: No Hx Substance Use: No Hx Substance Use Treatment: No Allergies/Home Meds Allergies/Adverse Reactions: Allergies No Known Allergies Allergy (Verified 06/11/17 10:07) Denied Review of Systems - Review of Systems Constitutional: Normal Eyes: Normal ENT: Normal Respiratory: Normal Cardiovascular: Normal Gastrointestinal: Normal Genitourinary Female: Other (incontinence) Musculoskeletal: Normal Skin: Normal Neurological: Normal Endocrine: Normal Hemo/Lymphatic: Normal Psychiatric: Normal Physical Exam Vital Signs Reviewed: Yes Vital Signs Temp Pulse Resp BP Pulse Ox 06/11/17 10:06 99.3 F 97 H 16 112/69 95 Temperature: Afebrile Blood Pressure: Normal Pulse: Regular Respiratory Rate: Normal Appearance: Positive for: Well-Appearing, Non-Toxic, Comfortable Pain Distress: None Mental Status: Positive for: Alert and Oriented X 3 - Systems Exam Head: Present: Normocephalic Conjunctiva: Present: Normal Mouth: Present: Moist Mucous Membranes, Normal Lips. No: Drooling Neck: Present: Trachea Midline Respiratory/Chest: Present: Clear to Auscultation, Good Air Exchange. No: Respiratory Distress, Accessory Muscle Use Cardiovascular: Present: Regular Rate and Rhythm, Normal S1, S2. No: Murmurs Abdomen: Present: Normal Bowel Sounds. No: Tenderness, Distention, Peritoneal Signs, Rebound, Guarding Back: No: CVA Tenderness Upper Extremity: Present: Normal ROM, NORMAL PULSES. No: Deformity Lower Extremity: Present: NORMAL PULSES, Normal ROM. No: Edema, Swelling, Deformity Neurological: Present: GCS=15, Speech Normal Skin: Present: Warm, Dry, Normal Color. No: Rashes Psychiatric: Present: Alert, Oriented x 3, Normal Insight, Normal Concentration Medical Decision Making ED Course and Treatment: 06/11/17 On re-evaluation, pt is afebrile, hemodynamicaly stable. non-toxic. NO incontinence noted, while in ED. PulseOx 100% RA neck; Supple. Lungs: CTA B/L, BS equal B/L. Abd: benign, (-) guarding, (-) rebound, (-) localized tenderness. Back: (-) CVA tenderness. Blood work, UA results review and appears normal, no evidence of UTI. Imaging review and appears normal without acute abnormalities. Pt has clinical findings c/w urinary incontinence. Pt advised and ref. to f/u with PMD in 2-3 days for re-eval. return if any new changes. - Lab Interpretations Lab Results: 06/11/17 11:24 06/11/17 11:24 Lab Results 06/11/17 11:24: Valproic Acid 101 H 06/11/17 11:24: Sodium 141, Potassium 4.1, Chloride 102, Carbon Dioxide 29, Anion Gap 14, BUN 5 L, Creatinine 0.7, Est GFR ( Amer) > 60, Est GFR (Non -Af Amer) > 60, Random Glucose 96, Calcium 9.2 06/11/17 11:24: WBC 7.6, RBC 3.76, Hgb 11.0 L, Hct 33.6 L, MCV 89.4, MCH 29.3, MCHC 32.7, RDW 14.1, Plt Count 215, MPV 9.3, Gran % 71.1 H, Lymph % (Auto) 20.2 L, [place] % (Auto) 8.2 H, Eos % (Auto) 0.4 L, Baso % (Auto) 0.1, Gran # 5.38, Lymph # 1.5, [place] # 0.6, Eos # 0.0, Baso # 0.01 06/11/17 10:17: Urine Color Yellow, Urine Appearance Clear, Urine pH 7.0, Ur Specific [place] 1.015, Urine Protein Negative, Urine Glucose (UA) Negative, Urine Ketones Negative, Urine Blood Negative, Urine Nitrate Negative, Urine Bilirubin Negative, Urine Urobilinogen 0.2, Ur Leukocyte Esterase Negative, Urine HCG, Qual Negative Interpretation: No clinic. lab abnormalty - RAD Interpretation Radiology Orders: 06/11/17 11:08 ABD & PELVIS W/O PO OR IV CONT [CT] Stat PROCEDURE: CT Abdomen and Pelvis without intravenous contrast HISTORY: incontinence COMPARISON: None. TECHNIQUE: Without contrast.. Contrast Dose: Radiation dose: Total exam DLP = 932 mGy-cm. This CT exam was performed using one or more of the following dose reduction techniques: Automated exposure control, adjustment of the mA and/or kV according to patient size, and/or use of iterative reconstruction technique. FINDINGS: LOWER THORAX: Unremarkable. LIVER: Unremarkable. No gross lesion or ductal dilatation. GALLBLADDER AND BILE DUCTS: Unremarkable. PANCREAS: Unremarkable. No gross lesion or ductal dilatation. SPLEEN: Unremarkable. ADRENALS: Unremarkable. No mass. KIDNEYS AND URETERS: Unremarkable. No hydronephrosis. No solid mass. VASCULATURE: Unremarkable. No aortic aneurysm. BOWEL: Unremarkable. No obstruction. No gross mural thickening. Mild constipation APPENDIX: Unremarkable. Normal appendix. PERITONEUM: Unremarkable. No free fluid. No free air. LYMPH NODES: Unremarkable. No enlarged lymph nodes. BLADDER: Unremarkable. REPRODUCTIVE: A moderate amount of fluid is seen in the vagina. The uterus is unremarkable. BONES: No acute fracture. OTHER FINDINGS: None. IMPRESSION: Mild constipation. No acute intra-abdominal findings Disposition/Present on Arrival - Present on Arrival Any Indicators Present on Arrival: No History of DVT/PE: No History of Uncontrolled Diabetes: No Urinary Catheter: No History of Decub. Ulcer: No History Surgical Site Infection Following: None - Disposition Have Diagnosis and Disposition been Completed?: Yes Diagnosis: Urinary incontinence Disposition: HOME/ ROUTINE Disposition Time: 12:40 Patient Plan: Discharge Condition: STABLE Discharge Instructions (ExitCare): Urinary Incontinence (ED) Additional Instructions: Follow up with PMD, IMPLEMENTATION ARCHITECT an urology in 2-3 days for re-evaluation. Return to Ed if any new changes. Referrals: Tanvir Gonzalez MD [Staff Provider] - [facility] [Outside] - [facility] up [facility] [place] - Follow up with primary Forms: [employer] ([place])
[2017-06-11 11:45] LABS: BASO # 0.01 K/mm3 (0.0-2.0); BASO % 0.1 % (0.0-3.0); EOS % 0.4 % (1.5-5.0); GRAN # 5.38 (1.4-6.5); GRAN % 71.1 % (50.0-68.0); HEMATOCRIT 33.6 % (36.0-48.0); LYMPH # 1.5 (1.2-3.4); LYMPH % 20.2 % (22.0-35.0); MEAN CELL VOLUME 89.4 fl (80.0-105.0); MEAN CORPUSCULAR HEMOGLOBIN 29.3 pg (25.0-35.0); MEAN CORPUSCULAR HGB CONC 32.7 g/dl (31.0-37.0); MEAN PLATELET VOLUME 9.3 fl (7.0-11.0); MONO # 0.6 (0.1-0.6); MONO % 8.2 % (1.0-6.0); RED CELL DISTRIBUTION WIDTH 14.1 % (11.5-14.5); WHITE BLOOD COUNT 7.6 10^3/ul (4.5-11.0)
[2017-06-11 11:51] LABS: BLOOD UREA NITROGEN 5 mg/dL (7-21); CALCIUM 9.2 mg/dL (8.4-10.5); CARBON DIOXIDE 29 mmol/L (21-33); CHLORIDE 102 mmol/L (98-107); GFR AFRICAN-AMERICAN > 60; GLUCOSE,RANDOM 96 mg/dL (70-110); POTASSIUM 4.1 mmol/L (3.6-5.0); SODIUM 141 mmol/L (132-148)
--- NOTE | 2017-06-11 12:41 | CT ---
PROCEDURE: CT Abdomen and Pelvis without intravenous contrast HISTORY: incontinence COMPARISON: None. TECHNIQUE: Without contrast.. Contrast Dose: Radiation dose: Total exam DLP = 932 mGy-cm. This CT exam was performed using one or more of the following dose reduction techniques: Automated exposure control, adjustment of the mA and/or kV according to patient size, and/or use of iterative reconstruction technique. FINDINGS: LOWER THORAX: Unremarkable. LIVER: Unremarkable. No gross lesion or ductal dilatation. GALLBLADDER AND BILE DUCTS: Unremarkable. PANCREAS: Unremarkable. No gross lesion or ductal dilatation. SPLEEN: Unremarkable. ADRENALS: Unremarkable. No mass. KIDNEYS AND URETERS: Unremarkable. No hydronephrosis. No solid mass. VASCULATURE: Unremarkable. No aortic aneurysm. BOWEL: Unremarkable. No obstruction. No gross mural thickening. Mild constipation APPENDIX: Unremarkable. Normal appendix. PERITONEUM: Unremarkable. No free fluid. No free air. LYMPH NODES: Unremarkable. No enlarged lymph nodes. BLADDER: Unremarkable. REPRODUCTIVE: A moderate amount of fluid is seen in the vagina. The uterus is unremarkable. BONES: No acute fracture. OTHER FINDINGS: None. IMPRESSION: Mild constipation. No acute intra-abdominal findings
[2017-06-11 13:07] VITALS: BP 96/55; PULSE 80; O2SAT 98
== END 2017-06-11 13:05 | disposition home or self-care (01) ==
LOC: ED 09:53
DX: R32 Unspecified urinary incontinence (principal)

== ENCOUNTER 2017-07-21 13:59 | Emergency (ER) | payer MEDICAID, OTHER ==
[2017-07-21 13:59] VITALS: BMI 33.6
[2017-07-21 14:22] VITALS: BP 108/73; PULSE 83; RESP 18; TEMP 98.3
--- NOTE | 2017-07-21 14:27 | ED PDOC ---
Arrival/HPI - General Chief Complaint: Medical Clearance Time Seen by Provider: 07/21/17 14:10 Historian: Patient - History of Present Illness Narrative History of Present Illness (Text): 07/21/17 14:21 36 yo female with psychiatric history states she was called in by somebody form [facility] and told that something was found in her head. Patient states she can't remember having any imaging of her brain recently. She denies headache, focal weakness, nausea, visual changes, hallucination, any somatic or psychological complaint. Past Medical History - Provider Review Nursing Documentation Reviewed: Yes - Infectious Disease Hx of Infectious Diseases: None - Tetanus Immunization Tetanus Immunization: Unknown - Cardiac Hx Cardiac Disorders: Yes Hx Hypertension: Yes (hypertension) - Pulmonary Hx Respiratory Disorders: No Hx Tuberculosis: No - Neurological Hx Neurological Disorder: No HX Cerebrovascular Accident: No Hx Seizures: Yes - HEENT Hx HEENT Disorder: No - Renal Hx Renal Disorder: No - Endocrine/Metabolic Hx Endocrine Disorders: Yes Hx Diabetes Mellitus Type 2: Yes - Hematological/Oncological Hx Blood Disorders: No Hx Cancer: No - Integumentary Hx Dermatological Disorder: No - Musculoskeletal/Rheumatological Hx Musculoskeletal Disorders: No - Gastrointestinal Hx Gastrointestinal Disorders: No - Genitourinary/Gynecological Hx Genitourinary Disorders: No Hx Sexually Transmitted Diseases: No - Psychiatric Hx Psychophysiologic Disorder: Yes Hx Anxiety: Yes Hx Bipolar Disorder: Yes Hx Depression: Yes Hx Schizophrenia: Yes Hx Substance Use: No Other/Comment: schizo affective disorder - Surgical History Hx Hysterectomy: Yes Hx Tubal Ligation: Yes - Anesthesia Hx Anesthesia: Yes Hx Anesthesia Reactions: No Hx Malignant Hyperthermia: No - Suicidal Assessment Feels Threatened In Home Enviroment: No Family/Social History - Physician Review Nursing Documentation Reviewed: Yes Family/Social History: Unknown Family HX Smoking Status: Never Smoked Hx Alcohol Use: No Hx Substance Use: No Hx Substance Use Treatment: No Allergies/Home Meds Allergies/Adverse Reactions: Allergies No Known Allergies Allergy (Verified 07/21/17 14:02) Denied Review of Systems - Physician Review All systems were reviewed & negative as marked: Yes - Review of Systems Constitutional: Normal, Other (MEdical review) Eyes: Normal ENT: Normal Respiratory: Normal Cardiovascular: Normal Gastrointestinal: Normal Genitourinary Female: Normal Musculoskeletal: Normal Skin: Normal Neurological: Normal Endocrine: Normal Hemo/Lymphatic: Normal Psychiatric: Normal Physical Exam Vital Signs Reviewed: Yes Vital Signs Temp Pulse Resp BP Pulse Ox 07/21/17 14:55 98.3 F 83 18 108/73 99 07/21/17 14:05 98.3 F 83 18 108/73 95 Temperature: Afebrile Blood Pressure: Normal Pulse: Regular Respiratory Rate: Normal Appearance: Positive for: Well-Appearing, Non-Toxic, Comfortable Pain Distress: None Mental Status: Positive for: Alert and Oriented X 3 - Systems Exam Head: Present: Atraumatic, Normocephalic Pupils: Present: PERRL Extroacular Muscles: Present: EOMI Conjunctiva: Present: Normal Mouth: Present: Moist Mucous Membranes Neck: Present: Normal Range of Motion Respiratory/Chest: Present: Clear to Auscultation, Good Air Exchange. No: Respiratory Distress, Accessory Muscle Use Cardiovascular: Present: Regular Rate and Rhythm, Normal S1, S2. No: Murmurs Abdomen: Present: Normal Bowel Sounds. No: Tenderness, Distention, Peritoneal Signs Back: Present: Normal Inspection Upper Extremity: Present: Normal Inspection. No: Cyanosis, Edema Lower Extremity: Present: Normal Inspection. No: Edema Neurological: Present: GCS=15, CN II-XII Intact, Speech Normal Skin: Present: Warm, Dry, Normal Color. No: Rashes Psychiatric: Present: Alert, Oriented x 3, Normal Insight, Normal Concentration Medical Decision Making ED Course and Treatment: 07/21/17 15:03 PT present for stated history. She denied any somatic complaint in ED. She was comfortable and hemodynamically stable. Pt's chart was review and her last visit her was in June [address] CT. The was no indication of head imaging done. Pt was advised to f/u Medical records. Disposition/Present on Arrival - Present on Arrival Any Indicators Present on Arrival: No History of DVT/PE: No History of Uncontrolled Diabetes: No Urinary Catheter: No History of Decub. Ulcer: No History Surgical Site Infection Following: None - Disposition Have Diagnosis and Disposition been Completed?: Yes Diagnosis: General medical exam Disposition: HOME/ ROUTINE Disposition Time: 14:35 Patient Plan: Discharge Condition: STABLE Discharge Instructions (ExitCare): Normal Exam (ED) Additional Instructions: Follow up with medical records Return to ED for any new complaint Referrals: Deanne Delacruz MD [Primary Care Provider] - Follow up with primary Forms: [employer] (Pashto)
[2017-07-21 14:56] VITALS: O2SAT 99
== END 2017-07-21 14:45 | disposition home or self-care (01) ==
LOC: ED 13:59
DX: Z00.00 Encounter for general adult medical examination without abnormal findings (principal); E11.9 Type 2 diabetes mellitus without complications; I10 Essential (primary) hypertension

== ENCOUNTER 2017-07-23 17:30 | Emergency (ER) | payer OTHER ==
[2017-07-23 17:31] VITALS: BMI 33.6
[2017-07-23 17:45] VITALS: BP 107/73; PULSE 72; RESP 16; TEMP 97.7; O2SAT 98
--- NOTE | 2017-07-23 18:04 | ED PDOC ---
Arrival/HPI - General Historian: Patient - History of Present Illness Time/Duration: Prior to Arrival Symptom Onset: Sudden Symptom Course: Unchanged Quality: Throbbing Severity Level: Mild, Moderate Activities at Onset: Rest Context: Home <Gini Mathews - Last Filed: 07/23/17 20:25> <Cash Reina - Last Filed: 07/23/17 21:41> - General Chief Complaint: Headache Time Seen by Provider: 07/23/17 17:43 - History of Present Illness Narrative History of Present Illness (Text): 07/23/17 18:01 36F w/PMH sig for headaches evaluated for headache. Pt reports taking naps x 2 today, woke up after 2nd nap with a headache. Pt was distressed, called EMS. Admits to stress. Denies N & V, changes in vision, changes in bowel or bladder habits, other complaints. PMH: HTN, Seizures, DM, anxiety/bipolar d/o, depression, schizophrenia PSH: Hysterectomy, tubal ligation All: NKDA SH: Denies tobacco, ETOH or illicit drug use; lives with ex- (Gini Mathews) Past Medical History - Provider Review Nursing Documentation Reviewed: Yes - Infectious Disease Hx of Infectious Diseases: None - Tetanus Immunization Tetanus Immunization: Unknown - Cardiac Hx Cardiac Disorders: Yes Hx Hypertension: Yes (hypertension) - Pulmonary Hx Respiratory Disorders: No - Neurological Hx Neurological Disorder: No Hx Seizures: Yes - HEENT Hx HEENT Disorder: No - Renal Hx Renal Disorder: No - Endocrine/Metabolic Hx Endocrine Disorders: Yes Hx Diabetes Mellitus Type 2: Yes - Hematological/Oncological Hx Blood Disorders: No - Integumentary Hx Dermatological Disorder: No - Musculoskeletal/Rheumatological Hx Musculoskeletal Disorders: No - Gastrointestinal Hx Gastrointestinal Disorders: No - Genitourinary/Gynecological Hx Genitourinary Disorders: No Hx Sexually Transmitted Diseases: No - Psychiatric Hx Psychophysiologic Disorder: Yes Hx Anxiety: Yes Hx Bipolar Disorder: Yes Hx Depression: Yes Hx Schizophrenia: Yes Hx Substance Use: No Other/Comment: schizo affective disorder - Surgical History Hx Hysterectomy: Yes Hx Tubal Ligation: Yes - Anesthesia Hx Anesthesia: Yes Hx Anesthesia Reactions: No Hx Malignant Hyperthermia: No - Suicidal Assessment Feels Threatened In Home Enviroment: No <Gini Mathews - Last Filed: 07/23/17 20:25> Family/Social History - Physician Review Nursing Documentation Reviewed: Yes Family/Social History: No Known Family HX Smoking Status: Never Smoked Hx Alcohol Use: No Hx Substance Use: No Hx Substance Use Treatment: No <Gini Mathews - Last Filed: 07/23/17 20:25> Allergies/Home Meds <Gini Mathews - Last Filed: 07/23/17 20:25> <Cash Reina - Last Filed: 07/23/17 21:41> Allergies/Adverse Reactions: Allergies No Known Allergies Allergy (Verified 07/23/17 17:39) Denied Review of Systems - Physician Review All systems were reviewed & negative as marked: Yes - Review of Systems Constitutional: Normal. absent: Fevers Eyes: Normal. absent: Vision Changes, Eye Pain ENT: Normal. absent: Sore Throat Respiratory: Normal. absent: SOB Cardiovascular: Normal. absent: Chest Pain, Palpitations Gastrointestinal: Normal. absent: Abdominal Pain, Nausea, Vomiting Musculoskeletal: Neck Pain. absent: Normal Skin: Normal. absent: Skin Lesions Neurological: Headache. absent: Dizziness, Focal Weakness, Speech Changes, Facial Droop <Gini Mathews - Last Filed: 07/23/17 20:25> Physical Exam Vital Signs Reviewed: Yes Temperature: Afebrile Blood Pressure: Normal Pulse: Regular Respiratory Rate: Normal Appearance: Positive for: Non-Toxic, Comfortable Pain Distress: None Mental Status: Positive for: Alert and Oriented X 3 - Systems Exam Head: Present: Atraumatic Pupils: Present: PERRL Extroacular Muscles: Present: EOMI Conjunctiva: Present: Normal Mouth: Present: Moist Mucous Membranes Nose (External): Present: Atraumatic Neck: Present: Normal Range of Motion, Paraspinal Tenderness (over occiput). No : MIDLINE TENDERNESS Respiratory/Chest: Present: Clear to Auscultation, Good Air Exchange. No: Respiratory Distress, Accessory Muscle Use Cardiovascular: Present: Regular Rate and Rhythm, Normal S1, S2. No: Murmurs Abdomen: Present: Normal Bowel Sounds. No: Tenderness, Distention, Peritoneal Signs Back: Present: Normal Inspection Upper Extremity: Present: Normal Inspection. No: Cyanosis, Edema Lower Extremity: Present: Normal Inspection. No: Edema Neurological: Present: GCS=15, CN II-XII Intact, Speech Normal, Motor Func Grossly Intact Skin: Present: Warm, Dry, Normal Color. No: Rashes Psychiatric: Present: Alert, Oriented x 3, Normal Insight, Normal Concentration <Gini Mathews - Last Filed: 07/23/17 20:25> Vital Signs Temp Pulse Resp BP Pulse Ox 07/23/17 17:45 97.7 F 72 16 107/73 98 Medical Decision Making <Gini Mathews - Last Filed: 07/23/17 20:25> <Cash Reina - Last Filed: 07/23/17 21:41> ED Course and Treatment: 07/23/17 18:06 Pt seen/evaluated, case DW ED attending, will order muscle relaxant and pain medication for headache. 07/23/17 18:39 Pt evaluated after pain medication given- headache markedly improved per patient (Gini Mathews) Patient seen and examined with resident. Came up with treatment and disposition plan with resident. A 36 year old female with headache. Patient reports waking up with a posterior headache approximately 3 hours prior to arrival. On my exam she is nontoxic appearing, eating, no nausea, and has palpable posterior neck pain with muscle spasm noted, no nuchal rigidity, no fever, has full flexion and extension with no meningeal signs. After Tylenol, headache resolved and no visual deficits. Current pain I feel has musculoskeletal component. Patient states she is to be scheduled for outpatient MRI as she was found to have elevated Prolactin level on an outpatient study from mid-May. She denies taking Haldol or Sertraline, although she has take psychiatric mediations. She currently has no visual field deficits or headache. Headache now resolved, by history this was not acute onset. I have discussed her case with her PMD Dr. Nubia brukett. I reviewed patient's past CT heads, as well as Brain MRI from 2013. As she is asymptomatic on re-evaluation, she will be discharged and Dr. Delacruz states she will follow-up with patient tomorrow at office to review her outpatient workup. (Cash Reina) - Lab Interpretations Lab Results: 07/23/17 18:40 07/23/17 18:40 Lab Results 07/23/17 18:40: Valproic Acid 55 07/23/17 18:40: Sodium 139, Potassium 4.0, Chloride 101, Carbon Dioxide 26, Anion Gap 16, BUN 15, Creatinine 0.8, Est GFR ( Amer) > 60, Est GFR (Non- Af Amer) > 60, Random Glucose 92, Calcium 9.2, Total Bilirubin 0.4, AST 23, ALT 31, Alkaline Phosphatase 55, Total Protein 7.4, Albumin 4.0, Globulin 3.4, Albumin/Globulin Ratio 1.2 07/23/17 18:40: PT 11.5, INR 1.05, APTT 28.3 07/23/17 18:40: WBC 6.6, RBC 3.83, Hgb 11.4 L, Hct 35.0 L, MCV 91.4, MCH 29.8, MCHC 32.6, RDW 14.4, Plt Count 242, MPV 9.9, Gran % 48.3 L, Lymph % (Auto) 37.4 H, [place] % (Auto) 11.7 H, Eos % (Auto) 2.0, Baso % (Auto) 0.6, Gran # 3.18, Lymph # 2.5, [place] # 0.8 H, Eos # 0.1, Baso # 0.04 - Medication Orders Current Medication Orders: Discontinued Medications Acetaminophen (Tylenol 325mg Tab) 650 mg PO STAT STA Stop: 07/23/17 18:01 Last Admin: 07/23/17 18:09 Dose: 650 mg [facility] Pain/Vitals Document 07/23/17 18:09 AD (Rec: 07/23/17 18:09 AD [place] [id number]) Pain Reassessment Is This A Pain ReAssessment? 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 Yes Sleep Is patient sleeping during reassessment? No Presence of Pain Presence of Pain Yes Pain Scale Used Pain Scale Used Numeric Location Pain Location [employer] Intensity 1 Cyclobenzaprine HCl (Flexeril) 5 mg PO STAT STA Stop: 07/23/17 18:01 Last Admin: 07/23/17 18:09 Dose: 5 mg <Gini Mathews - Last Filed: 07/23/17 20:25> - PA / PROJECT MANAGER PROCESS DEVELOPMENT / Resident Statement / has reviewed & agrees with the documentation as recorded. / has examined the patient and agrees with the treatment plan. - Scribe Statement The provider has reviewed the documentation as recorded by the Scribe <Cash Reina - Last Filed: 07/23/17 21:41> - Scribe Statement Nilsa Hankins Provider Scribe Attestation: All medical record entries made by the Scribe were at my direction and personally dictated by me. I have reviewed the chart and agree that the record accurately reflects my personal performance of the history, physical exam, medical decision making, and the department course for this patient. I have also personally directed, reviewed, and agree with the discharge instructions and disposition. (Cash Reina) Disposition/Present on Arrival - Present on Arrival Any Indicators Present on Arrival: No History of DVT/PE: No History of Uncontrolled Diabetes: No Urinary Catheter: No History of Decub. Ulcer: No History Surgical Site Infection Following: None - Disposition Have Diagnosis and Disposition been Completed?: Yes Disposition Time: 20:32 Patient Plan: Discharge <Gini Mathews - Last Filed: 07/23/17 20:25> <Cash Reina - Last Filed: 07/23/17 21:41> - Disposition Diagnosis: Headache Disposition: HOME/ ROUTINE Condition: STABLE Discharge Instructions (ExitCare): Tension Headache (ED), Acute Headache (ED) Additional Instructions: Please go to Dr. Delacruz's office tomorrow to follow up after visiting the emergency department today. Ok to take Tylenol for headache. Referrals: Deanne Delacruz MD [Staff Provider] - Follow up with primary Forms: [employer] (Guatemalan)
[2017-07-23 18:54] LABS: BASO # 0.04 K/mm3 (0.0-2.0); BASO % 0.6 % (0.0-3.0); EOS # 0.1 (0.0-0.7); GRAN # 3.18 (1.4-6.5); GRAN % 48.3 % (50.0-68.0); LYMPH # 2.5 (1.2-3.4); LYMPH % 37.4 % (22.0-35.0); MEAN CELL VOLUME 91.4 fl (80.0-105.0); MEAN CORPUSCULAR HEMOGLOBIN 29.8 pg (25.0-35.0); MEAN CORPUSCULAR HGB CONC 32.6 g/dl (31.0-37.0); MEAN PLATELET VOLUME 9.9 fl (7.0-11.0); MONO # 0.8 (0.1-0.6); MONO % 11.7 % (1.0-6.0); RED CELL DISTRIBUTION WIDTH 14.4 % (11.5-14.5); WHITE BLOOD COUNT 6.6 10^3/ul (4.5-11.0)
[2017-07-23 19:02] LABS: ALB/GLOB RATIO 1.2 (1.1-1.8); ALKALINE PHOSPHATASE 55 U/L (38-126); ALT/SGPT 31 U/L (7-56); AST/SGOT 23 U/L (14-36); BILIRUBIN,TOTAL 0.4 mg/dL (0.2-1.3); BLOOD UREA NITROGEN 15 mg/dL (7-21); CALCIUM 9.2 mg/dL (8.4-10.5); CARBON DIOXIDE 26 mmol/L (21-33); CHLORIDE 101 mmol/L (98-107); GFR AFRICAN-AMERICAN > 60; GLUCOSE,RANDOM 92 mg/dL (70-110); SODIUM 139 mmol/L (132-148); TOTAL PROTEIN 7.4 g/dL (5.8-8.3)
[2017-07-23 19:37] LABS: INR 1.05 (0.93-1.08); PARTIAL THROMBOPLASTIN TIME 28.3 Seconds (25.1-36.5)
== END 2017-07-23 20:40 | disposition home or self-care (01) ==
LOC: ED 17:30
DX: R51 Headache (principal); E11.9 Type 2 diabetes mellitus without complications; I10 Essential (primary) hypertension; Z98.51 Tubal ligation status

== ENCOUNTER 2017-07-24 18:02 | Observation (INO) | payer OTHER ==
[2017-07-24 18:30] VITALS: BMI 30.7
[2017-07-24 20:16] LABS: BASO # 0.02 K/mm3 (0.0-2.0); BASO % 0.3 % (0.0-3.0); EOS # 0.1 (0.0-0.7); GRAN # 3.45 (1.4-6.5); GRAN % 53.8 % (50.0-68.0); HEMATOCRIT 34.2 % (36.0-48.0); LYMPH # 2.1 (1.2-3.4); LYMPH % 31.9 % (22.0-35.0); MEAN CELL VOLUME 91.2 fl (80.0-105.0); MEAN CORPUSCULAR HEMOGLOBIN 29.9 pg (25.0-35.0); MEAN CORPUSCULAR HGB CONC 32.7 g/dl (31.0-37.0); MEAN PLATELET VOLUME 9.8 fl (7.0-11.0); MONO # 0.8 (0.1-0.6); RED CELL DISTRIBUTION WIDTH 14.4 % (11.5-14.5); WHITE BLOOD COUNT 6.4 10^3/ul (4.5-11.0)
[2017-07-24 20:30] LABS: INR 1.09 (0.93-1.08); PARTIAL THROMBOPLASTIN TIME 27.9 Seconds (25.1-36.5)
[2017-07-24 20:31] LABS: ALB/GLOB RATIO 1.2 (1.1-1.8); ALKALINE PHOSPHATASE 57 U/L (38-126); ALT/SGPT 29 U/L (7-56); AST/SGOT 24 U/L (14-36); BILIRUBIN,TOTAL 0.4 mg/dL (0.2-1.3); BLOOD UREA NITROGEN 11 mg/dL (7-21); CALCIUM 8.9 mg/dL (8.4-10.5); CARBON DIOXIDE 28 mmol/L (21-33); CHLORIDE 103 mmol/L (98-107); GFR AFRICAN-AMERICAN > 60; GLUCOSE,RANDOM 96 mg/dL (70-110); POTASSIUM 3.9 mmol/L (3.6-5.0); TOTAL PROTEIN 7.1 g/dL (5.8-8.3)
[2017-07-24 20:50] LABS: SODIUM 140 mmol/L (132-148)
--- NOTE | 2017-07-24 21:13 | ED PDOC ---
Arrival/HPI - General Chief Complaint: Headache Time Seen by Provider: 07/24/17 18:06 Historian: Patient - History of Present Illness Narrative History of Present Illness (Text): 07/24/17 21:11 Patient is a 36 yo female reports acute onset of posterior headache associated with neck pain this afternoon prior to arrival after awakening from a nap. Patient saw her PMD this morning, denied headache this AM. States headache similar in character as headache from yesterday. Denies trauma. Denies numbness or weakness. Denies blurred vision. Patient denies loss of peripheral vision. Time/Duration: Prior to Arrival Symptom Onset: Gradual Past Medical History - Infectious Disease Hx of Infectious Diseases: None - Tetanus Immunization Tetanus Immunization: Unknown - Cardiac Hx Cardiac Disorders: Yes Hx Hypertension: Yes (hypertension) - Pulmonary Hx Respiratory Disorders: No - Neurological Hx Seizures: Yes - HEENT Hx HEENT Disorder: No - Renal Hx Renal Disorder: No - Endocrine/Metabolic Hx Endocrine Disorders: Yes Hx Diabetes Mellitus Type 2: Yes - Hematological/Oncological Hx Blood Disorders: No - Integumentary Hx Dermatological Disorder: No - Musculoskeletal/Rheumatological Hx Musculoskeletal Disorders: No - Gastrointestinal Hx Gastrointestinal Disorders: No - Genitourinary/Gynecological Hx Genitourinary Disorders: No Hx Sexually Transmitted Diseases: No - Psychiatric Hx Psychophysiologic Disorder: Yes Hx Anxiety: Yes Hx Bipolar Disorder: Yes Hx Depression: Yes Hx Schizophrenia: Yes Hx Substance Use: No Other/Comment: schizo affective disorder - Surgical History Hx Hysterectomy: Yes Hx Tubal Ligation: Yes - Anesthesia Hx Anesthesia: Yes Hx Anesthesia Reactions: No Hx Malignant Hyperthermia: No - Suicidal Assessment Feels Threatened In Home Enviroment: No Family/Social History Smoking Status: Never Smoked Hx Alcohol Use: No Hx Substance Use: No Hx Substance Use Treatment: No Allergies/Home Meds Allergies/Adverse Reactions: Allergies No Known Allergies Allergy (Verified 07/24/17 18:30) Denied Review of Systems - Review of Systems Constitutional: Fatigue. absent: Fevers Eyes: absent: Vision Changes ENT: absent: Hearing Changes Respiratory: absent: SOB, Cough Cardiovascular: absent: Chest Pain Gastrointestinal: Nausea. absent: Abdominal Pain, Vomiting Genitourinary Female: absent: Dysuria, Frequency Musculoskeletal: absent: Back Pain Skin: absent: Rash Neurological: Headache. absent: Dizziness, Focal Weakness, Gait Changes Endocrine: absent: Polyuria Hemo/Lymphatic: absent: Easy Bleeding Physical Exam - Physical Exam Narrative Physical Exam (Text): Head: Atraumatic. Normocephalic. Eyes: PERRL. EOMI. Conjunctivae are not pale. Visual vila and visual acuity intact. ENT: Mucous membranes are moist and intact. Oropharynx is clear and symmetric. Neck: Supple. Full ROM. No JVD. No lymphadenopathy. Paraspinal tenderness. No nuchal ridigity. Cardiovascular: Regular rate. Regular rhythm. No murmurs, rubs, or gallops. Distal pulses are 2+ and symmetric. Pulmonary/Chest: No evidence of respiratory distress. Clear to auscultation bilaterally. No wheezing, rales or rhonchi. Abdominal: Soft and non-distended. There is no tenderness. No rebound, guarding, or rigidity. No organomegaly. Good bowel sounds. Back: No CVA tenderness. Extremities: No edema. No cyanosis. No clubbing. Full range of motion in all extremities. No calf tenderness. Skin: Skin is warm and dry. No petechiae. No purpura. Neurological: Alert, awake, and oriented. No meningeal signs. No facial droop. Motor and sensory exam intact. Normal gait. Psychiatric: Good eye contact. Normal interaction, affect, and behavior. Vital Signs Reviewed: Yes Vital Signs Temp Pulse Resp BP Pulse Ox 07/24/17 18:09 98.2 F 85 18 132/75 99 Temperature: Afebrile Appearance: Positive for: Uncomfortable Pain Distress: Mild Mental Status: Positive for: Alert and Oriented X 3 Medical Decision Making ED Course and Treatment: Patient's prior visits reviewed. She has had history of recurrent headaches. Was seen in ED yesterday with relief after Tylenol and Flexeril. She was recently told on outpatient evaluation that she had elevated Prolactin level. This had been reviewed with her PMD Dr. Delacruz, who followed up with patient this AM and she referred her to medical director. Patient also had been scheduled to have outpatient MRI of brain due to elevated prolactin level, although this has not been performed and ordered yet. Patient re-developed headache this afternoon. After tylenol and flexeril again given today, headache improved but persisted. As headache persistent, ct head ordered after risks reviewed with patient. CT Head Without Intravenous Contrast FINDINGS: Brain: Mild atrophy. No intracranial hemorrhage. No mass. No definite edema. Ventricles: No hydrocephalus. Bones/joints: No acute fracture. Soft tissues: Unremarkable. Sinuses: Scattered minimal mucosal thickening. Mastoid air cells: No mastoid effusion. Orbits: Unremarkable as visualized. IMPRESSION: 1. No acute intracranial abnormality. 2. Incidental/non-acute findings are described above. Dictated and Authenticated by: Charles Figueroa MD As persistent intractable headache, will admit for serial exams, plan for MRI in am. Not worst headache in life but changed in character from previous. Afebrile. Currently no acute visual symptoms. Discussed with her PMD, requests admission to hospitalist service. 07/24/2017 9:15 PM Eastern Time ([place] & [place]) 07/24/17 21:21 - Lab Interpretations Lab Results: 07/24/17 20:09 07/24/17 20:09 Lab Results 07/24/17 20:09: Sodium 140, Potassium 3.9, Chloride 103, Carbon Dioxide 28, Anion Gap 13, BUN 11, Creatinine 0.7, Est GFR ( Amer) > 60, Est GFR (Non- Af Amer) > 60, Random Glucose 96, Calcium 8.9, Total Bilirubin 0.4, AST 24, ALT 29, Alkaline Phosphatase 57, Total Protein 7.1, Albumin 3.8, Globulin 3.3, Albumin/Globulin Ratio 1.2 07/24/17 20:09: PT 11.9, INR 1.09 H, APTT 27.9 07/24/17 20:09: WBC 6.4, RBC 3.75, Hgb 11.2 L, Hct 34.2 L, MCV 91.2, MCH 29.9, MCHC 32.7, RDW 14.4, Plt Count 248, MPV 9.8, Gran % 53.8, Lymph % (Auto) 31.9, [place] % (Auto) 12.0 H, Eos % (Auto) 2.0, Baso % (Auto) 0.3, Gran # 3.45, Lymph # 2.1, [place] # 0.8 H, Eos # 0.1, Baso # 0.02 I have reviewed the lab results: Yes - RAD Interpretation Radiology Orders: 07/24/17 18:39 HEAD W/O CONTRAST [CT] Stat - Medication Orders Current Medication Orders: Discontinued Medications Acetaminophen (Tylenol 325mg Tab) 650 mg PO ONCE STA Stop: 07/24/17 18:41 Last Admin: 07/24/17 19:49 Dose: 650 mg MAR Pain/Vitals Document 07/24/17 19:49 SC (Rec: 07/24/17 19:49 CO [id number]) Pain Reassessment Is This A Pain ReAssessment? No Presence of Pain Presence of Pain Yes Pain Scale Used Pain Scale Used Numeric Location Description Constant Cyclobenzaprine HCl (Flexeril) 10 mg PO STAT STA Stop: 07/24/17 18:41 Last Admin: 07/24/17 19:49 Dose: 10 mg Disposition/Present on Arrival - Present on Arrival Any Indicators Present on Arrival: No History of DVT/PE: No History of Uncontrolled Diabetes: No Urinary Catheter: No History of Decub. Ulcer: No History Surgical Site Infection Following: None - Disposition Have Diagnosis and Disposition been Completed?: Yes Diagnosis: Headache Disposition: HOSPITALIZED Disposition Time: 21:25 Condition: FAIR Referrals: Deanne Delacruz MD [Primary Care Provider] - Follow up with primary Forms: [employer] (Azeri)
--- NOTE | 2017-07-24 21:15 | CT ---
EXAM: CT Head Without Intravenous Contrast CLINICAL HISTORY: 36 years old, female; Pain; Headache; Headache not specified; Additional info: Posterior headache, persistent TECHNIQUE: Axial computed tomography images of the head/brain without intravenous contrast. All CT scans at this facility use one or more dose reduction techniques, viz.: automated exposure control; ma/kV adjustment per patient size (including targeted exams where dose is matched to indication; i.e. head); or iterative reconstruction technique. COMPARISON: CT - HEAD W/O CONTRAST 2017-01-26 12:18 FINDINGS: Brain: Mild atrophy. No intracranial hemorrhage. No mass. No definite edema. Ventricles: No hydrocephalus. Bones/joints: No acute fracture. Soft tissues: Unremarkable. Sinuses: Scattered minimal mucosal thickening. Mastoid air cells: No mastoid effusion. Orbits: Unremarkable as visualized. IMPRESSION: 1. No acute intracranial abnormality. 2. Incidental/non-acute findings are described above.
--- NOTE | 2017-07-25 00:01 | CP.PCM.HP ---
<Alonzo Rudd - Last Filed: 07/25/17 03:20> History of Present Illness - History of Present Illness History of Present Illness: This is a 36 year old female with no past medical history who presents with recurrent headaches for the past two days. The patient was recently in the emergency department for the same thing. She was given Tylenol and symptoms resolved. The patient went to PMD earlier today who advised her to come into the emergency department for further treatment. The patient denies any chest pain, shortness of breath, nausea, vomiting, changes in vision, lightheadedness , dizziness, abdominal pain, constipation, diarrhea, or any other complaints. PMD: Dr. Duncan Past medical history: None Allergies: NKDA Past surgical history: Tubal ligation Medications: Lorazepam, Divalpoex, Citalopram, Risperidone Social hx: Denies smoking, alcohol or illicit drug use Present on Admission - Present on Admission Any Indicators Present on Admission: No Review of Systems - Constitutional Constitutional: Headache. absent: Chills, Night Sweats, Snoring, Weight Loss, Weakness - EENT Eyes: absent: Diplopia, Discharge, Dry Eye, Irritation, Pain Ears: absent: Ear Discharge, Disequilibrium, Dizziness Nose/Mouth/Throat: absent: Nasal Congestion, Nasal Trauma, Nose Pain, Mouth Lesions, Mouth Pain - Cardiovascular Cardiovascular: absent: Chest Pain, Diaphoresis, Irregular Heart Rhythm, Lightheadedness, Orthopnea, Palpitations - Respiratory Respiratory: absent: Cough, Hemoptysis, Wheezing, Pain on Inspiration - Gastrointestinal Gastrointestinal: absent: Abdominal Pain, Belching, Cramping, Diarrhea, Dyspepsia, Hematemesis, Hematochezia, Nausea, Vomiting - Genitourinary Genitourinary: absent: Change in Urinary Stream, Pyuria, Nocturia - Musculoskeletal Musculoskeletal: absent: Arthralgias, Atrophy, Muscle Weakness, Myalgias, Neck Pain, Stiffness - Integumentary Integumentary: absent: Bleeding Lesions, Dry Skin, New Lesions, Rash, Skin Pain , Sores - Neurological Neurological: absent: Abnormal Hearing, Dizziness, Numbness, Loss of Vision, Restless Legs, Tingling, Vertigo, Weakness - Psychiatric Psychiatric: absent: Abnormal Sleep Pattern, Anxiety, Panic Attacks - Endocrine Endocrine: absent: Polydipsia, Polyphagia, Polyuria - Hematologic/Lymphatic Hematologic: absent: Easy Bleeding, Easy Bruising Past Patient History - Infectious Disease Hx of Infectious Diseases: None - Tetanus Immunizations Tetanus Immunization: Unknown - Past Medical History & Family History Past Medical History?: Yes - Past Social History Smoking Status: Never Smoked - CARDIAC Hx Cardiac Disorders: Yes Hx Hypertension: Yes (hypertension) - PULMONARY Hx Respiratory Disorders: No - NEUROLOGICAL Hx Seizures: Yes - HEENT Hx HEENT Problems: No - RENAL Hx Chronic Kidney Disease: No - ENDOCRINE/METABOLIC Hx Endocrine Disorders: Yes Hx Diabetes Mellitus Type 2: Yes - HEMATOLOGICAL/ONCOLOGICAL Hx Blood Disorders: No - INTEGUMENTARY Hx Dermatological Problems: No - MUSCULOSKELETAL/RHEUMATOLOGICAL Hx Musculoskeletal Disorders: No - GASTROINTESTINAL Hx Gastrointestinal Disorders: No - GENITOURINARY/GYNECOLOGICAL Hx Genitourinary Disorders: No Hx Sexually Transmitted Disorders: No - PSYCHIATRIC Hx Psychophysiologic Disorder: Yes Hx Anxiety: Yes Hx Bipolar Disorder: Yes Hx Depression: Yes Hx Schizophrenia: Yes Hx Substance Use: No Other/Comment: schizo affective disorder - SURGICAL HISTORY Hx Hysterectomy: Yes Hx Tubal Ligation: Yes - ANESTHESIA Hx Anesthesia: Yes Hx Anesthesia Reactions: No Hx Malignant Hyperthermia: No Meds Allergies/Adverse Reactions: Allergies Allergy/AdvReac Type Severity Reaction Status Date / Time No Known Allergies Allergy Verified 07/24/17 18:30 Physical Exam - Head Exam Head Exam: ATRAUMATIC, NORMAL INSPECTION, NORMOCEPHALIC - Eye Exam Eye Exam: EOMI, Normal appearance, PERRL Pupil Exam: NORMAL ACCOMODATION, PERRL. absent: Irregular, Unequal - ENT Exam ENT Exam: Mucous Membranes Moist, Normal Exam. absent: Normal Oropharynx, TM's Normal Bilaterally - Respiratory Exam Respiratory Exam: Clear to Auscultation Bilateral, NORMAL BREATHING PATTERN. absent: Chest Wall Tenderness, Prolonged Expiratory Phase, Respiratory Distress - Cardiovascular Exam Cardiovascular Exam: REGULAR RHYTHM, RRR, +S1, +S2. absent: Gallop, Rubs - GI/Abdominal Exam GI & Abdominal Exam: Normal Bowel Sounds, Soft. absent: Hypoactive Bowel Sounds , Organomegaly, Tenderness - Extremities Exam Extremities exam: Positive for: normal inspection. Negative for: joint swelling , tenderness - Neurological Exam Neurological exam: Alert, CN II-XII Intact, Oriented x3 - Psychiatric Exam Psychiatric exam: Normal Affect, Normal Mood - Skin Skin Exam: Dry, Intact, Normal Color, Warm Results - Vital Signs Recent Vital Signs: Last Vital Signs Temp 98.2 F 07/24/17 18:09 Pulse 76 07/24/17 22:16 Resp 16 07/24/17 22:16 BP 102/56 L 07/24/17 22:16 Pulse Ox 99 07/24/17 22:16 - Labs Result Diagrams: 07/24/17 20:09 07/24/17 20:09 Assessment & Plan - Assessment and Plan (Free Text) Assessment: This is a 36 year old female with no past medical history who presents with recurrent headaches. Plan: 1.Recurrent headaches -Patient advised by PMD to come in after recurrent headaches. -Patient recently in [place] [facility] for similar symptoms. -Patient has elevated Prolactin level. Scheduled for outpatient MRI. -Neuro consulted. Will f/u with rec's. -Endocrinology consulted. Will f/u with rec's. GI PPX -Protonix DVT PPX -SCD's <Femi Arce - Last Filed: 07/27/17 20:43> Results - Vital Signs Recent Vital Signs: Last Vital Signs Temp 97.8 F 07/26/17 08:00 Pulse 48 L 07/26/17 08:00 Resp 18 07/26/17 08:00 BP 100/62 07/26/17 08:00 Pulse Ox 96 07/26/17 08:00 - Labs Result Diagrams: 07/26/17 06:30 07/26/17 06:30 Labs: Laboratory Results - last 24 hr 07/26/17 06:30 ACTH 25 Attending/Attestation - Attestation I have personally seen and examined this patient.: Yes I have fully participated in the care of the patient.: Yes I have reviewed all pertinent clinical information: Yes
[2017-07-25] MEDS ORDERED: Sodium Chloride 0.9% 500 ML IV STA ×3 (05:50→15:54)
[2017-07-25 07:44] LABS: BASO # 0.02 K/mm3 (0.0-2.0); BASO % 0.4 % (0.0-3.0); EOS # 0.1 (0.0-0.7); EOS % 2.2 % (1.5-5.0); GRAN # 2.32 (1.4-6.5); GRAN % 47.1 % (50.0-68.0); HEMATOCRIT 32.2 % (36.0-48.0); LYMPH # 1.8 (1.2-3.4); LYMPH % 36.9 % (22.0-35.0); MEAN CELL VOLUME 91.7 fl (80.0-105.0); MEAN CORPUSCULAR HEMOGLOBIN 29.3 pg (25.0-35.0); MONO # 0.7 (0.1-0.6); MONO % 13.4 % (1.0-6.0); RED CELL DISTRIBUTION WIDTH 14.5 % (11.5-14.5); WHITE BLOOD COUNT 4.9 10^3/ul (4.5-11.0)
[2017-07-25 07:45] LABS: ALB/GLOB RATIO 1.1 (1.1-1.8); ALKALINE PHOSPHATASE 45 U/L (38-126); ALT/SGPT 29 U/L (7-56); AST/SGOT 21 U/L (14-36); BILIRUBIN,TOTAL 0.4 mg/dL (0.2-1.3); BLOOD UREA NITROGEN 12 mg/dL (7-21); CALCIUM 8.5 mg/dL (8.4-10.5); CARBON DIOXIDE 26 mmol/L (21-33); CHLORIDE 107 mmol/L (98-107); GFR AFRICAN-AMERICAN > 60; GLUCOSE,RANDOM 95 mg/dL (70-110); POTASSIUM 4.3 mmol/L (3.6-5.0); SODIUM 141 mmol/L (132-148); TOTAL PROTEIN 6.1 g/dL (5.8-8.3)
[2017-07-25] MEDS: Pantoprazole 40 mg EC Tab PO SCH (09:25)
[2017-07-25] MEDS: Divalproex 500 mg DR(BID formulation) PO SCH ×2 (09:26→21:58)
[2017-07-25] MEDS: Apap-Butalbital-Caffeine 325-50-40mg Tab PO SCH ×2 (14:49→21:58)
--- NOTE | 2017-07-25 15:21 | CP.PCM.PN ---
<EVANGELIST WALKER - Last Filed: 07/25/17 15:18> Subjective - Date & Time of Evaluation Date of Evaluation: 07/25/17 Time of Evaluation: 15:18 - Subjective Subjective: Medicine Progress Note: Pt seen and examined at bedside. Pt denied any acute overnight events. Pt states that elevated prolactin level of 106.4 found outpatient. Pt reports EMERSON on admission, but improved since. Pt denied CP, SOB, nausea, vomiting, diarrhea , fever chills, EMERSON, and fatigue. Objective - Vital Signs/Intake and Output Vital Signs (last 24 hours): Temp Pulse Resp BP Pulse Ox 98.3 F 58 L 17 82/46 L 100 07/25/17 08:56 07/25/17 08:56 07/25/17 08:56 07/25/17 08:56 07/25/17 08:56 Intake and Output: 07/25/17 07/25/17 06:59 18:59 Intake Total 720 Balance 720 - Medications Medications: Current Medications Acetaminophen (Tylenol 325mg Tab) 650 mg PO Q6H PRN PRN Reason: Fever >100.4 F Acetaminophen/Butalbital/Caffeine (Fioricet) 1 tab PO Q8 [facility] Last Admin: 07/25/17 14:49 Dose: 1 tab Citalopram Hydrobromide (Celexa) 20 mg PO DAILY [facility] Last Admin: 07/25/17 09:26 Dose: 20 mg Divalproex Sodium (Depakote Dr(*Bid*)) 500 mg PO [facility] Last Admin: 07/25/17 09:26 Dose: 500 mg Lorazepam (Ativan) 0.5 mg PO [facility] PRN Reason: Protocol Last Admin: 07/25/17 09:26 Dose: 0.5 mg Pantoprazole Sodium (Protonix Ec Tab) 40 mg PO DAILY [facility] Last Admin: 07/25/17 09:25 Dose: 40 mg Risperidone (Risperdal Tab) 1 mg PO TID [facility] PRN Reason: Protocol Last Admin: 07/25/17 09:26 Dose: 1 mg - Labs Labs: 07/25/17 06:30 07/25/17 06:30 PT 11.9 SECONDS (9.4-12.5) 07/24/17 20:09 INR 1.09 (0.93-1.08) H 07/24/17 20:09 APTT 27.9 Seconds (25.1-36.5) 07/24/17 20:09 - Constitutional Appears: No Acute Distress - Head Exam Head Exam: ATRAUMATIC, NORMOCEPHALIC - Eye Exam Eye Exam: EOMI, PERRL - ENT Exam ENT Exam: Mucous Membranes Moist - Neck Exam Neck Exam: Full ROM. absent: Lymphadenopathy, Tenderness, Thyromegaly - Respiratory Exam Respiratory Exam: Clear to Ausculation Bilateral. absent: Rales, Rhonchi, Wheezes - Cardiovascular Exam Cardiovascular Exam: RRR, +S1, +S2. absent: Diastolic murmur, Gallop, Rubs, Murmur - GI/Abdominal Exam GI & Abdominal Exam: Soft. absent: Distended, Guarding, Tenderness, Mass, Rebound - Extremities Exam Extremities Exam: Normal Inspection - Neurological Exam Neurological Exam: Alert, Awake, Oriented x3 - Psychiatric Exam Psychiatric exam: Normal Affect, Normal Mood - Skin Skin Exam: Dry, Intact, Normal Color, Warm Assessment and Plan - Assessment and Plan (Free Text) Assessment: 36 year old female with no past medical history who presents with recurrent headaches and elevated prolactin level. Plan: 1. Elevated Prolactin, EMERSON - Recurrent headaches, will r/o prolactinoma - Head CT negative - F/u brain MRI - Elevated Prolactin level 106.4 from outpatient lab - Repeat prolactin level 52.6 - Neuro consulted - Endocrinology consulted F/u cortisol, FSH, LH, prolactin, T4, TSH, ACTH, GH GI/DVT PPX - Protonix - SCD's Pt seen and examined at bedside with Dr. Travis. Stalin Walker, PGY <Tian Travis - Last Filed: 07/25/17 15:48> Objective - Vital Signs/Intake and Output Vital Signs (last 24 hours): Temp Pulse Resp BP Pulse Ox 98.3 F 58 L 17 82/46 L 100 07/25/17 08:56 07/25/17 08:56 07/25/17 08:56 07/25/17 08:56 07/25/17 08:56 Intake and Output: 07/25/17 07/25/17 06:59 18:59 Intake Total 720 Balance 720 - Medications Medications: Current Medications Acetaminophen (Tylenol 325mg Tab) 650 mg PO Q6H PRN PRN Reason: Fever >100.4 F Acetaminophen/Butalbital/Caffeine (Fioricet) 1 tab PO Q8 [facility] Last Admin: 07/25/17 14:49 Dose: 1 tab Citalopram Hydrobromide (Celexa) 20 mg PO DAILY [facility] Last Admin: 07/25/17 09:26 Dose: 20 mg Divalproex Sodium (Depakote Dr(*Bid*)) 500 mg PO [facility] Last Admin: 07/25/17 09:26 Dose: 500 mg Lorazepam (Ativan) 0.5 mg PO [facility] PRN Reason: Protocol Last Admin: 07/25/17 09:26 Dose: 0.5 mg Pantoprazole Sodium (Protonix Ec Tab) 40 mg PO DAILY [facility] Last Admin: 07/25/17 09:25 Dose: 40 mg Risperidone (Risperdal Tab) 1 mg PO TID [facility] PRN Reason: Protocol Last Admin: 07/25/17 09:26 Dose: 1 mg - Labs Labs: 07/25/17 06:30 07/25/17 06:30 PT 11.9 SECONDS (9.4-12.5) 07/24/17 20:09 INR 1.09 (0.93-1.08) H 07/24/17 20:09 APTT 27.9 Seconds (25.1-36.5) 07/24/17 20:09 Attending/Attestation - Attestation I have personally seen and examined this patient.: Yes I have fully participated in the care of the patient.: Yes I have reviewed all pertinent clinical information, including history, physical exam and plan: Yes Notes (Text): 07/25/17 15:43 36 year old female with who presented with past medical history of psychiatric illness on celexa, risperdal and depakote who presents with complaint of headache. She states she was recently told as outpatient she had elevated prolactin level (106.4). Repeat level on this admission is 52.6. CT head was negative for acute findings. MRI brain is ordered. Endocrinology evaluation was requested who ordered labs as above. Neurology evaluation was requested as well. Will discuss with her pmd and psychiatrist regarding discontinuing vs adjusting her risperdal dose due to elevated prolactin levels. Tian Travis MD Hospitalist.
[2017-07-25 18:45] VITALS: O2SAT 96
[2017-07-26 01:41] VITALS: RESP 18
[2017-07-26] MEDS: Apap-Butalbital-Caffeine 325-50-40mg Tab PO SCH ×2 (07:36→14:28)
[2017-07-26 07:46] LABS: BASO # 0.02 K/mm3 (0.0-2.0); BASO % 0.5 % (0.0-3.0); EOS # 0.1 (0.0-0.7); EOS % 2.6 % (1.5-5.0); GRAN # 1.67 (1.4-6.5); GRAN % 40.2 % (50.0-68.0); HEMATOCRIT 32.8 % (36.0-48.0); LYMPH # 1.9 (1.2-3.4); LYMPH % 44.7 % (22.0-35.0); MEAN CELL VOLUME 90.6 fl (80.0-105.0); MEAN CORPUSCULAR HEMOGLOBIN 29.3 pg (25.0-35.0); MEAN CORPUSCULAR HGB CONC 32.3 g/dl (31.0-37.0); MEAN PLATELET VOLUME 9.9 fl (7.0-11.0); MONO # 0.5 (0.1-0.6); RED CELL DISTRIBUTION WIDTH 14.4 % (11.5-14.5); WHITE BLOOD COUNT 4.2 10^3/ul (4.5-11.0)
[2017-07-26 08:09] LABS: ALB/GLOB RATIO 1.1 (1.1-1.8); ALKALINE PHOSPHATASE 45 U/L (38-126); ALT/SGPT 28 U/L (7-56); AST/SGOT 23 U/L (14-36); BILIRUBIN,TOTAL 0.4 mg/dL (0.2-1.3); BLOOD UREA NITROGEN 11 mg/dL (7-21); CALCIUM 8.9 mg/dL (8.4-10.5); CARBON DIOXIDE 28 mmol/L (21-33); CHLORIDE 105 mmol/L (98-107); GFR AFRICAN-AMERICAN > 60; GLUCOSE,RANDOM 90 mg/dL (70-110); POTASSIUM 4.2 mmol/L (3.6-5.0); SODIUM 140 mmol/L (132-148); TOTAL PROTEIN 6.6 g/dL (5.8-8.3)
[2017-07-26 08:18] LABS: T4 5.2 ug/dL (5.5-11.0)
[2017-07-26 08:31] LABS: THYROID STIMULATING HORMONE 2.03 mIU/mL (0.46-4.68)
[2017-07-26] MEDS ORDERED: Gadodiamide 287 MG/ML VIAL (15ML) IV ONE (09:39)
[2017-07-26 10:16] VITALS: BP 100/62; PULSE 48; TEMP 97.8
[2017-07-26] MEDS: Pantoprazole 40 mg EC Tab PO SCH (10:33)
[2017-07-26] MEDS: Divalproex 500 mg DR(BID formulation) PO SCH (10:33)
--- NOTE | 2017-07-26 11:28 | MRI ---
PROCEDURE: MRI BRAIN WITH AND WITHOUT CONTRAST HISTORY: Pituitary, elevated prolactin COMPARISON: Prior brain MRI dated 07/08/2014. TECHNIQUE: Multiplanar, multisequence MR images of the brain were obtained with and without intravenous contrast enhancement. FINDINGS: HEMORRHAGE: None DWI: No evidence of an acute or early subacute infarction. BRAIN PARENCHYMA: High-resolution imaging through the sella fails demonstrate evidence of abnormality throughout the pituitary gland. The sella is not expanded in the pituitary stalk is midline. The optic chiasm is unremarkable the suprasellar cistern is normal as well. Note is made of multifocal subcortical and centrum semiovale and occasional periventricular white matter long TR hyperintensities which are nonspecific but abnormal for 36-year-old patient. No abnormal signal identified in the corpus callosum. Consider hypertension, migraine headaches, demyelination, vasculitis and other etiologies. There is no abnormal intracranial enhancement throughout the brain. ENHANCEMENT: No abnormal intracranial enhancement. VENTRICLES: Unremarkable. No hydrocephalus. CRANIUM: Unremarkable. ORBITS: Grossly unremarkable. PARANASAL SINUSES/MASTOIDS: Clear VASCULAR SYSTEM: Skull base flow voids intact. OTHER FINDINGS: None . IMPRESSION: 1. Unremarkable appearing pituitary gland. No suspicious contrast enhancement pattern. 2. Multifocal white matter abnormalities sparing the corpus callosum. Please see differential diagnosis above. No abnormal intracranial enhancement.
[2017-07-26 12:53] LABS: FSH 5.9 mIU/mL
--- NOTE | 2017-07-26 13:05 | CP.PCM.DIS ---
<EVANGELIST WALKER - Last Filed: 07/26/17 12:17> Provider - Provider Date of Admission: 07/25/17 16:51 Attending physician: Tian Travis MD Primary care physician: Deanne Delacruz MD Consults: Neuro: Jaclyn Endo: Cam Time Spent in preparation of Discharge (in minutes): 40 Hospital Course - Lab Results Lab Results: Most Recent Lab Values WBC 4.2 10^3/ul (4.5-11.0) L 07/26/17 06:30 RBC 3.62 10^6/uL (3.5-6.1) 07/26/17 06:30 Hgb 10.6 g/dL (12.0-16.0) L 07/26/17 06:30 Hct 32.8 % (36.0-48.0) L 07/26/17 06:30 MCV 90.6 fl (80.0-105.0) 07/26/17 06:30 MCH 29.3 pg (25.0-35.0) 07/26/17 06:30 MCHC 32.3 g/dl (31.0-37.0) 07/26/17 06:30 RDW 14.4 % (11.5-14.5) 07/26/17 06:30 Plt Count 223 10^3/uL (120.0-450.0) 07/26/17 06:30 MPV 9.9 fl (7.0-11.0) 07/26/17 06:30 Gran % 40.2 % (50.0-68.0) L 07/26/17 06:30 Lymph % (Auto) 44.7 % (22.0-35.0) H 07/26/17 06:30 Bollinger % (Auto) 12.0 % (1.0-6.0) H 07/26/17 06:30 Eos % (Auto) 2.6 % (1.5-5.0) 07/26/17 06:30 Baso % (Auto) 0.5 % (0.0-3.0) 07/26/17 06:30 Gran # 1.67 (1.4-6.5) 07/26/17 06:30 Lymph # 1.9 (1.2-3.4) 07/26/17 06:30 Bollinger # 0.5 (0.1-0.6) 07/26/17 06:30 Eos # 0.1 (0.0-0.7) 07/26/17 06:30 Baso # 0.02 K/mm3 (0.0-2.0) 07/26/17 06:30 PT 11.9 SECONDS (9.4-12.5) 07/24/17 20:09 INR 1.09 (0.93-1.08) H 07/24/17 20:09 APTT 27.9 Seconds (25.1-36.5) 07/24/17 20:09 Sodium 140 mmol/L (132-148) 07/26/17 06:30 Potassium 4.2 mmol/L (3.6-5.0) 07/26/17 06:30 Chloride 105 mmol/L (98-107) 07/26/17 06:30 Carbon Dioxide 28 mmol/L (21-33) 07/26/17 06:30 Anion Gap 11 (10-20) 07/26/17 06:30 BUN 11 mg/dL (7-21) 07/26/17 06:30 Creatinine 0.7 mg/dL (0.7-1.2) 07/26/17 06:30 Est GFR ( Amer) > 60 07/26/17 06:30 Est GFR (Non-Af Amer) > 60 07/26/17 06:30 Random Glucose 90 mg/dL (70-110) 07/26/17 06:30 Calcium 8.9 mg/dL (8.4-10.5) 07/26/17 06:30 Total Bilirubin 0.4 mg/dL (0.2-1.3) 07/26/17 06:30 AST 23 U/L (14-36) 07/26/17 06:30 ALT 28 U/L (7-56) 07/26/17 06:30 Alkaline Phosphatase 45 U/L (38-126) 07/26/17 06:30 Total Protein 6.6 g/dL (5.8-8.3) 07/26/17 06:30 Albumin 3.4 g/dL (3.0-4.8) 07/26/17 06:30 Globulin 3.2 gm/dL 10/29/17 06:30 Albumin/Globulin Ratio 1.1 (1.1-1.8) 07/26/17 06:30 Thyroxine (T4) 5.2 ug/dL (5.5-11.0) L 07/26/17 06:30 TSH 3rd Generation 2.03 mIU/mL (0.46-4.68) 07/26/17 06:30 Prolactin 52.4 ng/mL (3.0-18.9) H 07/25/17 06:30 - Hospital Course Hospital Course: Patient is a 36 year old female with psychiatric PMH presented with recurrent headaches for the past two days. The patient was recently in the emergency department for the same thing. She was given Tylenol and symptoms resolved. The patient went to PMD prior to admission who advised her to come into the emergency department for further treatment due to EMERSON and elevated prolactin level of 106.4 from outpatient lab. In the ED, labs and imaging was obtained. Labs were unremarkable. Patient was hypotensive and given normal saline bolus, which she responded to appropriately. CT of the head was negative for any acute intracranial process. Pt was admitted for evaluation for an elevated prolactin level and EMERSON to rule out possible pituitary adenoma. Patient home medications included Risperidone, which can cause an elevated prolactin level. Pt goes to [facility], who was contacted, but was closed over the weekend. Message was left to consider medication change. Risperidone was discussed with psychiatrist specialist employee labor relations, who stated that mild elevation in prolactin would not be an indication to hold or change medication, but would be under the discretion of the prescribing physician. However, prolactinoma should be ruled out. Neurology was consulted and recommended Fiorocet for EMERSON. Endocrinology was consulted, recommendations appreciated. MRI of the brain was ordered and showed unremarkable pituitary gland. Today, patient was seen and examined at bedside. Pt stated that EMERSON's have resolved. Repeat prolactin level was 52.4. As pituitary adenoma was ruled out and the patient was medically stable the patient was discharged. Pt was instructed to follow up with her PMD and psychiatrist upon discharge for possible medication change. However, patient was instructed to resume her medications as prescribed until told otherwise. Pt' s PMD was contacted and informed on the patient's hospital course and discharge plans. Discharge Exam - Head Exam Head Exam: ATRAUMATIC, NORMOCEPHALIC - Eye Exam Eye Exam: EOMI, PERRL - ENT Exam ENT Exam: Mucous Membranes Moist - Neck Exam Neck exam: Full Rom - Respiratory Exam Respiratory Exam: Clear to PA & Lateral. absent: Accessory Muscle Use, Rales, Rhonchi, Wheezes, Respiratory Distress - Cardiovascular Exam Cardiovascular Exam: RRR, +S1, +S2. absent: Diastolic murmur, Gallop, Rubs, Systolic Murmur - GI/Abdominal Exam GI & Abdominal Exam: Soft. absent: Distended, Firm, Guarding, Rebound, Tenderness - Extremities Exam Extremities exam: normal inspection - Back Exam Back exam: NORMAL INSPECTION - Neurological Exam Neurological exam: Alert, Oriented x3 - Psychiatric Exam Psychiatric exam: Normal Affect, Normal Mood - Skin Skin Exam: Dry, Intact, Normal Color, Warm Discharge Plan - Discharge Medications Prescriptions: Acetaminophen/Butalbital/Caf [Fioricet] 1 tab PO Q8H PRN #15 tab PRN Reason: Headache - Follow Up Plan Condition: GOOD Disposition: HOME/ ROUTINE Instructions: Migraine Headache (DC), Schizophrenia (DC), Generalized Anxiety Disorder (DC) Additional Instructions: 1. Follow up with PMD within 1 week 2. Follow up with psych within 1 week 3. Fiorcet as needed for EMERSON/migraines 4. Resume medications as prescribed 5. Return to ED if symptoms worsen Referrals: Deanne Delacruz MD [Primary Care Provider] - <Tian Travis - Last Filed: 07/26/17 15:12> Provider - Provider Date of Admission: 07/25/17 16:51 Attending physician: Tian Travis MD Primary care physician: Deanne Delacruz MD Hospital Course - Lab Results Lab Results: Most Recent Lab Values WBC 4.2 10^3/ul (4.5-11.0) L 07/26/17 06:30 RBC 3.62 10^6/uL (3.5-6.1) 07/26/17 06:30 Hgb 10.6 g/dL (12.0-16.0) L 07/26/17 06:30 Hct 32.8 % (36.0-48.0) L 07/26/17 06:30 MCV 90.6 fl (80.0-105.0) 07/26/17 06:30 MCH 29.3 pg (25.0-35.0) 07/26/17 06:30 MCHC 32.3 g/dl (31.0-37.0) 07/26/17 06:30 RDW 14.4 % (11.5-14.5) 07/26/17 06:30 Plt Count 223 10^3/uL (120.0-450.0) 07/26/17 06:30 MPV 9.9 fl (7.0-11.0) 07/26/17 06:30 Gran % 40.2 % (50.0-68.0) L 07/26/17 06:30 Lymph % (Auto) 44.7 % (22.0-35.0) H 07/26/17 06:30 Bollinger % (Auto) 12.0 % (1.0-6.0) H 07/26/17 06:30 Eos % (Auto) 2.6 % (1.5-5.0) 07/26/17 06:30 Baso % (Auto) 0.5 % (0.0-3.0) 07/26/17 06:30 Gran # 1.67 (1.4-6.5) 07/26/17 06:30 Lymph # 1.9 (1.2-3.4) 07/26/17 06:30 Bollinger # 0.5 (0.1-0.6) 07/26/17 06:30 Eos # 0.1 (0.0-0.7) 07/26/17 06:30 Baso # 0.02 K/mm3 (0.0-2.0) 07/26/17 06:30 PT 11.9 SECONDS (9.4-12.5) 07/24/17 20:09 INR 1.09 (0.93-1.08) H 07/24/17 20:09 APTT 27.9 Seconds (25.1-36.5) 07/24/17 20:09 Sodium 140 mmol/L (132-148) 07/26/17 06:30 Potassium 4.2 mmol/L (3.6-5.0) 07/26/17 06:30 Chloride 105 mmol/L (98-107) 07/26/17 06:30 Carbon Dioxide 28 mmol/L (21-33) 07/26/17 06:30 Anion Gap 11 (10-20) 07/26/17 06:30 BUN 11 mg/dL (7-21) 07/26/17 06:30 Creatinine 0.7 mg/dL (0.7-1.2) 07/26/17 06:30 Est GFR ( Amer) > 60 07/26/17 06:30 Est GFR (Non-Af Amer) > 60 07/26/17 06:30 Random Glucose 90 mg/dL (70-110) 07/26/17 06:30 Calcium 8.9 mg/dL (8.4-10.5) 07/26/17 06:30 Total Bilirubin 0.4 mg/dL (0.2-1.3) 07/26/17 06:30 AST 23 U/L (14-36) 07/26/17 06:30 ALT 28 U/L (7-56) 07/26/17 06:30 Alkaline Phosphatase 45 U/L (38-126) 07/26/17 06:30 Total Protein 6.6 g/dL (5.8-8.3) 07/26/17 06:30 Albumin 3.4 g/dL (3.0-4.8) 07/26/17 06:30 Globulin 3.2 gm/dL 07/26/17 06:30 Albumin/Globulin Ratio 1.1 (1.1-1.8) 07/26/17 06:30 Thyroxine (T4) 5.2 ug/dL (5.5-11.0) L 07/26/17 06:30 TSH 3rd Generation 2.03 mIU/mL (0.46-4.68) 07/26/17 06:30 FSH 3rd Generation 5.9 mIU/mL 07/26/17 06:30 Luteinizing Hormone 3.1 mIU/mL 07/26/17 06:30 Prolactin 48.5 ng/mL (3.0-18.9) H 07/26/17 06:30 Cortisol AM Sample 7.9 ug/dL (4.46-22.7) 07/26/17 06:30 Attending/Attestation - Attestation I have personally seen and examined this patient.: Yes I have fully participated in the care of the patient.: Yes I have reviewed all pertinent clinical information, including history, physical exam and plan: Yes Notes (Text): 07/26/17 15:09 36 year old female with who presented with past medical history of psychiatric illness on celexa, risperdal and depakote who presented with complaint of headache. She was found to have elevated prolacitin levels which were improving. CT head was negative for acute findings. MRI brain was reviewed as above and with neurology. Overall her headache has improved. She is discharged home to follow up with her pmd and psychiatrist regarding possibly adjusting her risperdal. Follow up with neurology and endocrinology. Monitor prolactin levels if patient remains on risperdal. Tian Travis MD Hospitalist.
[2017-07-26] MEDS ORDERED: Pneumococcal 23-Valent Vaccine IM ONE (13:59)
--- NOTE | 2017-07-26 23:20 | PN ---
ENDO FOLLOWUP NOTE DATE: LOCATION: Room 573. SUBJECTIVE: This is a 36-year-old female with recent recurrent headaches and admitted for further Neurological workup and management and underwent a MRI of the brain yesterday as noted. She continues to have hyperprolactinemia and the latest prolactin level is 52.4 and today's level is pending at this time. She remains clinically and biochemically euthyroid and euadrenal as noted. Her latest chemistry showed a BUN of 11, sodium 140, potassium 4.2, chloride 105, CO2 of 28, creatinine 0.7 and glucose is 90. Her prolactin level is 52.4 and today's level is still pending at this time. ASSESSMENT: This is a 36-year-old female with hyperprolactinemia on the background of chronic schizoaffective disorder on the triple oral drug regimen using psychotropic medications as noted. Plan of management as discussed with the patient and staff. We will hold off on any kind of pharmacotherapy, pending the completion of the repeat prolactin level as ordered. Her 3 psychotropic medications given for chronic schizoaffective disorder and major depression, can also be a big contributory factor with the elevated prolactin level as noted. However, we are doing also comprehensive hormonal profile to include both of thyroid, adrenal and the growth hormone level to screen for any underlying endocrinopathy. We will follow and advise accordingly. Gemma Samaniego MD
--- NOTE | 2017-07-27 08:53 | CON ---
ENDOCRINOLOGY CONSULTATION DATE: 07/25/2017 LOCATION: In room, . HISTORY OF PRESENT ILLNESS: This is a 36-year-old female with known history of schizoaffective disorder, currently on psychotropic medication, presenting here with recurrent headache and is being referred for evaluation of , currently on the combination of Risperdal with Depakote and Celexa medications . She is also on Ativan given twice a day . FAMILY HISTORY: Positive for hypertension and diabetes. SOCIAL HISTORY: The patient has supportive family. ALLERGIES: NO KNOWN DRUG ALLERGIES. REVIEW OF SYSTEMS: As mentioned above. Admits to episodic bouts of dizziness and lightheadedness worsened on the day of admission. Also admits to recurrent right frontal headache with occasional blurry vision. Admits to occasional bouts of galacturia as noted. Her menstrual cycles are also irregular and variable with occasional bouts of menorrhagia as noted. No chest pains or palpitations or PND. Her oral intake has been variable, but no alteration of bowel or urinary patterns otherwise. PHYSICAL EXAMINATION: GENERAL: This is an average built female . VITAL SIGNS: regular, temperature 99, and respirations 20. Height is 5 feet 6 inches and weight is 190 pounds. HEENT: Head is normocephalic. Eyes anicteric with pink conjunctivae. Funduscopy, not possible at this time. Ears, nose and throat otherwise normal. NECK: Supple. Thyroid gland is normal in size. No carotid bruits or cervical adenopathy. CARDIOPULMONARY: Adynamic precordium. S1 and S2 is rapid and regular. LUNGS: Clear to auscultation. ABDOMEN: Flat and soft with positive bowel sounds. EXTREMITIES: No peripheral edema. Pulses are +2 bilaterally. LABORATORY DATA: Prolactin is 52.4. Chemistries; BUN of 12, sodium 141, potassium 4.3, chloride 107, CO2 of 26, glucose 95, and creatinine 0.7. ASSESSMENT: This is a 36-year-old female with chronic schizoaffective disorder and major depression. Currently on psychotropic medications, presenting here with recurrent headaches and associated elevated prolactin levels and occasional galacturia as noted. The most likely etiology would of course will be aforementioned psychotropic medications, which can cause transient elevations of the prolactin level as noted. However, we have to exclude any underlying micro or macroadenoma in the pituitary gland area as noted. She has occasional fistula changes and we have to exclude any underlying compression of the as noted. PLAN OF MANAGEMENT: We will follow the MRI of the brain with and without contrast to be done today as ordered. We also obtain a comprehensive hormonal profile with a repeat prolactin level and also a luteinizing and follicle stimulating hormone levels to be obtained tomorrow morning. We will add a serum cortisol and ACTH level and T4 and TSH level with the growth hormone assay as ordered. We will discuss the therapeutic options once we have completed report as ordered. We will follow and advise accordingly. Gemma Samaniego MD
--- NOTE | 2017-07-27 09:22 | CON ---
DATE: HISTORY OF PRESENT ILLNESS: This is a 36-year-old female with past medical history not significant except headaches and also complaining of a neck pain and after this started with the headache, came to the hospital for further workup. PAST MEDICAL HISTORY: Not significant and history of bipolar disorder, possible schizophrenia. REVIEW OF SYSTEMS: Ten-point review of system was negative. PHYSICAL EXAMINATION: VITAL SIGNS: Blood pressure 132/75. HEENT: Normocephalic, atraumatic. NECK: Supple. NEUROLOGIC: Alert, awake, oriented x3. No aphasia. Cranial nerves II to XII were tested. Pupils reactive. EOM intact. Visual field full. No facial asymmetry. Tongue midline. Motor examination, moves all the extremities equally. Tone normal. Deep tendon reflexes 1+. Both plantars are downgoing. Sensory appears intact. Cerebellar, gait normal. LABORATORY DATA: WBC 6.4, hemoglobin 11.2, hematocrit 34.2, platelet 248. Sodium 140, potassium 3.9, chloride 103, CO2 of 28, glucose 96, BUN 11, creatinine 0.7. IMPRESSION: Headache and multiple psychiatric issues. Continue present management. We will follow up. Fioricet 1 q.8 hours p.r.n. Neri Anaya MD
[2017-07-28 13:50] LABS: GROWTH HORMONE (GH) <0.1 ng/mL (<or=7.1)
== END 2017-07-26 17:24 | disposition home or self-care (01) ==
LOC: ED 18:02 → ERH 21:34 → 5RSO 23:19 → OBSVTOIN 07-25 16:51 → INTOOBSV 07-25 16:51
PROVIDERS: ADMIT Internal Medicine; ATTEND Internal Medicine
DX: G43.909 Migraine, unspecified, not intractable, without status migrainosus (principal); E11.9 Type 2 diabetes mellitus without complications; E22.1 Hyperprolactinemia; F25.9 Schizoaffective disorder, unspecified; F31.9 Bipolar disorder, unspecified; I10 Essential (primary) hypertension; Z90.710 Acquired absence of both cervix and uterus; Z98.51 Tubal ligation status; Z86.69 Personal history of other diseases of the nervous system and sense organs; F41.9 Anxiety disorder, unspecified; Z23 Encounter for immunization
CPT/HCPCS: 36415; 70450; 70553; 80053; 82024; 82533; 83001; 83002; 83003; 84146; 84436; 84443; 85025; 85610; 85730; 90471; 90732; 96374; 99285; A9579; G0378; J1885; J7040

== ENCOUNTER 2017-08-10 16:49 | Emergency (ER) | payer OTHER ==
[2017-08-10 16:49] VITALS: BMI 23.7
[2017-08-10 17:07] VITALS: TEMP 98.2
[2017-08-10] MEDS ORDERED: Sodium Chloride 0.9% 1,000 ML IV STA (17:15)
--- NOTE | 2017-08-10 18:07 | ED PDOC ---
Arrival/HPI - General Chief Complaint: Headache Time Seen by Provider: 08/10/17 16:53 Historian: Patient - History of Present Illness Narrative History of Present Illness (Text): 08/10/17 18:03 36-year-old female with a history of schizophrenia presents today with headache that started today at 12pm. Patient states she's been having on and off headaches for the past few weeks. Patient states she was admitted to the hospital for intractable headache at the end of june and is in the process of scheduling follow-up appointment with neurologist. Patient states that headaches are intermittent. Patient states headaches are usually frontal. Patient denies blurred vision. Denies dizziness. Complaining of some occasional nausea. Patient states she took fiorcet at noon today at home without improvement in her symptoms. PT states the headache is located in the same location always. She denies chest pain or shortness of breath. Denies fevers or chills. Patient states this is the same location of the headache that she has been having. Patient states she had MRI when she was hospitalized. Patient denies any recent trauma or injury. Time/Duration: Other (1 day) Symptom Onset: Gradual Symptom Course: Worsening Quality: Throbbing Severity Level: 8 Past Medical History - Provider Review Nursing Documentation Reviewed: Yes - Travel History Have you recently traveled outside [place] w/in the past 3 mons?: No - Infectious Disease Hx of Infectious Diseases: None - Tetanus Immunization Tetanus Immunization: Unknown - Cardiac Hx Cardiac Disorders: Yes Hx Hypertension: Yes (hypertension) - Pulmonary Hx Respiratory Disorders: No - Neurological Hx Seizures: Yes - HEENT Hx HEENT Disorder: No - Renal Hx Renal Disorder: No - Endocrine/Metabolic Hx Endocrine Disorders: Yes Hx Diabetes Mellitus Type 2: Yes - Hematological/Oncological Hx Blood Disorders: No - Integumentary Hx Dermatological Disorder: No - Musculoskeletal/Rheumatological Hx Musculoskeletal Disorders: No - Gastrointestinal Hx Gastrointestinal Disorders: No - Genitourinary/Gynecological Hx Genitourinary Disorders: No Hx Sexually Transmitted Diseases: No - Psychiatric Hx Psychophysiologic Disorder: Yes Hx Anxiety: Yes Hx Bipolar Disorder: Yes Hx Depression: Yes Hx Schizophrenia: Yes Hx Substance Use: No Other/Comment: schizo affective disorder - Surgical History Hx Hysterectomy: Yes Hx Tubal Ligation: Yes - Anesthesia Hx Anesthesia: Yes Hx Anesthesia Reactions: No Hx Malignant Hyperthermia: No - Suicidal Assessment Feels Threatened In Home Enviroment: No Family/Social History - Physician Review Nursing Documentation Reviewed: Yes Family/Social History: Unknown Family HX Smoking Status: Never Smoked Hx Alcohol Use: No Hx Substance Use: No Hx Substance Use Treatment: No Allergies/Home Meds Allergies/Adverse Reactions: Allergies No Known Allergies Allergy (Verified 08/10/17 16:51) Denied Home Medications: Home Meds Medication Instructions Recorded Confirmed Ranitidine HCl [Zantac] 150 mg PO DAILY 08/10/17 08/10/17 Review of Systems - Review of Systems Constitutional: absent: Fatigue, Fevers Eyes: absent: Vision Changes, Photophobia, Eye Pain ENT: absent: Sinus Congestion Respiratory: absent: SOB, Cough Cardiovascular: absent: Chest Pain, Palpitations Gastrointestinal: Nausea. absent: Abdominal Pain, Vomiting Genitourinary Female: absent: Dysuria Musculoskeletal: absent: Arthralgias Skin: absent: Rash Neurological: Headache. absent: Dizziness Physical Exam Vital Signs Reviewed: Yes Vital Signs Temp Pulse Resp BP Pulse Ox 08/10/17 19:45 74 20 118/79 98 08/10/17 16:53 98.2 F 112 H 17 116/74 97 Temperature: Afebrile Blood Pressure: Normal Pulse: Tachycardic Respiratory Rate: Normal Appearance: Positive for: Well-Appearing, Non-Toxic, Comfortable Pain Distress: None Mental Status: Positive for: Alert and Oriented X 3 - Systems Exam Head: Present: Atraumatic Pupils: Present: PERRL Extroacular Muscles: Present: EOMI Conjunctiva: Present: Normal. No: Injected Ears: Present: Normal Mouth: Present: Moist Mucous Membranes Neck: Present: Normal Range of Motion, Trachea Midline. No: Meningeal Signs Respiratory/Chest: Present: Clear to Auscultation, Good Air Exchange. No: Respiratory Distress, Accessory Muscle Use Cardiovascular: Present: Tachycardic Abdomen: No: Tenderness, Distention, Rebound, Guarding Back: Present: Normal Inspection Upper Extremity: Present: Normal ROM Lower Extremity: Present: Normal ROM Neurological: Present: GCS=15, Speech Normal, Motor Func Grossly Intact, Normal Sensory Function, Normal Cerebellar Funct, Gait Normal Skin: Present: Warm, Dry, Normal Color. No: Rashes Psychiatric: Present: Alert, Oriented x 3 Medical Decision Making ED Course and Treatment: 08/10/17 18:06 36yr old female with continued headaches. Not her first, not the worst. headache was gradual onset, frontal, throbbing, similar to previous. pt with prior admission for intractable headache. old chart reviewed; pt had ct and MRi, had neuro and endocrine consults and was d/c home with fiorcet for migraines cbc: wnl cmp: wnl NS iv bolus reglan 10mg IV toradol 30mg IV given pt reassessment; pt feeling better. still with continued headache. tylenol added. 08/10/17 20:[address] delacruz; pt can be discharged. pt has list of neurologists to f/u with. pt was admitted and seen by neuro in er on previous visit. pt reassessment; pt feeling much better; headache, resolved; wants to go home. advised taking tylenol and motrin for pain and f/u with neurologist. advised return if symptoms worsen,persist or if new symptoms develop. pt verbalized understanding of d/c instructions and need for f/u case discussed with attending of record. impression; headache motrin every 6 hours as needed for pain tylenol every 4 hours as needed for pain increase fluids follow up with the primary care physician within the next 2 days. Follow up with the neurologist within the next 2 days. Return immediately if symptoms worsen,persist or if new symptoms develop. Reassessment Condition: Re-examined, Improved - Lab Interpretations Lab Results: 08/10/17 17:55 08/10/17 17:55 Lab Results 08/10/17 17:55: WBC 7.2 D, RBC 3.74, Hgb 11.0 L, Hct 34.1 L, MCV 91.2, MCH 29.4 , MCHC 32.3, RDW 14.1, Plt Count 246, MPV 10.2, Gran % 60.0, Lymph % (Auto) 28.4 , [place] % (Auto) 10.0 H, Eos % (Auto) 1.2 L, Baso % (Auto) 0.4, Gran # 4.32, Lymph # 2.1, [place] # 0.7 H, Eos # 0.1, Baso # 0.03 08/10/17 17:55: Sodium 140, Potassium 3.7, Chloride 99, Carbon Dioxide 32, Anion Gap 13, BUN 10, Creatinine 0.7, Est GFR ( Amer) > 60, Est GFR (Non- Af Amer) > 60, Random Glucose 93, Calcium 9.6, Total Bilirubin 0.4, AST 28, ALT 33, Alkaline Phosphatase 69, Total Protein 7.7, Albumin 4.1, Globulin 3.6, Albumin/Globulin Ratio 1.1 - Medication Orders Current Medication Orders: Discontinued Medications Acetaminophen (Tylenol 325mg Tab) 975 mg PO STAT STA Stop: 08/10/17 19:45 Last Admin: 08/10/17 20:20 Dose: 975 mg MAR Pain/Vitals Document 08/10/17 20:20 OCS (Rec: 08/10/17 20:21 [id number]) Pain Reassessment Is This A Pain ReAssessment? Yes Sleep Is patient sleeping during reassessment? No Presence of Pain Presence of Pain Yes Location Pain Location Body High Value Associate Sodium Chloride (Sodium Chloride 0.9%) 1,000 mls @ 999 mls/hr IV .Q1H1M STA Stop: 08/10/17 18:15 Last Admin: 08/10/17 18:01 Dose: 999 mls/hr eMAR Start Stop Document 08/10/17 18:01 OCS (Rec: 08/10/17 18:01 [id number]) Intravenous Solution Start Date 08/10/17 Start Time 18:01 Ketorolac Tromethamine (Toradol) 30 mg IVP STAT STA Stop: 08/10/17 17:18 Last Admin: 08/10/17 18:01 Dose: 30 mg MAR Pain Assessment Document 08/10/17 18:01 OCS (Rec: 08/10/17 18:01 [id number]) Pain Reassessment Is this a pain reassessment? Yes Sleep Is patient sleeping during reassessment? No Presence of Pain Presence of Pain Yes Pain Scale Used Pain Scale Used Numeric Location Pain Location Body High Value Associate Description Description Constant Intensity of Pain at present 8 Pain Behavior Irritability Aggravating Factors ADL's IVP Administration Document 08/10/17 18:01 OCS (Rec: 08/10/17 18:01 [id number]) Charges for Administration # of IVP Administrations 1 Metoclopramide HCl (Reglan) 10 mg IVP STAT STA Stop: 08/10/17 17:18 Last Admin: 08/10/17 18:01 Dose: 10 mg IVP Administration Document 08/10/17 18:01 [facility] (Rec: 08/10/17 18:01 OCS [id number]) Charges for Administration # of IVP Administrations 1 Disposition/Present on Arrival - Present on Arrival Any Indicators Present on Arrival: No History of DVT/PE: No History of Uncontrolled Diabetes: No Urinary Catheter: No History of Decub. Ulcer: No History Surgical Site Infection Following: None - Disposition Have Diagnosis and Disposition been Completed?: Yes Diagnosis: Headache Disposition: HOME/ ROUTINE Disposition Time: 20:43 Patient Plan: Discharge Patient Problems: Current Active Problems Problem Status Onset Headache Acute Condition: GOOD Discharge Instructions (ExitCare): General Headache (ED) Additional Instructions: motrin every 6 hours as needed for pain tylenol every 4 hours as needed for pain. increase fluids follow up with the primary care physician within the next 2 days. Follow up with the neurologist within the next 2 days. Return immediately if symptoms worsen,persist or if new symptoms develop. Prescriptions: Acetaminophen 500 mg PO Q4H #20 capsule Ibuprofen [Motrin] 600 mg PO Q6H PRN #20 tab PRN Reason: pain/fever reduction Referrals: Deanne Delacruz MD [Primary Care Provider] - Follow up with primary Talia Butt MD [Staff Provider] - Follow up with primary Tony Boyle MD [Staff Provider] - Follow up with primary Neri Anaya MD [Staff Provider] - Follow up with primary Forms: [employer] ([place])
[2017-08-10 18:15] LABS: ALB/GLOB RATIO 1.1 (1.1-1.8); ALKALINE PHOSPHATASE 69 U/L (38-126); ALT/SGPT 33 U/L (7-56); AST/SGOT 28 U/L (14-36); BILIRUBIN,TOTAL 0.4 mg/dL (0.2-1.3); BLOOD UREA NITROGEN 10 mg/dL (7-21); CALCIUM 9.6 mg/dL (8.4-10.5); CARBON DIOXIDE 32 mmol/L (21-33); CHLORIDE 99 mmol/L (98-107); GFR AFRICAN-AMERICAN > 60; GLUCOSE,RANDOM 93 mg/dL (70-110); POTASSIUM 3.7 mmol/L (3.6-5.0); SODIUM 140 mmol/L (132-148); TOTAL PROTEIN 7.7 g/dL (5.8-8.3)
[2017-08-10 18:36] LABS: BASO # 0.03 K/mm3 (0.0-2.0); BASO % 0.4 % (0.0-3.0); EOS # 0.1 (0.0-0.7); EOS % 1.2 % (1.5-5.0); GRAN # 4.32 (1.4-6.5); HEMATOCRIT 34.1 % (36.0-48.0); LYMPH # 2.1 (1.2-3.4); LYMPH % 28.4 % (22.0-35.0); MEAN CELL VOLUME 91.2 fl (80.0-105.0); MEAN CORPUSCULAR HEMOGLOBIN 29.4 pg (25.0-35.0); MEAN CORPUSCULAR HGB CONC 32.3 g/dl (31.0-37.0); MEAN PLATELET VOLUME 10.2 fl (7.0-11.0); MONO # 0.7 (0.1-0.6); RED CELL DISTRIBUTION WIDTH 14.1 % (11.5-14.5); WHITE BLOOD COUNT 7.2 10^3/ul (4.5-11.0)
[2017-08-10 20:18] VITALS: BP 118/79; PULSE 74; RESP 20; O2SAT 98
== END 2017-08-10 20:50 | disposition home or self-care (01) ==
LOC: ED 16:49
DX: R51 Headache (principal); E11.9 Type 2 diabetes mellitus without complications; I10 Essential (primary) hypertension; Z98.51 Tubal ligation status
CPT/HCPCS: 80053; 85025; 96374; 96375; 99285; J1885; J2765; J7040

== ENCOUNTER 2017-08-14 11:58 | Emergency (ER) | payer MEDICAID, OTHER ==
[2017-08-14 12:22] VITALS: BP 112/64; PULSE 92; RESP 16; TEMP 98.4; O2SAT 97
[2017-08-14 12:39] VITALS: BMI 30.7
--- NOTE | 2017-08-14 12:47 | ED PDOC ---
Arrival/HPI - General Chief Complaint: Lower Extremity Problem/Injury Time Seen by Provider: 08/14/17 12:43 Historian: Patient - History of Present Illness Narrative History of Present Illness (Text): 08/14/17 12:47 36 y/o female, no significant pmh, psychiatric history including anxiety/ schizophrenia, nkda, c/o bilateral thigh pain started yesterday after going to the court. Aching pain, aggravated by walking, no numbness or tingling, no headache or night sweat, no palpitation, no rash, no cold extremities or discoloration of the lower extremity, no other medical or psychological complaints. Past Medical History - Provider Review Nursing Documentation Reviewed: Yes - Infectious Disease Hx of Infectious Diseases: None - Tetanus Immunization Tetanus Immunization: Unknown - Reproductive Menopause: No - Cardiac Hx Cardiac Disorders: Yes Hx Hypertension: Yes (hypertension) - Pulmonary Hx Respiratory Disorders: No - Neurological Hx Seizures: Yes - HEENT Hx HEENT Disorder: No - Renal Hx Renal Disorder: No - Endocrine/Metabolic Hx Endocrine Disorders: Yes Hx Diabetes Mellitus Type 2: Yes - Hematological/Oncological Hx Blood Disorders: No - Integumentary Hx Dermatological Disorder: No - Musculoskeletal/Rheumatological Hx Musculoskeletal Disorders: No - Gastrointestinal Hx Gastrointestinal Disorders: No - Genitourinary/Gynecological Hx Genitourinary Disorders: No Hx Sexually Transmitted Diseases: No - Psychiatric Hx Psychophysiologic Disorder: Yes Hx Anxiety: Yes Hx Bipolar Disorder: Yes Hx Depression: Yes Hx Schizophrenia: Yes Hx Substance Use: No Other/Comment: schizo affective disorder - Surgical History Hx Hysterectomy: Yes Hx Tubal Ligation: Yes - Anesthesia Hx Anesthesia: Yes Hx Anesthesia Reactions: No Hx Malignant Hyperthermia: No - Suicidal Assessment Feels Threatened In Home Enviroment: No Family/Social History - Physician Review Nursing Documentation Reviewed: Yes Family/Social History: Unknown Family HX Smoking Status: Never Smoked Hx Alcohol Use: No Hx Substance Use: No Hx Substance Use Treatment: No Allergies/Home Meds Allergies/Adverse Reactions: Allergies No Known Allergies Allergy (Verified 08/10/17 16:51) Denied Home Medications: Home Meds Medication Instructions Recorded Confirmed Ranitidine HCl [Zantac] 150 mg PO DAILY 08/10/17 08/10/17 Review of Systems - Review of Systems Constitutional: absent: Fatigue, Fevers Eyes: absent: Vision Changes ENT: absent: Hearing Changes Respiratory: absent: SOB, Cough Cardiovascular: absent: Chest Pain Gastrointestinal: absent: Abdominal Pain, Nausea, Vomiting Musculoskeletal: Myalgias. absent: Arthralgias, Back Pain Skin: absent: Rash, Pruritis, Skin Lesions Neurological: absent: Headache, Dizziness Psychiatric: absent: Anxiety, Depression, Suicidal Ideation Physical Exam Vital Signs Reviewed: Yes Vital Signs Temp Pulse Resp BP Pulse Ox 08/14/17 12:18 98.4 F 92 H 16 112/64 97 08/14/17 11:58 98.4 F 92 H 16 112/64 97 Temperature: Afebrile Blood Pressure: Normal Pulse: Regular Respiratory Rate: Normal Appearance: Positive for: Well-Appearing, Non-Toxic, Comfortable Pain Distress: Moderate Mental Status: Positive for: Alert and Oriented X 3 - Systems Exam Head: Present: Atraumatic, Normocephalic Pupils: Present: PERRL Extroacular Muscles: Present: EOMI Conjunctiva: Present: Normal Mouth: Present: Moist Mucous Membranes Neck: Present: Normal Range of Motion Respiratory/Chest: Present: Clear to Auscultation, Good Air Exchange. No: Respiratory Distress, Accessory Muscle Use Cardiovascular: Present: Regular Rate and Rhythm, Normal S1, S2. No: Murmurs Abdomen: Present: Normal Bowel Sounds. No: Tenderness, Distention, Peritoneal Signs Back: Present: Normal Inspection. No: CVA Tenderness, Midline Tenderness, Paraspinal Tenderness, Pain with Leg Raise, Decubitus Ulcer Upper Extremity: Present: Normal Inspection. No: Cyanosis, Edema Lower Extremity: Present: Normal Inspection, Other (Bilateral lower extremities : no tenderness or swelling, no deformity, FROM without limitation, sensation intact, motor 5/5, +DPPT pulses, capillary refill< 2 seconds, neurovascular intact, no saddling gait. ). No: Edema Neurological: Present: GCS=15, CN II-XII Intact, Speech Normal, Motor Func Grossly Intact, Gait Normal, Memory Normal Skin: Present: Warm, Dry, Normal Color. No: Rashes Psychiatric: Present: Alert, Oriented x 3, Normal Insight, Normal Concentration Medical Decision Making ED Course and Treatment: 08/14/17 13:04 -Toradol IM -Bilateral lower extremities -Observe and reassess 08/14/17 14:11 -Urine hcg negative -Bilateral venous Doppler: as per preliminary report, no acute DVT -Pain improved, wants to go home, will discharge home. -Discharge home with naproxen, flexeril, cane, stay hydrated, follow up with your own pmd and orthopedic within 2 days, return to the the ER for any new or worsening signs or symptoms. - RAD Interpretation Radiology Orders: 08/14/17 12:59 DUPLEX LOWER EXTRM VEIN BILAT [US] Stat Bilateral venous Doppler: as per preliminary report, no acute DVT Orthotics Assistant: Radiologist - Medication Orders Current Medication Orders: Discontinued Medications Ketorolac Tromethamine (Toradol) 60 mg IM STAT STA Stop: 08/14/17 13:00 - PA / ADMISSIONS CLINICIAN / Resident Statement / has reviewed & agrees with the documentation as recorded. Disposition/Present on Arrival - Present on Arrival Any Indicators Present on Arrival: No History of DVT/PE: No History of Uncontrolled Diabetes: No Urinary Catheter: No History of Decub. Ulcer: No History Surgical Site Infection Following: None - Disposition Have Diagnosis and Disposition been Completed?: Yes Diagnosis: Myalgia Disposition: HOME/ ROUTINE Disposition Time: 14:15 Patient Plan: Discharge Condition: GOOD Additional Instructions: -Discharge home with naproxen, flexeril, cane, stay hydrated, follow up with your own pmd and orthopedic within 2 days, return to the the ER for any new or worsening signs or symptoms. Prescriptions: Cyclobenzaprine [Cyclobenzaprine HCl] 10 mg PO TID PRN #21 tab PRN Reason: Other Naproxen 500 mg PO BID PRN #22 tab PRN Reason: Other Referrals: [facility] [Outside] - Follow up with primary Stephen Fonseca III, MD [Medical Doctor] - Follow up with primary Forms: WORK NOTE
== END 2017-08-14 14:30 | disposition home or self-care (01) ==
LOC: ED 11:58
DX: M79.1 Myalgia (principal); I10 Essential (primary) hypertension

== ENCOUNTER 2017-10-20 16:05 | Emergency (ER) | payer MEDICAID, OTHER ==
[2017-10-20 16:05] VITALS: BMI 30.7
--- NOTE | 2017-10-20 16:34 | ED PDOC ---
Arrival/HPI - General Chief Complaint: Female Genitourinary Time Seen by Provider: 10/20/17 16:32 Historian: Patient - History of Present Illness Narrative History of Present Illness (Text): 10/20/17 16:33 37 y/o female, pmh including UTI and ovarian cyst, nkda, c/o burning urinary sensation started about 2 days ago. Burning, associated with frequency, no fever or chills, no chest pain or shortness of breath, no palpitation, no rash, no other medical or psychological complaints. Past Medical History - Provider Review Nursing Documentation Reviewed: Yes - Infectious Disease Hx of Infectious Diseases: None - Tetanus Immunization Tetanus Immunization: Unknown - Cardiac Hx Cardiac Disorders: Yes Hx Hypertension: Yes (hypertension) - Pulmonary Hx Respiratory Disorders: No - Neurological Hx Seizures: Yes - HEENT Hx HEENT Disorder: No - Renal Hx Renal Disorder: No - Endocrine/Metabolic Hx Endocrine Disorders: Yes Hx Diabetes Mellitus Type 2: Yes - Hematological/Oncological Hx Blood Disorders: No - Integumentary Hx Dermatological Disorder: No - Musculoskeletal/Rheumatological Hx Musculoskeletal Disorders: No - Gastrointestinal Hx Gastrointestinal Disorders: No - Genitourinary/Gynecological Hx Genitourinary Disorders: No Hx Sexually Transmitted Diseases: No - Psychiatric Hx Psychophysiologic Disorder: Yes Hx Anxiety: Yes Hx Bipolar Disorder: Yes Hx Depression: Yes Hx Schizophrenia: Yes Hx Substance Use: No Other/Comment: schizo affective disorder - Surgical History Hx Hysterectomy: Yes Hx Tubal Ligation: Yes - Anesthesia Hx Anesthesia: Yes Hx Anesthesia Reactions: No Hx Malignant Hyperthermia: No - Suicidal Assessment Feels Threatened In Home Enviroment: No Family/Social History - Physician Review Nursing Documentation Reviewed: Yes Family/Social History: Unknown Family HX Smoking Status: Never Smoked Hx Alcohol Use: No Hx Substance Use: No Hx Substance Use Treatment: No Allergies/Home Meds Allergies/Adverse Reactions: Allergies No Known Allergies Allergy (Verified 10/20/17 16:23) Denied Review of Systems - Review of Systems Constitutional: absent: Fatigue, Fevers Eyes: absent: Vision Changes ENT: absent: Hearing Changes Respiratory: absent: SOB, Cough Cardiovascular: absent: Chest Pain Gastrointestinal: absent: Abdominal Pain, Nausea, Vomiting Genitourinary Female: Dysuria, Frequency. absent: Hematuria Skin: absent: Rash, Pruritis Neurological: absent: Headache, Dizziness Psychiatric: absent: Anxiety, Depression Physical Exam Vital Signs Reviewed: Yes Vital Signs Temp Pulse Resp BP 10/20/17 16:24 98.4 F 78 18 112/68 Temperature: Afebrile Blood Pressure: Normal Pulse: Regular Respiratory Rate: Normal Appearance: Positive for: Well-Appearing, Non-Toxic, Comfortable Pain Distress: Mild Mental Status: Positive for: Alert and Oriented X 3 - Systems Exam Head: Present: Atraumatic, Normocephalic Pupils: Present: PERRL Extroacular Muscles: Present: EOMI Conjunctiva: Present: Normal Mouth: Present: Moist Mucous Membranes Neck: Present: Normal Range of Motion Respiratory/Chest: Present: Clear to Auscultation, Good Air Exchange. No: Respiratory Distress, Accessory Muscle Use Cardiovascular: Present: Regular Rate and Rhythm, Normal S1, S2. No: Murmurs Abdomen: Present: Normal Bowel Sounds. No: Tenderness, Distention, Peritoneal Signs, Rebound, Guarding Back: Present: Normal Inspection. No: CVA Tenderness Upper Extremity: Present: Normal Inspection. No: Cyanosis, Edema Lower Extremity: Present: Normal Inspection. No: Edema Neurological: Present: GCS=15, CN II-XII Intact, Speech Normal Skin: Present: Warm, Dry, Normal Color. No: Rashes Psychiatric: Present: Alert, Oriented x 3, Normal Insight, Normal Concentration Medical Decision Making ED Course and Treatment: 10/20/17 16:38 -UA and urine hcg -Observe and reassess 10/20/17 17:55 -UA show +UTI -Discharge home with macrobid, pyridium, stay hydrated, follow up with your own pmd and urologist within 2 days, return to the ER for any new or worsening signs or symptoms. - Lab Interpretations Lab Results: Lab Results 10/20/17 16:49: Urine Color Yellow, Urine Appearance Sl cloudy, Urine pH 6.0, Ur Specific [place] 1.020, Urine Protein Negative, Urine Glucose (UA) Negative, Urine Ketones Negative, Urine Blood Large H, Urine Nitrate Negative, Urine Bilirubin Negative, Urine Urobilinogen 0.2, Ur Leukocyte Esterase Moderate H, Urine RBC 15 - 20, Urine WBC 10 - 15, Ur Epithelial Cells 0 - 2, Urine Bacteria Few I have reviewed the lab results: Yes - PA / WOUND CARE SPECIALIST / Resident Statement MD/DO has reviewed & agrees with the documentation as recorded. Disposition/Present on Arrival - Present on Arrival Any Indicators Present on Arrival: No History of DVT/PE: No History of Uncontrolled Diabetes: No Urinary Catheter: No History of Decub. Ulcer: No History Surgical Site Infection Following: None - Disposition Have Diagnosis and Disposition been Completed?: Yes Diagnosis: UTI (urinary tract infection) Disposition: HOME/ ROUTINE Disposition Time: 17:56 Patient Plan: Discharge Condition: GOOD Additional Instructions: -Discharge home with macrobid, pyridium, stay hydrated, follow up with your own pmd and urologist within 2 days, return to the ER for any new or worsening signs or symptoms. Prescriptions: Nitrofurantoin Macrocrystals [Macrobid] 100 mg PO BID #14 cap Phenazopyridine [Phenazopyridine HCl] 200 mg PO TID #6 tab Referrals: Deanne Delacruz MD [Primary Care Provider] - Follow up with primary Forms: [employer] (Yakut), WORK NOTE
[2017-10-20 16:47] VITALS: TEMP 98.4
[2017-10-20 17:00] LABS: URINE BILIRUBIN NEGATIVE (NEGATIVE); URINE BLOOD LARGE (NEGATIVE); URINE GLUCOSE (UA) NEGATIVE (NEGATIVE); URINE LEUKOCYTE ESTERASE MODERATE Leu/uL (NEGATIVE); URINE NITRATE NEGATIVE (NEGATIVE); URINE PROTEIN NEGATIVE mg/dL (<30 mg/dL); URINE UROBILINOGEN 0.2 E.U./dL (<1 E.U./dL)
[2017-10-20 17:01] LABS: URINE APPEARANCE SL CLOUDY (CLEAR); URINE COLOR YELLOW (YELLOW)
[2017-10-20 17:05] LABS: URINE BACTERIA FEW (NEG); URINE EPITHELIAL CELLS 0 - 2 /hpf (0-5); URINE RBC 15 - 20 /hpf (0-2)
[2017-10-20 18:01] VITALS: BP 115/70; PULSE 80; RESP 16; O2SAT 99
== END 2017-10-20 18:15 | disposition home or self-care (01) ==
LOC: ED 16:05
DX: N39.0 Urinary tract infection, site not specified (principal); I10 Essential (primary) hypertension; E11.9 Type 2 diabetes mellitus without complications

== ENCOUNTER 2018-05-11 20:00 | Emergency (ER) | payer OTHER ==
[2018-05-11 20:09] VITALS: TEMP 98.2; BMI 31.8
--- NOTE | 2018-05-11 20:35 | ED PDOC ---
Arrival/HPI - General Historian: Patient - History of Present Illness Time/Duration: 24 hours Symptom Onset: Gradual Symptom Course: Unchanged, Worsening Quality: Aching, Cramping Activities at Onset: Rest Context: Exertion <Trey Elizalde - Last Filed: 05/11/18 22:01> <[email or web address] - Last Filed: 05/11/18 22:11> - General Chief Complaint: Lower Extremity Problem/Injury Time Seen by Provider: 05/11/18 20:05 - History of Present Illness Narrative History of Present Illness (Text): 05/11/18 20:28 Patient is a 37 year-old female with no PMH who presents to the ED with pain and swelling in her legs and feet bilaterally. Patient states that last night she developed a fever and her feet became swollen. When she woke up today, she felt pain in both of her feet. She states she tried to schedule an appointment to see her doctor today but was told the soonest she could have an appointment was May 11. Patient states that throughout the day today the pain became worse, especially with exertion. She reports that the last time her legs got swollen she tried soaking them in saltwater but it did not help her. Patient is not taking any medication to help with her leg swelling. She has a past psych history and is currently receiving group therapy for this. She currently takes psych medications but does not remember the names of the medications. Patient admitted to dyspnea and fatigue on exertion. Patient denied chills, night sweats, nausea/vomiting, chest pain, and dyspnea at rest. Patient also denies any recent trauma to her legs or any recent travel. Normally, she is ambulatory. She admits to taking OCPs in the past but has not taken any recent as she has had a tubal ligation. (Trey Elizalde) Past Medical History - Provider Review Nursing Documentation Reviewed: Yes - Infectious Disease Hx of Infectious Diseases: None - Tetanus Immunization Tetanus Immunization: Unknown - Reproductive Menopause: No - Cardiac Hx Cardiac Disorders: Yes Hx Hypertension: Yes (hypertension) - Pulmonary Hx Respiratory Disorders: No - Neurological Hx Neurological Disorder: Yes Hx Seizures: Yes - HEENT Hx HEENT Disorder: No - Renal Hx Renal Disorder: No - Endocrine/Metabolic Hx Endocrine Disorders: Yes Hx Diabetes Mellitus Type 2: Yes - Hematological/Oncological Hx Blood Disorders: No - Integumentary Hx Dermatological Disorder: No - Musculoskeletal/Rheumatological Hx Musculoskeletal Disorders: No - Gastrointestinal Hx Gastrointestinal Disorders: No - Genitourinary/Gynecological Hx Genitourinary Disorders: No Hx Sexually Transmitted Diseases: No - Psychiatric Hx Psychophysiologic Disorder: Yes Hx Anxiety: Yes Hx Bipolar Disorder: Yes Hx Depression: Yes Hx Schizophrenia: Yes Hx Substance Use: No Other/Comment: schizo affective disorder - Surgical History Hx Hysterectomy: Yes Hx Tubal Ligation: Yes - Anesthesia Hx Anesthesia: Yes Hx Anesthesia Reactions: No Hx Malignant Hyperthermia: No - Suicidal Assessment Feels Threatened In Home Enviroment: No <Trey Elizalde - Last Filed: 05/11/18 22:01> Family/Social History - Physician Review Nursing Documentation Reviewed: Yes Family/Social History: Neoplasm/Cancer (Dad with gastric CA) Smoking Status: Never Smoked Hx Alcohol Use: No Hx Substance Use: No Hx Substance Use Treatment: No <Trey Elizalde - Last Filed: 05/11/18 22:01> Allergies/Home Meds <Trey Elizalde - Last Filed: 05/11/18 22:01> <Jonatan Cohn - Last Filed: 05/11/18 22:11> Allergies/Adverse Reactions: Allergies No Known Allergies Allergy (Verified 10/20/17 16:23) Denied Review of Systems - Physician Review All systems were reviewed & negative as marked: Yes - Review of Systems Constitutional: Fatigue (with exertion). absent: Night Sweats Eyes: absent: Vision Changes ENT: absent: Sore Throat, Rhinorrhea Respiratory: SOB (on exertion). absent: Cough, Sputum, Wheezing Cardiovascular: MANZANO. absent: Chest Pain, Palpitations Gastrointestinal: absent: Abdominal Pain, Nausea, Vomiting Genitourinary Female: absent: Dysuria, Frequency Musculoskeletal: absent: Arthralgias Skin: absent: Rash, Pruritis Neurological: absent: Headache Endocrine: absent: Diaphoresis Psychiatric: Anxiety. absent: Depression <Trey Elizalde - Last Filed: 05/11/18 22:01> Physical Exam Vital Signs Reviewed: Yes Temperature: Afebrile Blood Pressure: Normal Pulse: Regular Respiratory Rate: Normal Appearance: Positive for: Well-Appearing, Non-Toxic, Comfortable Pain Distress: Mild Mental Status: Positive for: Alert and Oriented X 3 - Systems Exam Head: Present: Atraumatic, Normocephalic Pupils: Present: PERRL Extroacular Muscles: Present: EOMI Conjunctiva: Present: Normal Mouth: Present: Moist Mucous Membranes Pharnyx: Present: Normal. No: ERYTHEMA, EXUDATE Nose (External): Present: Atraumatic Neck: Present: Normal Range of Motion. No: JVD Respiratory/Chest: Present: Clear to Auscultation. No: Wheezes, Rales, Rhonchi Cardiovascular: Present: Regular Rate and Rhythm, Normal S1, S2. No: Murmurs, Rub, Gallop Abdomen: No: Tenderness, Rebound, Guarding Upper Extremity: Present: Normal Inspection. No: Cyanosis, Edema Lower Extremity: Present: Edema (trace pitting edema to LE bilaterally), CALF TENDERNESS, NORMAL PULSES, Neurovascularly Intact. No: Erythema, Temperature Abnormalties Neurological: Present: Speech Normal Skin: Present: Warm, Dry Lymphatic: No: Cervical Adenopathy, Axillary Adenopathy Psychiatric: Present: Alert, Oriented x 3 <Trey Elizalde - Last Filed: 05/11/18 22:01> Vital Signs Temp Pulse Resp BP Pulse Ox 05/11/18 20:07 98.2 F 60 18 126/88 99 Medical Decision Making <Trey Elizalde - Last Filed: 05/11/18 22:01> - Lab Interpretations I have reviewed the lab results: Yes <Jonatan Cohn - Last Filed: 05/11/18 22:11> ED Course and Treatment: 05/11/18 20:41 -Patient with LE swelling and worsening MANZANO for one day -Will get LE doppler US to r/o DVT -Will get CBC, CMP, UA 05/11/18 21:04 -US negative for DVT bilaterally 05/11/18 21:53 -Patient reports her pain has improved since arrival and that she would rather go home at this time -Labs including BNP are all WNL -Will discharge and encourage close follow up with PMD (Trey Elizalde) Patient Seen With Resident: In agreement with resident note. Patient was seen and evaluated with resident, came up with plan and treatment together. 37 year old female presents complaining of pain and swelling to her legs and feet bilaterally associated with a fever that began yesterday. Plan: -- Labs -- Tylenol -- Urinalysis -- US Duplex Lower extrem. (Jonatan Cohn) - Lab Interpretations Lab Results: 05/11/18 21:11 05/11/18 21:11 Lab Results 05/11/18 21:11: Urine Opiates Screen Negative, Urine Methadone Screen Negative, Ur Barbiturates Screen Negative, Ur Phencyclidine Scrn Negative, Ur Amphetamines Screen Negative, U Benzodiazepines Scrn Negative, U Oth Cocaine Metabols Negative, U Cannabinoids Screen Negative 05/11/18 21:11: Sodium 142, Potassium 3.8, Chloride 103, Carbon Dioxide 27, Anion Gap 16, BUN 7, Creatinine 0.6 L, Est GFR ( Amer) > 60, Est GFR (Non -Af Amer) > 60, Random Glucose 93, Calcium 9.0, Total Bilirubin 0.2, AST 30, ALT 25, Alkaline Phosphatase 62, NT-Pro-B Natriuret Pep 73.0, Total Protein 7.8 , Albumin 4.1, Globulin 3.7, Albumin/Globulin Ratio 1.1 05/11/18 21:11: PT 11.1, INR 0.97, APTT 27.1 05/11/18 21:11: WBC 8.1, RBC 3.95, Hgb 11.7 L, Hct 34.7 L, MCV 87.8 D, MCH 29.6 , MCHC 33.7, RDW 14.7 H, Plt Count 263, MPV 9.5, Gran % 55.6, Lymph % (Auto) 32.4, [place] % (Auto) 9.8 H, Eos % (Auto) 2.0, Baso % (Auto) 0.2, Gran # 4.47, Lymph # (Auto) 2.6, [place] # (Auto) 0.8 H, Eos # (Auto) 0.2, Baso # (Auto) 0.02 - RAD Interpretation Radiology Orders: 05/11/18 20:25 DUPLEX LOWER EXTRM VEIN BILAT [US] Stat - Medication Orders Current Medication Orders: Discontinued Medications Acetaminophen (Tylenol 325mg Tab) 650 mg PO ONCE ONE Stop: 05/11/18 21:43 Last Admin: 05/11/18 21:54 Dose: 650 mg MAR Pain/Vitals Document 05/11/18 21:54 AD (Rec: 05/11/18 21:55 AD [email or web address] Pain Reassessment Is This A Pain ReAssessment? No Presence of Pain Presence of Pain Yes Location Left, Right or Bilateral Bilateral Intensity 5 Scale Used Numeric <Trey Elizalde - Last Filed: 05/11/18 22:01> - PA / SUPERVISOR MECH[employer]IC [employer]ILERMAKING / Resident Statement /DO has reviewed & agrees with the documentation as recorded. MD/DO has examined the patient and agrees with the treatment plan. - Scribe Statement The provider has reviewed the documentation as recorded by the Scribe <Jonatan Cohn - Last Filed: 05/11/18 22:11> - Scribe Statement Scribe Attestation: Ene Keene MD Scribe Attestation: All medical record entries made by the Scribe were at my direction and personally dictated by me. I have reviewed the chart and agree that the record accurately reflects my personal performance of the history, physical exam, medical decision making, and the department course for this patient. I have also personally directed, reviewed, and agree with the discharge instructions and disposition. (Jonatan Cohn) Disposition/Present on Arrival - Present on Arrival Any Indicators Present on Arrival: No History of DVT/PE: No History of Uncontrolled Diabetes: No Urinary Catheter: No History of Decub. Ulcer: No History Surgical Site Infection Following: None - Disposition Have Diagnosis and Disposition been Completed?: Yes Disposition Time: 21:58 Patient Plan: Discharge <Trey Elizalde - Last Filed: 05/11/18 22:01> <Jonatan Cohn - Last Filed: 05/11/18 22:11> - Disposition Diagnosis: Bilateral calf pain, Anxiety Disposition: HOME/ ROUTINE Patient Problems: Current Active Problems Problem Status Onset Anxiety Acute Bilateral calf pain Acute Condition: GOOD Referrals: Maria Luz Carlton MD [Primary Care Provider] - Follow up with primary Forms: [employer] (Thai)
[2018-05-11 21:32] LABS: BASO # 0.02 K/mm3 (0.0-2.0); BASO % 0.2 % (0.0-3.0); EOS # 0.2 (0.0-0.7); GRAN # 4.47 (1.4-6.5); GRAN % 55.6 % (50.0-68.0); HEMOGLOBIN 11.7 g/dL (12.0-16.0); LYMPH # 2.6 (1.2-3.4); LYMPH % 32.4 % (22.0-35.0); MEAN CELL VOLUME 87.8 fl (80.0-105.0); MEAN CORPUSCULAR HEMOGLOBIN 29.6 pg (25.0-35.0); MEAN CORPUSCULAR HGB CONC 33.7 g/dl (31.0-37.0); MEAN PLATELET VOLUME 9.5 fl (7.0-11.0); MONO # 0.8 (0.1-0.6); MONO % 9.8 % (1.0-6.0); RBC 3.95 10^6/uL (3.5-6.1); RED CELL DISTRIBUTION WIDTH 14.7 % (11.5-14.5); WHITE BLOOD COUNT 8.1 10^3/ul (4.5-11.0)
[2018-05-11 21:40] LABS: ALB/GLOB RATIO 1.1 (1.1-1.8); ALBUMIN 4.1 g/dL (3.0-4.8); ALT/SGPT 25 U/L (7-56); AST/SGOT 30 U/L (14-36); BLOOD UREA NITROGEN 7 mg/dL (7-21); GFR AFRICAN-AMERICAN > 60; GFR NON-AFRICAN AMERICAN > 60
[2018-05-11 21:45] LABS: INR 0.97; PARTIAL THROMBOPLASTIN TIME 27.1 Seconds (25.1-36.5); PROTHROMBIN TIME 11.1 SECONDS (9.4-12.5)
[2018-05-11 21:52] LABS: BARBITURATES, UR NEGATIVE (NEGATIVE); BENZODIAZEPINES, UR NEGATIVE (NEGATIVE); OPIATES, UR NEGATIVE (NEGATIVE); PHENCYCLIDINE, UR NEGATIVE (NEGATIVE)
[2018-05-11 22:16] VITALS: BP 125/82; PULSE 68; RESP 16; O2SAT 98
[2018-05-12 05:24] LABS: URINE BILIRUBIN NEGATIVE (NEGATIVE); URINE BLOOD NEGATIVE (NEGATIVE); URINE GLUCOSE (UA) NEGATIVE (NEGATIVE); URINE LEUKOCYTE ESTERASE NEGATIVE Leu/uL (NEGATIVE); URINE PROTEIN NEGATIVE mg/dL (<30 mg/dL); URINE UROBILINOGEN 0.2 E.U./dL (<1 E.U./dL)
[2018-05-12 05:26] LABS: URINE APPEARANCE CLEAR (CLEAR); URINE COLOR STRAW (YELLOW)
== END 2018-05-11 22:04 | disposition home or self-care (01) ==
LOC: ED 20:00
DX: M79.605 Pain in left leg (principal); M79.604 Pain in right leg; F41.9 Anxiety disorder, unspecified; I10 Essential (primary) hypertension; E11.9 Type 2 diabetes mellitus without complications

== ENCOUNTER 2018-08-18 11:04 | Inpatient (IN) | payer OTHER ==
[2018-08-18 11:09] VITALS: BMI 29.9
--- NOTE | 2018-08-18 11:19 | ED PDOC ---
Arrival/HPI - General Chief Complaint: Anxiety - History of Present Illness Narrative History of Present Illness (Text): 08/18/18 12:17 37 y/o female with PMH of headaches, schizophrenia, bipolar disorder, seizures, HTN, presents to the ED c/o headache and anxiety attacks x 1 day. Pt states she had four episodes of panic attack this morning that consisted of anxiety, dizziness, blurry vision, facial paresthesias, and hallucinations. Denies LOC or jerking/shaking movements. Pt states this is typical of her anxiety attacks. Hallucinations are both auditory and visual. Pt is compliant with medications. Currently c/o frontal and posterior headache. Has not taken any medication for pain. Denies SI, HI, substance use, incontinence, tongue bite, chest pain, SOB, dizziness, abdominal pain, N/V, or any other associated symptoms. Past Medical History - Infectious Disease Hx of Infectious Diseases: None - Tetanus Immunization Tetanus Immunization: Unknown - Cardiac Hx Cardiac Disorders: Yes Hx Hypertension: Yes (hypertension) - Pulmonary Hx Respiratory Disorders: No - Neurological Hx Neurological Disorder: Yes Hx Seizures: Yes - HEENT Hx HEENT Disorder: No - Renal Hx Renal Disorder: No - Endocrine/Metabolic Hx Endocrine Disorders: Yes Hx Diabetes Mellitus Type 2: Yes - Hematological/Oncological Hx Blood Disorders: No - Integumentary Hx Dermatological Disorder: No - Musculoskeletal/Rheumatological Hx Musculoskeletal Disorders: No - Gastrointestinal Hx Gastrointestinal Disorders: No - Genitourinary/Gynecological Hx Genitourinary Disorders: No Hx Sexually Transmitted Diseases: No - Psychiatric Hx Psychophysiologic Disorder: Yes Hx Anxiety: Yes Hx Bipolar Disorder: Yes Hx Depression: Yes Hx Schizophrenia: Yes Hx Substance Use: No Other/Comment: schizo affective disorder - Surgical History Hx Hysterectomy: Yes Hx Tubal Ligation: Yes - Anesthesia Hx Anesthesia: Yes Hx Anesthesia Reactions: No Hx Malignant Hyperthermia: No - Suicidal Assessment Feels Threatened In Home Enviroment: No Family/Social History - Physician Review Nursing Documentation Reviewed: Yes Family/Social History: No Known Family HX Smoking Status: Never Smoked Hx Alcohol Use: No Hx Substance Use: No Hx Substance Use Treatment: No Allergies/Home Meds Allergies/Adverse Reactions: Allergies No Known Allergies Allergy (Verified 10/20/17 16:23) Denied Home Medications: Home Meds Medication Instructions Recorded Confirmed Cholecalciferol [Vitamin D] 1,000 iu PO QWK 08/18/18 08/18/18 Citalopram [celeXA] 20 mg PO DAILY 08/18/18 08/18/18 Divalproex Sodium [Divalproex 500 mg PO BID 08/18/18 08/18/18 Sodium ER] Docusate [Colace] 100 mg PO BID 08/18/18 08/18/18 LORazepam [Ativan] 0.5 mg PO DAILY 08/18/18 08/18/18 Multivit-Min/Iron/Folic/Ycs920 1 each PO DAILY 08/18/18 08/18/18 [Hair, Skin & Nails Caplet] Oxybutynin Chloride [Ditropan Xl] 5 mg PO Q12 08/18/18 08/18/18 Ranitidine HCl [Sunmark Acid 150 mg PO BID 08/18/18 08/18/18 Specimen Boss] Risperidone [Risperdal] 1 mg PO BID 08/18/18 08/18/18 Review of Systems - Physician Review All systems were reviewed & negative as marked: Yes - Review of Systems Constitutional: Normal. absent: Fevers Eyes: Vision Changes ENT: Normal. absent: Sore Throat, Sinus Congestion Respiratory: Normal. absent: SOB, Cough Cardiovascular: Normal. absent: Chest Pain, Palpitations, Syncope Gastrointestinal: Normal. absent: Abdominal Pain, Nausea, Vomiting Genitourinary Female: Normal Musculoskeletal: Normal. absent: Back Pain, Neck Pain Skin: Normal. absent: Rash Neurological: Headache. absent: Focal Weakness, Gait Changes, Speech Changes, Disequilibrium, Seizure Endocrine: Normal Hemo/Lymphatic: Normal Psychiatric: Anxiety, Other (Hallucinations: auditory and visual) Physical Exam Vital Signs Reviewed: Yes Temperature: Afebrile Blood Pressure: Normal Pulse: Regular Respiratory Rate: Normal Appearance: Positive for: Well-Appearing, Non-Toxic, Comfortable Pain Distress: None Mental Status: Positive for: Alert and Oriented X 3 - Systems Exam Head: Present: Atraumatic, Normocephalic Pupils: Present: PERRL Extroacular Muscles: Present: EOMI Conjunctiva: Present: Normal Ears: Present: Normal Mouth: Present: Moist Mucous Membranes Pharnyx: Present: Normal Nose (External): Present: Atraumatic Nose (Internal): Present: Normal Inspection Neck: Present: Normal Range of Motion Respiratory/Chest: Present: Clear to Auscultation, Good Air Exchange. No: Respiratory Distress, Accessory Muscle Use Cardiovascular: Present: Regular Rate and Rhythm, Normal S1, S2, Peripheal Pulses Present. No: Murmurs Abdomen: Present: Normal Bowel Sounds. No: Tenderness, Distention, Peritoneal Signs, Rebound, Guarding Back: Present: Normal Inspection. No: CVA Tenderness, Midline Tenderness, Paraspinal Tenderness Upper Extremity: Present: Normal Inspection, Normal ROM, NORMAL PULSES, Capillary Refill < 2s. No: Cyanosis, Edema Lower Extremity: Present: Normal Inspection, NORMAL PULSES, Normal ROM, Capillary Refill < 2 s. No: Edema Neurological: Present: GCS=15, CN II-XII Intact, Speech Normal, Motor Func Grossly Intact, Normal Sensory Function, Normal Cerebellar Funct, Gait Normal Skin: Present: Warm, Dry, Normal Color. No: Rashes Lymphatic: No: Cervical Adenopathy Psychiatric: Present: Alert, Oriented x 3, Anxious, Hallucinations. No: Normal Affect (flat), Agitated, Suicidal Ideation, Homicidal Ideation Medical Decision Making ED Course and Treatment: Initial Plan: * CBC, CMP * Valproic Acid level * Acetaminophen, Salicylate, Alcohol * UA, UDS * EKG * CXR * Head CT * Tylenol CBC: wnl CMP: wnl Valproic Acid: 48 (low) Acetaminophen: neg Salicylate: wnl Alcohol: neg UDS: neg UA: trace blood, otherwise wnl CXR: no active disease Head CT: negative Patient reports resolution of headache. Patient is medically cleared for psychiatric evaluation. 12:45 PEPE Paige evaluating patient at bedside. 13:30 Patient states she is hallucinating and hearing voices telling her to kill herself. Patient visibly anxious. Will order 1:1 and alert PES. 14:40 After speaking again with Grecia Chen advises that patient will be admitted with the diagnosis of schizophrenia. Plan of care discussed with patient, who agrees and understands the necessity of admission. Patient continues to be calm in the ED, no physical complaints, vital signs stable. - Lab Interpretations Narrative Lab Interpretation (Text): 08/18/18 21:24 08/18/18 11:30 08/18/18 11:30 Lab Results 08/18/18 11:30: Valproic Acid 48 L 08/18/18 11:30: Alcohol, Quantitative < 10 08/18/18 11:30: Salicylates < 1 L, Acetaminophen < 10.0 L 08/18/18 11:30: Urine Opiates Screen Negative, Urine Methadone Screen Negative, Ur Barbiturates Screen Negative, Ur Phencyclidine Scrn Negative, Ur Amphetamines Screen Negative, U Benzodiazepines Scrn Negative, U Oth Cocaine Metabols Negative, U Cannabinoids Screen Negative 08/18/18 11:30: Sodium 138, Potassium 4.2, Chloride 104, Carbon Dioxide 27, Anion Gap 12, BUN 11, Creatinine 0.7, Est GFR ( Amer) > 60, Est GFR (Non- Af Amer) > 60, Random Glucose 98, Calcium 9.5, Total Bilirubin 0.3, AST 26, ALT 33, Alkaline Phosphatase 60, Total Protein 8.3, Albumin 4.3, Globulin 4.0, Albumin/Globulin Ratio 1.1 08/18/18 11:30: Urine Color Yellow, Urine Appearance Clear, Urine pH 6.0, Ur S pecific Spicer 1.025, Urine Protein Negative, Urine Glucose (UA) Negative, Urine Ketones Negative, Urine Blood Trace-intact H, Urine Nitrate Negative, Urine Bilirubin Negative, Urine Urobilinogen 0.2, Ur Leukocyte Esterase Negative, Urine RBC 2 - 5, Urine WBC 0 - 2, Ur Epithelial Cells 4 - 5, Urine Bacteria Few, Urine HCG, Qual Negative 08/18/18 11:30: WBC 5.8, RBC 4.26, Hgb 12.6, Hct 38.3, MCV 89.9, MCH 29.6, MCHC 32.9, RDW 13.8, Plt Count 250, MPV 9.6, Gran % 56.3, Lymph % (Auto) 33.8, [place] % (Auto) 8.7 H, Eos % (Auto) 0.9 L, Baso % (Auto) 0.3, Gran # 3.25, Lymph # (Auto) 2.0, [place] # (Auto) 0.5, Eos # (Auto) 0.1, Baso # (Auto) 0.02 I have reviewed the lab results: Yes - RAD Interpretation Narrative RAD Interpretations (Text): 08/18/18 21:25 08/18/18 11:30 CHEST PORTABLE [RAD] Stat 08/18/18 11:32 HEAD W/O CONTRAST [CT] Stat Primer Inspector: Radiologist - EKG Interpretation EKG Interpretation (Text): rate 61; NSR; normal intervals; no ST elevations/depressions or other signs of acute ischemia Interpreted by ED Physician: Yes Type: 12 lead EKG Disposition/Present on Arrival - Present on Arrival Any Indicators Present on Arrival: No History of DVT/PE: No History of Uncontrolled Diabetes: No Urinary Catheter: No History of Decub. Ulcer: No History Surgical Site Infection Following: None - Disposition Have Diagnosis and Disposition been Completed?: Yes Diagnosis: Schizophrenia Disposition: HOSPITALIZED Disposition Time: 14:00 Patient Plan: Admission Patient Problems: Current Active Problems Problem Status Onset Schizophrenia Acute Condition: STABLE
[2018-08-18 11:48] LABS: BASO # 0.02 K/mm3 (0.0-2.0); BASO % 0.3 % (0.0-3.0); EOS # 0.1 (0.0-0.7); EOS % 0.9 % (1.5-5.0); GRAN # 3.25 (1.4-6.5); GRAN % 56.3 % (50.0-68.0); HEMOGLOBIN 12.6 g/dL (12.0-16.0); LYMPH % 33.8 % (22.0-35.0); MEAN CELL VOLUME 89.9 fl (80.0-105.0); MEAN CORPUSCULAR HEMOGLOBIN 29.6 pg (25.0-35.0); MEAN CORPUSCULAR HGB CONC 32.9 g/dl (31.0-37.0); MEAN PLATELET VOLUME 9.6 fl (7.0-11.0); MONO # 0.5 (0.1-0.6); MONO % 8.7 % (1.0-6.0); RBC 4.26 10^6/uL (3.5-6.1); RED CELL DISTRIBUTION WIDTH 13.8 % (11.5-14.5); WHITE BLOOD COUNT 5.8 10^3/uL (4.5-11.0)
[2018-08-18 11:49] LABS: URINE APPEARANCE CLEAR (CLEAR); URINE BILIRUBIN NEGATIVE (NEGATIVE); URINE BLOOD TRACE-INTACT (NEGATIVE); URINE COLOR YELLOW (YELLOW); URINE GLUCOSE (UA) NEGATIVE (NEGATIVE); URINE LEUKOCYTE ESTERASE NEGATIVE Leu/uL (NEGATIVE); URINE PROTEIN NEGATIVE mg/dL (<30 mg/dL); URINE UROBILINOGEN 0.2 E.U./dL (<1 E.U./dL)
[2018-08-18 11:50] LABS: HCG,QUALITATIVE URINE NEGATIVE (NEGATIVE)
[2018-08-18 12:00] LABS: ACETAMINOPHEN < 10.0 ug/ml (10.0-20.0); SALICYLATE < 1 mg/dL (2.0-20.0)
[2018-08-18 12:01] LABS: ALB/GLOB RATIO 1.1 (1.1-1.8); ALBUMIN 4.3 g/dL (3.0-4.8); ALT/SGPT 33 U/L (7-56); AST/SGOT 26 U/L (14-36); BLOOD UREA NITROGEN 11 mg/dL (7-21); CALCIUM 9.5 mg/dL (8.4-10.5); GFR NON-AFRICAN AMERICAN > 60
--- NOTE | 2018-08-18 12:01 | RAD ---
Date of service: 08/18/2018 HISTORY: psych COMPARISON: 03/16/2017 and 02/16/2017 serial chest radiographs FINDINGS: LUNGS: No active pulmonary disease. PLEURA: No significant pleural effusion identified, no pneumothorax apparent. CARDIOVASCULAR: No atherosclerotic calcification present Normal. OSSEOUS STRUCTURES: No significant abnormalities. VISUALIZED UPPER ABDOMEN: Normal. OTHER FINDINGS: None. IMPRESSION: No active disease. No significant interval change compared to the prior examination(s).
[2018-08-18 12:22] LABS: URINE BACTERIA FEW (NEG); URINE WBC 0 - 2 /hpf (0-6)
--- NOTE | 2018-08-18 12:29 | CT ---
Date of service: 08/18/2018 PROCEDURE: CT HEAD WITHOUT CONTRAST. HISTORY: headache COMPARISON: 07/24/2017 TECHNIQUE: Axial computed tomography images were obtained through the head/brain without intravenous contrast. Radiation dose: Total exam DLP = 1153 mGy-cm. This CT exam was performed using one or more of the following dose reduction techniques: Automated exposure control, adjustment of the mA and/or kV according to patient size, and/or use of iterative reconstruction technique. FINDINGS: HEMORRHAGE: No intracranial hemorrhage. BRAIN: No mass effect or edema. No atrophy or chronic microvascular ischemic changes. VENTRICLES: Unremarkable. No hydrocephalus. CALVARIUM: Unremarkable. PARANASAL SINUSES: Unremarkable as visualized. No significant inflammatory changes. MASTOID AIR CELLS: Unremarkable as visualized. No inflammatory changes. OTHER FINDINGS: None. IMPRESSION: No acute findings
[2018-08-18] MEDS ORDERED: Sodium Chloride 0.9% 1,000 ML IV STA (12:45)
[2018-08-18 13:06] LABS: BARBITURATES, UR NEGATIVE (NEGATIVE)
[2018-08-18 13:07] LABS: BENZODIAZEPINES, UR NEGATIVE (NEGATIVE); OPIATES, UR NEGATIVE (NEGATIVE); PHENCYCLIDINE, UR NEGATIVE (NEGATIVE)
--- NOTE | 2018-08-18 14:06 | CARD ---
APPROVED REPORT Date of service: 08/18/2018 EKG Measurement Heart [id number] <Conclusion> Normal sinus rhythm with sinus arrhythmia NSSTW changes
[2018-08-18 16:56] VITALS: O2SAT 99
[2018-08-18] MEDS ORDERED: Alum-Mag Hydrox-Simethicone Susp (30 mL) PO PRN (17:31)
[2018-08-18] MEDS ORDERED: Magnesium Hydroxide Susp 30 ml UD PO PRN (17:31)
[2018-08-18] MEDS ORDERED: Influenza Vaccine 60 mcg/0.5 mL SYR (4YR UP) IM ONE (18:37)
--- NOTE | 2018-08-18 18:38 | PCM.BM ---
<Kathia Leblanc - Last Filed: 08/18/18 18:35> Treatment Plan Problems - Problems identified on initial assessmt Command/Auditory Hallucinations Date Initiated: 08/18/18 Time Initiated: 18:36 Assessment reference: NA Status: Active Priority: 1 Visual Hallucinations Date Initiated: 08/18/18 Time Initiated: 18:37 Assessment reference: NA Status: Active Priority: 2 Ineffective Coping Date Initiated: 08/18/18 Time Initiated: 18:37 Assessment reference: NA Status: Active Treatment assets and liabiliti Patient Assests: adapts well, cooperative, self-reliant, ADL independent, negotiates basic needs, good interpersonal skills Patient Liabilities: language/speech - Milieu Protocol Maintain good personal hygiene: daily Encourage regular showers, daily Remind patient to perform daily oral care, daily Assist patient to perform ADL's Maintain personal safety: every shift Educate patient to report safety concerns to staff, every shift Monitor environment for contraband/sharps Medication safety: Monitor for expected outcome, potential side effects: every shift, Assess barriers to learning: every shift, Assess readiness for medication education: every shift Discharge/Continuing Care - Education Needs Education Needs: Patient Medication, Patient Diagnosis/Disease Process, Patient Coping Skills, Patient Anger Management skills, Patient Placement options, Patient Community resources, Patient Activities of Daily Living, Patient Pain, Patient Nutrition, Patient Health Practices/Safety, Patient Personal Hygiene/Grooming, Patient Aftercare Safety Plan - Discharge Discharge Criteria: Tolerates medication w/o severe side effects, Free of Suicidal thoughts, Free of Homicidal thoughts, Normal sleep pattern, Ability to care for self, Reduction of target symptoms Discharge to:: Home <Tina Jeong - Last Filed: 08/19/18 10:25> - Diagnosis (1) Schizophrenia Status: Acute Interventions: 08/19/18 10:25 group, milieu and supportive tx * depakote 500 mg AMHS for mood control. VPA=48 * Ativan 0.5 mg po bid prn: anxiety * Risperdal 1 mg bid for hallucinations * Celexa 20 mg po daily for depression and anxiety (2) Anxiety Status: Acute Interventions: 08/19/18 10:26 group, milieu and supportive tx * depakote 500 mg AMHS for mood control. VPA=48 * Ativan 0.5 mg po bid prn: anxiety * Risperdal 1 mg bid for hallucinations * Celexa 20 mg po daily for depression and anxiety <Patrizia Strickland Y - Last Filed: 08/20/18 16:38> Family Contact Family involvement: Famliy/SO not involved - Outside Agency [facility] Care involvment: Following patient during stay, Information-sharing Agency contact name: [facility], case preparer and liner, Yanira Sayra Agency contact number: [phone] C:[phone] [facility] Care involvment: Information-sharing Agency contact name: [facility] Agency contact number: [phone]
[2018-08-18] MEDS ORDERED: Divalproex 250 mg DR (BID formulation) PO SCH (19:15)
[2018-08-18] MEDS: Divalproex 500 mg DR(BID formulation) PO SCH (21:13)
[2018-08-19 08:00] LABS: HDL CHOLESTEROL 34 mg/dL (29-60)
[2018-08-19 08:12] LABS: LDL CHOLESTEROL 85 mg/dL (0-129)
[2018-08-19 08:17] LABS: FREE T4 1.05 ng/dL (0.78-2.19)
[2018-08-19] MEDS: Divalproex 500 mg DR(BID formulation) PO SCH ×2 (09:11→21:35)
[2018-08-19] MEDS: OXYBUTYNIN CHLORIDE 5 MG PO SCH ×2 (09:49→13:32)
--- NOTE | 2018-08-19 10:25 | PCM.PSYCH ---
Initial Psychiatric Evaluation - Initial Psychiatric Evaluation Type of Admission: Voluntary Legal Status: Capacity History of Present Illness and Precipitating Events: Shortly pt is 37yo Female with h/o schizophrenia vs schizoaffective disorder, has cognitive limitations, learning disabilities, h/o mulitple admissions in the past, Most recent was 05/27/17-06/05/17 on this unit, currently under care of [facility], "Dr. Morel", reportedly compliant with medications depakote 500 mg AMHS, Ativan 0.5 mg po bid prn, risperdal 1 mg bid and Celexa 20 mg daily who presented to the ER on 08/18/18 because of panic attacks, anxiety, CAH telling her to harm herself and VH of "people walking" Patient presented well at time of initial evaluation. She was calm and oriented to month, year, location and circumstances. She denies any new stressors precipitating increase in anxiety and hallucinations. Thought process is generally organized and focus is good. Patient has been tolerating medications that were restarted on the unit. She denies any current hallucinations however confirms ER report of CAH telling her to harm herself and VH of "people walking".. Patient has been in good control on the unit. PSYCHIATRIC HISTORY Patient has numerous admissions to this unit however her most recent admission was over a year ago 05/27/17-06/05/17. She was discharged on: celexa 20 mg PO DAILY Depakote DR BID 500 mg PO AMHS Ativan 0.5 mg PO AMHS Risperdal 1 mg PO TID SOCIAL HISTORY Patient resides with 14 yo son and cielo. Cielo is currently supervising son at this time. She denies any drug or alcohol use. Denies nicotine use. The patient failed the outpatient lower level of care: Yes Current Medications: Active Medications Generic Name Dose Route Start Last Admin Trade Name Freq PRN Reason Stop Dose Admin Acetaminophen 650 mg 08/18/18 17:31 Tylenol 325mg Tab PO Q4 PRN Pain, moderate (4-7) Al Hydrox/Mg Hydrox/Simethicone 30 ml 08/18/18 17:31 Maalox Plus 30 Ml PO DAILY PRN Upset Stomach Benztropine Mesylate 0.5 mg 08/18/18 19:15 08/18/18 20:05 Cogentin PO 0.5 mg BID YOU Administration Citalopram Hydrobromide 20 mg 08/19/18 08:00 Celexa PO DAILY YOU Divalproex Sodium 500 mg 08/18/18 22:00 08/18/18 21:13 Gonzalez Duong(*Bid*) PO 500 mg AMHS YOU Administration Lorazepam 0.5 mg 08/18/18 19:05 08/18/18 20:06 Ativan PO 0.5 mg BID PRN Administration Anxiety Protocol Magnesium Hydroxide 30 ml 08/18/18 17:31 Milk Of Magnesia PO DAILY PRN Constipation Risperidone 1 mg 08/18/18 19:15 08/18/18 20:05 Risperdal Tab PO 1 mg BID YOU Administration Protocol Present on Admission - Present on Admission Any Indicators Present on Admission: No - Notes: Notes:: Please refer to findings from physical exams and ROS from 08/18/18 ER records at [facility] Review of Systems - Review of Systems Review of Systems: Please refer to findings from physical exams and ROS from 08/18/18 ER records at [facility] - Constitutional Constitutional: As Per HPI - EENT Eyes: As Per HPI Ears: As Per HPI Nose/Mouth/Throat: As Per HPI - Breasts Breasts: As Per HPI - Cardiovascular Cardiovascular: As Per HPI - Respiratory Respiratory: As Per HPI - Gastrointestinal Gastrointestinal: As Per HPI - Genitourinary Genitourinary: As Per HPI - Reproductive: Female Reproductive:Female: As Per HPI - Menstruation Menstruation: As Per HPI - Musculoskeletal Musculoskeletal: As Per HPI - Integumentary Integumentary: As Per HPI - Neurological Neurological: As Per HPI - Psychiatric Psychiatric: As Per HPI - Endocrine Endocrine: As Per HPI - Hematologic/Lymphatic Hematologic: As Per HPI Past Patient History - Past Psychiatric History Previous Treatment History: Inpatient Prior Professional Help: See HPI - PSYCHIATRIC Hx Psychophysiologic Disorder: Yes Hx Anxiety: Yes Hx Bipolar Disorder: Yes Hx Depression: Yes Hx Schizophrenia: Yes Hx Substance Use: No Other/Comment: schizo affective disorder - Infectious Disease Hx of Infectious Diseases: None - Tetanus Immunizations Tetanus Immunization: Unknown - Past Medical History & Family History Past Medical History?: Yes - CARDIAC Hx Cardiac Disorders: Yes Hx Hypertension: Yes (hypertension) - PULMONARY Hx Respiratory Disorders: No - NEUROLOGICAL Hx Neurological Disorder: Yes Hx Seizures: Yes - HEENT Hx HEENT Problems: No - RENAL Hx Chronic Kidney Disease: No - ENDOCRINE/METABOLIC Hx Endocrine Disorders: Yes Hx Diabetes Mellitus Type 2: Yes - HEMATOLOGICAL/ONCOLOGICAL Hx Blood Disorders: No - INTEGUMENTARY Hx Dermatological Problems: No - MUSCULOSKELETAL/RHEUMATOLOGICAL Hx Musculoskeletal Disorders: No - GASTROINTESTINAL Hx Gastrointestinal Disorders: No - GENITOURINARY/GYNECOLOGICAL Hx Genitourinary Disorders: No Hx Sexually Transmitted Disorders: No - SURGICAL HISTORY Hx Hysterectomy: Yes Hx Tubal Ligation: Yes - ANESTHESIA Hx Anesthesia: Yes Hx Anesthesia Reactions: No Hx Malignant Hyperthermia: No Meds Allergies/Adverse Reactions: Allergies Allergy/AdvReac Type Severity Reaction Status Date / Time No Known Allergies Allergy Verified 08/18/18 22:47 Mental Status Examination - Personal Presentation Personal Presentation: Looks stated age - Affect Affect: Constricted - Motor Activity Motor Activity: Calm - Reliability in Providing Information Reliability in Providing Information: Fair - Speech Speech: Organized - Mood Mood: Anxious - Formal Thought Process Formal Thought Process: No Impairment, Hallucinations - Hallucinations/Delusions Hallucinations: Visual, Auditory - Obsessions/Compulsions Obsessions: No Compulsions: No - Cognitive Functions Orientation: Person, Place, Situation Sensorium: Alert Attention/Concentration: Easily distracted Abstract Thinking: [place] Estimate of Intelligence: Average Judgement: Imparied, as evidence by: Poor judgement, Imparied, as evidence by: Lack of insight into illness Memory: Recent impaired, as evidence by: Inability to recall events of the day, Remote impaired as evidenced by: Inability to recall sig life events - Strength & Assets Inventory Strength & Assets Inventory: Cooperative Psychiatric Physical Exam - Physical Exam Reviewed and confirmed: Emergency Department Physical Exam (Please refer to findings from physical exams and ROS from 08/18/18 ER records at [facility] ) Results - Vital Signs Recent Vital Signs: Last Vital Signs Temp 98.2 F 08/18/18 16:55 Pulse 72 08/18/18 16:55 Resp 18 08/18/18 16:55 BP 119/87 08/18/18 16:51 Pulse Ox 99 08/18/18 16:55 - Labs Result Diagrams: 08/18/18 11:30 08/18/18 11:30 Labs: Laboratory Results - last 24 hr 08/18/18 08/18/18 08/18/18 11:30 11:30 11:30 WBC 5.8 RBC 4.26 Hgb 12.6 Hct 38.3 MCV 89.9 MCH 29.6 MCHC 32.9 RDW 13.8 Plt Count 250 MPV 9.6 Gran % 56.3 Lymph % (Auto) 33.8 [place] % (Auto) 8.7 H Eos % (Auto) 0.9 L Baso % (Auto) 0.3 Gran # 3.25 Lymph # (Auto) 2.0 [place] # (Auto) 0.5 Eos # (Auto) 0.1 Baso # (Auto) 0.02 Sodium 138 Potassium 4.2 Chloride 104 Carbon Dioxide 27 Anion Gap 12 BUN 11 Creatinine 0.7 Est GFR ( Amer) > 60 Est GFR (Non-Af Amer) > 60 Random Glucose 98 Calcium 9.5 Total Bilirubin 0.3 AST 26 ALT 33 Alkaline Phosphatase 60 Total Protein 8.3 Albumin 4.3 Globulin 4.0 Albumin/Globulin Ratio 1.1 Urine Color Yellow Urine Appearance Clear Urine pH 6.0 Ur Specific [place] 1.025 Urine Protein Negative Urine Glucose (UA) Negative Urine Ketones Negative Urine Blood Trace-intact H Urine Nitrate Negative Urine Bilirubin Negative Urine Urobilinogen 0.2 Ur Leukocyte Esterase Negative Urine RBC 2 - 5 Urine WBC 0 - 2 Ur Epithelial Cells 4 - 5 Urine Bacteria Few Urine HCG, Qual Negative Salicylates Urine Opiates Screen Urine Methadone Screen Acetaminophen Ur Barbiturates Screen Valproic Acid Ur Phencyclidine Scrn Ur Amphetamines Screen U Benzodiazepines Scrn U Oth Cocaine Metabols U Cannabinoids Screen Alcohol, Quantitative 08/18/18 08/18/18 08/18/18 11:30 11:30 11:30 WBC RBC Hgb Hct MCV MCH MCHC RDW Plt Count MPV Gran % Lymph % (Auto) [place] % (Auto) Eos % (Auto) Baso % (Auto) Gran # Lymph # (Auto) [place] # (Auto) Eos # (Auto) Baso # (Auto) Sodium Potassium Chloride Carbon Dioxide Anion Gap BUN Creatinine Est GFR ( Amer) Est GFR (Non-Af Amer) Random Glucose Calcium Total Bilirubin AST ALT Alkaline Phosphatase Total Protein Albumin Globulin Albumin/Globulin Ratio Urine Color Urine Appearance Urine pH Ur Specific [place] Urine Protein Urine Glucose (UA) Urine Ketones Urine Blood Urine Nitrate Urine Bilirubin Urine Urobilinogen Ur Leukocyte Esterase Urine RBC Urine WBC Ur Epithelial Cells Urine Bacteria Urine HCG, Qual Salicylates < 1 L Urine Opiates Screen Negative Urine Methadone Screen Negative Acetaminophen < 10.0 L Ur Barbiturates Screen Negative Valproic Acid Ur Phencyclidine Scrn Negative Ur Amphetamines Screen Negative U Benzodiazepines Scrn Negative U Oth Cocaine Metabols Negative U Cannabinoids Screen Negative Alcohol, Quantitative < 10 08/18/18 11:30 WBC RBC Hgb Hct MCV MCH MCHC RDW Plt Count MPV Gran % Lymph % (Auto) [place] % (Auto) Eos % (Auto) Baso % (Auto) Gran # Lymph # (Auto) [place] # (Auto) Eos # (Auto) Baso # (Auto) Sodium Potassium Chloride Carbon Dioxide Anion Gap BUN Creatinine Est GFR ( Amer) Est GFR (Non-Af Amer) Random Glucose Calcium Total Bilirubin AST ALT Alkaline Phosphatase Total Protein Albumin Globulin Albumin/Globulin Ratio Urine Color Urine Appearance Urine pH Ur Specific [place] Urine Protein Urine Glucose (UA) Urine Ketones Urine Blood Urine Nitrate Urine Bilirubin Urine Urobilinogen Ur Leukocyte Esterase Urine RBC Urine WBC Ur Epithelial Cells Urine Bacteria Urine HCG, Qual Salicylates Urine Opiates Screen Urine Methadone Screen Acetaminophen Ur Barbiturates Screen Valproic Acid 48 L Ur Phencyclidine Scrn Ur Amphetamines Screen U Benzodiazepines Scrn U Oth Cocaine Metabols U Cannabinoids Screen Alcohol, Quantitative - Impressions Impression: Please refer to findings from physical exams and ROS from 08/18/18 ER records at [facility] DSM Plan - DSM 5 DSM 5 Diagnosis: Schizoaffective Disorder Panic Disorder - Recommended/Plan of Treatment Treatment Recommendations and Plan of Treatment: * group, milieu and supportive tx * depakote 500 mg AMHS for mood control. VPA=48 * Ativan 0.5 mg po bid prn: anxiety * Risperdal 1 mg bid for hallucinations * Celexa 20 mg po daily for depression and anxiety * Awaiting medical f/u * Vitals reviewed and noted below: Selected Entries 08/18/18 08/18/18 16:51 16:55 Temperature 98.2 F 98.2 F Pulse Rate 70 72 Respiratory 18 18 Rate Blood Pressure 119/87 Please refer to findings from physical exams and ROS from 08/18/18 ER records at [facility] PER 08/18/18 ER RECORD CBC: wnl CMP: wnl Valproic Acid: 48 (low) Acetaminophen: neg Salicylate: wnl Alcohol: neg UDS: neg UA: trace blood, otherwise wnl CXR: no active disease Head CT: negative ADMISSION LABS Laboratory Tests 08/18/18 08/18/18 08/18/18 11:30 11:30 11:30 WBC 5.8 RBC 4.26 Hgb 12.6 Hct 38.3 MCV 89.9 MCH 29.6 MCHC 32.9 RDW 13.8 Plt Count 250 MPV 9.6 Gran % 56.3 Lymph % (Auto) 33.8 [place] % (Auto) 8.7 H Eos % (Auto) 0.9 L Baso % (Auto) 0.3 Gran # 3.25 Lymph # (Auto) 2.0 [place] # (Auto) 0.5 Eos # (Auto) 0.1 Baso # (Auto) 0.02 Sodium 138 Potassium 4.2 Chloride 104 Carbon Dioxide 27 Anion Gap 12 BUN 11 Creatinine 0.7 Est GFR ( Amer) > 60 Est GFR (Non-Af Amer) > 60 Random Glucose 98 Calcium 9.5 Total Bilirubin 0.3 AST 26 ALT 33 Alkaline Phosphatase 60 Total Protein 8.3 Albumin 4.3 Globulin 4.0 Albumin/Globulin Ratio 1.1 Triglycerides Cholesterol LDL Cholesterol Direct HDL Cholesterol Free T4 TSH 3rd Generation Urine Color Yellow Urine Appearance Clear Urine pH 6.0 Ur Specific [place] 1.025 Urine Protein Negative Urine Glucose (UA) Negative Urine Ketones Negative Urine Blood Trace-intact H Urine Nitrate Negative Urine Bilirubin Negative Urine Urobilinogen 0.2 Ur Leukocyte Esterase Negative Urine RBC 2 - 5 Urine WBC 0 - 2 Ur Epithelial Cells 4 - 5 Urine Bacteria Few Urine HCG, Qual Negative Salicylates Urine Opiates Screen Urine Methadone Screen Acetaminophen Ur Barbiturates Screen Valproic Acid Ur Phencyclidine Scrn Ur Amphetamines Screen U Benzodiazepines Scrn U Oth Cocaine Metabols U Cannabinoids Screen Alcohol, Quantitative 08/18/18 08/18/18 08/18/18 11:30 11:30 11:30 WBC RBC Hgb Hct MCV MCH MCHC RDW Plt Count MPV Gran % Lymph % (Auto) [place] % (Auto) Eos % (Auto) Baso % (Auto) Gran # Lymph # (Auto) [place] # (Auto) Eos # (Auto) Baso # (Auto) Sodium Potassium Chloride Carbon Dioxide Anion Gap BUN Creatinine Est GFR ( Amer) Est GFR (Non-Af Amer) Random Glucose Calcium Total Bilirubin AST ALT Alkaline Phosphatase Total Protein Albumin Globulin Albumin/Globulin Ratio Triglycerides Cholesterol LDL Cholesterol Direct HDL Cholesterol Free T4 TSH 3rd Generation Urine Color Urine Appearance Urine pH Ur Specific [place] Urine Protein Urine Glucose (UA) Urine Ketones Urine Blood Urine Nitrate Urine Bilirubin Urine Urobilinogen Ur Leukocyte Esterase Urine RBC Urine WBC Ur Epithelial Cells Urine Bacteria Urine HCG, Qual Salicylates < 1 L Urine Opiates Screen Negative Urine Methadone Screen Negative Acetaminophen < 10.0 L Ur Barbiturates Screen Negative Valproic Acid Ur Phencyclidine Scrn Negative Ur Amphetamines Screen Negative U Benzodiazepines Scrn Negative U Oth Cocaine Metabols Negative U Cannabinoids Screen Negative Alcohol, Quantitative < 10 08/18/18 08/19/18 08/19/18 11:30 07:20 07:20 WBC RBC Hgb Hct MCV MCH MCHC RDW Plt Count MPV Gran % Lymph % (Auto) [place] % (Auto) Eos % (Auto) Baso % (Auto) Gran # Lymph # (Auto) [place] # (Auto) Eos # (Auto) Baso # (Auto) Sodium Potassium Chloride Carbon Dioxide Anion Gap BUN Creatinine Est GFR ( Amer) Est GFR (Non-Af Amer) Random Glucose Calcium Total Bilirubin AST ALT Alkaline Phosphatase Total Protein Albumin Globulin Albumin/Globulin Ratio Triglycerides 81 Cholesterol 138 LDL Cholesterol Direct 85 HDL Cholesterol 34 Free T4 1.05 TSH 3rd Generation 3.92 Urine Color Urine Appearance Urine pH Ur Specific [place] Urine Protein Urine Glucose (UA) Urine Ketones Urine Blood Urine Nitrate Urine Bilirubin Urine Urobilinogen Ur Leukocyte Esterase Urine RBC Urine WBC Ur Epithelial Cells Urine Bacteria Urine HCG, Qual Salicylates Urine Opiates Screen Urine Methadone Screen Acetaminophen Ur Barbiturates Screen Valproic Acid 48 L Ur Phencyclidine Scrn Ur Amphetamines Screen U Benzodiazepines Scrn U Oth Cocaine Metabols U Cannabinoids Screen Alcohol, Quantitative Prognosis: Guarded Discharge Plan and Discharge Criteria: f/u with Dr. Morel - Tobacco Cessation Tobacco Use Status for the last 30 days: Non User Tobacco Use Treatment Practical Counseling Provided: No Tobacco Use Treatment FDA-Approved Cessation Medication Provided: No Initial Psych Certification - Initial Certification I certify that the inpatient psychiatric facility admission was medically necessary for either: Treatment which could reasonbly be expected to improve pt's condition, Diagnostic study I estimate of hospitalization is necessary for proper treatment of the patient: 7 Unit of Time: Days
--- NOTE | 2018-08-19 11:59 | CP.PCM.CON ---
<Chuy Mora - Last Filed: 08/19/18 11:44> History of Present Illness - History of Present Illness History of Present Illness: Internal Medicine Consultation (Hospitalist's Service) CC: Urinary Incontinence HPI: Ms. Humphries is a 37 year old female with a past medical history significant for unspecified seizure disorder, HTN, NIDDM2, anxiety, depression, schizoaffective disorder and urinary incontinence who originally presented with an acute exacerbation of anxiety with multiple panic attacks that consisted of dizziness, blurry vision, facial paresthesias, and hallucinations. Internal Medicine was consulted for urinary incontinence. Patient takes Ditropan as well as wears disposable diapers for this problem at home. She reports that she follows up with a urologist regularly for this as an outpatient. She denies any other complaints at this time including fevers, chills, headache, chest pain, SOB, abdominal pain, N/V/D/C, changes in urine output, changes in urine frequency, changes in urine color, changes in urine smell, dysuria, hematuria, skin changes or any numbness/tingling/weakness of any extremity. PMH: As stated above PSH: , Tubal Ligation and Hysterectomy Family History: Father-DM2 and HLD Social History: Denies any tobacco, alcohol or illicit drug abuse; Lives at home with her son and exhusband Allergies: NKDA (Notes stomach upset with ASA) Home Medications: Risperdal, Ranitidine, Ditropan 5mg PO BID, MV, Ativan, Colace, Valproic Acid, Celexa and Vitamin D PMD: Dr. Carlton Review of Systems - Review of Systems Review of Systems: As stated in HPI, otherwise negative Past Patient History - Infectious Disease Hx of Infectious Diseases: None - Tetanus Immunizations Tetanus Immunization: Unknown - Past Medical History & Family History Past Medical History?: Yes - Past Social History Smoking Status: Never Smoked - CARDIAC Hx Cardiac Disorders: Yes Hx Hypertension: Yes (hypertension) - PULMONARY Hx Respiratory Disorders: No - NEUROLOGICAL Hx Neurological Disorder: Yes Hx Seizures: Yes - HEENT Hx HEENT Problems: No - RENAL Hx Chronic Kidney Disease: No - ENDOCRINE/METABOLIC Hx Endocrine Disorders: Yes Hx Diabetes Mellitus Type 2: Yes - HEMATOLOGICAL/ONCOLOGICAL Hx Blood Disorders: No - INTEGUMENTARY Hx Dermatological Problems: No - MUSCULOSKELETAL/RHEUMATOLOGICAL Hx Musculoskeletal Disorders: No - GASTROINTESTINAL Hx Gastrointestinal Disorders: No - GENITOURINARY/GYNECOLOGICAL Hx Genitourinary Disorders: No Hx Sexually Transmitted Disorders: No - PSYCHIATRIC Hx Psychophysiologic Disorder: Yes Hx Anxiety: Yes Hx Bipolar Disorder: Yes Hx Depression: Yes Hx Schizophrenia: Yes Hx Substance Use: No Other/Comment: schizo affective disorder - SURGICAL HISTORY Hx Hysterectomy: Yes Hx Tubal Ligation: Yes - ANESTHESIA Hx Anesthesia: Yes Hx Anesthesia Reactions: No Hx Malignant Hyperthermia: No Meds Allergies/Adverse Reactions: Allergies Allergy/AdvReac Type Severity Reaction Status Date / Time No Known Allergies Allergy Verified 08/18/18 22:47 - Medications Medications: Current Medications Acetaminophen (Tylenol 325mg Tab) 650 mg PO Q4 PRN PRN Reason: Pain, moderate (4-7) Al Hydrox/Mg Hydrox/Simethicone (Maalox Plus 30 Ml) 30 ml PO DAILY PRN PRN Reason: Upset Stomach Benztropine Mesylate (Cogentin) 0.5 mg PO BID [facility] Last Admin: 08/19/18 09:10 Dose: 0.5 mg Citalopram Hydrobromide (Celexa) 20 mg PO DAILY [facility] Last Admin: 08/19/18 09:09 Dose: 20 mg Divalproex Sodium (Depakote Dr(*Bid*)) 500 mg PO AMHS [facility] Last Admin: 08/19/18 09:11 Dose: 500 mg Lorazepam (Ativan) 0.5 mg PO BID PRN; Protocol PRN Reason: Anxiety Last Admin: 08/18/18 20:06 Dose: 0.5 mg Magnesium Hydroxide (Milk Of Magnesia) 30 ml PO DAILY PRN PRN Reason: Constipation Oxybutynin Chloride [Ditropan Xl] 5 Mg ( Home) 5 mg PO Q12 [facility] Risperidone (Risperdal Tab) 1 mg PO BID [facility]; Protocol Last Admin: 08/19/18 09:10 Dose: 1 mg Physical Exam - Constitutional Appears: Non-toxic, No Acute Distress - Head Exam Head Exam: ATRAUMATIC, NORMOCEPHALIC - Eye Exam Eye Exam: EOMI, Normal appearance, PERRL Pupil Exam: NORMAL ACCOMODATION - ENT Exam ENT Exam: Mucous Membranes Moist, Normal Exam - Neck Exam Neck exam: Positive for: Full Rom, Normal Inspection - Respiratory Exam Respiratory Exam: Clear to Auscultation Bilateral, NORMAL BREATHING PATTERN. absent: Accessory Muscle Use, Rales, Rhonchi, Wheezes, Respiratory Distress - Cardiovascular Exam Cardiovascular Exam: REGULAR RHYTHM, RRR, +S1, +S2 - GI/Abdominal Exam GI & Abdominal Exam: Normal Bowel Sounds, Soft. absent: Tenderness - Extremities Exam Extremities exam: Positive for: normal inspection. Negative for: calf tenderness - Neurological Exam Neurological exam: Alert, Oriented x3 - Psychiatric Exam Psychiatric exam: Normal Affect, Normal Mood - Skin Skin Exam: Dry, Intact, Warm Results - Vital Signs Recent Vital Signs: Last Vital Signs Temp 98.4 F 08/19/18 07:05 Pulse 66 08/19/18 07:05 Resp 20 08/19/18 07:05 BP 107/70 08/19/18 07:05 Pulse Ox 99 08/18/18 16:55 - Labs Result Diagrams: 08/18/18 11:30 08/18/18 11:30 Labs: Laboratory Results - last 24 hr 08/18/18 08/18/18 08/18/18 11:30 11:30 11:30 WBC 5.8 RBC 4.26 Hgb 12.6 Hct 38.3 MCV 89.9 MCH 29.6 MCHC 32.9 RDW 13.8 Plt Count 250 MPV 9.6 Gran % 56.3 Lymph % (Auto) 33.8 [place] % (Auto) 8.7 H Eos % (Auto) 0.9 L Baso % (Auto) 0.3 Gran # 3.25 Lymph # (Auto) 2.0 [place] # (Auto) 0.5 Eos # (Auto) 0.1 Baso # (Auto) 0.02 Sodium 138 Potassium 4.2 Chloride 104 Carbon Dioxide 27 Anion Gap 12 BUN 11 Creatinine 0.7 Est GFR ( Amer) > 60 Est GFR (Non-Af Amer) > 60 Random Glucose 98 Calcium 9.5 Total Bilirubin 0.3 AST 26 ALT 33 Alkaline Phosphatase 60 Total Protein 8.3 Albumin 4.3 Globulin 4.0 Albumin/Globulin Ratio 1.1 Triglycerides Cholesterol LDL Cholesterol Direct HDL Cholesterol Free T4 TSH 3rd Generation Urine Color Yellow Urine Appearance Clear Urine pH 6.0 Ur Specific [place] 1.025 Urine Protein Negative Urine Glucose (UA) Negative Urine Ketones Negative Urine Blood Trace-intact H Urine Nitrate Negative Urine Bilirubin Negative Urine Urobilinogen 0.2 Ur Leukocyte Esterase Negative Urine RBC 2 - 5 Urine WBC 0 - 2 Ur Epithelial Cells 4 - 5 Urine Bacteria Few Urine HCG, Qual Negative Salicylates Urine Opiates Screen Urine Methadone Screen Acetaminophen Ur Barbiturates Screen Valproic Acid Ur Phencyclidine Scrn Ur Amphetamines Screen U Benzodiazepines Scrn U Oth Cocaine Metabols U Cannabinoids Screen Alcohol, Quantitative 08/18/18 08/18/18 08/18/18 11:30 11:30 11:30 WBC RBC Hgb Hct MCV MCH MCHC RDW Plt Count MPV Gran % Lymph % (Auto) [place] % (Auto) Eos % (Auto) Baso % (Auto) Gran # Lymph # (Auto) [place] # (Auto) Eos # (Auto) Baso # (Auto) Sodium Potassium Chloride Carbon Dioxide Anion Gap BUN Creatinine Est GFR ( Amer) Est GFR (Non-Af Amer) Random Glucose Calcium Total Bilirubin AST ALT Alkaline Phosphatase Total Protein Albumin Globulin Albumin/Globulin Ratio Triglycerides Cholesterol LDL Cholesterol Direct HDL Cholesterol Free T4 TSH 3rd Generation Urine Color Urine Appearance Urine pH Ur Specific [place] Urine Protein Urine Glucose (UA) Urine Ketones Urine Blood Urine Nitrate Urine Bilirubin Urine Urobilinogen Ur Leukocyte Esterase Urine RBC Urine WBC Ur Epithelial Cells Urine Bacteria Urine HCG, Qual Salicylates < 1 L Urine Opiates Screen Negative Urine Methadone Screen Negative Acetaminophen < 10.0 L Ur Barbiturates Screen Negative Valproic Acid Ur Phencyclidine Scrn Negative Ur Amphetamines Screen Negative U Benzodiazepines Scrn Negative U Oth Cocaine Metabols Negative U Cannabinoids Screen Negative Alcohol, Quantitative < 10 08/18/18 08/19/18 08/19/18 11:30 07:20 07:20 WBC RBC Hgb Hct MCV MCH MCHC RDW Plt Count MPV Gran % Lymph % (Auto) [place] % (Auto) Eos % (Auto) Baso % (Auto) Gran # Lymph # (Auto) [place] # (Auto) Eos # (Auto) Baso # (Auto) Sodium Potassium Chloride Carbon Dioxide Anion Gap BUN Creatinine Est GFR ( Amer) Est GFR (Non-Af Amer) Random Glucose Calcium Total Bilirubin AST ALT Alkaline Phosphatase Total Protein Albumin Globulin Albumin/Globulin Ratio Triglycerides 81 Cholesterol 138 LDL Cholesterol Direct 85 HDL Cholesterol 34 Free T4 1.05 TSH 3rd Generation 3.92 Urine Color Urine Appearance Urine pH Ur Specific [place] Urine Protein Urine Glucose (UA) Urine Ketones Urine Blood Urine Nitrate Urine Bilirubin Urine Urobilinogen Ur Leukocyte Esterase Urine RBC Urine WBC Ur Epithelial Cells Urine Bacteria Urine HCG, Qual Salicylates Urine Opiates Screen Urine Methadone Screen Acetaminophen Ur Barbiturates Screen Valproic Acid 48 L Ur Phencyclidine Scrn Ur Amphetamines Screen U Benzodiazepines Scrn U Oth Cocaine Metabols U Cannabinoids Screen Alcohol, Quantitative Assessment & Plan - Assessment and Plan (Free Text) Assessment: 37 year old female with a past medical history significant for unspecified seizure disorder, HTN, anxiety, depression, schizoaffective disorder and urinary incontinence who originally presented with an acute exacerbation of anxiety with multiple panic attacks that consisted of dizziness, blurry vision, facial paresthesias, and hallucinations. Internal Medicine was consulted for urinary incontinence. Plan: 1. Urinary Incontinence -No signs of UTI on UA - test negative -No history of DM2 and BS readings have been within normal limits -Continue home Ditropan 5mg PO BID 2. History of HTN -Well controlled off of medication at this time -Continue to monitor with daily VS 3. History of Anxiety/Depression/Schizoaffective Disorder -Continue management as per Psychiatry team Disposition: Patient can be restarted on her home Ditropan for urinary incontinence. Internal Medicine will be signing off of this patients care at this time. Please feel free to reconsult if needed. Patient seen and case discussed with attending, Dr. Cynthia Tee. Chuy Mora PGY2 - Date & Time Date: 08/19/18 Time: 12:00 <Cynthia Tee R - Last Filed: 08/20/18 14:27> Meds - Medications Medications: Current Medications Acetaminophen (Tylenol 325mg Tab) 650 mg PO Q4 PRN PRN Reason: Pain, moderate (4-7) Last Admin: 08/20/18 05:42 Dose: 650 mg Al Hydrox/Mg Hydrox/Simethicone (Maalox Plus 30 Ml) 30 ml PO DAILY PRN PRN Reason: Upset Stomach Benztropine Mesylate (Cogentin) 0.5 mg PO BID [facility] Last Admin: 08/20/18 09:49 Dose: 0.5 mg Citalopram Hydrobromide (Celexa) 20 mg PO DAILY [facility] Last Admin: 08/20/18 09:48 Dose: 20 mg Divalproex Sodium (Gonzalez Duong(*Bid*)) 500 mg PO AMHS [facility] Last Admin: 08/20/18 09:48 Dose: 500 mg Lorazepam (Ativan) 0.5 mg PO BID PRN; Protocol PRN Reason: Anxiety Last Admin: 08/18/18 20:06 Dose: 0.5 mg Magnesium Hydroxide (Milk Of Magnesia) 30 ml PO DAILY PRN PRN Reason: Constipation Oxybutynin Chloride [Ditropan Xl] 5 Mg ( Home) 5 mg PO Q12 [facility] Last Admin: 08/19/18 13:32 Dose: Not Given Risperidone (Risperdal Tab) 1 mg PO BID [facility]; Protocol Last Admin: 08/20/18 09:48 Dose: 1 mg Results - Vital Signs Recent Vital Signs: Last Vital Signs Temp 98.4 F 08/20/18 07:27 Pulse 60 08/20/18 07:27 Resp 20 08/20/18 07:27 BP 103/67 08/20/18 07:27 Pulse Ox 99 08/18/18 16:55 - Labs Result Diagrams: 08/18/18 11:30 08/18/18 11:30 Labs: Laboratory Results - last 24 hr 08/19/18 07:20 RPR Nonreactive Attending/Attestation - Attestation I have personally seen and examined this patient.: Yes I have fully participated in the care of the patient.: Yes I have reviewed all pertinent clinical information: Yes Notes (Text): Patient seen and examined by me with resident at 10AM on 08/19/18. Case including HPI, physical exam, and assessment and plan discussed with resident. Agree with above with following additions/corrections. Patient is a 37-year-old female past medical history significant for seizure disorder, schizophrenia, schizoaffective disorder, headaches, and learning disabilities that presented to the emergency room complaining of a headache and anxiety attack. We are consulted for history of urinary incontinence. Patient states she is feeling ok. States she had a panic attack at 5AM. She states that she was "crying" a lot and the nurse heard her and brought her some water which made her feel better. Patient states she looses her urine and wears pampers. She states she takes medications for this and follows with a doctor but she is unsure who the doctor is. She denies any dysuria or burning with urination. No increased urinary frequency. Patient denies any chest pain or shortness of breath. No fevers or chills. No headaches or dizziness. No nausea, vomiting, or abdominal pain. No diarrhea or constipation. 12 point review of systems reviewed by me. Please see above HPI, all other systems negative. Family history: Mother is alive and patient states she does not know her history. Father is alive and has high cholesterol and diabetes. Social history: Allergies: No known drug allergies Social history: Patient lives with her ex- and son. Denies any tobacco, alcohol, or drug use. Medications at home: Patient is unsure. Reviewed in patient's chart Physical exam: General: Awake and alert sitting up in chair in no acute distress HEENT: Normocephalic, atraumatic. Extraocular muscles intact, pupils equal and reactive, no scleral icterus. Oropharynx is pink and moist. Neck is supple. Cardiovascular: Regular rhythm. Normal S1 and S2. No murmurs, rubs, or gallops appreciated Pulmonary: Normal respiratory effort. No rhonchi, rales, or wheezing appreciated. Gastrointestinal: Soft, nondistended. Nontender. Positive bowel sounds all 4 quadrants. No guarding. Musculoskeletal: Moves all extremities. No calf tenderness. No edema appreciated. Central nervous system: AAO x 3. CN 2-12 grossly intact. 5/5 muscle strength all extremities. Dermatologic: Skin warm and dry. Assessment and plan: Patient is a 37-year-old female past medical history significant for seizure disorder, schizophrenia, schizoaffective disorder, headaches, and learning disabilities that presented to the emergency room complaining of a headache and anxiety attack. We are consulted for history of urinary incontinence. 1. Urinary incontinence. UA negative for UTI. Continue home ditropan. Patient to continue to follow with her primary care doctor for this as an outpatient 2. History of seizures. Continue home depakote. 3. Schizophrenia. Panic attacks. Care as per primary care team. Case was discussed in detail with the patient regarding current diagnosis and treatment plan. All questions answered. Patient's home medication for urinary incontinence restarted. We will sign off. Please reconsult if needed. Thank you for allowing us participate in the care of your patient.
--- NOTE | 2018-08-20 08:49 | PCM.PYCHPN ---
Psychiatric Progress Note - Psychiatric Progress Note Patient seen today, length of contact: 25 min Problems Identified/Issues Discussed: History of Present Illness and Precipitating Events: Shortly pt is 37yo Female with h/o schizophrenia vs schizoaffective disorder, has cognitive limitations, learning disabilities, h/o mulitple admissions in the past, Most recent was 05/27/17-06/05/17 on this unit, currently under care of [facility], "Dr. Morel", reportedly compliant with medications depakote 500 mg AMHS, Ativan 0.5 mg po bid prn, risperdal 1 mg bid and Celexa 20 mg daily who presented to the ER on 08/18/18 because of panic attacks, anxiety, CAH telling her to harm herself and VH of "people walking" Patient presented well at time of initial evaluation. She was calm and oriented to month, year, location and circumstances. She denies any new stressors precipitating increase in anxiety and hallucinations. Thought process is generally organized and focus is good. Patient has been tolerating medications that were restarted on the unit. She denies any current hallucinations however confirms ER report of CAH telling her to harm herself and VH of "people walking".. Patient has been in good control on the unit. PSYCHIATRIC HISTORY Patient has numerous admissions to this unit however her most recent admission was over a year ago 05/27/17-06/05/17. She was discharged on: celexa 20 mg PO DAILY Depakote DR BID 500 mg PO AMHS Ativan 0.5 mg PO AMHS Risperdal 1 mg PO TID SOCIAL HISTORY Patient resides with 14 yo son and cielo. Cielo is currently supervising son at this time. She denies any drug or alcohol use. Denies nicotine use. PROGRESS NOTE Patient continues to present well. She was interviewed at bedside and again during treatment team meeting. Her thought process is more organized and focused than prior admissions. She remains calm and oriented to month, year, location and circumstances. Patient has been tolerating medications that were restarted on the unit. She indicates that hallucinations mentioned in ER report (" CAH telling her to harm herself and VH of "people walking") persist but have been improving. She really does not appear to be responding to internal stimuli but she is preoccupied. Patient has been more visible on the unit and attending groups. She signed treatment plan during treatment team meeting and denied any new concerns except for her ex- needing to go to work today and her teenage son requiring supervision. Patient indicated plan to discuss with SW later today . Diagnostic Results: Schizoaffective Disorder Panic Disorder Medication Change: No Medical Record Reviewed: Yes Mental Status Examination - Cognitive Function Orientation: Person, Place, Situation Attention: WNL Concentration: WNL Association: Loose Fund of Knowledge: Poor - Mood Mood: Anxious - Affect Affect: Constricted - Formal Thought Process Formal Thought Process: No Impairment, Hallucinations ( CAH telling her to harm herself and VH of "people walking") - Suicidal Ideation Suicidal Ideation: No - Homicidal Ideation Homicidal Ideation: No Goal/Treatment Plan - Goal/Treatment Plan Progress Toward Problem(s) and Goals/Treatment Plan: * group, milieu and supportive tx * depakote 500 mg AMHS for mood control. VPA=48 on 08/18/18 * Ativan 0.5 mg po bid prn: anxiety * Risperdal 1 mg bid for hallucinations * Celexa 20 mg po daily for depression and anxiety * Appreciate f/u by Dr. Mora PGY-2 on 08/19/18~restarted Ditropan and signed off as patient was considered medically stable * Vitals reviewed and noted below: Selected Entries 08/19/18 08/19/18 07:05 16:00 Temperature 98.4 F Pulse Rate 66 59 L Respiratory 20 Rate Blood Pressure 107/70 103/52 L Please refer to findings from physical exams and ROS from 08/18/18 ER records at [facility] PER 08/18/18 ER RECORD CBC: wnl CMP: wnl Valproic Acid: 48 (low) Acetaminophen: neg Salicylate: wnl Alcohol: neg UDS: neg UA: trace blood, otherwise wnl CXR: no active disease Head CT: negative ADMISSION LABS 08/19/18 08/19/18 08/19/18 07:20 07:20 07:20 Triglycerides 81 Cholesterol 138 LDL Cholesterol Direct 85 HDL Cholesterol 34 Free T4 1.05 TSH 3rd Generation 3.92 RPR Nonreactive Laboratory Tests 08/18/18 08/18/18 08/18/18 11:30 11:30 11:30 WBC 5.8 RBC 4.26 Hgb 12.6 Hct 38.3 MCV 89.9 MCH 29.6 MCHC 32.9 RDW 13.8 Plt Count 250 MPV 9.6 Gran % 56.3 Lymph % (Auto) 33.8 [place] % (Auto) 8.7 H Eos % (Auto) 0.9 L Baso % (Auto) 0.3 Gran # 3.25 Lymph # (Auto) 2.0 [place] # (Auto) 0.5 Eos # (Auto) 0.1 Baso # (Auto) 0.02 Sodium 138 Potassium 4.2 Chloride 104 Carbon Dioxide 27 Anion Gap 12 BUN 11 Creatinine 0.7 Est GFR ( Amer) > 60 Est GFR (Non-Af Amer) > 60 Random Glucose 98 Calcium 9.5 Total Bilirubin 0.3 AST 26 ALT 33 Alkaline Phosphatase 60 Total Protein 8.3 Albumin 4.3 Globulin 4.0 Albumin/Globulin Ratio 1.1 Triglycerides Cholesterol LDL Cholesterol Direct HDL Cholesterol Free T4 TSH 3rd Generation Urine Color Yellow Urine Appearance Clear Urine pH 6.0 Ur Specific [place] 1.025 Urine Protein Negative Urine Glucose (UA) Negative Urine Ketones Negative Urine Blood Trace-intact H Urine Nitrate Negative Urine Bilirubin Negative Urine Urobilinogen 0.2 Ur Leukocyte Esterase Negative Urine RBC 2 - 5 Urine WBC 0 - 2 Ur Epithelial Cells 4 - 5 Urine Bacteria Few Urine HCG, Qual Negative Salicylates Urine Opiates Screen Urine Methadone Screen Acetaminophen Ur Barbiturates Screen Valproic Acid Ur Phencyclidine Scrn Ur Amphetamines Screen U Benzodiazepines Scrn U Oth Cocaine Metabols U Cannabinoids Screen Alcohol, Quantitative 08/18/18 08/18/18 08/18/18 11:30 11:30 11:30 WBC RBC Hgb Hct MCV MCH MCHC RDW Plt Count MPV Gran % Lymph % (Auto) [place] % (Auto) Eos % (Auto) Baso % (Auto) Gran # Lymph # (Auto) [place] # (Auto) Eos # (Auto) Baso # (Auto) Sodium Potassium Chloride Carbon Dioxide Anion Gap BUN Creatinine Est GFR ( Amer) Est GFR (Non-Af Amer) Random Glucose Calcium Total Bilirubin AST ALT Alkaline Phosphatase Total Protein Albumin Globulin Albumin/Globulin Ratio Triglycerides Cholesterol LDL Cholesterol Direct HDL Cholesterol Free T4 TSH 3rd Generation Urine Color Urine Appearance Urine pH Ur Specific [place] Urine Protein Urine Glucose (UA) Urine Ketones Urine Blood Urine Nitrate Urine Bilirubin Urine Urobilinogen Ur Leukocyte Esterase Urine RBC Urine WBC Ur Epithelial Cells Urine Bacteria Urine HCG, Qual Salicylates < 1 L Urine Opiates Screen Negative Urine Methadone Screen Negative Acetaminophen < 10.0 L Ur Barbiturates Screen Negative Valproic Acid Ur Phencyclidine Scrn Negative Ur Amphetamines Screen Negative U Benzodiazepines Scrn Negative U Oth Cocaine Metabols Negative U Cannabinoids Screen Negative Alcohol, Quantitative < 10 08/18/18 08/19/18 08/19/18 11:30 07:20 07:20 WBC RBC Hgb Hct MCV MCH MCHC RDW Plt Count MPV Gran % Lymph % (Auto) [place] % (Auto) Eos % (Auto) Baso % (Auto) Gran # Lymph # (Auto) [place] # (Auto) Eos # (Auto) Baso # (Auto) Sodium Potassium Chloride Carbon Dioxide Anion Gap BUN Creatinine Est GFR ( Amer) Est GFR (Non-Af Amer) Random Glucose Calcium Total Bilirubin AST ALT Alkaline Phosphatase Total Protein Albumin Globulin Albumin/Globulin Ratio Triglycerides 81 Cholesterol 138 LDL Cholesterol Direct 85 HDL Cholesterol 34 Free T4 1.05 TSH 3rd Generation 3.92 Urine Color Urine Appearance Urine pH Ur Specific [place] Urine Protein Urine Glucose (UA) Urine Ketones Urine Blood Urine Nitrate Urine Bilirubin Urine Urobilinogen Ur Leukocyte Esterase Urine RBC Urine WBC Ur Epithelial Cells Urine Bacteria Urine HCG, Qual Salicylates Urine Opiates Screen Urine Methadone Screen Acetaminophen Ur Barbiturates Screen Valproic Acid 48 L Ur Phencyclidine Scrn Ur Amphetamines Screen U Benzodiazepines Scrn U Oth Cocaine Metabols U Cannabinoids Screen Alcohol, Quantitative
[2018-08-20] MEDS: Divalproex 500 mg DR(BID formulation) PO SCH ×2 (09:48→21:14)
[2018-08-20] MEDS: OXYBUTYNIN CHLORIDE 5 MG PO SCH (19:05)
[2018-08-21] MEDS: OXYBUTYNIN CHLORIDE 5 MG PO SCH ×2 (06:22→17:51)
[2018-08-21] MEDS: Divalproex 500 mg DR(BID formulation) PO SCH ×2 (09:03→21:13)
--- NOTE | 2018-08-21 09:15 | PCM.PYCHPN ---
Psychiatric Progress Note - Psychiatric Progress Note Patient seen today, length of contact: 25 min Problems Identified/Issues Discussed: History of Present Illness and Precipitating Events: Shortly pt is 37yo Female with h/o schizophrenia vs schizoaffective disorder, has cognitive limitations, learning disabilities, h/o mulitple admissions in the past, Most recent was 05/27/17-06/05/17 on this unit, currently under care of [facility], "Dr. Morel", reportedly compliant with medications depakote 500 mg AMHS, Ativan 0.5 mg po bid prn, risperdal 1 mg bid and Celexa 20 mg daily who presented to the ER on 08/18/18 because of panic attacks, anxiety, CAH telling her to harm herself and VH of "people walking" Patient presented well at time of initial evaluation. She was calm and oriented to month, year, location and circumstances. She denies any new stressors precipitating increase in anxiety and hallucinations. Thought process is generally organized and focus is good. Patient has been tolerating medications that were restarted on the unit. She denies any current hallucinations however confirms ER report of CAH telling her to harm herself and VH of "people walking".. Patient has been in good control on the unit. PSYCHIATRIC HISTORY Patient has numerous admissions to this unit however her most recent admission was over a year ago 05/27/17-06/05/17. She was discharged on: celexa 20 mg PO DAILY Depakote DR BID 500 mg PO AMHS Ativan 0.5 mg PO AMHS Risperdal 1 mg PO TID SOCIAL HISTORY Patient resides with 14 yo son and cielo. Cielo is currently supervising son at this time. She denies any drug or alcohol use. Denies nicotine use. PROGRESS NOTE Patient continues to present well. She was interviewed in the dayroom. Her thought process is more organized and focused than prior admissions. She remains groomed, calm and oriented to month, year, location and circumstances. Patient has been tolerating medications that were restarted on the unit. She indicates that hallucinations mentioned in ER report (" CAH telling her to harm herself and VH of "people walking") have been improving. Auditory hallucinations appear to have remitted. She never really appeared to be responding to internal stimuli on the unit but has been quiet and at times preoccupied. Patient has been more visible on the unit and attending groups. Generally related during 1:1 questioning. She signed treatment plan during treatment team meeting on Thursday and denied any issues with her medications. There have been no behavioral issues on the unit. Diagnostic Results: Schizoaffective Disorder Panic Disorder Medication Change: No Medical Record Reviewed: Yes Mental Status Examination - Cognitive Function Orientation: Person, Place, Situation Attention: WNL Concentration: WNL Association: Loose Fund of Knowledge: Poor - Mood Mood: Anxious - Affect Affect: Constricted - Formal Thought Process Formal Thought Process: No Impairment, Hallucinations ( CAH telling her to harm herself and VH of "people walking") - Suicidal Ideation Suicidal Ideation: No - Homicidal Ideation Homicidal Ideation: No Goal/Treatment Plan - Goal/Treatment Plan Progress Toward Problem(s) and Goals/Treatment Plan: * group, milieu and supportive tx * depakote 500 mg AMHS for mood control. VPA=48 on 08/18/18 * Ativan 0.5 mg po bid prn: anxiety * Risperdal 1 mg bid for hallucinations * Celexa 20 mg po daily for depression and anxiety * Appreciate f/u by Dr. Mora PGY-2 on 08/19/18~restarted Ditropan and signed off as patient was considered medically stable * Vitals reviewed and noted below: Selected Entries 08/20/18 07:27 Temperature 98.4 F Pulse Rate 60 Respiratory 20 Rate Blood Pressure 103/67 Please refer to findings from physical exams and ROS from 08/18/18 ER records at [facility] PER 08/18/18 ER RECORD CBC: wnl CMP: wnl Valproic Acid: 48 (low) Acetaminophen: neg Salicylate: wnl Alcohol: neg UDS: neg UA: trace blood, otherwise wnl CXR: no active disease Head CT: negative ADMISSION LABS 08/19/18 08/19/18 08/19/18 07:20 07:20 07:20 Triglycerides 81 Cholesterol 138 LDL Cholesterol Direct 85 HDL Cholesterol 34 Free T4 1.05 TSH 3rd Generation 3.92 RPR Nonreactive Laboratory Tests 08/18/18 08/18/18 08/18/18 11:30 11:30 11:30 WBC 5.8 RBC 4.26 Hgb 12.6 Hct 38.3 MCV 89.9 MCH 29.6 MCHC 32.9 RDW 13.8 Plt Count 250 MPV 9.6 Gran % 56.3 Lymph % (Auto) 33.8 [place] % (Auto) 8.7 H Eos % (Auto) 0.9 L Baso % (Auto) 0.3 Gran # 3.25 Lymph # (Auto) 2.0 [place] # (Auto) 0.5 Eos # (Auto) 0.1 Baso # (Auto) 0.02 Sodium 138 Potassium 4.2 Chloride 104 Carbon Dioxide 27 Anion Gap 12 BUN 11 Creatinine 0.7 Est GFR ( Amer) > 60 Est GFR (Non-Af Amer) > 60 Random Glucose 98 Calcium 9.5 Total Bilirubin 0.3 AST 26 ALT 33 Alkaline Phosphatase 60 Total Protein 8.3 Albumin 4.3 Globulin 4.0 Albumin/Globulin Ratio 1.1 Triglycerides Cholesterol LDL Cholesterol Direct HDL Cholesterol Free T4 TSH 3rd Generation Urine Color Yellow Urine Appearance Clear Urine pH 6.0 Ur Specific [place] 1.025 Urine Protein Negative Urine Glucose (UA) Negative Urine Ketones Negative Urine Blood Trace-intact H Urine Nitrate Negative Urine Bilirubin Negative Urine Urobilinogen 0.2 Ur Leukocyte Esterase Negative Urine RBC 2 - 5 Urine WBC 0 - 2 Ur Epithelial Cells 4 - 5 Urine Bacteria Few Urine HCG, Qual Negative Salicylates Urine Opiates Screen Urine Methadone Screen Acetaminophen Ur Barbiturates Screen Valproic Acid Ur Phencyclidine Scrn Ur Amphetamines Screen U Benzodiazepines Scrn U Oth Cocaine Metabols U Cannabinoids Screen Alcohol, Quantitative 08/18/18 08/18/18 08/18/18 11:30 11:30 11:30 WBC RBC Hgb Hct MCV MCH MCHC RDW Plt Count MPV Gran % Lymph % (Auto) [place] % (Auto) Eos % (Auto) Baso % (Auto) Gran # Lymph # (Auto) [place] # (Auto) Eos # (Auto) Baso # (Auto) Sodium Potassium Chloride Carbon Dioxide Anion Gap BUN Creatinine Est GFR ( Amer) Est GFR (Non-Af Amer) Random Glucose Calcium Total Bilirubin AST ALT Alkaline Phosphatase Total Protein Albumin Globulin Albumin/Globulin Ratio Triglycerides Cholesterol LDL Cholesterol Direct HDL Cholesterol Free T4 TSH 3rd Generation Urine Color Urine Appearance Urine pH Ur Specific [place] Urine Protein Urine Glucose (UA) Urine Ketones Urine Blood Urine Nitrate Urine Bilirubin Urine Urobilinogen Ur Leukocyte Esterase Urine RBC Urine WBC Ur Epithelial Cells Urine Bacteria Urine HCG, Qual Salicylates < 1 L Urine Opiates Screen Negative Urine Methadone Screen Negative Acetaminophen < 10.0 L Ur Barbiturates Screen Negative Valproic Acid Ur Phencyclidine Scrn Negative Ur Amphetamines Screen Negative U Benzodiazepines Scrn Negative U Oth Cocaine Metabols Negative U Cannabinoids Screen Negative Alcohol, Quantitative < 10 08/18/18 08/19/18 08/19/18 11:30 07:20 07:20 WBC RBC Hgb Hct MCV MCH MCHC RDW Plt Count MPV Gran % Lymph % (Auto) [place] % (Auto) Eos % (Auto) Baso % (Auto) Gran # Lymph # (Auto) [place] # (Auto) Eos # (Auto) Baso # (Auto) Sodium Potassium Chloride Carbon Dioxide Anion Gap BUN Creatinine Est GFR ( Amer) Est GFR (Non-Af Amer) Random Glucose Calcium Total Bilirubin AST ALT Alkaline Phosphatase Total Protein Albumin Globulin Albumin/Globulin Ratio Triglycerides 81 Cholesterol 138 LDL Cholesterol Direct 85 HDL Cholesterol 34 Free T4 1.05 TSH 3rd Generation 3.92 Urine Color Urine Appearance Urine pH Ur Specific [place] Urine Protein Urine Glucose (UA) Urine Ketones Urine Blood Urine Nitrate Urine Bilirubin Urine Urobilinogen Ur Leukocyte Esterase Urine RBC Urine WBC Ur Epithelial Cells Urine Bacteria Urine HCG, Qual Salicylates Urine Opiates Screen Urine Methadone Screen Acetaminophen Ur Barbiturates Screen Valproic Acid 48 L Ur Phencyclidine Scrn Ur Amphetamines Screen U Benzodiazepines Scrn U Oth Cocaine Metabols U Cannabinoids Screen Alcohol, Quantitative
[2018-08-22 07:06] VITALS: RESP 18; TEMP 98.4
[2018-08-22] MEDS: OXYBUTYNIN CHLORIDE 5 MG PO SCH (08:43)
[2018-08-22] MEDS: Divalproex 500 mg DR(BID formulation) PO SCH (09:44)
--- NOTE | 2018-08-22 12:45 | PCM.PYCHDC ---
Mental Status Examination - Mental Status Examination Orientation: Person, Place, Situation, Time Memory: Intact Mood: Neutral Affect: Constricted (But reactive, mood congruent) Speech: Appropriate (there is some poverty of speech) Attention: WNL Concentration: WNL Association: Loose (but much improved, seems to be at her baseline) Fund of Knowledge: Poor ([place]) Formal Thought Process: No Impairment (but thought process is concrete) Description of patient's judgement and insight: Pt has improved insight into mental and medical illness, pt was compliant with medications and unit rules and regulations, pt was going to groups, was calm, cooperative, socially appropriate, no behavioral incidents, no agitation, no aggression. Psychotic Thoughts and Behaviors: Pt denied v/a/t hallucinations, denied paranoid ideation, pt does not appear to be psychotic, but thought process seems to be concrete, pt presented at her baseline of functioning. Suicidal Ideation: No Current Homicidal Ideation?: No Plan: pt adamantly denied thoughts of harming self or others denied intent or plan. Discharge Summary - Discharge Note Reason for Hospitalization: pt was admitted for evaluation of uncontrolled anxiety and psychosis, see admission note for more detailed information. Psychiatric History (includes Medical, Family, Personal Hx): pt has long and debilitating h/o schizoaffetive disorder Laboratory Data: 08/18/18 11:30 08/18/18 11:30 Lab Results 08/19/18 07:20: Triglycerides 81, Cholesterol 138, LDL Cholesterol Direct 85, HDL Cholesterol 34 08/19/18 07:20: Free T4 1.05, TSH 3rd Generation 3.92 08/19/18 07:20: RPR Nonreactive 08/18/18 11:30: Valproic Acid 48 L 08/18/18 11:30: Alcohol, Quantitative < 10 08/18/18 11:30: Salicylates < 1 L, Acetaminophen < 10.0 L 08/18/18 11:30: Urine Opiates Screen Negative, Urine Methadone Screen Negative, Ur Barbiturates Screen Negative, Ur Phencyclidine Scrn Negative, Ur Amphetamines Screen Negative, U Benzodiazepines Scrn Negative, U Oth Cocaine Metabols Negative, U Cannabinoids Screen Negative 08/18/18 11:30: Sodium 138, Potassium 4.2, Chloride 104, Carbon Dioxide 27, Anion Gap 12, BUN 11, Creatinine 0.7, Est GFR ( Amer) > 60, Est GFR (Non- Af Amer) > 60, Random Glucose 98, Calcium 9.5, Total Bilirubin 0.3, AST 26, ALT 33, Alkaline Phosphatase 60, Total Protein 8.3, Albumin 4.3, Globulin 4.0, [place] min/Globulin Ratio 1.1 08/18/18 11:30: Urine Color Yellow, Urine Appearance Clear, Urine pH 6.0, Ur Specific [place] 1.025, Urine Protein Negative, Urine Glucose (UA) Negative, Urine Ketones Negative, Urine Blood Trace-intact H, Urine Nitrate Negative, Urine Bilirubin Negative, Urine Urobilinogen 0.2, Ur Leukocyte Esterase Negative, Urine RBC 2 - 5, Urine WBC 0 - 2, Ur Epithelial Cells 4 - 5, Urine Bacteria Few, Urine HCG, Qual Negative 08/18/18 11:30: WBC 5.8, RBC 4.26, Hgb 12.6, Hct 38.3, MCV 89.9, MCH 29.6, MCHC 32.9, RDW 13.8, Plt Count 250, MPV 9.6, Gran % 56.3, Lymph % (Auto) 33.8, [place] % (Auto) 8.7 H, Eos % (Auto) 0.9 L, Baso % (Auto) 0.3, Gran # 3.25, Lymph # (Auto) 2.0, [place] # (Auto) 0.5, Eos # (Auto) 0.1, Baso # (Auto) 0.02 Vital Signs Temp Pulse Resp BP Pulse Ox 08/22/18 07:05 98.4 F 64 18 96/61 L 08/21/18 16:00 78 106/66 08/21/18 07:00 97.4 F L 56 L 16 92/51 L 08/20/18 07:27 98.4 F 60 20 103/67 08/19/18 16:00 59 L 103/52 L 08/19/18 07:05 98.4 F 66 20 107/70 08/18/18 16:55 98.2 F 72 18 99 08/18/18 16:51 98.2 F 70 18 119/87 98 08/18/18 13:05 66 16 111/72 98 08/18/18 11:45 98.1 F 08/18/18 11:05 98.1 F 78 16 125/74 99 Consultations:: List each consultation separately and include: 1. Reason for request. 2. Findings. 3. Follow-up Consultations: pt was seen by medical team no acute medical issues recommended to f/u as outpatient with her PMD Summary of Hospital Course include:: 1. Description of specific treatment plan utilized for patients during their course of treatmen. 2. Summarize the time- course for resolution of acute symptoms and/or regressed behaviors. 3. Describe issues identified and worked on during hospitalization. 4. Describe medication utilized. 5. Describe medical problems identified and treated. 6. Reassessment of suicide risk Summary of Hospital Course: as per initial assessment: Shortly pt is 37yo Female with h/o schizophrenia vs schizoaffective disorder, has cognitive limitations, learning disabilities, h/o mulitple admissions in the past, Most recent was 05/27/17-06/05/17 on this unit, currently under care of [facility], "Dr. Morel", reportedly compliant with medications depakote 500 mg AMHS, Ativan 0.5 mg po bid prn, risperdal 1 mg bid and Celexa 20 mg daily who presented to the ER on 08/18/18 because of panic attacks, anxiety, CAH telling her to harm herself and VH of "people walking", pt has good insight and as always pt brought herself to the hospital. please see initial assessment for more detailed information, pt was seen by Dr. Jeong, as per report pt was in good behavioral control, no agitation, no aggression, no psychosis, pt was compliant with medications, tolerated them well, no side effects observed or reported, AIMS 0, no EPS. pt was seen today at the [facility] area. this staff writer is very familiar with this pt from the multiple psychiatric admissions here at psychiatric inpatient unit [facility]. pt presented well, had good personal hygiene, fair eye contact, affect was reactive. pt said that she feels better, pt reported that "I got my son back, I feel very happy", as per h/o pt's son was in foster care because of behavioral issues please see pervious psych admissions for more detailed information. pt reported that she still lives with her ex- and at present moment her son who is 14 under supervision of her ex-. pt reported that "I feel much better", pt denied that she feels depressed, denied v/a/t hallucinations, reported to have good appetite and sleep. as per SW report, she attempted to contact pt's [facility] case hardener, Yanira Robbins(O:[phone]/C:[phone]). pt reported that her needs to go back to work tomorrow at 7am and pt requested to be d/c, pt said that she has next follow up appointment at [facility] scheduled on September 22, 2018 at 12:30pm with QUYEN Morel. pt also reported that she has enough meds at home, which was confirmed, pt brought all of her meds with her, the only new medication is cogentin for possible EPS. prescription was provided. pt was stabilized on the following med: celexa 20 mg PO DAILY for depression Depakote DR BID 500 mg PO AMHS for mood stabilization and seizures Ativan 0.5 mg PO AMHS for anxiety Risperdal 1 mg PO BID for psychosis Over the course of this hospitalization pt was attending groups, pt also had medication management, had therapeutic milieu. Overall pt improved significantly, pt's affect became brighter, pt was less depressed, has realistic future oriented plans "I want to go back home, take my medications and relax, I am going to take care of my son", pt also does not appear to be psychotic, pt has concrete thought process, seems to be chronic. pt has good insight deemed to be ready for discharge. At the time of the discharge pt denied been depressed, denied thoughts of freddy vickie self or others, denied psychotic symptoms, and pt does not appeared to be psychotic, denied been anxious, pt is not in imminent danger to self or others, pt was referred to outpatient program, information about follow up appointment, time and address provided to the pt, it is patient responsibility to follow up with outpatient clinic, PMD as well as specialists, pt has f/u appt at [facility] on September 22, 2018 at 12:30pm with QUYEN Morel In case pt will need to obtain results of studies pending at discharge pt was provided with contact information of Psychiatric Inpatient unit [phone] as well as Medical Record Department [phone]. pt is not using drugs, denied smoking, denied drinking alcohol. pt has prescriptions for all of medications pt was provided with only one script for Cogentin 0.5 mg po bid for EPS the rest of meds pt has home Pt was educated about safety plan in case of worsening of symptoms or in case of suicidal or homicidal ideation call 911 or go to the nearest ER, also was educated to take meds as prescribed and stay away from drugs, pt verbalized understanding. - Diagnosis (1) Borderline intellectual functioning Current Visit: Yes Status: Suspected Priority: Medium (2) Schizoaffective disorder, bipolar type Current Visit: Yes Status: Chronic Priority: High - Final Diagnosis (DSM 5) Condition upon Discharge: IMPROVED Disposition: HOME/ ROUTINE Follow-up Treatment Plan: Overall pt improved significantly, pt's affect became brighter, pt was less depressed, has realistic future oriented plans "I want to go back home, take my medications and relax, I am going to take care of my son", pt also does not appe ar to be psychotic, pt has concrete thought process, seems to be chronic. pt has good insight deemed to be ready for discharge. At the time of the discharge pt denied been depressed, denied thoughts of harming self or others, denied psychotic symptoms, and pt does not appeared to be psychotic, denied been anxious, pt is not in imminent danger to self or others, pt was referred to outpatient program, information about follow up appointment, time and address provided to the pt, it is patient responsibility to follow up with outpatient clinic, PMD as well as specialists, pt has f/u appt at [facility] on September 22, 2018 at 12:30pm with QUYEN Morel In case pt will need to obtain results of studies pending at discharge pt was provided with contact information of Psychiatric Inpatient unit [phone] as well as Medical Record Department [phone]. pt is not using drugs, denied smoking, denied drinking alcohol. pt has prescriptions for all of medications pt was provided with only one script for Cogentin 0.5 mg po bid for EPS the rest of meds pt has home Pt was educated about safety plan in case of worsening of symptoms or in case of suicidal or homicidal ideation call 911 or go to the nearest ER, also was educated to take meds as prescribed and stay away from drugs, pt verbalized understanding. Prescriptions/Medication Reconciliation: Benztropine [Cogentin] 0.5 mg PO BID #30 tab - Smoking Cessation Smoking Cessation Medication prescribed: No Reason for not providing: denies smoking - Antipsychotic Medications Pt discharged on 2 or more routine antipsychotic medications: No
[2018-08-22 18:44] VITALS: BP 118/74; PULSE 72
== END 2018-08-22 18:49 | disposition home or self-care (01) | DRG 430 ==
LOC: ED 11:04 → ERH 14:48 → PSYC 17:24
PROVIDERS: ADMIT Psychiatry & Neurology Psychiatry; ATTEND Psychiatry & Neurology Psychiatry
DX: F25.0 Schizoaffective disorder, bipolar type (principal); R32 Unspecified urinary incontinence; E11.9 Type 2 diabetes mellitus without complications; F41.1 Generalized anxiety disorder; F41.0 Panic disorder [episodic paroxysmal anxiety]; G40.909 Epilepsy, unspecified, not intractable, without status epilepticus; I10 Essential (primary) hypertension; R41.83 Borderline intellectual functioning; Z23 Encounter for immunization

== ENCOUNTER 2018-09-27 10:16 | Emergency (ER) | payer OTHER ==
[2018-09-27 10:28] VITALS: BMI 37.4
[2018-09-27 10:32] VITALS: RESP 18
--- NOTE | 2018-09-27 10:43 | ED PDOC ---
Arrival/HPI - General Chief Complaint: Female Genitourinary Historian: Patient - History of Present Illness Narrative History of Present Illness (Text): 09/27/18 10:40 37 y/o female, pmh including seizure, nkda, c/o vaginal spotting and cramp started yesterday. Pt. stated that her last period started from 09/10/2018 last to 09/12/2018, resolved, started again yesterday and heavy, associated with her usual menstrual cramp with no unusual pain, no fever or chills, no headache or night sweat, no palpitation, no rash, no other medical or psychological complaints. Past Medical History - Provider Review Nursing Documentation Reviewed: Yes - Infectious Disease Hx of Infectious Diseases: None - Tetanus Immunization Tetanus Immunization: Unknown - Cardiac Hx Cardiac Disorders: Yes Hx Hypertension: Yes (hypertension) - Pulmonary Hx Respiratory Disorders: No - Neurological Hx Neurological Disorder: Yes Hx Seizures: Yes - HEENT Hx HEENT Disorder: No - Renal Hx Renal Disorder: No - Endocrine/Metabolic Hx Endocrine Disorders: Yes Hx Diabetes Mellitus Type 2: Yes - Hematological/Oncological Hx Blood Disorders: No - Integumentary Hx Dermatological Disorder: No - Musculoskeletal/Rheumatological Hx Musculoskeletal Disorders: No - Gastrointestinal Hx Gastrointestinal Disorders: No - Genitourinary/Gynecological Hx Genitourinary Disorders: No Hx Sexually Transmitted Diseases: No - Psychiatric Hx Psychophysiologic Disorder: Yes Hx Anxiety: Yes Hx Bipolar Disorder: Yes Hx Depression: Yes Hx Schizophrenia: Yes Hx Substance Use: No Other/Comment: schizo affective disorder - Surgical History Hx Hysterectomy: Yes Hx Tubal Ligation: Yes - Anesthesia Hx Anesthesia: Yes Hx Anesthesia Reactions: No Hx Malignant Hyperthermia: No - Suicidal Assessment Feels Threatened In Home Enviroment: No Family/Social History - Physician Review Nursing Documentation Reviewed: Yes Family/Social History: Unknown Family HX Smoking Status: Never Smoked Hx Alcohol Use: No Hx Substance Use: No Hx Substance Use Treatment: No Allergies/Home Meds Allergies/Adverse Reactions: Allergies No Known Allergies Allergy (Verified 08/18/18 22:47) Denied Home Medications: Home Meds Medication Instructions Recorded Confirmed Cholecalciferol [Vitamin D 1000 IU] 1,000 iu PO QWK 08/18/18 09/27/18 Docusate [Colace] 100 mg PO BID 08/18/18 09/27/18 Multivit-Min/Iron/Folic/Pxy280 1 each PO DAILY 08/18/18 09/27/18 [Hair, Skin and Nails Caplet] Ranitidine HCl [Acid Rehabilitator] 150 mg PO BID 08/18/18 09/27/18 Review of Systems - Review of Systems Constitutional: absent: Fatigue, Fevers Eyes: absent: Vision Changes ENT: absent: Hearing Changes Respiratory: absent: SOB, Cough Cardiovascular: absent: Chest Pain Gastrointestinal: absent: Abdominal Pain, Diarrhea, Nausea, Vomiting Genitourinary Female: Vaginal Bleeding. absent: Dysuria, Frequency, Hematuria, Urine Output Changes Musculoskeletal: absent: Arthralgias, Back Pain Skin: absent: Rash, Pruritis Neurological: absent: Headache, Dizziness Psychiatric: absent: Anxiety, Depression Physical Exam Vital Signs Reviewed: Yes Vital Signs Temp Pulse Resp BP Pulse Ox 09/27/18 10:28 98.2 F 110 H 18 134/85 95 Temperature: Afebrile Blood Pressure: Normal Pulse: Tachycardic Respiratory Rate: Normal Appearance: Positive for: Well-Appearing, Non-Toxic, Comfortable Pain Distress: Mild Mental Status: Positive for: Alert and Oriented X 3 - Systems Exam Head: Present: Atraumatic, Normocephalic Pupils: Present: PERRL Extroacular Muscles: Present: EOMI Conjunctiva: Present: Normal Mouth: Present: Moist Mucous Membranes Neck: Present: Normal Range of Motion Respiratory/Chest: Present: Clear to Auscultation, Good Air Exchange. No: Respiratory Distress, Accessory Muscle Use Cardiovascular: Present: Regular Rate and Rhythm, Normal S1, S2. No: Murmurs Abdomen: No: Tenderness, Distention, Peritoneal Signs, Rebound, Guarding Genitourinary/Pelvic Exam: Present: Other (Pt. refused) Back: Present: Normal Inspection Upper Extremity: Present: Normal Inspection. No: Cyanosis, Edema Lower Extremity: Present: Normal Inspection. No: Edema Neurological: Present: GCS=15, CN II-XII Intact, Speech Normal Skin: Present: Warm, Dry, Normal Color. No: Rashes Psychiatric: Present: Alert, Oriented x 3, Normal Insight, Normal Concentration Medical Decision Making ED Course and Treatment: 09/27/18 10:43 -labs -sono -tylenol -observe and reassess 09/27/18 14:02 -Urine hcg is negative -Serum HCG is negative -Pelvic sonogram: No acute findings related to/ accounting for the clinical presentation. -Labs show no acute findings -UA show trace leuk -Pt. has no pain, no vaginal bleeding in the ER, all labs/radiology results discussed including full sonogram result and not just impression. -Discharge home with motrin, macrobid, stay hydrated, bed rest, follow up with your own pmd and obgyn within 2 days, return to the ER for any new or worsening signs or symptoms. - RAD Interpretation Radiology Orders: 09/27/18 10:38 Pelvis [PELVIS ULTRASOUND] [US] Routine Pelvic sonogram: Date of service: 09/27/2018 HISTORY: Cramping. Menorrhagia. LMP 09/10/2018. Regular cycles. COMPARISON: 02/02/2017 TECHNIQUE: Transabdominal only. Real-time technique with 2D, duplex and color Doppler FINDINGS: UTERUS: Measures 4.4 x 9.4 x 5.5 cm. Normal in size and appearance. No fibroid or other mass lesion seen. ENDOMETRIUM: Measures 6.0 mm in diameter. No ultrasound findings to suggest gestational sac, fluid, debris, mass or polyp or other pathologic process within the endometrium. CERVIX: No cervical abnormality identified. RIGHT OVARY: Measures 2.6 x 1.9 x 3.1 cm. No solid mass. Normal flow. LEFT OVARY: Measures 2.2 x 4.1 cm. No solid mass. Normal flow. Small complex cysts incompletely visualized based on location and absence of transvaginal technique. Neither larger than 1.8 cm. Similar findings identified on the prior ultrasound. FREE FLUID: No significant free fluid noted. OTHER FINDINGS: None. IMPRESSION: No acute findings related to/ accounting for the clinical presentation. Additional benign and/or incidental findings described above. Weatherization Director: Radiologist - Medication Orders Current Medication Orders: Acetaminophen (Tylenol 325mg Tab) 650 mg PO STAT STA Stop: 09/27/18 10:39 - PA / STOCK WORKER AND DELIVERER / Resident Statement MD/DO has reviewed & agrees with the documentation as recorded. Disposition/Present on Arrival - Present on Arrival Any Indicators Present on Arrival: No History of DVT/PE: No History of Uncontrolled Diabetes: No Urinary Catheter: No History of Decub. Ulcer: No History Surgical Site Infection Following: None - Disposition Have Diagnosis and Disposition been Completed?: Yes Diagnosis: Metrorrhagia, UTI (urinary tract infection), Menstrual cramp, Ovarian cyst Disposition: HOME/ ROUTINE Disposition Time: 14:03 Patient Plan: Discharge Patient Problems: Current Active Problems Problem Status Onset Metrorrhagia Acute UTI (urinary tract infection) Acute Menstrual cramp Acute Condition: IMPROVED Additional Instructions: -Discharge home with motrin, macrobid, stay hydrated, bed rest, follow up with your own pmd and obgyn within 2 days, return to the ER for any new or worsening signs or symptoms. Prescriptions: Ibuprofen [Motrin Tab] 600 mg PO QID PRN #24 tab PRN Reason: Other Nitrofurantoin Macrocrystals [Macrobid] 100 mg PO BID #14 cap Referrals: Maria Luz Carlton MD [Primary Care Provider] - Follow up with primary Hasmukh Alvarado MD [Staff Provider] - Follow up with primary Forms: [facility] ([place]), WORK NOTE
[2018-09-27 11:14] LABS: PH,URINE 6.5 (4.7-8.0); URINE BILIRUBIN NEGATIVE (NEGATIVE); URINE BLOOD LARGE (NEGATIVE); URINE GLUCOSE (UA) NEGATIVE (NEGATIVE); URINE LEUKOCYTE ESTERASE TRACE Leu/uL (NEGATIVE); URINE PROTEIN TRACE mg/dL (<30 mg/dL); URINE UROBILINOGEN 0.2 E.U./dL (<1 E.U./dL)
[2018-09-27 11:17] LABS: URINE APPEARANCE CLOUDY (CLEAR); URINE COLOR YELLOW (YELLOW)
[2018-09-27 11:18] LABS: URINE EPITHELIAL CELLS 0 - 2 /hpf (0-5); URINE RBC TNTC /hpf (0-2); URINE WBC 0 - 2 /hpf (0-6)
[2018-09-27 11:19] LABS: URINE BACTERIA TRACE /hpf
[2018-09-27 11:37] LABS: BASO # 0.03 K/mm3 (0.0-2.0); BASO % 0.4 % (0.0-3.0); EOS # 0.1 (0.0-0.7); EOS % 1.2 % (1.5-5.0); GRAN # 3.41 (1.4-6.5); GRAN % 50.9 % (50.0-68.0); HEMOGLOBIN 12.5 g/dL (12.0-16.0); LYMPH # 2.6 (1.2-3.4); LYMPH % 38.6 % (22.0-35.0); MEAN CORPUSCULAR HEMOGLOBIN 29.1 pg (25.0-35.0); MEAN CORPUSCULAR HGB CONC 32.3 g/dl (31.0-37.0); MEAN PLATELET VOLUME 9.5 fl (7.0-11.0); MONO # 0.6 (0.1-0.6); MONO % 8.9 % (1.0-6.0); RBC 4.3 10^6/uL (3.5-6.1); RED CELL DISTRIBUTION WIDTH 14.2 % (11.5-14.5); WHITE BLOOD COUNT 6.7 10^3/uL (4.5-11.0)
[2018-09-27 11:51] LABS: ALB/GLOB RATIO 1.1 (1.1-1.8); ALBUMIN 4.5 g/dL (3.0-4.8); ALT/SGPT 26 U/L (7-56); AST/SGOT 28 U/L (14-36); BLOOD UREA NITROGEN 6 mg/dL (7-21); CALCIUM 9.9 mg/dL (8.4-10.5); GFR NON-AFRICAN AMERICAN > 60
--- NOTE | 2018-09-27 13:48 | US ---
Date of service: 09/27/2018 HISTORY: Cramping. Menorrhagia. LMP 09/10/2018. Regular cycles. COMPARISON: 02/02/2017 TECHNIQUE: Transabdominal only. Real-time technique with 2D, duplex and color Doppler FINDINGS: UTERUS: Measures 4.4 x 9.4 x 5.5 cm. Normal in size and appearance. No fibroid or other mass lesion seen. ENDOMETRIUM: Measures 6.0 mm in diameter. No ultrasound findings to suggest gestational sac, fluid, debris, mass or polyp or other pathologic process within the endometrium. CERVIX: No cervical abnormality identified. RIGHT OVARY: Measures 2.6 x 1.9 x 3.1 cm. No solid mass. Normal flow. LEFT OVARY: Measures 2.2 x 4.1 cm. No solid mass. Normal flow. Small complex cysts incompletely visualized based on location and absence of transvaginal technique. Neither larger than 1.8 cm. Similar findings identified on the prior ultrasound. FREE FLUID: No significant free fluid noted. OTHER FINDINGS: None. IMPRESSION: No acute findings related to/ accounting for the clinical presentation. Additional benign and/or incidental findings described above.
[2018-09-27 14:10] VITALS: BP 106/65; PULSE 84; TEMP 98; O2SAT 98
== END 2018-09-27 14:09 | disposition home or self-care (01) ==
LOC: ED 10:16
DX: N39.0 Urinary tract infection, site not specified (principal); N92.1 Excessive and frequent menstruation with irregular cycle; N83.209 Unspecified ovarian cyst, unspecified side; N94.6 Dysmenorrhea, unspecified; E11.9 Type 2 diabetes mellitus without complications; I10 Essential (primary) hypertension

== ENCOUNTER 2018-11-24 11:33 | Emergency (ER) | payer OTHER ==
[2018-11-24 11:52] VITALS: BMI 32.3
[2018-11-24 11:57] VITALS: RESP 18; TEMP 98.2; O2SAT 96
--- NOTE | 2018-11-24 12:24 | ED PDOC ---
Arrival/HPI - General Chief Complaint: Trauma Time Seen by Provider: 11/24/18 12:02 Historian: Patient - History of Present Illness Narrative History of Present Illness (Text): 11/24/18 12:02 38 F with hx of headaches, seizure, hypertension, schizophrenia, and bipolar disorder, who presents to emergency department complaining of neck pain, back pain, and headache after panic attack last night. Patient notes loss of consciousness and hit her head. Patient also notes numbness on her arms and face before loosing consciousness. Patient states she felt dizzy when she woke up. Patient denies fevers, chills, chest pain, shortness of breath, dyspnea on exertion, cough, abdominal pain, nausea, vomiting, diarrhea, or any other complaint. Time/Duration: 24 hours Symptom Onset: Sudden Symptom Course: Unchanged Activities at Onset: Light Context: Home Past Medical History - Provider Review Nursing Documentation Reviewed: Yes - Infectious Disease Hx of Infectious Diseases: None - Tetanus Immunization Tetanus Immunization: Unknown - Cardiac Hx Cardiac Disorders: Yes Hx Hypertension: Yes (hypertension) - Pulmonary Hx Respiratory Disorders: No - Neurological Hx Neurological Disorder: Yes Hx Seizures: Yes - HEENT Hx HEENT Disorder: No - Renal Hx Renal Disorder: No - Endocrine/Metabolic Hx Endocrine Disorders: Yes Hx Diabetes Mellitus Type 2: Yes - Hematological/Oncological Hx Blood Disorders: No - Integumentary Hx Dermatological Disorder: No - Musculoskeletal/Rheumatological Hx Musculoskeletal Disorders: No - Gastrointestinal Hx Gastrointestinal Disorders: No - Genitourinary/Gynecological Hx Genitourinary Disorders: No Hx Sexually Transmitted Diseases: No - Psychiatric Hx Psychophysiologic Disorder: Yes Hx Anxiety: Yes Hx Bipolar Disorder: Yes Hx Depression: Yes Hx Schizophrenia: Yes Hx Substance Use: No Other/Comment: schizo affective disorder - Surgical History Hx Hysterectomy: Yes Hx Tubal Ligation: Yes - Anesthesia Hx Anesthesia: Yes Hx Anesthesia Reactions: No Hx Malignant Hyperthermia: No - Suicidal Assessment Feels Threatened In Home Enviroment: No Family/Social History - Physician Review Nursing Documentation Reviewed: Yes Family/Social History: No Known Family HX Smoking Status: Never Smoked Hx Alcohol Use: No Hx Substance Use: No Hx Substance Use Treatment: No Allergies/Home Meds Allergies/Adverse Reactions: Allergies No Known Allergies Allergy (Verified 08/18/18 22:47) Denied Home Medications: Home Meds Medication Instructions Recorded Confirmed Citalopram Hydrobromide 1 tab PO DAILY 11/24/18 11/24/18 [Citalopram HBr] Divalproex [Depakote DR(*BID*)] 1 tab PO BID 11/24/18 11/24/18 LORazepam [Ativan] 1 tab PO BID PRN 11/24/18 11/24/18 Oxybutynin Chloride [Ditropan Xl] 1 tab PO Q12H 11/24/18 11/24/18 Risperidone [Risperdal] 1 tab PO BID 11/24/18 11/24/18 Review of Systems - Physician Review All systems were reviewed & negative as marked: Yes - Review of Systems Constitutional: absent: Fevers, Night Sweats Respiratory: absent: SOB, Cough Cardiovascular: absent: Chest Pain, MANZANO Gastrointestinal: absent: Abdominal Pain, Diarrhea, Nausea, Vomiting Musculoskeletal: Back Pain, Neck Pain Neurological: Headache, Dizziness, Other (loss of consciousness) Psychiatric: Other (Panic attack) Physical Exam - Physical Exam Narrative Physical Exam (Text): 11/24/18 12:02 Gen: VS reviewed, alert, well developed, well nourished, nontoxic, mild distress. ENT: normal pharynx. Eye: EOMI, PERRL. Neck: no JVD, supple, no adenopathy. CV: regular rate, regular rhythm, no rubs, no murmur, no gallops, S1, S2, pulses equal and strong. Pulm: no distress, clear to auscultation, no wheeze, no rhonchi, breath sounds equal, no rales. Chest: right lower posterior ribcage tenderness Back: midline cervical spine tenderness Abd: soft, nontender, no guarding, no rebound, no rigidity, normal bowel sounds. Ext: no edema. Skin: good color, no rash, no cyanosis. Psych: responds appropriately to questions, normal affect. Neuro: oriented x 3, CN2-12 intact grossly, motor intact, sensation intact. Vital Signs Reviewed: Yes Vital Signs Temp Pulse Resp BP Pulse Ox 11/24/18 11:57 98.2 F 83 18 102/67 96 Temperature: Afebrile Blood Pressure: Normal Pulse: Regular Respiratory Rate: Normal Appearance: Positive for: Well-Appearing, Non-Toxic, Comfortable Pain Distress: None Mental Status: Positive for: Alert and Oriented X 3 Medical Decision Making ED Course and Treatment: 11/24/18 13:50 patient was seen for syncopal event, sustained head injury and c/p neck pain, also c/o right lower ribcage pain. CT was done to rule out traumatic injury. xray unremarkable. tx with nsaids and refer to pcp for further workup regarding syncope. - RAD Interpretation Narrative RAD Interpretations (Text): 11/24/18 13:20 CT C-Spine w/o contrast shows: IMPRESSION: Unremarkable CT of the cervical spine. No acute fracture 11/24/18 13:22 Rib X-Ray shows: IMPRESSION: Unremarkable radiographs of the chest and right ribs. No right rib fracture. Radiology Orders: 11/24/18 12:11 CERVICAL SPINE W/O CONTRAST [CT] Stat RIBS RIGHT & PA CHEST [RAD] Stat Tafe Lecturer: Radiologist - EKG Interpretation EKG Interpretation (Text): 11/24/18 13:48 1223: ekg my read: nsr at 72 bpm, nml qrs, nml axis, no acute sttw abn Interpreted by ED Physician: Yes - Scribe Statement The provider has reviewed the documentation as recorded by the Scribe Hugo Bravo All medical record entries made by the Scribe were at my direction and personally dictated by me. I have reviewed the chart and agree that the record accurately reflects my personal performance of the history, physical exam, medical decision making, and the department course for this patient. I have also personally directed, reviewed, and agree with the discharge instructions and disposition. Disposition/Present on Arrival - Present on Arrival Any Indicators Present on Arrival: No History of DVT/PE: No History of Uncontrolled Diabetes: No Urinary Catheter: No History of Decub. Ulcer: No History Surgical Site Infection Following: None - Disposition Have Diagnosis and Disposition been Completed?: Yes Diagnosis: Syncope, Head injury, Contusion of rib Disposition: HOME/ ROUTINE Disposition Time: 13:49 Patient Plan: Discharge Patient Problems: Current Active Problems Problem Status Onset Contusion of rib Acute Head injury Acute Syncope Acute Condition: STABLE Discharge Instructions (ExitCare): Syncope (ED) Referrals: Maria Luz Carlton MD [Primary Care Provider] - Follow up with primary Forms: [employer] ([place])
[2018-11-24 13:05] LABS: BASO # 0.03 K/mm3 (0.0-2.0); BASO % 0.4 % (0.0-3.0); EOS % 0.5 % (1.5-5.0); HEMOGLOBIN 12.7 g/dL (12.0-16.0); LYMPH # 2.4 (1.2-3.4); LYMPH % 31.6 % (22.0-35.0); MEAN CELL VOLUME 89.8 fl (80.0-105.0); MEAN CORPUSCULAR HEMOGLOBIN 29.4 pg (25.0-35.0); MEAN CORPUSCULAR HGB CONC 32.7 g/dl (31.0-37.0); MEAN PLATELET VOLUME 9.8 fl (7.0-11.0); MONO # 0.5 (0.1-0.6); MONO % 6.9 % (1.0-6.0); RBC 4.32 10^6/uL (3.5-6.1); RED CELL DISTRIBUTION WIDTH 14.3 % (11.5-14.5); WHITE BLOOD COUNT 7.7 10^3/uL (4.5-11.0)
[2018-11-24 13:12] LABS: ALB/GLOB RATIO 1.2 (1.1-1.8); ALBUMIN 4.5 g/dL (3.0-4.8); ALT/SGPT 11 U/L (7-56); AST/SGOT 27 U/L (14-36); BLOOD UREA NITROGEN 8 mg/dL (7-21); CALCIUM 9.6 mg/dL (8.4-10.5); GFR NON-AFRICAN AMERICAN > 60
--- NOTE | 2018-11-24 13:24 | CT ---
Date of service: 11/24/2018 PROCEDURE: CT Cervical Spine without contrast HISTORY: trauma, neck pain COMPARISON: None available. TECHNIQUE: Axial computed tomography images were obtained of the cervical spine without the use of intravenous contrast. Coronal and sagittal reformatted images were created and reviewed. Radiation dose: Total exam DLP = 838.31 mGy-cm. This CT exam was performed using one or more of the following dose reduction techniques: Automated exposure control, adjustment of the mA and/or kV according to patient size, and/or use of iterative reconstruction technique. FINDINGS: VERTEBRAE: No fracture. Straightening of the cervical spine. No destructive bony lesion. DISCS/SPINAL CANAL/NEURAL FORAMINA: No significant central canal or neural foraminal stenosis. Discs heights are grossly preserved. PARASPINAL SOFT TISSUES: Unremarkable. OTHER FINDINGS: None. IMPRESSION: Unremarkable CT of the cervical spine. No acute fracture
--- NOTE | 2018-11-24 13:26 | RAD ---
Date of service: 11/24/2018 PROCEDURE: Radiographs of the Chest and Right Ribs. HISTORY: fall, injury COMPARISON: None available. TECHNIQUE: Frontal radiograph of the chest and multiple oblique radiographs of the right ribs were obtained. FINDINGS: RIGHT RIBS: No fracture or focal lesion visualized. LUNGS: Clear. PLEURA: No pneumothorax or pleural fluid. CARDIOVASCULAR: Normal cardiac size. No pulmonary vascular congestion. No aortic atherosclerotic calcification present OTHER FINDINGS: None. IMPRESSION: Unremarkable radiographs of the chest and right ribs. No right rib fracture.
[2018-11-24 13:37] VITALS: BP 104/68; PULSE 78
--- NOTE | 2018-11-24 18:42 | CARD ---
APPROVED REPORT Date of service: 11/24/2018 EKG Measurement Heart [id number] [id number] <Conclusion> Normal sinus rhythm Normal ECG
== END 2018-11-24 14:06 | disposition home or self-care (01) ==
LOC: ED 11:33
DX: S09.90XA Unspecified injury of head, initial encounter (principal); S20.219A Contusion of unspecified front wall of thorax, initial encounter; X58.XXXA Exposure to other specified factors, initial encounter; I10 Essential (primary) hypertension; E11.9 Type 2 diabetes mellitus without complications

== ENCOUNTER 2018-12-23 12:19 | Emergency (ER) | payer OTHER ==
[2018-12-23 12:53] VITALS: PULSE 74; TEMP 98.3
[2018-12-23 12:56] VITALS: BMI 28.0
[2018-12-23] MEDS ORDERED: Morphine 4 mg/ml ISec IVP STA (13:01)
--- NOTE | 2018-12-23 13:09 | ED PDOC ---
Arrival/HPI - General Time Seen by Provider: 12/23/18 12:42 Historian: Patient - History of Present Illness Narrative History of Present Illness (Text): 12/23/18 13:03 38 y/o F with pmh of hysterectomy and psychiatric history presents complaining of bilateral leg and foot swelling x3days. Patient reports that she went to her PCP earlier today and was told to present to the emergency department for analysis. Patient also complains of back pain and sob when walking but no orthopnea. Patient mentions that she currently takes prescribed medications for her mental health. Patient denies any fevers, chills, headache, dizziness, cough, diaphoresis, abdominal pain, nausea, vomiting, diarrhea, chest pain, neck pain, or any other complaint. PCP: Dr. Maria Luz Carlton Time/Duration: < week Symptom Onset: Sudden Symptom Course: Unchanged Activities at Onset: Light Context: Home Past Medical History - Provider Review Nursing Documentation Reviewed: Yes - Infectious Disease Hx of Infectious Diseases: None - Tetanus Immunization Tetanus Immunization: Unknown - Cardiac Hx Cardiac Disorders: Yes Hx Hypertension: Yes (hypertension) - Pulmonary Hx Respiratory Disorders: No - Neurological Hx Neurological Disorder: Yes Hx Seizures: Yes - HEENT Hx HEENT Disorder: No - Renal Hx Renal Disorder: No - Endocrine/Metabolic Hx Endocrine Disorders: Yes Hx Diabetes Mellitus Type 2: Yes - Hematological/Oncological Hx Blood Disorders: No - Integumentary Hx Dermatological Disorder: No - Musculoskeletal/Rheumatological Hx Musculoskeletal Disorders: No - Gastrointestinal Hx Gastrointestinal Disorders: No - Genitourinary/Gynecological Hx Genitourinary Disorders: No Hx Sexually Transmitted Diseases: No - Psychiatric Hx Psychophysiologic Disorder: Yes Hx Anxiety: Yes Hx Bipolar Disorder: Yes Hx Depression: Yes Hx Schizophrenia: Yes Hx Substance Use: No Other/Comment: schizo affective disorder - Surgical History Hx Hysterectomy: Yes Hx Tubal Ligation: Yes - Anesthesia Hx Anesthesia: Yes Hx Anesthesia Reactions: No Hx Malignant Hyperthermia: No - Suicidal Assessment Feels Threatened In Home Enviroment: No Family/Social History - Physician Review Nursing Documentation Reviewed: Yes Family/Social History: Unknown Family HX Smoking Status: Never Smoked Hx Alcohol Use: No Hx Substance Use: No Hx Substance Use Treatment: No Allergies/Home Meds Allergies/Adverse Reactions: Allergies No Known Allergies Allergy (Verified 08/18/18 22:47) Denied Home Medications: Home Meds Medication Instructions Recorded Confirmed Citalopram Hydrobromide 1 tab PO DAILY 11/24/18 12/23/18 [Citalopram HBr] Divalproex [Depakote DR(*BID*)] 1 tab PO BID 11/24/18 12/23/18 LORazepam [Ativan] 1 tab PO BID PRN 11/24/18 12/23/18 Oxybutynin Chloride [Ditropan Xl] 1 tab PO Q12H 11/24/18 12/23/18 Risperidone [Risperdal] 1 tab PO BID 11/24/18 12/23/18 Review of Systems - Physician Review All systems were reviewed & negative as marked: Yes - Review of Systems Constitutional: Normal Eyes: Normal ENT: Normal Respiratory: SOB (when walking) Cardiovascular: Normal. absent: Chest Pain Gastrointestinal: absent: Abdominal Pain, Diarrhea, Nausea, Vomiting Genitourinary Female: Normal Musculoskeletal: Back Pain, Other (bilateral leg and foot swelling) Skin: Normal Neurological: Normal Endocrine: Normal Hemo/Lymphatic: Normal Psychiatric: Normal Physical Exam Vital Signs Reviewed: Yes Vital Signs Temp Pulse Resp BP Pulse Ox 12/23/18 12:51 98.3 F 74 16 102/62 98 Temperature: Afebrile Blood Pressure: Normal Pulse: Regular Respiratory Rate: Normal Appearance: Positive for: Well-Appearing, Non-Toxic, Comfortable Pain Distress: Mild Mental Status: Positive for: Alert and Oriented X 3 - Systems Exam Head: Present: Atraumatic, Normocephalic Pupils: Present: PERRL Extroacular Muscles: Present: EOMI Conjunctiva: Present: Normal Mouth: Present: Moist Mucous Membranes Neck: Present: Normal Range of Motion Respiratory/Chest: Present: Clear to Auscultation, Good Air Exchange. No: Respiratory Distress, Accessory Muscle Use Cardiovascular: Present: Regular Rate and Rhythm, Normal S1, S2. No: Murmurs Abdomen: No: Tenderness, Distention, Peritoneal Signs Back: Present: Normal Inspection Upper Extremity: Present: Normal Inspection. No: Cyanosis, Edema Lower Extremity: Present: Edema (bilateral leg and foot), Tenderness (knee tenderness to palpation) Neurological: Present: GCS=15, Speech Normal Skin: Present: Warm, Dry, Normal Color. No: Rashes Psychiatric: Present: Alert, Oriented x 3, Normal Insight, Normal Concentration Medical Decision Making ED Course and Treatment: 12/23/18 13:13 Impression: 38 y/o F presents complaining of bilateral leg and foot swelling x3days Differential Diagnosis included but are not limited to: -- CHF -- PR -- DVT Plan: -- Labs -- EKG -- CXR -- Morphone -- Lower Extremity Ultra sound -- Reassess and disposition Prior Visits: Notes and results from previous visits were reviewed. Progress Notes: - RAD Interpretation Narrative RAD Interpretations (Text): 12/23/18 14:50 Chest X-Ray -- No active disease 12/23/18 15:33 Lower Extremity Ultrasound --No sonographic evidence for deep venous thrombosis in the visualized segments of both lower extremities Radiology Orders: 12/23/18 12:59 CHEST PORTABLE [RAD] Stat DUPLEX LOWER EXTRM VEIN BILAT [US] Stat Skeiner: Radiologist - EKG Interpretation EKG Interpretation (Text): 12/23/18 13:34 EKG shows NSR at 66 BPM with normal QRS, normal axis, normal intervals, no acute ST/T wave abnormalities. Interpreted by me. Interpreted by ED Physician: Yes Type: 12 lead EKG - Medication Orders Current Medication Orders: Discontinued Medications Morphine Sulfate (Morphine) 4 mg IVP STAT STA Stop: 12/23/18 13:02 - Scribe Statement The provider has reviewed the documentation as recorded by the Guillermo Quick All medical record entries made by the Zacibsteve were at my direction and personally dictated by me. I have reviewed the chart and agree that the record accurately reflects my personal performance of the history, physical exam, medical decision making, and the department course for this patient. I have also personally directed, reviewed, and agree with the discharge instructions and disposition. Disposition/Present on Arrival - Present on Arrival History of DVT/PE: No History of Uncontrolled Diabetes: No Urinary Catheter: No History Surgical Site Infection Following: None - Disposition Diagnosis: Leg pain, Back pain Disposition: HOME/ ROUTINE Patient Problems: Current Active Problems Problem Status Onset Back pain Acute Leg pain Acute Condition: GOOD Discharge Instructions (ExitCare): Muscle Strain, Lower Extremity Muscle Strain Prescriptions: Ibuprofen [Motrin] 600 mg PO Q6 #20 tab Referrals: Maria Luz Carlton MD [Primary Care Provider] - Follow up with primary
[2018-12-23 13:32] LABS: BASO # 0.02 K/mm3 (0.0-2.0); BASO % 0.3 % (0.0-3.0); EOS # 0.1 (0.0-0.7); EOS % 1.2 % (1.5-5.0); LYMPH # 2.8 (1.2-3.4); LYMPH % 40.3 % (22.0-35.0); MEAN CELL VOLUME 90.1 fl (80.0-105.0); MEAN CORPUSCULAR HEMOGLOBIN 29.8 pg (25.0-35.0); MEAN CORPUSCULAR HGB CONC 33.1 g/dl (31.0-37.0); MEAN PLATELET VOLUME 9.4 fl (7.0-11.0); MONO # 0.7 (0.1-0.6); MONO % 9.8 % (1.0-6.0); RBC 4.03 10^6/uL (3.5-6.1); RED CELL DISTRIBUTION WIDTH 14.3 % (11.5-14.5); WHITE BLOOD COUNT 6.9 10^3/uL (4.5-11.0)
[2018-12-23 13:42] LABS: BLOOD UREA NITROGEN 7 mg/dL (7-21); CALCIUM 9.3 mg/dL (8.4-10.5); GFR NON-AFRICAN AMERICAN > 60
[2018-12-23 13:53] LABS: TROPONIN I < 0.01 ng/mL
[2018-12-23 13:57] LABS: CK-MB 1.4 ng/mL (0.0-3.6)
--- NOTE | 2018-12-23 14:47 | RAD ---
Date of service: 12/23/2018 HISTORY: shortness of breath COMPARISON: 11/24/2018 TECHNIQUE: 1 view obtained. FINDINGS: LUNGS: No active pulmonary disease. PLEURA: No significant pleural effusion identified, no pneumothorax apparent. CARDIOVASCULAR: No aortic atherosclerotic calcification present. Normal cardiac size. No pulmonary vascular congestion. OSSEOUS STRUCTURES: No significant abnormalities. VISUALIZED UPPER ABDOMEN: Normal. OTHER FINDINGS: None. IMPRESSION: No active disease.
[2018-12-23 15:56] VITALS: BP 102/52; RESP 17; O2SAT 94
--- NOTE | 2018-12-23 16:03 | CARD ---
APPROVED REPORT Date of service: 12/23/2018 EKG Measurement Heart [id number] <Conclusion> Normal sinus rhythm with sinus arrhythmia Normal ECG
== END 2018-12-23 16:20 | disposition home or self-care (01) ==
LOC: ED 12:19
DX: M79.605 Pain in left leg (principal); M79.604 Pain in right leg; M54.9 Dorsalgia, unspecified; I10 Essential (primary) hypertension; E11.9 Type 2 diabetes mellitus without complications